=== PATIENT | male | born 1945 | race Caucasian/White ===

== ENCOUNTER → 2016-06-17 | Outpatient (CLI) | payer OTHER ==
[~2016-06-17] MED LIST: ALBU1AER9 INH; ASPCH81X PO; ATOR-26 PO; CETI10CH PO; CITA10TA8 PO; CLBCRM30 EXT; CLOP1TAB15 PO; FLUT0.0529; METO50TA16 PO; NRV/5 PO; NTRGSL/4 UT; OMEP40CA PO; PRS5 PO; TAMS0.4C59 PO
--- NOTE | 2016-06-17 14:53 | DIAGNOSTIC IMAGING REPORT ---
KUB CLINICAL HISTORY: Ureteral calculus COMPARISON STUDY: 06/17/2015 FINDINGS: There is no pathologic bowel dilatation. There are surgical clips in the right upper quadrant consistent with a prior cholecystectomy. There are vascular calcifications located superior to the left kidney. There are no calcification suspicious for renal calculi. Pelvic basin calcifications remain unchanged the prior study, and likely represent phleboliths. IMPRESSION: 1. No evidence of pathologic bowel dilatation 2. No urinary tract calculi identified on conventional radiographic imaging Electronically signed by: Ankit Whipple M.D. 06/17/2016 2:51 PM
== END | disposition home or self-care (01) ==
LOC: C.RAD 14:36
PROVIDERS: ATTEND Urology
DX: N20.1 Calculus of ureter (principal)

== ENCOUNTER 2020-03-23 15:05 | Inpatient (IN) ==
[2020-03-23] MEDS ORDERED: ONDANSETRON INJ 2 MG/ML 2 ML VIAL IV STA (15:27)
[2020-03-23] MEDS ORDERED: fentaNYL citrate 100 MCG/2 ML VIAL IV PRN (15:27)
[2020-03-23] MEDS ORDERED: SODIUM CHLORIDE 0.9% 1000ML 1,000 ML IV SCH (15:30)
--- NOTE | 2020-03-23 15:46 | Emergency Department Note ---
Impression & Plan Acute pancreatitis, Abdominal pain, acute, epigastric ED Provider Note NAME: MONTEZ HAYNES AGE: 74 SEX: M : 1945 ARRIVES VIA: Walk-In INFORMANT: Patient, ED PROVIDER(S): Gael Gallegos DO CHIEF COMPLAINT: Abdominal pain HPI: The patient is a 74-year-old male who presented to the emergency department for an evaluation of left-sided abdominal pain. The patient describes left sided abdominal pain which goes into his left flank and into his left lower quadrant. He also has pain into his prostate. He denies having any dysuria or frequency. He is noticed no hematuria. He does have a history of kidney stones but states the pain was different. He denies having any fever nausea or vomiting. He has had no diarrhea. He states the pain began last evening abruptly. He states he did not see his primary care physician or contact his primary care physician for this pain. The patient tried [id number] pain medication last evening without relief. He is never had a history of diverticulitis. He notices no chest pain or difficulty breathing. ROS: See above HPI for pertinent positives & negatives. A total of 10 systems reviewed and were otherwise negative. PAST MEDICAL HISTORY: See Below PAST SURGICAL HISTORY: See Below FAMILY HISTORY: See Below SOCIAL HISTORY: See Below HOME MEDICATIONS: See Below ALLERGIES: See Below VITALS: See Below PHYSICAL EXAMINATION: GENERAL: Patient is awake alert in no acute distress patient is resting comfortably and showing no signs of anxiety EYES: The conjunctivae are clear. The pupils are round and reactive. EARS, NOSE, MOUTH AND THROAT: The nose is without any evidence of any deformity. Mucous membranes are moist. Tongue is midline. NECK: The neck is nontender and supple. RESPIRATORY: Normal respiratory effort is noted there is no evidence of wheezing rhonchi or rales CARDIOVASCULAR: Regular rate and rhythm noted there no murmurs rubs or gallops normal S1 normal S2. GASTROINTESTINAL: The abdomen is soft and moderately distended. There is left- sided tenderness to palpation but no guarding or rigidity. BACK: No midline tenderness or or step-off noted range of motion in flexion extension as well as rotation no signs of muscle spasm noted MUSCULOSKELETAL/EXTREMITIES: There is no evidence of gross deformity full range of motion is noted in the hips and shoulders. SKIN: There is no obvious evidence of any rash. There are no petechiae, pallor or cyanosis noted. NEUROLOGIC: Patient is awake alert and oriented x3 strength is symmetric patellar reflexes are 2+ bilaterally MEDICAL DECISION MAKING: The patient is a 74-year-old male who denies any current alcohol use who prese nted to the emergency department for an evaluation of abdominal pain. The patient had left-sided abdominal pain initially. The patient was found to have epigastric pain on subsequent reevaluation. I discussed the patient's laboratory and radiographic studies with him. He was found to have an elevated lipase as well as a CAT scan consistent with pancreatitis. He did have a low- grade fever. The patient was reevaluated multiple times. [facility] have agreed to evaluate the patient in the emergency department for further management and disposition. Triage Nursing notes reviewed. Prior medical records reviewed Vital Signs: reviewed and remarkable for elevated blood pressure and low-grade fever. Differential diagnosis: Appendicitis, testicular torsion, infections, diverticulitis, UTI, obstruction, mesenteric ischemia, aortic pathology, inflammatory bowel disease, renal colic, PUD, pancreatitis, biliary pathology, hernia, volvulus, constipation, as well as other pathologies. ER treatment provided: See below Diagnostics interpreted by me: ECG: none Cardiac Monitoring: An order was placed for continuous cardiac monitoring. The monitor shows a rate of 70 bpm with sinus rhythm. Laboratory studies: As stated above and show below. Imaging studies: See below Consultation(s): 1800: I discussed this case with Dr. Moulton who is [facility] She will evaluate the patient in the emergency department for further management and disposition. Past Med/Surg History Medical History Acid reflux Anxiety and depression CAD in [place] artery Colitis DIETARY CONTROLLED Dyslipidemia, goal LDL below 70 Hiatal hernia History of kidney stones HTN, goal below 130/80 Myocardial infarction Rotator cuff dysfunction LEFT/ OLD INJURY Seasonal allergies Sleep apnea CPAP SOB (shortness of breath) on exertion PT REPORTS CARDIO IS AWARE ST elevation (STEMI) myocardial infarction APR 2018 - "ANGIOPLASTY" - DENIES STENT INSERTION ([facility]) Surgical History History of angioplasty History of colonoscopy History of hemorrhoidectomy History of laparoscopic cholecystectomy History of reduction of closed fracture LEFT ARM History of right cataract extraction S/P cardiac catheterization Myocardial infarction 2001, with PCI of circumflex. Cardiac catheterization 2003 demonstrating patent circumflex stent. Catheterization April 2013 with bare-metal stenting to the proximal and mid right coronary artery. Catheterization 2015 demonstrating patent stents and moderate nonobstructive CAD. Family History Brother CAD in [place] artery Coronary artery bypass grafting x4 at age 68 Mother CAD in [place] artery Social History Smoking Status: Former smoker Second Hand Exposure: No; Hx Alcohol Use: Yes Alcohol type: wine Hx Substance Use: No Preferred Language: Bolivian Communication Ability: Effective Insurance Loss Assessor Required: No Beliefs That Will Affect Care: None Current Living Situation: Alone Feels Safe at Home: Yes Assistive Devices: Glasses Allergies Allergies Allergy/AdvReac Type Severity Reaction Status Date / Time Iodinated Contrast Media Allergy Mild "IVP DYE" Verified 08/16/19 20:41 HIVES Home Meds Home Medications Medication Instructions Recorded Confirmed albuterol sulfate 2 puff INHALATION UD PRN 05/01/18 08/16/19 amlodipine 5 mg PO QAM 05/01/18 08/16/19 atorvastatin 80 mg PO QAM 05/01/18 08/16/19 cetirizine [Zyrtec] 10 mg PO DAILY 05/01/18 08/16/19 finasteride 5 mg PO QAM 05/01/18 08/16/19 nitroglycerin 0.4 mg SUBLINGUAL UD PRN 05/01/18 08/16/19 pantoprazole 40 mg PO QAM 05/01/18 08/16/19 Centrum Silver Men 1 tab PO DAILY 03/20/19 08/16/19 colestipol 1 g PO UD PRN 03/20/19 08/16/19 citalopram 20 mg PO DAILY 08/16/19 08/16/19 lisinopril 10 mg PO DAILY 08/16/19 08/16/19 metoprolol succinate 25 mg PO BID 08/16/19 08/16/19 pantoprazole 40 mg PO DAILY 08/16/19 08/16/19 Previous Rx's Medication Instructions Recorded aspirin [Ecotrin Low Strength] 81 mg PO QAM #30 tab 05/04/18 ondansetron 4 mg PO Q6H PRN #14 tab 08/16/19 Results & Data (ED) Vital Signs Vital Signs - 24 hr 03/23/20 15:20 03/23/20 16:30 03/23/20 16:45 Temperature 37.7 C H Temperature Source Oral Pulse Rate 65 60 62 Pulse Rate from SpO2 Sensor 60 61 Respiratory Rate 20 23 24 Blood Pressure 177/97 H Blood Pressure Mean 123 Pulse Oximetry 96 95 97 Oxygen Delivery Method Room Air Sepsis Recent Fever Within 48 Hours No Sepsis New/Unexplained Change in Mental Status No Sepsis Action Taken by Nursing No Action Required 03/23/20 17:01 03/23/20 17:34 Temperature Temperature Source Pulse Rate 61 Pulse Rate from SpO2 Sensor 61 67 Respiratory Rate 21 Blood Pressure Blood Pressure Mean Pulse Oximetry 97 96 Oxygen Delivery Method Sepsis Recent Fever Within 48 Hours Sepsis New/Unexplained Change in Mental Status Sepsis Action Taken by Half-Way Medications Current Medication List: was personally reviewed by me Laboratory Data Attestation: I reviewed the patient's lab results. Result diagrams: 03/23/20 15:39 03/23/20 15:39 Lab Results 03/23/20 03/23/20 03/23/20 Range/Units 15:39 15:39 15:40 WBC 12.91 H (4.8-10.8) K/uL RBC 5.17 (4.7-6.1) M/uL Hgb 16.7 (14.0-18.0) g/dL Hct 47.0 (42-52) % MCV 90.9 (80-100) fL MCH 32.3 (25-34) pg MCHC 35.5 (32-36) g/dL RDW Std Deviation 42.7 (36.4-46.3) fL RDW Coeff of [place] 12.9 (11.5-14.5) % Plt Count 240 (130-400) K/uL MPV 10.1 (7.4-10.4) fL Immature Gran % (Auto) 0.2 % Neut % (Auto) 79.7 % Lymph % (Auto) 11.5 % [place] % (Auto) 6.7 % Eos % (Auto) 1.7 % Baso % (Auto) 0.2 % Neut # (Auto) 10.28 H (1.4-6.5) K/uL Lymph # (Auto) 1.49 (1.2-3.4) K/uL [place] # (Auto) 0.86 H (0.11-0.59) K/uL Eos # (Auto) 0.22 (0-0.5) K/uL Baso # (Auto) 0.03 (0-0.2) K/uL Immature Gran # (Auto) 0.03 H (0.00-0.02) K/uL Sodium 137 (136-145) mmol/L Potassium 4.1 (3.5-5.1) mmol/L Chloride 107 (98-107) mmol/L Carbon Dioxide 25 (21-32) mmol/L Anion Gap 5.0 (3-11) BUN 11 (7-18) mg/dl Creatinine 1.38 (0.6-1.4) mg/dl Est Cr Clr Drug Dosing 56.2 ml/min Est GFR ( Amer) 58.8 Est GFR (Non-Af Amer) 50.7 BUN/Creatinine Ratio 8.3 L (10-20) Glucose 131 H (70-99) mg/dl Calcium 9.6 (8.5-10.1) mg/dl Total Bilirubin 1.1 H (0.2-1) mg/dl AST 22 (15-37) U/L ALT 36 (12-78) U/L Alkaline Phosphatase 80 (45-117) U/L Total Protein 7.9 (6.4-8.2) gm/dl Albumin 4.2 (3.4-5.0) gm/dl Globulin 3.7 (2.5-4.0) gm/dl Albumin/Globulin Ratio 1.1 (0.9-2) Lipase 982 H (73-393) U/L Urine Color Dark Yellow Urine Appearance Clear (Clear) Urine pH 6.0 (4.5-7.5) Ur Specific [place] 1.020 (1.000-1.030) Urine Protein Trace H (Negative) Urine Glucose (UA) Negative (Negative) Urine Ketones Negative (Negative) Urine Blood Negative (Negative) Urine Nitrite Negative (Negative) Urine Bilirubin Negative (Negative) Urine Urobilinogen Negative (Negative) Ur Leukocyte Esterase Negative (Negative) Urine WBC (Auto) 1-5 (0-5) /hpf Urine RBC (Auto) 0-4 (0-4) /hpf U Hyaline Cast (Auto) 1-5 (0-5) /lpf U Epithel Cells (Auto) 5-10 H (0-5) /lpf Urine Bacteria (Auto) Negative (Negative) Administered Medications Fentanyl Citrate (Fentanyl Citrate 100 Mcg/2 Ml Vial) 50 mcg IV Q15M PRN PRN Reason: Pain Stop: 04/06/20 15:26 Last Admin: 03/23/20 15:39 Dose: 50 mcg Documented by: [id number] Discontinued Medications Sodium Chloride (Nss 1000ml) 1,000 mls @ 999 mls/hr IV .Q1H1M JAX Stop: 03/23/20 16:30 Last Infusion: 03/23/20 16:39 Dose: 0 mls/hr Documented by: [id number] Admin: 03/23/20 15:38 Dose: 999 mls/hr Documented by: [id number] Ondansetron HCl (Ondansetron Inj 2 Mg/Ml 2 Ml Vial) 4 mg IV NOW STA Stop: 03/23/20 15:28 Last Admin: 03/23/20 15:41 Dose: 4 mg Documented by: [id number] Imaging Data Radiologist's Impression: Patient: MONTEZ HAYNES Admit Date: 03/23/20 MR#: [id number] Address1: [facility] MIGUEL ÁNGEL MANCIA Acct ID:[id number] Address2: Date: 1945 [facility] Zip: [place] [id number] Age: 74 Location: ED Sex: M Room/Bed: Att Phy: Diagnosis: ABDOMINAL PAIN, BELCHING, PAIN AROUND LT SIDE Monica Phy: Brent Comer DO Service Date: 03/23/20 Fam Phy: Interpreting Phy: Abdirahman Peralta MD Admit Phy: Ordering Phy: Gael Gallegos DO cc: ~ CT OF THE ABDOMEN AND PELVIS WITHOUT CONTRAST CLINICAL HISTORY: Left flank pain. COMPARISON STUDY: CT of the abdomen and pelvis December 07, 2017. KUB May 03, 2018. TECHNIQUE: Axial images of the abdomen and pelvis were obtained without IV contrast. Images were reviewed in the axial, sagittal, and coronal planes. Automated exposure control was utilized for the study. A dose lowering technique was utilized adhering to the principles of ALARA. FINDINGS: Imaged portions of the lower chest demonstrate suspected old infarct within the free wall of the left ventricle. Subpleural reticulation and cystic change within the lung bases is noted. No pneumatosis, free air or portal venous gas is present. A 1.9 cm lateral segment hepatic cyst is unchanged. Mild biliary ductal dilatation is unchanged following cholecystectomy. Unenhanced images of the spleen, adrenal glands and left kidney are unremarkable. Several small right renal calculi measure up to 3 mm. There are no ureteral calculi. There is mild to moderate infiltration centered on the pancreatic body and tail. No peripancreatic fluid collection is present. There is colonic diverticulosis without evidence for acute diverticulitis. No suspicious osseous lesions are noted. There is no lymphadenopathy. There is grade II anterolisthesis of L5 on S1 due to bilateral L5 pars defects. IMPRESSION: 1. Mild to moderate peripancreatic infiltration consistent with acute pancreatitis. 2. No change in mild biliary ductal dilatation, likely related to cholecystectomy. However, findings could be correlated with obstructive liver function test. 3. Right-sided nephrolithiasis. No ureteral calculi. 4. Colonic diverticulosis without evidence for acute diverticulitis. ACT 112: Negative or not required by law. Electronically signed by: Abdirahman Peralta M.D. 03/23/2020 5:31 PM Dictated: 03/23/201725 Transcribed: 03/23/201725 Blood Pressure Blood Pressure Findings: Elevated blood pressure Blood Pressure Disposition: further management by hospitalist Discharge Plan Visit Data Chief Complaint: Abdominal Pain Stated Complaint: ABDOMINAL PAIN, BELCHING ED Provider: Gael Gallegos Discharge Problem: Acute pancreatitis, Abdominal pain, acute, epigastric Patient Disposition: Being Evaluated by Hospitalist Condition: Good Forms Stand Alone Forms: My [facility] Prescriptions Prescriptions: No Action atorvastatin 80 mg tablet 80 mg PO QAM RF: 0 amlodipine 5 mg tablet 5 mg PO QAM RF: 0 pantoprazole 40 mg tablet,delayed release (DR/EC) 40 mg PO QAM RF: 0 nitroglycerin 0.4 mg tablet, sublingual 0.4 mg Sublingual UD PRN (Reason: Chest Pain) RF: 0 finasteride 5 mg tablet 5 mg PO QAM RF: 0 cetirizine [Zyrtec] 10 mg Tablet 10 mg PO DAILY RF: 0 albuterol sulfate 90 mcg/actuation Hfa Aerosol Inhaler 2 puff INHALATION UD PRN (Reason: Shortness Of Breath Or Wheezing) RF: 0 aspirin [Ecotrin Low Strength] 81 mg Tablet,Delayed Release (Dr/Ec) 81 mg PO QAM Qty: 30 RF: 2 Centrum Silver Men 300-600-300 mcg Tablet 1 tab PO DAILY RF: 0 colestipol 1 gram Tablet 1 g PO UD PRN (Reason: COLITIS FLARE UP) RF: 0 citalopram 20 mg tablet 20 mg PO DAILY RF: 0 pantoprazole 40 mg tablet,delayed release (DR/EC) 40 mg PO DAILY RF: 0 lisinopril 10 mg tablet 10 mg PO DAILY RF: 0 metoprolol succinate 25 mg tablet extended release 24 hr 25 mg PO BID RF: 0 ondansetron 4 mg tablet,disintegrating 4 mg PO Q6H PRN (Reason: nausea and vomiting) Qty: 14 RF: 0 Referrals Referrals: Brent Comer DO [Primary Care Provider] - Discharge Problem: Acute pancreatitis Qualifiers: Pancreatitis type: unspecified pancreatitis type Acute pancreatitis complication: unspecified Qualified Code(s): K85.90 - Acute pancreatitis without necrosis or infection, unspecified
[2020-03-23 15:54] LABS: Basophils # (auto) 0.03 K/uL (0-0.2); Basophils % (auto) 0.2 %; Eosinophils # (auto) 0.22 K/uL (0-0.5); Eosinophils % (auto) 1.7 %; Hemoglobin 16.7 g/dL (14.0-18.0); Immature Granulocytes # (auto) 0.03 K/uL (0.00-0.02); Immature Granulocytes % (auto) 0.2 %; Lymphocytes # (auto) 1.49 K/uL (1.2-3.4); Lymphocytes % (auto) 11.5 %; Mean Corpuscular Hemoglobin 32.3 pg (25-34); Mean Corpuscular Hgb Conc 35.5 g/dL (32-36); Mean Corpuscular Volume 90.9 fL (80-100); Mean Platelet Volume 10.1 fL (7.4-10.4); Monocytes # (auto) 0.86 K/uL (0.11-0.59); Monocytes % (auto) 6.7 %; Neutrophils # (auto) 10.28 K/uL (1.4-6.5); Neutrophils % (auto) 79.7 %; Platelet Count 240 K/uL (130-400); RDW Coefficient of Variation 12.9 % (11.5-14.5); RDW Standard Deviation 42.7 fL (36.4-46.3); Red Blood Count 5.17 M/uL (4.7-6.1); White Blood Count 12.91 K/uL (4.8-10.8)
[2020-03-23 15:55] LABS: Appearance Urine Clear (Clear); Bacteria Urine Automated Negative (Negative); Bilirubin Urine Negative (Negative); Blood Urine Negative (Negative); Color Urine Dark Yellow; Glucose Urine UA Negative (Negative); Ketones Urine Negative (Negative); Leukocyte Esterase Urine Negative (Negative); Nitrite Urine Negative (Negative); Protein Urine Trace (Negative); RBC Urine Automated 0-4 /hpf (0-4); Urobilinogen Urine Negative (Negative)
[2020-03-23 16:15] LABS: Albumin Level 4.2 gm/dl (3.4-5.0); BUN Creatinine Ratio 8.3 (10-20); Calcium 9.6 mg/dl (8.5-10.1); Creatinine Clr Calc Pharmacy 56.2 ml/min; Est GFR (African American) 58.8; Est GFR (Non-African American) 50.7; Potassium 4.1 mmol/L (3.5-5.1)
[2020-03-23 16:18] LABS: Albumin Globulin Ratio 1.1 (0.9-2); Bilirubin,Total 1.1 mg/dl (0.2-1); Globulin 3.7 gm/dl (2.5-4.0); Total Protein 7.9 gm/dl (6.4-8.2)
--- NOTE | 2020-03-23 17:32 | CT Scan Report ---
CT OF THE ABDOMEN AND PELVIS WITHOUT CONTRAST CLINICAL HISTORY: Left flank pain. COMPARISON STUDY: CT of the abdomen and pelvis December 07, 2017. KUB May 03, 2018. TECHNIQUE: Axial images of the abdomen and pelvis were obtained without IV contrast. Images were revi ewed in the axial, sagittal, and coronal planes. Automated exposure control was utilized for the damion dy. A dose lowering technique was utilized adhering to the principles of ALARA. FINDINGS: Imaged portions of the lower chest demonstrate suspected old infarct within the free wall o f the left ventricle. Subpleural reticulation and cystic change within the lung bases is noted. No pneumatosis, free air or portal venous gas is present. A 1.9 cm lateral segment hepatic cyst is un changed. Mild biliary ductal dilatation is unchanged following cholecystectomy. Unenhanced images of the spleen, adrenal glands and left kidney are unremarkable. Several small right renal calculi measur e up to 3 mm. There are no ureteral calculi. There is mild to moderate infiltration centered on the p ancreatic body and tail. No peripancreatic fluid collection is present. There is colonic diverticulos is without evidence for acute diverticulitis. No suspicious osseous lesions are noted. There is no ly mphadenopathy. There is grade II anterolisthesis of L5 on S1 due to bilateral L5 pars defects. IMPRESSION: 1. Mild to moderate peripancreatic infiltration consistent with acute pancreatitis. 2. No change in mild biliary ductal dilatation, likely related to cholecystectomy. However, findings could be correlated with obstructive liver function test. 3. Right-sided nephrolithiasis. No ureteral calculi. 4. Colonic diverticulosis without evidence for acute diverticulitis. ACT 112: Negative or not required by law. Electronically signed by: Abdirahman Peralta M.D. 03/23/2020 5:31 PM
[2020-03-23] MEDS ORDERED: PANTOprazole 40 MG in SYRINGE 0 ML IV ONE (17:48)
[2020-03-23] MEDS ORDERED: FAMOTIDINE 20MG IV PUSH 20 MG/5 ML SYR IV STA (17:48)
[2020-03-23] MEDS ORDERED: MoRPHine SULFATE 4 MG/ML 1 ML CARP\\VIAL IV PRN ×2 (17:59→20:28)
[2020-03-23] MEDS ORDERED: MAGNESIUM HYDROXIDE SUSP 30 ML UDC PO PRN (18:02)
[2020-03-23] MEDS ORDERED: ONDANSETRON INJ 2 MG/ML 2 ML VIAL IV PRN (18:02)
[2020-03-23] MEDS ORDERED: ACETAMINOPHEN 325 MG TAB PO PRN (18:02)
[2020-03-23] MEDS ORDERED: ALUMINUM/MAGNESIUM SUSP 30 ML UDC PO PRN (18:02)
--- NOTE | 2020-03-23 18:13 | History & Physical Report ---
Date of Service March 23, 2020 Assessment & Plan (1) Acute pancreatitis: admitted with acute epigastric abdominal pain associated with nausea hx of cholecystectomy CT abdomen /pelvis as above bowel rest , IV hydration , pain control LFT's wnl repeat lipase level in am MRCP : no evidence of choledocholithiasis /peripancreatic infiltration and fluid consistent with acute pancreatitis GI consult requested (2) Abdominal pain, acute, epigastric: due to above Continue IV hydration, n.p.o. except for ice chips and sips, IV morphine as needed for severe pain (3) Hypertension: stable cont beta santiago (4) CAD (coronary artery disease): no complain of chest pain or sob cont out pt meds (5) HLD (hyperlipidemia): hold statin for ac pancreatitis History of triglyceridemia-can cause acute pancreatitis Check fasting lipid panel in a.m. CODE STATUS : FULL CODE DR REGGIE YU WILL FOLLOW THIS PATIENT FROM TOMORROW 03/24/2020 History of Present Illness Chief Complaint: Pain in abdomen Primary Care Provider: Brent Comer, This is 74-year-old male with past medical history GERD hyperlipidemia coronary artery disease hypertension, came to ER with complaint of severe epigastric, and left lower quadrant abdominal pain started since yesterday. Patient mentioned initially the pain was 9 out of 10, sharp going to back, associated with nausea, did not had any vomiting He was also experiencing severe acid reflux, heartburn symptoms, Took Protonix, with no improvement of pain, had loose bowel movement yesterday none today No fever or chills, no dysuria no urinary symptoms, The ER labs showed elevated lipase, CT abdomen pelvis showed evidence of acute pancreatitis Allergies Allergy/AdvReac Type Severity Reaction Status Date / Time Iodinated Contrast Media Allergy Mild "IVP DYE" Verified 03/23/20 17:59 HIVES Home Medications Home Medications Medication Instructions Recorded Confirmed Type albuterol sulfate 2 puff INHALATION UD PRN 05/01/18 03/23/20 History amlodipine 5 mg PO QAM 05/01/18 03/23/20 History atorvastatin 80 mg PO QAM 05/01/18 03/23/20 History cetirizine [Zyrtec] 10 mg PO DAILY 05/01/18 03/23/20 History finasteride 5 mg PO QAM 05/01/18 03/23/20 History nitroglycerin 0.4 mg SUBLINGUAL UD PRN 05/01/18 03/23/20 History aspirin [Ecotrin Low Strength] 81 mg PO QAM #30 tab 05/04/18 03/23/20 Rx Centrum Silver Men 1 tab PO DAILY 03/20/19 03/23/20 History citalopram 20 mg PO DAILY 08/16/19 03/23/20 History lisinopril 10 mg PO DAILY 08/16/19 03/23/20 History metoprolol succinate 25 mg PO BID 08/16/19 03/23/20 History pantoprazole 40 mg PO DAILY 08/16/19 03/23/20 History Prevagen 1 tab PO DAILY 03/23/20 03/23/20 History cholecalciferol (vitamin D3) 25 mcg PO DAILY 03/23/20 03/23/20 History cinnamon bark [Cinnamon] 500 mg PO DAILY 03/23/20 03/23/20 History coenzyme Q10 [CoQ-10] 100 mg PO DAILY 03/23/20 03/23/20 History ferrous sulfate [iron] 325 mg PO DAILY 03/23/20 03/23/20 History ibuprofen [Advil] 400 mg PO Q6H PRN 03/23/20 03/23/20 History metformin 250 mg PO BID 03/23/20 03/23/20 History Past Med/Surg History Medical History Acid reflux Anxiety and depression CAD in [place] artery Colitis DIETARY CONTROLLED Dyslipidemia, goal LDL below 70 Hiatal hernia History of kidney stones HTN, goal below 130/80 Myocardial infarction Rotator cuff dysfunction LEFT/ OLD INJURY Seasonal allergies Sleep apnea CPAP SOB (shortness of breath) on exertion PT REPORTS CARDIO IS AWARE ST elevation (STEMI) myocardial infarction APR 2018 - "ANGIOPLASTY" - DENIES STENT INSERTION ([facility]) Surgical History History of angioplasty History of colonoscopy History of hemorrhoidectomy History of laparoscopic cholecystectomy History of reduction of closed fracture LEFT ARM History of right cataract extraction S/P cardiac catheterization Myocardial infarction 2001, with PCI of circumflex. Cardiac catheterization 2003 demonstrating patent circumflex stent. Catheterization April 2013 with bare-metal stenting to the proximal and mid right coronary artery. Catheterization 2015 demonstrating patent stents and moderate nonobstructive CAD. Family History Brother CAD in [place] artery Coronary artery bypass grafting x4 at age 68 Mother CAD in [place] artery Social History Smoking Status: Former smoker Second Hand Exposure: No; Hx Alcohol Use: Yes Alcohol type: wine Hx Substance Use: No Preferred Language: Indonesian Communication Ability: Effective Manager Medicaid Required: No Beliefs That Will Affect Care: None Current Living Situation: Alone Feels Safe at Home: Yes Assistive Devices: None Review of Systems Review of Systems: All systems reviewed & are unremarkable except as noted in HPI & below Constitutional: + anorexia; no fever and no chills Gastrointestinal: + abdominal pain, + belching, + bloating, + heartburn, + nausea and + diarrhea/loose stools; no vomiting Physical Exam Constitutional: WD/WN, vitals as above Eyes: PERRL, conjunctivae normal, anicteric sclerae ENMT: external ear and nose normal, oropharynx normal Neck: trachea midline, no thyromegaly Respiratory: normal respiratory effort, lungs clear to auscultation Cardiovascular: RRR, no murmur, no edema Gastrointestinal (Abdomen): Inspection/Auscultation: normal bowel sounds Percussion/Palpation: + abdomen tender (Epigastric, and lower abdomen) and abdomen soft; no guarding Musculoskeletal: no cyanosis or clubbing, extremities motor strength 5/5 Skin: no rashes, warm and dry Neurologic: PERRL, EOMI, accommodation nl, no face palsy, no dysarthria Psychiatric: A+Ox3, euthymic affect Results & Data Results & Data ([facility]) Vital Signs (Past 12 Hours) Vital Signs Temp Pulse Resp BP Pulse Ox 03/23/20 17:34 96 03/23/20 17:01 61 21 97 03/23/20 16:45 62 24 97 03/23/20 16:30 60 23 95 03/23/20 15:20 37.7 C H 65 20 177/97 H 96 Diagnostic Findings MRCP of abdomen: IMPRESSION: 1. No common bile duct calculi identified. Mild biliary ductal dilatation, similar to CT of December 07, 2017. This is likely related to previous cholecystectomy although correlation with liver function tests is recommended. 2. Peripancreatic infiltration and fluid consistent with acute pancreatitis. CT abdomen pelvis noncontrast: IMPRESSION: 1. Mild to moderate peripancreatic infiltration consistent with acute pancreatitis. 2. No change in mild biliary ductal dilatation, likely related to cholecystectomy. However, findings could be correlated with obstructive liver function test. 3. Right-sided nephrolithiasis. No ureteral calculi. 4. Colonic diverticulosis without evidence for acute diverticulitis. (1) CAD (coronary artery disease) Associated angina: with other forms of angina Coronary Disease-Associated Artery/Lesion type: [place] artery [place] vs. transplanted heart: [place] heart Qualified Code(s): I25.118 - Atherosclerotic heart disease of [place] coronary artery with other forms of angina pectoris (2) Hypertension Hypertension type: essential hypertension Qualified Code(s): I10 - Essential (primary) hypertension (3) Acute pancreatitis Acute pancreatitis complication: unspecified Pancreatitis type: unspecified pancreatitis type Qualified Code(s): K85.90 - Acute pancreatitis without necrosis or infection, unspecified
--- NOTE | 2020-03-23 20:07 | Magnetic Resonance Report ---
MRCP CLINICAL HISTORY: pancreatitis /choledocholithiasis TECHNIQUE: Utilizing a 1.5 Esther magnet and dedicated coil, multiplanar, multiecho imaging of the [facility] er abdomen was performed utilizing heavily T2 weighted pulsing sequences without IV contrast. COMPARISON STUDY: CT of the abdomen and pelvis December 07, 2017 and March 23, 2020 at 4:57 PM. FINDINGS: Mild biliary ductal dilatation is similar to CT of December 07, 2017. The gallbladder is surgic ally absent. No common bile duct calculi are identified. The course and caliber of the main pancreati c duct is normal. A small amount of peripancreatic infiltration and fluid adjacent to the pancreatic body and tail is noted. No peripancreatic fluid collection is present. Lateral segment hepatic cyst i s noted. A few suspected right renal cysts are present. There is no hydronephrosis. Unenhanced images of the spleen and adrenal glands are unremarkable. The caliber of visualized small and large bowel a re normal. There is no abdominal lymphadenopathy. IMPRESSION: 1. No common bile duct calculi identified. Mild biliary ductal dilatation, similar to CT of December 07, 2017. This is likely related to previous cholecystectomy although correlation with liver function dinesh ts is recommended. 2. Peripancreatic infiltration and fluid consistent with acute pancreatitis. ACT 112: Negative or not required by law. Electronically signed by: Abdirahman Peralta M.D. 03/23/2020 8:06 PM
[2020-03-23] MEDS ORDERED: NITROGLYCERIN SL 0.4 MG/TAB TAB SL PRN (20:28)
[2020-03-23] MEDS ORDERED: GLUCOSE 40% GEL 15 GM TUBE PO PRN (20:28)
[2020-03-23] MEDS ORDERED: DEXTROSE 50% 50 ML SYRINGE IV PRN (20:28)
[2020-03-23] MEDS ORDERED: GLUCOSE 10 TABS/TUBE PO PRN (20:28)
[2020-03-23] MEDS ORDERED: CARBOHYDRATES FOR HYPOGLYCEMIA PO PRN (20:28)
[2020-03-23] MEDS ORDERED: GLUCAGON FOR INJ 1 MG VIAL SQ PRN (20:28)
[2020-03-23] MEDS: SODIUM CHLORIDE 0.9% 1000ML 1,000 ML IV SCH (20:44)
[2020-03-23] MEDS ORDERED: INSULIN ASPART 100 UNITS/ML 3 ML PEN SC SCH (21:00)
[2020-03-23] MEDS: MoRPHine SULFATE 2 MG/ML CARP IV PRN (21:14)
[2020-03-23] MEDS: METOPROLOL SUCC 25MG EXT REL TAB PO SCH (21:14)
[2020-03-24] MEDS: INSULIN ASPART 100 UNITS/ML 3 ML PEN SC SCH ×5 (00:01→21:35)
[2020-03-24] MEDS: MoRPHine SULFATE 2 MG/ML CARP IV PRN ×2 (00:33→08:50)
[2020-03-24] MEDS: SODIUM CHLORIDE 0.9% 1000ML 1,000 ML IV SCH ×3 (03:08→17:43)
[2020-03-24 07:59] LABS: Hematocrit (blood only) 43.5 % (42-52); Hemoglobin 15.1 g/dL (14.0-18.0); Mean Corpuscular Hemoglobin 31.9 pg (25-34); Mean Corpuscular Hgb Conc 34.7 g/dL (32-36); Mean Platelet Volume 9.9 fL (7.4-10.4); Platelet Count 176 K/uL (130-400); RDW Coefficient of Variation 12.9 % (11.5-14.5); RDW Standard Deviation 43.3 fL (36.4-46.3); Red Blood Count 4.73 M/uL (4.7-6.1)
[2020-03-24 08:30] LABS: Albumin Level 3.3 gm/dl (3.4-5.0); BUN Creatinine Ratio 9.3 (10-20); Calcium 9.1 mg/dl (8.5-10.1); Creatinine Clr Calc Pharmacy 63.6 ml/min; Est GFR (African American) 68.9; Est GFR (Non-African American) 59.5; Potassium 3.9 mmol/L (3.5-5.1)
[2020-03-24 08:40] LABS: Bilirubin,Total 1.3 mg/dl (0.2-1); Globulin 3.2 gm/dl (2.5-4.0); Total Protein 6.5 gm/dl (6.4-8.2)
[2020-03-24] MEDS: PANTOprazole 40 MG TAB PO SCH (08:50)
[2020-03-24] MEDS: ASPIRIN 81 MG ECTAB PO SCH (08:50)
[2020-03-24] MEDS: METOPROLOL SUCC 25MG EXT REL TAB PO SCH ×2 (08:50→21:35)
[2020-03-24] MEDS: amLODIPine BESYLATE 5 MG TAB PO SCH (08:50)
--- NOTE | 2020-03-24 12:22 | Hospitalist Progress Note ---
Date of Service March 24, 2020 Assessment & Plan (1) Acute pancreatitis: admitted with acute epigastric abdominal pain associated with nausea hx of cholecystectomy CT abdomen /pelvis obtained in ED bowel rest , IV hydration , pain control LFT's wnl Lipase 982, repeat lipase level in am much improved MRCP : no evidence of choledocholithiasis /peripancreatic infiltration and fluid consistent with acute pancreatitis GI consulted Clinically patient is feeling better, says that the pain is well controlled Denies any alcohol use or any new medication use (2) Abdominal pain, acute, epigastric: due to above Continue IV hydration, n.p.o. except for ice chips and sips, IV morphine as needed for severe pain We will start him on clear liquid diet, as tolerated (3) Hypertension: stable cont beta santiago (4) CAD (coronary artery disease): no complain of chest pain or sob cont out pt meds (5) HLD (hyperlipidemia): hold statin for ac pancreatitis History of triglyceridemia-can cause acute pancreatitis Check fasting lipid panel in a.m. Triglycerides 174, only mildly elevated CODE STATUS : FULL CODE Admission and Anticipated Discharge Date Admission Date: March 23, 2020 Subjective Patient is currently lying in bed in no acute distress. He denies any fevers, chills, chest pain, shortness of breath, nausea or vomiting. Says his abdominal pain is much improved now. He did receive IV morphine. His friend/neighbor is at the bedside. Review of Systems Review of Systems: All systems reviewed & are unremarkable except as noted in HPI & below Constitutional: no fever and no chills Respiratory: no cough and no dyspnea Cardiovascular: no chest pain and no palpitations Gastrointestinal: + abdominal pain (much improved); no nausea and no vomiting Physical Exam Physical Exam: Constitutional: Elderly male lying in bed, in no acute distress, WD/WN, vitals as above Eyes: PERRL, EOMI, conjunctivae normal, anicteric sclerae ENMT: external ear and nose normal, oropharynx normal Neck: trachea midline, no thyromegaly Respiratory: normal respiratory effort, lungs clear to auscultation Cardiovascular: RRR, no murmur, no edema Gastrointestinal (Abdomen): Inspection/Auscultation: normal bowel sounds Percussion/Palpation: + abdomen tender (mild Epigastric, and lower abdomen) and abdomen soft; no guarding Musculoskeletal: no cyanosis or clubbing, extremities motor strength 5/5 Skin: no rashes, warm and dry Neurologic: PERRL, EOMI, accommodation nl, no face palsy, no dysarthria Psychiatric: A+Ox3, euthymic affect Results & Data Results & Data ([facility]) Vital Signs (Past 12 Hours) Vital Signs Temp Pulse Pulse Resp BP Pulse Ox 03/24/20 11:12 36.7 C 52 L 18 164/83 H 95 03/24/20 08:49 70 03/24/20 07:45 58 L 03/24/20 07:25 37.6 C H 57 L 18 138/67 94 03/24/20 04:00 37.2 C 56 L 18 124/69 94 03/24/20 03:58 63 Laboratory Results 03/24/20 03/24/20 03/24/20 Range/Units 07:29 07:29 06:20 WBC 9.60 (4.8-10.8) K/uL RBC 4.73 (4.7-6.1) M/uL Hgb 15.1 (14.0-18.0) g/dL Hct 43.5 (42-52) % MCV 92.0 (80-100) fL MCH 31.9 (25-34) pg MCHC 34.7 (32-36) g/dL RDW Std Deviation 43.3 (36.4-46.3) fL RDW Coeff of [place] 12.9 (11.5-14.5) % Plt Count 176 (130-400) K/uL MPV 9.9 (7.4-10.4) fL Immature Gran % (Auto) % Neut % (Auto) % Lymph % (Auto) % [place] % (Auto) % Eos % (Auto) % Baso % (Auto) % Neut # (Auto) (1.4-6.5) K/uL Lymph # (Auto) (1.2-3.4) K/uL [place] # (Auto) (0.11-0.59) K/uL Eos # (Auto) (0-0.5) K/uL Baso # (Auto) (0-0.2) K/uL Immature Gran # (Auto) (0.00-0.02) K/uL Sodium 137 (136-145) mmol/L Potassium 3.9 (3.5-5.1) mmol/L Chloride 107 (98-107) mmol/L Carbon Dioxide 22 (21-32) mmol/L Anion Gap 8.0 (3-11) BUN 11 (7-18) mg/dl Creatinine 1.21 (0.6-1.4) mg/dl Est Cr Clr Drug Dosing 63.6 ml/min Est GFR ( Amer) 68.9 Est GFR (Non-Af Amer) 59.5 BUN/Creatinine Ratio 9.3 L (10-20) Glucose 134 H (70-99) mg/dl POC Glucose 124 H (70-99) mg/dl Calcium 9.1 (8.5-10.1) mg/dl Total Bilirubin 1.3 H (0.2-1) mg/dl AST 15 (15-37) U/L ALT 27 (12-78) U/L Alkaline Phosphatase 64 (45-117) U/L Total Protein 6.5 (6.4-8.2) gm/dl Albumin 3.3 L (3.4-5.0) gm/dl Globulin 3.2 (2.5-4.0) gm/dl Albumin/Globulin Ratio 1.0 (0.9-2) Triglycerides 174 H (0-150) mg/dl Cholesterol 118 (0-200) mg/dl LDL Cholesterol, Calc 46 mg/dl VLDL Cholesterol, Calc 35 mg/dl HDL Cholesterol 37 mg/dl Cholesterol/HDL Ratio 3 Lipase 181 (73-393) U/L Urine Color Urine Appearance (Clear) Urine pH (4.5-7.5) Ur Specific [place] (1.000-1.030) Urine Protein (Negative) Urine Glucose (UA) (Negative) Urine Ketones (Negative) Urine Blood (Negative) Urine Nitrite (Negative) Urine Bilirubin (Negative) Urine Urobilinogen (Negative) Ur Leukocyte Esterase (Negative) Urine WBC (Auto) (0-5) /hpf Urine RBC (Auto) (0-4) /hpf U Hyaline Cast (Auto) (0-5) /lpf U Epithel Cells (Auto) (0-5) /lpf Urine Bacteria (Auto) (Negative) 03/24/20 03/23/20 03/23/20 Range/Units 00:00 20:20 15:40 WBC (4.8-10.8) K/uL RBC (4.7-6.1) M/uL Hgb (14.0-18.0) g/dL Hct (42-52) % MCV (80-100) fL MCH (25-34) pg MCHC (32-36) g/dL RDW Std Deviation (36.4-46.3) fL RDW Coeff of [place] (11.5-14.5) % Plt Count (130-400) K/uL MPV (7.4-10.4) fL Immature Gran % (Auto) % Neut % (Auto) % Lymph % (Auto) % [place] % (Auto) % Eos % (Auto) % Baso % (Auto) % Neut # (Auto) (1.4-6.5) K/uL Lymph # (Auto) (1.2-3.4) K/uL [place] # (Auto) (0.11-0.59) K/uL Eos # (Auto) (0-0.5) K/uL Baso # (Auto) (0-0.2) K/uL Immature Gran # (Auto) (0.00-0.02) K/uL Sodium (136-145) mmol/L Potassium (3.5-5.1) mmol/L Chloride (98-107) mmol/L Carbon Dioxide (21-32) mmol/L Anion Gap (3-11) BUN (7-18) mg/dl Creatinine (0.6-1.4) mg/dl Est Cr Clr Drug Dosing ml/min Est GFR ( Amer) Est GFR (Non-Af Amer) BUN/Creatinine Ratio (10-20) Glucose (70-99) mg/dl POC Glucose 146 H 136 H (70-99) mg/dl Calcium (8.5-10.1) mg/dl Total Bilirubin (0.2-1) mg/dl AST (15-37) U/L ALT (12-78) U/L Alkaline Phosphatase (45-117) U/L Total Protein (6.4-8.2) gm/dl Albumin (3.4-5.0) gm/dl Globulin (2.5-4.0) gm/dl Albumin/Globulin Ratio (0.9-2) Triglycerides (0-150) mg/dl Cholesterol (0-200) mg/dl LDL Cholesterol, Calc mg/dl VLDL Cholesterol, Calc mg/dl HDL Cholesterol mg/dl Cholesterol/HDL Ratio Lipase (73-393) U/L Urine Color Dark Yellow Urine Appearance Clear (Clear) Urine pH 6.0 (4.5-7.5) Ur Specific [place] 1.020 (1.000-1.030) Urine Protein Trace H (Negative) Urine Glucose (UA) Negative (Negative) Urine Ketones Negative (Negative) Urine Blood Negative (Negative) Urine Nitrite Negative (Negative) Urine Bilirubin Negative (Negative) Urine Urobilinogen Negative (Negative) Ur Leukocyte Esterase Negative (Negative) Urine WBC (Auto) 1-5 (0-5) /hpf Urine RBC (Auto) 0-4 (0-4) /hpf U Hyaline Cast (Auto) 1-5 (0-5) /lpf U Epithel Cells (Auto) 5-10 H (0-5) /lpf Urine Bacteria (Auto) Negative (Negative) 03/23/20 03/23/20 Range/Units 15:39 15:39 WBC 12.91 H (4.8-10.8) K/uL RBC 5.17 (4.7-6.1) M/uL Hgb 16.7 (14.0-18.0) g/dL Hct 47.0 (42-52) % MCV 90.9 (80-100) fL MCH 32.3 (25-34) pg MCHC 35.5 (32-36) g/dL RDW Std Deviation 42.7 (36.4-46.3) fL RDW Coeff of [place] 12.9 (11.5-14.5) % Plt Count 240 (130-400) K/uL MPV 10.1 (7.4-10.4) fL Immature Gran % (Auto) 0.2 % Neut % (Auto) 79.7 % Lymph % (Auto) 11.5 % [place] % (Auto) 6.7 % Eos % (Auto) 1.7 % Baso % (Auto) 0.2 % Neut # (Auto) 10.28 H (1.4-6.5) K/uL Lymph # (Auto) 1.49 (1.2-3.4) K/uL [place] # (Auto) 0.86 H (0.11-0.59) K/uL Eos # (Auto) 0.22 (0-0.5) K/uL Baso # (Auto) 0.03 (0-0.2) K/uL Immature Gran # (Auto) 0.03 H (0.00-0.02) K/uL Sodium 137 (136-145) mmol/L Potassium 4.1 (3.5-5.1) mmol/L Chloride 107 (98-107) mmol/L Carbon Dioxide 25 (21-32) mmol/L Anion Gap 5.0 (3-11) BUN 11 (7-18) mg/dl Creatinine 1.38 (0.6-1.4) mg/dl Est Cr Clr Drug Dosing 56.2 ml/min Est GFR ( Amer) 58.8 Est GFR (Non-Af Amer) 50.7 BUN/Creatinine Ratio 8.3 L (10-20) Glucose 131 H (70-99) mg/dl POC Glucose (70-99) mg/dl Calcium 9.6 (8.5-10.1) mg/dl Total Bilirubin 1.1 H (0.2-1) mg/dl AST 22 (15-37) U/L ALT 36 (12-78) U/L Alkaline Phosphatase 80 (45-117) U/L Total Protein 7.9 (6.4-8.2) gm/dl Albumin 4.2 (3.4-5.0) gm/dl Globulin 3.7 (2.5-4.0) gm/dl Albumin/Globulin Ratio 1.1 (0.9-2) Triglycerides (0-150) mg/dl Cholesterol (0-200) mg/dl LDL Cholesterol, Calc mg/dl VLDL Cholesterol, Calc mg/dl HDL Cholesterol mg/dl Cholesterol/HDL Ratio Lipase 982 H (73-393) U/L Urine Color Urine Appearance (Clear) Urine pH (4.5-7.5) Ur Specific [place] (1.000-1.030) Urine Protein (Negative) Urine Glucose (UA) (Negative) Urine Ketones (Negative) Urine Blood (Negative) Urine Nitrite (Negative) Urine Bilirubin (Negative) Urine Urobilinogen (Negative) Ur Leukocyte Esterase (Negative) Urine WBC (Auto) (0-5) /hpf Urine RBC (Auto) (0-4) /hpf U Hyaline Cast (Auto) (0-5) /lpf U Epithel Cells (Auto) (0-5) /lpf Urine Bacteria (Auto) (Negative) Medications Administered Current Inpatient Medications Acetaminophen (Acetaminophen 325 Mg Tab) 650 mg PO Q4H PRN PRN Reason: Pain or Fever Stop: 04/22/20 18:01 Al Hydrox/Mg Hydrox/Simethicone (Aluminum/Magnesium Susp 30 Ml Udc) 15 ml PO Q4H PRN PRN Reason: Dyspepsia Stop: 04/22/20 18:01 Amlodipine Besylate (Amlodipine Besylate 5 Mg Tab) 5 mg PO QAM JAX Stop: 04/23/20 08:59 Last Admin: 03/24/20 08:50 Dose: 5 mg Documented by: Aspirin (Aspirin 81 Mg Ectab) 81 mg PO DAILY JAX Stop: 04/23/20 08:59 Last Admin: 03/24/20 08:50 Dose: 81 mg Documented by: Dextrose (Dextrose 50% 50 Ml Syringe) 25 - 50 ml IV UD PRN; Protocol PRN Reason: Hypoglycemia Protocol Stop: 04/22/20 20:27 Fentanyl Citrate (Fentanyl Citrate 100 Mcg/2 Ml Vial) 50 mcg IV Q15M PRN PRN Reason: Pain Stop: 04/06/20 15:26 Last Admin: 03/23/20 15:39 Dose: 50 mcg Documented by: Glucagon (Glucagon For Inj 1 Mg Vial) 1 mg SQ UD PRN; Protocol PRN Reason: Hypoglycemia Protocol Stop: 04/22/20 20:27 Glucose (Glucose 10 Tabs/Tube) 4 - 8 tabs PO UD PRN; Protocol PRN Reason: Hypoglycemia Protocol Stop: 04/22/20 20:27 Glucose (Glucose 40% Gel 15 Gm Tube) 15 - 30 gm PO UD PRN; Protocol PRN Reason: Hypoglycemia Protocol Stop: 04/22/20 20:27 Sodium Chloride (Nss 1000ml) 1,000 mls @ 125 mls/hr IV .Q8H JAX Stop: 04/22/20 18:14 Last Admin: 03/24/20 10:05 Dose: 125 mls/hr Documented by: Insulin Aspart (Insulin Aspart 100 Units/Ml 3 Ml Pen) 0 units SC Q6 JAX Stop: 04/23/20 00:00 Last Admin: 03/24/20 06:18 Dose: Not Given Documented by: Magnesium Hydroxide (Magnesium Hydroxide Susp 30 Ml Udc) 30 ml PO Q12H PRN PRN Reason: Constipation Stop: 04/22/20 18:01 Metoprolol Succinate (Metoprolol Succ 25mg Ext Rel Tab) 25 mg PO BID JAX Stop: 04/22/20 20:59 Last Admin: 03/24/20 08:50 Dose: 25 mg Documented by: Miscellaneous (Carbohydrates For Hypoglycemia ) 15 - 30 gm PO UD PRN PRN Reason: Hypoglycemia Protocol Stop: 04/22/20 20:27 Morphine Sulfate (Morphine Sulfate 2 Mg/Ml Carp) 2 mg IV Q4 PRN PRN Reason: Pain Stop: 04/06/20 20:27 Last Admin: 03/24/20 08:50 Dose: 2 mg Documented by: Morphine Sulfate (Morphine Sulfate 4 Mg/Ml 1 Ml Carp\Vial) 4 mg IV Q4 PRN PRN Reason: severe pain Stop: 04/06/20 20:27 Nitroglycerin (Nitroglycerin Sl 0.4 Mg/Tab Tab) 0.4 mg SL UD PRN PRN Reason: Chest Pain Stop: 04/22/20 20:27 Ondansetron HCl (Ondansetron Inj 2 Mg/Ml 2 Ml Vial) 4 mg IV Q6H PRN PRN Reason: Nausea Stop: 04/22/20 18:01 Pantoprazole Sodium (Pantoprazole 40 Mg Tab) 40 mg PO DAILY [facility] Stop: 04/23/20 08:59 Last Admin: 03/24/20 08:50 Dose: 40 mg Documented by: (1) CAD (coronary artery disease) Associated angina: with other forms of angina Coronary Disease-Associated Artery/Lesion type: [place] artery [place] vs. transplanted heart: [place] heart Qualified Code(s): I25.118 - Atherosclerotic heart disease of [place] coronary artery with other forms of angina pectoris (2) Hypertension Hypertension type: essential hypertension Qualified Code(s): I10 - Essential (primary) hypertension (3) Acute pancreatitis Acute pancreatitis complication: unspecified Pancreatitis type: unspecified pancreatitis type Qualified Code(s): K85.90 - Acute pancreatitis without necrosis or infection, unspecified
[2020-03-24 13:00] LABS: Magnesium 1.8 mg/dl (1.8-2.4); Phosphorus 3.2 mg/dl (2.5-4.9)
--- NOTE | 2020-03-24 13:26 | Gastrointestinal Consultation ---
Date of Consultation March 24, 2020 Assessment & Plan (1) Acute pancreatitis: IVF, NPO until no need for IV narcotics. Pt states he is urinating normal colored urine. Thorp urine output is 0.5 ml/kg/hour or above to make sure pancreas not hyoperfused which increases risk of necrotizing pancreatitis. NO etiolgoy as present. Will have pharmacy run med list for possible etiology. Recommend outpt EUS of pancreas to look for etiology also. History of Present Illness Reason for Consultation: pancreatittis. Attending Physician: Dany Ridley MD History of Present Illness CC abd pain HPI Pt with acute onset of epigastric pain. He had elevated lipase of 982 on admit now normal and CT a/p c/w pancreaitis. MRCP bile duct dilatation no change from 2018. LFTS mild elevation TB 1.1 and 1.3 today but MRCP neg for bile duct obstruction. No ETOH use. NO history of pancreatitis. Trigyclerides only mildy elevated at 174. States his pain 10/10 at home and right now 2/10 but had some IV pain meds today (overall better). He states he has had EGD and colo in the past by DR Ragsdale. Allergies Allergy/AdvReac Type Severity Reaction Status Date / Time Iodinated Contrast Media Allergy Mild "IVP DYE" Verified 03/23/20 17:59 HIVES Home Medications Home Medications Medication Instructions Recorded Confirmed Type albuterol sulfate 2 puff INHALATION UD PRN 05/01/18 03/23/20 History amlodipine 5 mg PO QAM 05/01/18 03/23/20 History atorvastatin 80 mg PO QAM 05/01/18 03/23/20 History cetirizine [Zyrtec] 10 mg PO DAILY 05/01/18 03/23/20 History finasteride 5 mg PO QAM 05/01/18 03/23/20 History nitroglycerin 0.4 mg SUBLINGUAL UD PRN 05/01/18 03/23/20 History aspirin [Ecotrin Low Strength] 81 mg PO QAM #30 tab 05/04/18 03/23/20 Rx Centrum Silver Men 1 tab PO DAILY 03/20/19 03/23/20 History citalopram 20 mg PO DAILY 08/16/19 03/23/20 History lisinopril 10 mg PO DAILY 08/16/19 03/23/20 History metoprolol succinate 25 mg PO BID 08/16/19 03/23/20 History pantoprazole 40 mg PO DAILY 08/16/19 03/23/20 History Prevagen 1 tab PO DAILY 03/23/20 03/23/20 History cholecalciferol (vitamin D3) 25 mcg PO DAILY 03/23/20 03/23/20 History cinnamon bark [Cinnamon] 500 mg PO DAILY 03/23/20 03/23/20 History coenzyme Q10 [CoQ-10] 100 mg PO DAILY 03/23/20 03/23/20 History ferrous sulfate [iron] 325 mg PO DAILY 03/23/20 03/23/20 History ibuprofen [Advil] 400 mg PO Q6H PRN 03/23/20 03/23/20 History metformin 250 mg PO BID 03/23/20 03/23/20 History Patient History Medical History Acid reflux Anxiety and depression CAD in [place] artery Colitis DIETARY CONTROLLED Dyslipidemia, goal LDL below 70 Hiatal hernia History of kidney stones HTN, goal below 130/80 Myocardial infarction Rotator cuff dysfunction LEFT/ OLD INJURY Seasonal allergies Sleep apnea CPAP SOB (shortness of breath) on exertion PT REPORTS CARDIO IS AWARE ST elevation (STEMI) myocardial infarction APR 2018 - "ANGIOPLASTY" - DENIES STENT INSERTION ([facility]) Surgical History History of angioplasty History of colonoscopy History of hemorrhoidectomy History of laparoscopic cholecystectomy History of reduction of closed fracture LEFT ARM History of right cataract extraction S/P cardiac catheterization Myocardial infarction 2001, with PCI of circumflex. Cardiac catheterization 2003 demonstrating patent circumflex stent. Catheterization April 2013 with bare-metal stenting to the proximal and mid right coronary artery. Catheterization 2015 demonstrating patent stents and moderate nonobstructive CAD. Family History Brother CAD in [place] artery Coronary artery bypass grafting x4 at age 68 Mother CAD in [place] artery Social History Smoking Status: Former smoker Second Hand Exposure: No; Do You Dip or Chew Tobacco: No; Tobacco Cessation Education Requested by Patient: No Hx Alcohol Use: No Hx Substance Use: No Preferred Language: [place] Communication Ability: Effective Butting Saw Operator Required: No Beliefs That Will Affect Care: None Current Living Situation: Alone Current Living Situation Comment: Lives at home alone Feels Safe at Home: Yes Safety Concerns: Feels Safe At This Time Assistive Devices: None Review of Systems Review of Systems: All systems reviewed & are unremarkable except as noted in HPI & below Physical Exam Constitutional: WD/WN, vitals as above Eyes: PERRL, conjunctivae normal, anicteric sclerae ENMT: external ear and nose normal Neck: normal visual inspection and trachea midline Respiratory: normal respiratory effort, lungs clear to auscultation Cardiovascular: RRR, no murmur, no edema Gastrointestinal (Abdomen): pos bs, soft, no guarding nor rebound Skin: warm and dry Neurologic: PERRL, EOMI, accommodation nl, no face palsy, no dysarthria Psychiatric: A+Ox3, euthymic affect Results & Data ([facility]) Vital Signs (Past 12 Hours) Vital Signs Temp Pulse Pulse Resp BP Pulse Ox 03/24/20 11:12 36.7 C 52 L 18 164/83 H 95 03/24/20 08:49 70 03/24/20 07:45 58 L 03/24/20 07:25 37.6 C H 57 L 18 138/67 94 03/24/20 04:00 37.2 C 56 L 18 124/69 94 03/24/20 03:58 63 (1) Acute pancreatitis Acute pancreatitis complication: unspecified Pancreatitis type: unspecified pancreatitis type Qualified Code(s): K85.90 - Acute pancreatitis without necrosis or infection, unspecified
[2020-03-25] MEDS: SODIUM CHLORIDE 0.9% 1000ML 1,000 ML IV SCH ×3 (02:08→15:50)
[2020-03-25 06:06] LABS: Basophils # (auto) 0.02 K/uL (0-0.2); Basophils % (auto) 0.2 %; Eosinophils # (auto) 0.22 K/uL (0-0.5); Eosinophils % (auto) 2.5 %; Hematocrit (blood only) 40.4 % (42-52); Hemoglobin 14.1 g/dL (14.0-18.0); Immature Granulocytes # (auto) 0.01 K/uL (0.00-0.02); Immature Granulocytes % (auto) 0.1 %; Lymphocytes # (auto) 1.17 K/uL (1.2-3.4); Lymphocytes % (auto) 13.1 %; Mean Corpuscular Hemoglobin 32.1 pg (25-34); Mean Corpuscular Hgb Conc 34.9 g/dL (32-36); Mean Platelet Volume 10.2 fL (7.4-10.4); Monocytes # (auto) 0.88 K/uL (0.11-0.59); Monocytes % (auto) 9.9 %; Neutrophils # (auto) 6.62 K/uL (1.4-6.5); Neutrophils % (auto) 74.2 %; Platelet Count 171 K/uL (130-400); RDW Coefficient of Variation 12.7 % (11.5-14.5); Red Blood Count 4.39 M/uL (4.7-6.1); White Blood Count 8.92 K/uL (4.8-10.8)
[2020-03-25 06:32] LABS: Albumin Level 3.1 gm/dl (3.4-5.0); BUN Creatinine Ratio 9.1 (10-20); Creatinine Clr Calc Pharmacy 66.8 ml/min; Est GFR (African American) 73.3; Est GFR (Non-African American) 63.2; Magnesium 1.8 mg/dl (1.8-2.4); Potassium 3.9 mmol/L (3.5-5.1)
[2020-03-25 06:35] LABS: Bilirubin,Total 1.2 mg/dl (0.2-1); Globulin 3.2 gm/dl (2.5-4.0); Phosphorus 2.7 mg/dl (2.5-4.9); Total Protein 6.3 gm/dl (6.4-8.2)
[2020-03-25] MEDS: PANTOprazole 40 MG TAB PO SCH (07:44)
[2020-03-25] MEDS: amLODIPine BESYLATE 5 MG TAB PO SCH (07:44)
[2020-03-25] MEDS: ASPIRIN 81 MG ECTAB PO SCH (07:44)
[2020-03-25] MEDS: METOPROLOL SUCC 25MG EXT REL TAB PO SCH ×2 (07:44→20:44)
[2020-03-25] MEDS ORDERED: traMADol HCL 50 MG TABLET PO PRN (08:13)
--- NOTE | 2020-03-25 08:25 | Hospitalist Progress Note ---
Date of Service March 25, 2020 Assessment & Plan (1) Acute pancreatitis: admitted with acute epigastric abdominal pain associated with nausea hx of cholecystectomy CT abdomen /pelvis obtained in ED bowel rest , IV hydration , pain control LFT's wnl Lipase 982, repeat lipase much improved MRCP : no evidence of choledocholithiasis /peripancreatic infiltration and fluid consistent with acute pancreatitis GI consulted Clinically patient is feeling better, says that the pain is well controlled Denies any alcohol use or any new medication use Tolerates clear liquid diet, only required pain medication in the morning today, asking about advancing his diet, will advance to full liquid (2) Abdominal pain, acute, epigastric: due to above Continue IV hydration, initially n.p.o. except for ice chips and sips, IV morphine as needed for severe pain Tolerates clear liquid diet, will advance to full liquid diet (3) Hypertension: stable cont home amlodipine (4) CAD (coronary artery disease): no complain of chest pain or sob cont out pt meds (5) HLD (hyperlipidemia): hold statin for ac pancreatitis History of triglyceridemia-can cause acute pancreatitis Check fasting lipid panel in a.m. Triglycerides 174, only mildly elevated CODE STATUS : FULL CODE Admission and Anticipated Discharge Date Admission Date: March 23, 2020 Subjective Patient is laying in bed, in no acute distress. Denies currently any abdominal pain. Tolerated clear liquid diet without difficulty and actually he is asking about advancing his diet. Last time required pain meds this morning. No fevers or chills, chest pain or shortness of breath. Patient's daughter at the bedside. Review of Systems Review of Systems: All systems reviewed & are unremarkable except as noted in HPI & below Constitutional: no fever and no chills Respiratory: no cough and no dyspnea Cardiovascular: no chest pain and no palpitations Gastrointestinal: no abdominal pain, no nausea and no vomiting Physical Exam Physical Exam: Constitutional: Elderly male lying in bed, in no acute distress, WD/WN, vitals as above Eyes: PERRL, EOMI, conjunctivae normal, anicteric sclerae ENMT: external ear and nose normal, oropharynx normal Neck: trachea midline, no thyromegaly Respiratory: normal respiratory effort, lungs clear to auscultation Cardiovascular: RRR, no murmur, no edema Gastrointestinal (Abdomen): Inspection/Auscultation: normal bowel sounds Percussion/Palpation: + abdomen tender (mild Epigastric, and lower abdomen) and abdomen soft; no guarding Musculoskeletal: no cyanosis or clubbing, extremities motor strength 5/5 Skin: no rashes, warm and dry Neurologic: PERRL, EOMI, accommodation nl, no face palsy, no dysarthria Psychiatric: A+Ox3, euthymic affect Results & Data Results & Data ([facility]) Vital Signs (Past 12 Hours) Vital Signs Temp Pulse Pulse Resp BP Pulse Ox 03/25/20 07:47 37.3 C 51 L 18 129/75 96 03/25/20 04:04 37.1 C 49 L 18 130/75 95 03/25/20 00:39 55 L 03/24/20 22:40 37.3 C 57 L 20 136/71 94 03/24/20 21:34 58 L 136/70 Laboratory Results 03/25/20 03/25/20 03/25/20 Range/Units 07:15 05:26 05:26 WBC 8.92 (4.8-10.8) K/uL RBC 4.39 L (4.7-6.1) M/uL Hgb 14.1 (14.0-18.0) g/dL Hct 40.4 L (42-52) % MCV 92.0 (80-100) fL MCH 32.1 (25-34) pg MCHC 34.9 (32-36) g/dL RDW Std Deviation 43.0 (36.4-46.3) fL RDW Coeff of Dashawn 12.7 (11.5-14.5) % Plt Count 171 (130-400) K/uL MPV 10.2 (7.4-10.4) fL Immature Gran % (Auto) 0.1 % Neut % (Auto) 74.2 % Lymph % (Auto) 13.1 % [place] % (Auto) 9.9 % Eos % (Auto) 2.5 % Baso % (Auto) 0.2 % Neut # (Auto) 6.62 H (1.4-6.5) K/uL Lymph # (Auto) 1.17 L (1.2-3.4) K/uL [place] # (Auto) 0.88 H (0.11-0.59) K/uL Eos # (Auto) 0.22 (0-0.5) K/uL Baso # (Auto) 0.02 (0-0.2) K/uL Immature Gran # (Auto) 0.01 (0.00-0.02) K/uL Sodium 139 (136-145) mmol/L Potassium 3.9 (3.5-5.1) mmol/L Chloride 108 H (98-107) mmol/L Carbon Dioxide 24 (21-32) mmol/L Anion Gap 7.0 (3-11) BUN 11 (7-18) mg/dl Creatinine 1.15 (0.6-1.4) mg/dl Est Cr Clr Drug Dosing 66.8 ml/min Est GFR ( Amer) 73.3 Est GFR (Non-Af Amer) 63.2 BUN/Creatinine Ratio 9.1 L (10-20) Glucose 123 H (70-99) mg/dl POC Glucose 129 H (70-99) mg/dl Calcium 9.0 (8.5-10.1) mg/dl Phosphorus 2.7 (2.5-4.9) mg/dl Magnesium 1.8 (1.8-2.4) mg/dl Total Bilirubin 1.2 H (0.2-1) mg/dl AST 14 L (15-37) U/L ALT 24 (12-78) U/L Alkaline Phosphatase 56 (45-117) U/L Total Protein 6.3 L (6.4-8.2) gm/dl Albumin 3.1 L (3.4-5.0) gm/dl Globulin 3.2 (2.5-4.0) gm/dl Albumin/Globulin Ratio 1.0 (0.9-2) Triglycerides (0-150) mg/dl Cholesterol (0-200) mg/dl LDL Cholesterol, Calc mg/dl VLDL Cholesterol, Calc mg/dl HDL Cholesterol mg/dl Cholesterol/HDL Ratio Lipase 93 (73-393) U/L 03/24/20 03/24/20 03/24/20 Range/Units 20:08 16:43 12:38 WBC (4.8-10.8) K/uL RBC (4.7-6.1) M/uL Hgb (14.0-18.0) g/dL Hct (42-52) % MCV (80-100) fL MCH (25-34) pg MCHC (32-36) g/dL RDW Std Deviation (36.4-46.3) fL RDW Coeff of Dashawn (11.5-14.5) % Plt Count (130-400) K/uL MPV (7.4-10.4) fL Immature Gran % (Auto) % Neut % (Auto) % Lymph % (Auto) % [place] % (Auto) % Eos % (Auto) % Baso % (Auto) % Neut # (Auto) (1.4-6.5) K/uL Lymph # (Auto) (1.2-3.4) K/uL [place] # (Auto) (0.11-0.59) K/uL Eos # (Auto) (0-0.5) K/uL Baso # (Auto) (0-0.2) K/uL Immature Gran # (Auto) (0.00-0.02) K/uL Sodium (136-145) mmol/L Potassium (3.5-5.1) mmol/L Chloride (98-107) mmol/L Carbon Dioxide (21-32) mmol/L Anion Gap (3-11) BUN (7-18) mg/dl Creatinine (0.6-1.4) mg/dl Est Cr Clr Drug Dosing ml/min Est GFR ( Amer) Est GFR (Non-Af Amer) BUN/Creatinine Ratio (10-20) Glucose (70-99) mg/dl POC Glucose 101 H 187 H 144 H (70-99) mg/dl Calcium (8.5-10.1) mg/dl Phosphorus (2.5-4.9) mg/dl Magnesium (1.8-2.4) mg/dl Total Bilirubin (0.2-1) mg/dl AST (15-37) U/L ALT (12-78) U/L Alkaline Phosphatase (45-117) U/L Total Protein (6.4-8.2) gm/dl Albumin (3.4-5.0) gm/dl Globulin (2.5-4.0) gm/dl Albumin/Globulin Ratio (0.9-2) Triglycerides (0-150) mg/dl Cholesterol (0-200) mg/dl LDL Cholesterol, Calc mg/dl VLDL Cholesterol, Calc mg/dl HDL Cholesterol mg/dl Cholesterol/HDL Ratio Lipase (73-393) U/L 03/24/20 03/24/20 Range/Units 07:29 07:29 WBC (4.8-10.8) K/uL RBC (4.7-6.1) M/uL Hgb (14.0-18.0) g/dL Hct (42-52) % MCV (80-100) fL MCH (25-34) pg MCHC (32-36) g/dL RDW Std Deviation (36.4-46.3) fL RDW Coeff of Dashawn (11.5-14.5) % Plt Count (130-400) K/uL MPV (7.4-10.4) fL Immature Gran % (Auto) % Neut % (Auto) % Lymph % (Auto) % [place] % (Auto) % Eos % (Auto) % Baso % (Auto) % Neut # (Auto) (1.4-6.5) K/uL Lymph # (Auto) (1.2-3.4) K/uL [place] # (Auto) (0.11-0.59) K/uL Eos # (Auto) (0-0.5) K/uL Baso # (Auto) (0-0.2) K/uL Immature Gran # (Auto) (0.00-0.02) K/uL Sodium 137 (136-145) mmol/L Potassium 3.9 (3.5-5.1) mmol/L Chloride 107 (98-107) mmol/L Carbon Dioxide 22 (21-32) mmol/L Anion Gap 8.0 (3-11) BUN 11 (7-18) mg/dl Creatinine 1.21 (0.6-1.4) mg/dl Est Cr Clr Drug Dosing 63.6 ml/min Est GFR ( Amer) 68.9 Est GFR (Non-Af Amer) 59.5 BUN/Creatinine Ratio 9.3 L (10-20) Glucose 134 H (70-99) mg/dl POC Glucose (70-99) mg/dl Calcium 9.1 (8.5-10.1) mg/dl Phosphorus 3.2 (2.5-4.9) mg/dl Magnesium 1.8 (1.8-2.4) mg/dl Total Bilirubin 1.3 H (0.2-1) mg/dl AST 15 (15-37) U/L ALT 27 (12-78) U/L Alkaline Phosphatase 64 (45-117) U/L Total Protein 6.5 (6.4-8.2) gm/dl Albumin 3.3 L (3.4-5.0) gm/dl Globulin 3.2 (2.5-4.0) gm/dl Albumin/Globulin Ratio 1.0 (0.9-2) Triglycerides 174 H (0-150) mg/dl Cholesterol 118 (0-200) mg/dl LDL Cholesterol, Calc 46 mg/dl VLDL Cholesterol, Calc 35 mg/dl HDL Cholesterol 37 mg/dl Cholesterol/HDL Ratio 3 Lipase 181 (73-393) U/L Medications Administered Current Inpatient Medications Acetaminophen (Acetaminophen 325 Mg Tab) 650 mg PO Q4H PRN PRN Reason: Pain or Fever Stop: 04/22/20 18:01 Al Hydrox/Mg Hydrox/Simethicone (Aluminum/Magnesium Susp 30 Ml Udc) 15 ml PO Q4H PRN PRN Reason: Dyspepsia Stop: 04/22/20 18:01 Amlodipine Besylate (Amlodipine Besylate 5 Mg Tab) 5 mg PO QAM [facility] Stop: 04/23/20 08:59 Last Admin: 03/25/20 07:44 Dose: 5 mg Documented by: Aspirin (Aspirin 81 Mg Ectab) 81 mg PO DAILY [facility] Stop: 04/23/20 08:59 Last Admin: 03/25/20 07:44 Dose: 81 mg Documented by: Dextrose (Dextrose 50% 50 Ml Syringe) 25 - 50 ml IV UD PRN; Protocol PRN Reason: Hypoglycemia Protocol Stop: 04/22/20 20:27 Glucagon (Glucagon For Inj 1 Mg Vial) 1 mg SQ UD PRN; Protocol PRN Reason: Hypoglycemia Protocol Stop: 04/22/20 20:27 Glucose (Glucose 10 Tabs/Tube) 4 - 8 tabs PO UD PRN; Protocol PRN Reason: Hypoglycemia Protocol Stop: 04/22/20 20:27 Glucose (Glucose 40% Gel 15 Gm Tube) 15 - 30 gm PO UD PRN; Protocol PRN Reason: Hypoglycemia Protocol Stop: 04/22/20 20:27 Sodium Chloride (Nss 1000ml) 1,000 mls @ 180 mls/hr IV .Q5H34M [facility] Stop: 04/22/20 18:14 Last Infusion: 03/25/20 08:17 Dose: 180 mls/hr Documented by: Insulin Aspart (Insulin Aspart 100 Units/Ml 3 Ml Pen) 0 units SC ACHS [facility]AX Stop: 04/23/20 16:29 Last Admin: 03/24/20 21:35 Dose: Not Given Documented by: Magnesium Hydroxide (Magnesium Hydroxide Susp 30 Ml Udc) 30 ml PO Q12H PRN PRN Reason: Constipation Stop: 04/22/20 18:01 Metoprolol Succinate (Metoprolol Succ 25mg Ext Rel Tab) 25 mg PO BID [facility] Stop: 04/22/20 20:59 Last Admin: 03/25/20 07:44 Dose: 25 mg Documented by: Miscellaneous (Carbohydrates For Hypoglycemia ) 15 - 30 gm PO UD PRN PRN Reason: Hypoglycemia Protocol Stop: 04/22/20 20:27 Morphine Sulfate (Morphine Sulfate 2 Mg/Ml Carp) 2 mg IV Q4 PRN PRN Reason: Pain Stop: 04/06/20 20:27 Last Admin: 03/24/20 08:50 Dose: 2 mg Documented by: Morphine Sulfate (Morphine Sulfate 4 Mg/Ml 1 Ml Carp\Vial) 4 mg IV Q4 PRN PRN Reason: severe pain Stop: 04/06/20 20:27 Nitroglycerin (Nitroglycerin Sl 0.4 Mg/Tab Tab) 0.4 mg SL UD PRN PRN Reason: Chest Pain Stop: 04/22/20 20:27 Ondansetron HCl (Ondansetron Inj 2 Mg/Ml 2 Ml Vial) 4 mg IV Q6H PRN PRN Reason: Nausea Stop: 04/22/20 18:01 Pantoprazole Sodium (Pantoprazole 40 Mg Tab) 40 mg PO DAILY [facility]AX Stop: 04/23/20 08:59 Last Admin: 03/25/20 07:44 Dose: 40 mg Documented by: Tramadol HCl (Tramadol Hcl 50 Mg Tablet) 50 mg PO Q4H PRN PRN Reason: Pain Stop: 04/24/20 08:12 (1) CAD (coronary artery disease) Associated angina: with other forms of angina Coronary Disease-Associated Artery/Lesion type: [place] artery [place] vs. transplanted heart: [place] heart Qualified Code(s): I25.118 - Atherosclerotic heart disease of [place] coronary artery with other forms of angina pectoris (2) Hypertension Hypertension type: essential hypertension Qualified Code(s): I10 - Essential (primary) hypertension (3) Acute pancreatitis Acute pancreatitis complication: unspecified Pancreatitis type: unspecified pancreatitis type Qualified Code(s): K85.90 - Acute pancreatitis without necrosis or infection, unspecified
[2020-03-25] MEDS: INSULIN ASPART 100 UNITS/ML 3 ML PEN SC SCH ×4 (08:47→21:19)
--- NOTE | 2020-03-25 08:50 | Gastroenterology Progress Note ---
Date of Service March 25, 2020 Assessment & Plan (1) Acute pancreatitis: Acute onset pancreatitis. Pain significantly improved today. Tolerating clear liquid diet. IVF continue - reports voiding well. Pharmacist reviewed outpatient medications - unlikely source - amlodipine with <1% association. Will require outpatient EUS of pancreas to look for etiology. Will arrange outpatient follow-up. Please refer to supervising physician addendum for further recommendations. Admission and Anticipated Discharge Date Admission Date: March 23, 2020 Supervising Physician Co-Signing Physician Notes I have seen and examined patient. I agree with CHILO Fallon note except as below. He complains of bladder pressure from frequent urination but no epi pain. Tolerating clears so far. Abd pos bs, soft, no guarding nor rebound pancreatitis improved--had 3600 ml output yesterday and taking po. Cut IVF back to 50 ml/hour. Subjective Patient reports mild upper abdominal pressure after eating this morning. Denies specific pain. Tolerating clear liquid diet without difficulty. Denies nausea or vomiting. Last bowel movement was 03/22/2020. Reports last week he experienced increased frequency and change in consistency in bowel movements ranging from soft to liquid stools 3-4 times daily. His normal pattern is soft, formed, easy to pass 1 x daily. He currently reports some increased groin pressure that increased with voiding. IVF continue. Review of Systems Review of Systems: All systems reviewed & are unremarkable except as noted in Subjective Physical Exam Constitutional: WD/WN, vitals as above Neck: normal visual inspection and trachea midline Respiratory: normal respiratory effort, lungs clear to auscultation Cardiovascular: RRR, no murmur, no edema Gastrointestinal (Abdomen): Inspection/Auscultation: normal bowel sounds Percussion/Palpation: abdomen soft; abdomen nontender, no guarding and abdomen not rigid Musculoskeletal: Extremities: no cyanosis and no clubbing Skin: no rashes, warm and dry Psychiatric: A+Ox3, euthymic affect Results & Data ([facility]) Vital Signs (Past 12 Hours) Vital Signs Temp Pulse Pulse Resp BP Pulse Ox 03/25/20 07:47 37.3 C 51 L 18 129/75 96 03/25/20 04:04 37.1 C 49 L 18 130/75 95 03/25/20 00:39 55 L 03/24/20 22:40 37.3 C 57 L 20 136/71 94 03/24/20 21:34 58 L 136/70 Laboratory Results - last 24 hr 03/24/20 03/24/20 03/24/20 07:29 12:38 16:43 WBC RBC Hgb Hct MCV MCH MCHC RDW Std Deviation RDW Coeff of Dashawn Plt Count MPV Immature Gran % (Auto) Neut % (Auto) Lymph % (Auto) [place] % (Auto) Eos % (Auto) Baso % (Auto) Neut # (Auto) Lymph # (Auto) [place] # (Auto) Eos # (Auto) Baso # (Auto) Immature Gran # (Auto) Sodium Potassium Chloride Carbon Dioxide Anion Gap BUN Creatinine Est Cr Clr Drug Dosing Est GFR ( Amer) Est GFR (Non-Af Amer) BUN/Creatinine Ratio Glucose POC Glucose 144 H 187 H Calcium Phosphorus 3.2 Magnesium 1.8 Total Bilirubin AST ALT Alkaline Phosphatase Total Protein Albumin Globulin Albumin/Globulin Ratio Lipase 03/24/20 03/25/20 03/25/20 20:08 05:26 05:26 WBC 8.92 RBC 4.39 L Hgb 14.1 Hct 40.4 L MCV 92.0 MCH 32.1 MCHC 34.9 RDW Std Deviation 43.0 RDW Coeff of Dashawn 12.7 Plt Count 171 MPV 10.2 Immature Gran % (Auto) 0.1 Neut % (Auto) 74.2 Lymph % (Auto) 13.1 [place] % (Auto) 9.9 Eos % (Auto) 2.5 Baso % (Auto) 0.2 Neut # (Auto) 6.62 H Lymph # (Auto) 1.17 L [place] # (Auto) 0.88 H Eos # (Auto) 0.22 Baso # (Auto) 0.02 Immature Gran # (Auto) 0.01 Sodium 139 Potassium 3.9 Chloride 108 H Carbon Dioxide 24 Anion Gap 7.0 BUN 11 Creatinine 1.15 Est Cr Clr Drug Dosing 66.8 Est GFR ( Amer) 73.3 Est GFR (Non-Af Amer) 63.2 BUN/Creatinine Ratio 9.1 L Glucose 123 H POC Glucose 101 H Calcium 9.0 Phosphorus 2.7 Magnesium 1.8 Total Bilirubin 1.2 H AST 14 L ALT 24 Alkaline Phosphatase 56 Total Protein 6.3 L Albumin 3.1 L Globulin 3.2 Albumin/Globulin Ratio 1.0 Lipase 93 03/25/20 07:15 WBC RBC Hgb Hct MCV MCH MCHC RDW Std Deviation RDW Coeff of Dashawn Plt Count MPV Immature Gran % (Auto) Neut % (Auto) Lymph % (Auto) [place] % (Auto) Eos % (Auto) Baso % (Auto) Neut # (Auto) Lymph # (Auto) [place] # (Auto) Eos # (Auto) Baso # (Auto) Immature Gran # (Auto) Sodium Potassium Chloride Carbon Dioxide Anion Gap BUN Creatinine Est Cr Clr Drug Dosing Est GFR ( Amer) Est GFR (Non-Af Amer) BUN/Creatinine Ratio Glucose POC Glucose 129 H Calcium Phosphorus Magnesium Total Bilirubin AST ALT Alkaline Phosphatase Total Protein Albumin Globulin Albumin/Globulin Ratio Lipase (1) Acute pancreatitis Acute pancreatitis complication: unspecified Pancreatitis type: unspecified pancreatitis type Qualified Code(s): K85.90 - Acute pancreatitis without necrosis or infection, unspecified
[2020-03-26 08:17] LABS: Basophils # (auto) 0.02 K/uL (0-0.2); Basophils % (auto) 0.3 %; Eosinophils # (auto) 0.28 K/uL (0-0.5); Eosinophils % (auto) 3.8 %; Hematocrit (blood only) 39.1 % (42-52); Hemoglobin 13.9 g/dL (14.0-18.0); Immature Granulocytes # (auto) 0.01 K/uL (0.00-0.02); Immature Granulocytes % (auto) 0.1 %; Lymphocytes # (auto) 1.03 K/uL (1.2-3.4); Lymphocytes % (auto) 13.9 %; Mean Corpuscular Hemoglobin 32.6 pg (25-34); Mean Corpuscular Hgb Conc 35.5 g/dL (32-36); Mean Corpuscular Volume 91.6 fL (80-100); Mean Platelet Volume 9.8 fL (7.4-10.4); Monocytes # (auto) 0.64 K/uL (0.11-0.59); Monocytes % (auto) 8.6 %; Neutrophils # (auto) 5.45 K/uL (1.4-6.5); Neutrophils % (auto) 73.3 %; Platelet Count 183 K/uL (130-400); RDW Coefficient of Variation 12.8 % (11.5-14.5); RDW Standard Deviation 43.2 fL (36.4-46.3); Red Blood Count 4.27 M/uL (4.7-6.1); White Blood Count 7.43 K/uL (4.8-10.8)
[2020-03-26] MEDS: ASPIRIN 81 MG ECTAB PO SCH (08:31)
[2020-03-26] MEDS: INSULIN ASPART 100 UNITS/ML 3 ML PEN SC SCH ×4 (08:31→20:17)
[2020-03-26] MEDS: METOPROLOL SUCC 25MG EXT REL TAB PO SCH ×2 (08:31→20:18)
[2020-03-26] MEDS: PANTOprazole 40 MG TAB PO SCH (08:31)
[2020-03-26] MEDS: amLODIPine BESYLATE 5 MG TAB PO SCH (08:31)
[2020-03-26 08:41] LABS: Albumin Level 3.1 gm/dl (3.4-5.0); BUN Creatinine Ratio 8.6 (10-20); Calcium 9.3 mg/dl (8.5-10.1); Creatinine Clr Calc Pharmacy 67.3 ml/min; Est GFR (African American) 74.1; Est GFR (Non-African American) 63.9; Magnesium 1.9 mg/dl (1.8-2.4); Potassium 3.8 mmol/L (3.5-5.1)
[2020-03-26 08:44] LABS: Albumin Globulin Ratio 0.9 (0.9-2); Bilirubin,Total 1.2 mg/dl (0.2-1); Globulin 3.4 gm/dl (2.5-4.0); Total Protein 6.5 gm/dl (6.4-8.2)
--- NOTE | 2020-03-26 08:50 | Gastroenterology Progress Note ---
Date of Service March 26, 2020 Assessment & Plan (1) Acute pancreatitis: Acute onset pancreatitis. Denies abdominal pain today. Tolerating full liquid diet. IVF continue at 50ml/hr - reports voiding well. Pharmacist reviewed outpatient medications 03/25/2020 - unlikely source - amlodipine with <1% association. Will require outpatient EUS of pancreas to look for etiology. Will arrange outpatient follow-up. Please refer to supervising physician addendum for further recommendations. Admission and Anticipated Discharge Date Admission Date: March 23, 2020 Subjective Denies abdominal discomfort this morning. Tolerating full liquid diet without difficulty. Denies nausea or vomiting. Last bowel movement was 03/25/2020 x 3 of loose stools without melena or hematochezia. Reports groin pressure significantly improved with decreased IVF. Review of Systems Review of Systems: All systems reviewed & are unremarkable except as noted in Subjective Physical Exam Constitutional: WD/WN, vitals as above Neck: normal visual inspection and trachea midline Respiratory: normal respiratory effort, lungs clear to auscultation Cardiovascular: RRR, no murmur, no edema Gastrointestinal (Abdomen): Inspection/Auscultation: normal bowel sounds Percussion/Palpation: abdomen soft; abdomen nontender, no guarding and abdomen not rigid Musculoskeletal: Extremities: no cyanosis and no clubbing Skin: no rashes, warm and dry Psychiatric: A+Ox3, euthymic affect Results & Data ([facility]) Vital Signs (Past 12 Hours) Vital Signs Temp Pulse Pulse Resp BP BP Pulse Ox 03/26/20 07:19 36.8 C 53 L 18 136/76 95 03/26/20 02:50 36.9 C 55 L 17 143/72 H 93 03/26/20 00:35 54 L 03/25/20 22:32 36.7 C 55 L 15 156/82 H 96 Laboratory Results - last 24 hr 03/25/20 03/25/20 03/25/20 11:19 17:51 20:41 WBC RBC Hgb Hct MCV MCH MCHC RDW Std Deviation RDW Coeff of Dashawn Plt Count MPV Immature Gran % (Auto) Neut % (Auto) Lymph % (Auto) [place] % (Auto) Eos % (Auto) Baso % (Auto) Neut # (Auto) Lymph # (Auto) [place] # (Auto) Eos # (Auto) Baso # (Auto) Immature Gran # (Auto) Sodium Potassium Chloride Carbon Dioxide Anion Gap BUN Creatinine Est Cr Clr Drug Dosing Est GFR ( Amer) Est GFR (Non-Af Amer) BUN/Creatinine Ratio Glucose POC Glucose 202 H 147 H 122 H Calcium Phosphorus Magnesium Total Bilirubin AST ALT Alkaline Phosphatase Total Protein Albumin Globulin Albumin/Globulin Ratio Lipase 03/26/20 03/26/20 03/26/20 07:28 08:01 08:01 WBC 7.43 RBC 4.27 L Hgb 13.9 L Hct 39.1 L MCV 91.6 MCH 32.6 MCHC 35.5 RDW Std Deviation 43.2 RDW Coeff of Dashawn 12.8 Plt Count 183 MPV 9.8 Immature Gran % (Auto) 0.1 Neut % (Auto) 73.3 Lymph % (Auto) 13.9 [place] % (Auto) 8.6 Eos % (Auto) 3.8 Baso % (Auto) 0.3 Neut # (Auto) 5.45 Lymph # (Auto) 1.03 L [place] # (Auto) 0.64 H Eos # (Auto) 0.28 Baso # (Auto) 0.02 Immature Gran # (Auto) 0.01 Sodium 139 Potassium 3.8 Chloride 109 H Carbon Dioxide 22 Anion Gap 7.0 BUN 10 Creatinine 1.14 Est Cr Clr Drug Dosing 67.3 Est GFR ( Amer) 74.1 Est GFR (Non-Af Amer) 63.9 BUN/Creatinine Ratio 8.6 L Glucose 139 H POC Glucose 140 H Calcium 9.3 Phosphorus 3.0 Magnesium 1.9 Total Bilirubin 1.2 H AST 16 ALT 25 Alkaline Phosphatase 61 Total Protein 6.5 Albumin 3.1 L Globulin 3.4 Albumin/Globulin Ratio 0.9 Lipase 65 L (1) Acute pancreatitis Acute pancreatitis complication: unspecified Pancreatitis type: unspecified pancreatitis type Qualified Code(s): K85.90 - Acute pancreatitis without necrosis or infection, unspecified
[2020-03-26] MEDS: SODIUM CHLORIDE 0.9% 1000ML 1,000 ML IV SCH (11:54)
--- NOTE | 2020-03-26 15:27 | Progress Notes ---
DATE: 03/26/2020 ADDENDUM TO PROGRESS NOTE BY CHILO STEPHENS The patient reports no abdominal pain and has been on full liquid diet, tolerating it well. His lipase is 65 today. He is not experiencing any pain. The patient reports no alcohol. Calcium and triglycerides are not significantly abnormal. His MRCP does not show any common bile duct stones and his medications are not typically associated with pancreatitis. For now, I plan on advancing his diet to solid food and hopefully be home tomorrow and we can arrange for him to have an outpatient endoscopic ultrasound at [place].
--- NOTE | 2020-03-26 16:49 | Hospitalist Progress Note ---
Date of Service March 26, 2020 Assessment & Plan (1) Acute pancreatitis: admitted with acute epigastric abdominal pain associated with nausea hx of cholecystectomy CT abdomen /pelvis obtained in ED bowel rest , IV hydration , pain control LFT's wnl Lipase 982, repeat lipase much improved MRCP : no evidence of choledocholithiasis /peripancreatic infiltration and fluid consistent with acute pancreatitis GI consulted Clinically patient is feeling better, says that the pain is well controlled Denies any alcohol use or any new medication use Tolerates full liquid diet, will advance his diet Given that patient did not have gallstones, denies alcohol use, and chance of medication causing his pancreatitis is extremely low, GI recommends EUS as outpatient (2) Abdominal pain, acute, epigastric: due to above Continue IV hydration, initially n.p.o. except for ice chips and sips, IV morphine as needed for severe pain Tolerates full liquid diet, will advance his diet (3) Hypertension: stable cont home amlodipine (4) CAD (coronary artery disease): no complain of chest pain or sob cont out pt meds (5) HLD (hyperlipidemia): hold statin for ac pancreatitis History of triglyceridemia-can cause acute pancreatitis Checked fasting lipid panel in a.m. Triglycerides 174, only mildly elevated CODE STATUS : FULL CODE Admission and Anticipated Discharge Date Admission Date: March 23, 2020 Subjective No acute events overnight. Patient is resting in bed, in no acute distress. Denies any fevers, chills, chest pain shortness of breath, abdominal pain, nausea or vomiting. He is tolerating full liquid diet without difficulty. Does not require pain medications. We will advance diet. GI consulted, recommend EUS as outpatient, plan to discharge tomorrow. Review of Systems Review of Systems: All systems reviewed & are unremarkable except as noted in HPI & below Constitutional: no fever and no chills Respiratory: no cough and no dyspnea Cardiovascular: no chest pain and no palpitations Gastrointestinal: no abdominal pain, no nausea and no vomiting Physical Exam Physical Exam: Constitutional: Elderly male lying in bed, in no acute distress, WD/WN, vitals as above Eyes: PERRL, EOMI, conjunctivae normal, anicteric sclerae ENMT: external ear and nose normal, oropharynx normal Neck: trachea midline, no thyromegaly Respiratory: normal respiratory effort, lungs clear to auscultation Cardiovascular: RRR, no murmur, no edema Gastrointestinal (Abdomen): Inspection/Auscultation: normal bowel sounds Percussion/Palpation: + abdomen tender (mild Epigastric, and lower abdomen) and abdomen soft; no guarding Musculoskeletal: no cyanosis or clubbing, extremities motor strength 5/5 Skin: no rashes, warm and dry Neurologic: PERRL, EOMI, accommodation nl, no face palsy, no dysarthria Psychiatric: A+Ox3, euthymic affect Results & Data Results & Data ([facility]) Vital Signs (Past 12 Hours) Vital Signs Temp Pulse Resp BP BP Pulse Ox 03/26/20 15:47 36.7 C 54 L 18 160/88 H 94 03/26/20 11:29 36.8 C 50 L 18 143/76 H 94 03/26/20 07:19 36.8 C 53 L 18 136/76 95 Laboratory Results 03/26/20 03/26/20 03/26/20 Range/Units 16:38 11:37 08:01 WBC (4.8-10.8) K/uL RBC (4.7-6.1) M/uL Hgb (14.0-18.0) g/dL Hct (42-52) % MCV (80-100) fL MCH (25-34) pg MCHC (32-36) g/dL RDW Std Deviation (36.4-46.3) fL RDW Coeff of Dashawn (11.5-14.5) % Plt Count (130-400) K/uL MPV (7.4-10.4) fL Immature Gran % (Auto) % Neut % (Auto) % Lymph % (Auto) % [place] % (Auto) % Eos % (Auto) % Baso % (Auto) % Neut # (Auto) (1.4-6.5) K/uL Lymph # (Auto) (1.2-3.4) K/uL [place] # (Auto) (0.11-0.59) K/uL Eos # (Auto) (0-0.5) K/uL Baso # (Auto) (0-0.2) K/uL Immature Gran # (Auto) (0.00-0.02) K/uL Sodium 139 (136-145) mmol/L Potassium 3.8 (3.5-5.1) mmol/L Chloride 109 H (98-107) mmol/L Carbon Dioxide 22 (21-32) mmol/L Anion Gap 7.0 (3-11) BUN 10 (7-18) mg/dl Creatinine 1.14 (0.6-1.4) mg/dl Est Cr Clr Drug Dosing 67.3 ml/min Est GFR ( Amer) 74.1 Est GFR (Non-Af Amer) 63.9 BUN/Creatinine Ratio 8.6 L (10-20) Glucose 139 H (70-99) mg/dl POC Glucose 90 171 H (70-99) mg/dl Calcium 9.3 (8.5-10.1) mg/dl Phosphorus 3.0 (2.5-4.9) mg/dl Magnesium 1.9 (1.8-2.4) mg/dl Total Bilirubin 1.2 H (0.2-1) mg/dl AST 16 (15-37) U/L ALT 25 (12-78) U/L Alkaline Phosphatase 61 (45-117) U/L Total Protein 6.5 (6.4-8.2) gm/dl Albumin 3.1 L (3.4-5.0) gm/dl Globulin 3.4 (2.5-4.0) gm/dl Albumin/Globulin Ratio 0.9 (0.9-2) Lipase 65 L (73-393) U/L 03/26/20 03/26/20 03/25/20 Range/Units 08:01 07:28 20:41 WBC 7.43 (4.8-10.8) K/uL RBC 4.27 L (4.7-6.1) M/uL Hgb 13.9 L (14.0-18.0) g/dL Hct 39.1 L (42-52) % MCV 91.6 (80-100) fL MCH 32.6 (25-34) pg MCHC 35.5 (32-36) g/dL RDW Std Deviation 43.2 (36.4-46.3) fL RDW Coeff of Dashawn 12.8 (11.5-14.5) % Plt Count 183 (130-400) K/uL MPV 9.8 (7.4-10.4) fL Immature Gran % (Auto) 0.1 % Neut % (Auto) 73.3 % Lymph % (Auto) 13.9 % [place] % (Auto) 8.6 % Eos % (Auto) 3.8 % Baso % (Auto) 0.3 % Neut # (Auto) 5.45 (1.4-6.5) K/uL Lymph # (Auto) 1.03 L (1.2-3.4) K/uL [place] # (Auto) 0.64 H (0.11-0.59) K/uL Eos # (Auto) 0.28 (0-0.5) K/uL Baso # (Auto) 0.02 (0-0.2) K/uL Immature Gran # (Auto) 0.01 (0.00-0.02) K/uL Sodium (136-145) mmol/L Potassium (3.5-5.1) mmol/L Chloride (98-107) mmol/L Carbon Dioxide (21-32) mmol/L Anion Gap (3-11) BUN (7-18) mg/dl Creatinine (0.6-1.4) mg/dl Est Cr Clr Drug Dosing ml/min Est GFR ( Amer) Est GFR (Non-Af Amer) BUN/Creatinine Ratio (10-20) Glucose (70-99) mg/dl POC Glucose 140 H 122 H (70-99) mg/dl Calcium (8.5-10.1) mg/dl Phosphorus (2.5-4.9) mg/dl Magnesium (1.8-2.4) mg/dl Total Bilirubin (0.2-1) mg/dl AST (15-37) U/L ALT (12-78) U/L Alkaline Phosphatase (45-117) U/L Total Protein (6.4-8.2) gm/dl Albumin (3.4-5.0) gm/dl Globulin (2.5-4.0) gm/dl Albumin/Globulin Ratio (0.9-2) Lipase (73-393) U/L 03/25/20 Range/Units 17:51 WBC (4.8-10.8) K/uL RBC (4.7-6.1) M/uL Hgb (14.0-18.0) g/dL Hct (42-52) % MCV (80-100) fL MCH (25-34) pg MCHC (32-36) g/dL RDW Std Deviation (36.4-46.3) fL RDW Coeff of Dashawn (11.5-14.5) % Plt Count (130-400) K/uL MPV (7.4-10.4) fL Immature Gran % (Auto) % Neut % (Auto) % Lymph % (Auto) % [place] % (Auto) % Eos % (Auto) % Baso % (Auto) % Neut # (Auto) (1.4-6.5) K/uL Lymph # (Auto) (1.2-3.4) K/uL [place] # (Auto) (0.11-0.59) K/uL Eos # (Auto) (0-0.5) K/uL Baso # (Auto) (0-0.2) K/uL Immature Gran # (Auto) (0.00-0.02) K/uL Sodium (136-145) mmol/L Potassium (3.5-5.1) mmol/L Chloride (98-107) mmol/L Carbon Dioxide (21-32) mmol/L Anion Gap (3-11) BUN (7-18) mg/dl Creatinine (0.6-1.4) mg/dl Est Cr Clr Drug Dosing ml/min Est GFR ( Amer) Est GFR (Non-Af Amer) BUN/Creatinine Ratio (10-20) Glucose (70-99) mg/dl POC Glucose 147 H (70-99) mg/dl Calcium (8.5-10.1) mg/dl Phosphorus (2.5-4.9) mg/dl Magnesium (1.8-2.4) mg/dl Total Bilirubin (0.2-1) mg/dl AST (15-37) U/L ALT (12-78) U/L Alkaline Phosphatase (45-117) U/L Total Protein (6.4-8.2) gm/dl Albumin (3.4-5.0) gm/dl Globulin (2.5-4.0) gm/dl Albumin/Globulin Ratio (0.9-2) Lipase (73-393) U/L Medications Administered Current Inpatient Medications Acetaminophen (Acetaminophen 325 Mg Tab) 650 mg PO Q4H PRN PRN Reason: Pain or Fever Stop: 04/22/20 18:01 Al Hydrox/Mg Hydrox/Simethicone (Aluminum/Magnesium Susp 30 Ml Udc) 15 ml PO Q4H PRN PRN Reason: Dyspepsia Stop: 04/22/20 18:01 Amlodipine Besylate (Amlodipine Besylate 5 Mg Tab) 5 mg PO QAM JAX Stop: 04/23/20 08:59 Last Admin: 03/26/20 08:31 Dose: 5 mg Documented by: Aspirin (Aspirin 81 Mg Ectab) 81 mg PO DAILY JAX Stop: 04/23/20 08:59 Last Admin: 03/26/20 08:31 Dose: 81 mg Documented by: Dextrose (Dextrose 50% 50 Ml Syringe) 25 - 50 ml IV UD PRN; Protocol PRN Reason: Hypoglycemia Protocol Stop: 04/22/20 20:27 Glucagon (Glucagon For Inj 1 Mg Vial) 1 mg SQ UD PRN; Protocol PRN Reason: Hypoglycemia Protocol Stop: 04/22/20 20:27 Glucose (Glucose 10 Tabs/Tube) 4 - 8 tabs PO UD PRN; Protocol PRN Reason: Hypoglycemia Protocol Stop: 04/22/20 20:27 Glucose (Glucose 40% Gel 15 Gm Tube) 15 - 30 gm PO UD PRN; Protocol PRN Reason: Hypoglycemia Protocol Stop: 04/22/20 20:27 Sodium Chloride (Nss 1000ml) 1,000 mls @ 50 mls/hr IV .Q20H [facility] Stop: 04/22/20 18:14 Last Admin: 03/26/20 11:54 Dose: 50 mls/hr Documented by: Insulin Aspart (Insulin Aspart 100 Units/Ml 3 Ml Pen) 0 units SC ACHS JAX Stop: 04/23/20 16:29 Last Admin: 03/26/20 12:18 Dose: 7 units Documented by: Magnesium Hydroxide (Magnesium Hydroxide Susp 30 Ml Udc) 30 ml PO Q12H PRN PRN Reason: Constipation Stop: 04/22/20 18:01 Metoprolol Succinate (Metoprolol Succ 25mg Ext Rel Tab) 25 mg PO BID [facility] Stop: 04/22/20 20:59 Last Admin: 03/26/20 08:31 Dose: Not Given Documented by: Miscellaneous (Carbohydrates For Hypoglycemia ) 15 - 30 gm PO UD PRN PRN Reason: Hypoglycemia Protocol Stop: 04/22/20 20:27 Morphine Sulfate (Morphine Sulfate 2 Mg/Ml Carp) 2 mg IV Q4 PRN PRN Reason: Pain Stop: 04/06/20 20:27 Last Admin: 03/24/20 08:50 Dose: 2 mg Documented by: Morphine Sulfate (Morphine Sulfate 4 Mg/Ml 1 Ml Carp\Vial) 4 mg IV Q4 PRN PRN Reason: severe pain Stop: 04/06/20 20:27 Nitroglycerin (Nitroglycerin Sl 0.4 Mg/Tab Tab) 0.4 mg SL UD PRN PRN Reason: Chest Pain Stop: 04/22/20 20:27 Ondansetron HCl (Ondansetron Inj 2 Mg/Ml 2 Ml Vial) 4 mg IV Q6H PRN PRN Reason: Nausea Stop: 04/22/20 18:01 Pantoprazole Sodium (Pantoprazole 40 Mg Tab) 40 mg PO DAILY JAX Stop: 04/23/20 08:59 Last Admin: 03/26/20 08:31 Dose: 40 mg Documented by: Tramadol HCl (Tramadol Hcl 50 Mg Tablet) 50 mg PO Q4H PRN PRN Reason: Pain Stop: 04/24/20 08:12 (1) Acute pancreatitis Acute pancreatitis complication: unspecified Pancreatitis type: unspecified pancreatitis type Qualified Code(s): K85.90 - Acute pancreatitis without necrosis or infection, unspecified (2) Hypertension Hypertension type: essential hypertension Qualified Code(s): I10 - Essential (primary) hypertension (3) CAD (coronary artery disease) Coronary Disease-Associated Artery/Lesion type: minto artery [place] vs. 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
[2020-03-27] MEDS ORDERED: amLODIPine BESYLATE 5 MG TAB PO SCH (02:25)
[2020-03-27] MEDS: SODIUM CHLORIDE 0.9% 1000ML 1,000 ML IV SCH (06:08)
[2020-03-27 06:24] LABS: Basophils # (auto) 0.02 K/uL (0-0.2); Basophils % (auto) 0.3 %; Eosinophils # (auto) 0.28 K/uL (0-0.5); Hemoglobin 13.8 g/dL (14.0-18.0); Immature Granulocytes # (auto) 0.01 K/uL (0.00-0.02); Immature Granulocytes % (auto) 0.1 %; Lymphocytes % (auto) 19.9 %; Mean Corpuscular Hemoglobin 31.4 pg (25-34); Mean Corpuscular Hgb Conc 34.5 g/dL (32-36); Mean Corpuscular Volume 91.1 fL (80-100); Mean Platelet Volume 10.2 fL (7.4-10.4); Monocytes # (auto) 0.62 K/uL (0.11-0.59); Monocytes % (auto) 8.8 %; Neutrophils % (auto) 66.9 %; Platelet Count 201 K/uL (130-400); RDW Coefficient of Variation 12.7 % (11.5-14.5); RDW Standard Deviation 42.9 fL (36.4-46.3); Red Blood Count 4.39 M/uL (4.7-6.1); White Blood Count 7.03 K/uL (4.8-10.8)
[2020-03-27 06:49] LABS: BUN Creatinine Ratio 10.8 (10-20); Creatinine Clr Calc Pharmacy 62.7 ml/min; Est GFR (African American) 68.2; Est GFR (Non-African American) 58.9; Potassium 3.7 mmol/L (3.5-5.1)
[2020-03-27 06:52] LABS: Albumin Globulin Ratio 0.9 (0.9-2); Bilirubin,Total 0.8 mg/dl (0.2-1); Globulin 3.5 gm/dl (2.5-4.0); Total Protein 6.5 gm/dl (6.4-8.2)
[2020-03-27] MEDS: METOPROLOL SUCC 25MG EXT REL TAB PO SCH (08:49)
[2020-03-27] MEDS: PANTOprazole 40 MG TAB PO SCH (08:49)
[2020-03-27] MEDS: ASPIRIN 81 MG ECTAB PO SCH (08:49)
[2020-03-27] MEDS: INSULIN ASPART 100 UNITS/ML 3 ML PEN SC SCH (08:54)
--- NOTE | 2020-03-27 09:20 | Gastroenterology Progress Note ---
Date of Service March 27, 2020 Assessment & Plan (1) Acute pancreatitis: Acute onset pancreatitis. Denies abdominal pain today. Tolerating regular diet. Pharmacist reviewed outpatient medications 03/25/2020 - unlikely source - amlodipine with <1% association. Will require outpatient EUS of pancreas to look for etiology. Will arrange outpatient follow-up. Would like EUS in [facility]. Patient reports plan is discharge today. Please refer to supervising physician addendum for further recommendations. Admission and Anticipated Discharge Date Admission Date: March 23, 2020 Subjective Denies abdominal discomfort this morning. Tolerating regular diet without difficulty. Denies nausea or vomiting. Last bowel movement was 03/26/2020 loose stools without melena or hematochezia. Denies complaints and states he is ready for discharge Review of Systems Review of Systems: All systems reviewed & are unremarkable except as noted in Subjective Physical Exam Constitutional: WD/WN, vitals as above Neck: normal visual inspection and trachea midline Respiratory: normal respiratory effort, lungs clear to auscultation Cardiovascular: RRR, no murmur, no edema Gastrointestinal (Abdomen): Inspection/Auscultation: normal bowel sounds Percussion/Palpation: abdomen soft; abdomen nontender, no guarding and abdomen not rigid Musculoskeletal: Extremities: no cyanosis and no clubbing Skin: no rashes, warm and dry Psychiatric: A+Ox3, euthymic affect Results & Data ([facility]) Vital Signs (Past 12 Hours) Vital Signs Temp Pulse Pulse Resp BP Pulse Ox 03/27/20 07:26 36.9 C 52 L 18 131/71 95 03/27/20 07:21 51 L 03/27/20 04:27 61 03/27/20 03:05 37 C 49 L 16 144/80 H 94 03/26/20 22:52 36.5 C 53 L 20 163/85 H 94 Abnormal Lab Results 03/26/20 03/26/20 03/26/20 11:37 16:38 20:07 WBC RBC Hgb Hct MCV MCH MCHC RDW Std Deviation RDW Coeff of Dashawn Plt Count MPV Immature Gran % (Auto) Neut % (Auto) Lymph % (Auto) [place] % (Auto) Eos % (Auto) Baso % (Auto) Neut # (Auto) Lymph # (Auto) [place] # (Auto) Eos # (Auto) Baso # (Auto) Immature Gran # (Auto) Sodium Potassium Chloride Carbon Dioxide Anion Gap BUN Creatinine Est Cr Clr Drug Dosing Est GFR ( Amer) Est GFR (Non-Af Amer) BUN/Creatinine Ratio Glucose POC Glucose 171 H 90 121 H Calcium Total Bilirubin AST ALT Alkaline Phosphatase Total Protein Albumin Globulin Albumin/Globulin Ratio Lipase 03/27/20 03/27/20 03/27/20 05:59 05:59 07:33 WBC 7.03 RBC 4.39 L Hgb 13.8 L Hct 40.0 L MCV 91.1 MCH 31.4 MCHC 34.5 RDW Std Deviation 42.9 RDW Coeff of Dashawn 12.7 Plt Count 201 MPV 10.2 Immature Gran % (Auto) 0.1 Neut % (Auto) 66.9 Lymph % (Auto) 19.9 [place] % (Auto) 8.8 Eos % (Auto) 4.0 Baso % (Auto) 0.3 Neut # (Auto) 4.70 Lymph # (Auto) 1.40 [place] # (Auto) 0.62 H Eos # (Auto) 0.28 Baso # (Auto) 0.02 Immature Gran # (Auto) 0.01 Sodium 138 Potassium 3.7 Chloride 109 H Carbon Dioxide 25 Anion Gap 4.0 BUN 13 Creatinine 1.22 Est Cr Clr Drug Dosing 62.7 Est GFR ( Amer) 68.2 Est GFR (Non-Af Amer) 58.9 BUN/Creatinine Ratio 10.8 Glucose 132 H POC Glucose 138 H Calcium 9.0 Total Bilirubin 0.8 AST 14 L ALT 25 Alkaline Phosphatase 67 Total Protein 6.5 Albumin 3.0 L Globulin 3.5 Albumin/Globulin Ratio 0.9 Lipase 78 (1) Acute pancreatitis Acute pancreatitis complication: unspecified Pancreatitis type: unspecified pancreatitis type Qualified Code(s): K85.90 - Acute pancreatitis without necrosis or infection, unspecified
--- NOTE | 2020-03-27 10:41 | Hospitalist Progress Note ---
Date of Service March 27, 2020 Assessment & Plan (1) Acute pancreatitis: admitted with acute epigastric abdominal pain associated with nausea hx of cholecystectomy CT abdomen-mild to moderate peripancreatic infiltration consistent with acute pancreatitis on 03/23/2020 MRCP-peripancreatic infiltration and fluid consistent with acute pancreatitis on 03/23/2020 No definitive cause of pancreatitis found bowel rest , IV hydration , pain control LFT's wnl Lipase 982, repeat lipase much improved and is normalized Appreciate GI input and recommendation Has been tolerating regular diet and will be discharged home this afternoon Given that patient did not have gallstones, denies alcohol use, and chance of medication causing his pancreatitis is extremely low, GI recommends EUS as outpatient (2) Abdominal pain, acute, epigastric: due to above Continue IV hydration, initially n.p.o. except for ice chips and sips, IV morphine as needed for severe pain Tolerates full liquid diet, will advance his diet No more abdominal pain and is tolerating regular diet (3) Hypertension: stable cont home amlodipine (4) CAD (coronary artery disease): no complain of chest pain or sob cont out pt meds (5) HLD (hyperlipidemia): hold statin for ac pancreatitis History of triglyceridemia-can cause acute pancreatitis Checked fasting lipid profile-triglyceride 174, cholesterol 118, LDL cholesterol 46, VLDL 35, HDL 37. Nothing to suggest the cause for the pancreatitis Triglycerides 174, only mildly elevated CODE STATUS : FULL CODE Will be discharged home this afternoon Admission and Anticipated Discharge Date Admission Date: March 23, 2020 Subjective 03/27/2020 The patient was seen and examined in the medical telemetry unit He denies any symptoms today He has been eating normally and has been ambulating in the hallway without any symptoms He will be discharged this afternoon Review of Systems Review of Systems: All systems reviewed and are unremarkable except as noted below Gastrointestinal: no abdominal pain, no bloating, no nausea and no vomiting Physical Exam Physical Exam: Sitting at the edge of the bed without any symptoms Constitutional: well developed, well nourished and + obese; no acute distress and not ill appearing Eyes: PERRL, conjunctivae normal, anicteric sclerae ENMT: external ear and nose normal, oropharynx normal Neck: trachea midline, no thyromegaly Respiratory: normal respiratory effort; no respiratory distress Au scultation: lungs clear to auscultation bilaterally Cardiovascular: Rate/Rhythm: regular rate and regular rhythm Heart Sounds: no murmur Gastrointestinal (Abdomen): Inspection/Auscultation: abdomen normal to inspection and normal bowel sounds; abdomen not distended Percussion/Palpation: abdomen soft; abdomen nontender Musculoskeletal: No acute arthritis involving any joints Neurologic: moves all extremities; no focal motor deficits Alert, awake and oriented x3 Psychiatric: A+Ox3, euthymic affect Lymphatic: no cervical or axillary lymphadenopathy Results & Data Results & Data ([facility]) Vital Signs (Past 12 Hours) Vital Signs Temp Pulse Pulse Resp BP Pulse Ox 03/27/20 07:26 36.9 C 52 L 18 131/71 95 03/27/20 07:21 51 L 03/27/20 04:27 61 03/27/20 03:05 37 C 49 L 16 144/80 H 94 03/26/20 22:52 36.5 C 53 L 20 163/85 H 94 Laboratory Results Short CBC 03/27/20 Range/Units 05:59 WBC 7.03 (4.8-10.8) K/uL Hgb 13.8 L (14.0-18.0) g/dL Hct 40.0 L (42-52) % Plt Count 201 (130-400) K/uL BMP 03/27/20 05:59 Sodium 138 Potassium 3.7 Chloride 109 H Carbon Dioxide 25 BUN 13 Creatinine 1.22 Glucose 132 H Calcium 9.0 Liver Function 03/27/20 Range/Units 05:59 Total Bilirubin 0.8 (0.2-1) mg/dl AST 14 L (15-37) U/L ALT 25 (12-78) U/L Alkaline Phosphatase 67 (45-117) U/L Albumin 3.0 L (3.4-5.0) gm/dl Medications Administered Current Inpatient Medications Acetaminophen (Acetaminophen 325 Mg Tab) 650 mg PO Q4H PRN PRN Reason: Pain or Fever Stop: 04/22/20 18:01 Al Hydrox/Mg Hydrox/Simethicone (Aluminum/Magnesium Susp 30 Ml Udc) 15 ml PO Q4H PRN PRN Reason: Dyspepsia Stop: 04/22/20 18:01 Amlodipine Besylate (Amlodipine Besylate 5 Mg Tab) 5 mg PO QAM JAX Stop: 04/26/20 02:24 Last Admin: 03/27/20 03:06 Dose: 5 mg Documented by: Aspirin (Aspirin 81 Mg Ectab) 81 mg PO DAILY JAX Stop: 04/23/20 08:59 Last Admin: 03/27/20 08:49 Dose: 81 mg Documented by: Dextrose (Dextrose 50% 50 Ml Syringe) 25 - 50 ml IV UD PRN; Protocol PRN Reason: Hypoglycemia Protocol Stop: 04/22/20 20:27 Glucagon (Glucagon For Inj 1 Mg Vial) 1 mg SQ UD PRN; Protocol PRN Reason: Hypoglycemia Protocol Stop: 04/22/20 20:27 Glucose (Glucose 10 Tabs/Tube) 4 - 8 tabs PO UD PRN; Protocol PRN Reason: Hypoglycemia Protocol Stop: 04/22/20 20:27 Glucose (Glucose 40% Gel 15 Gm Tube) 15 - 30 gm PO UD PRN; Protocol PRN Reason: Hypoglycemia Protocol Stop: 04/22/20 20:27 Sodium Chloride (Nss 1000ml) 1,000 mls @ 50 mls/hr IV .Q20H JAX Stop: 04/22/20 18:14 Last Admin: 03/27/20 06:08 Dose: 50 mls/hr Documented by: Insulin Aspart (Insulin Aspart 100 Units/Ml 3 Ml Pen) 0 units SC ACHS JAX Stop: 04/23/20 16:29 Last Admin: 03/27/20 08:54 Dose: 8 units Documented by: Magnesium Hydroxide (Magnesium Hydroxide Susp 30 Ml Udc) 30 ml PO Q12H PRN PRN Reason: Constipation Stop: 04/22/20 18:01 Metoprolol Succinate (Metoprolol Succ 25mg Ext Rel Tab) 25 mg PO BID JAX Stop: 04/22/20 20:59 Last Admin: 03/27/20 08:49 Dose: Not Given Documented by: Miscellaneous (Carbohydrates For Hypoglycemia ) 15 - 30 gm PO UD PRN PRN Reason: Hypoglycemia Protocol Stop: 04/22/20 20:27 Morphine Sulfate (Morphine Sulfate 2 Mg/Ml Carp) 2 mg IV Q4 PRN PRN Reason: Pain Stop: 04/06/20 20:27 Last Admin: 03/24/20 08:50 Dose: 2 mg Documented by: Morphine Sulfate (Morphine Sulfate 4 Mg/Ml 1 Ml Carp\Vial) 4 mg IV Q4 PRN PRN Reason: severe pain Stop: 04/06/20 20:27 Nitroglycerin (Nitroglycerin Sl 0.4 Mg/Tab Tab) 0.4 mg SL UD PRN PRN Reason: Chest Pain Stop: 04/22/20 20:27 Ondansetron HCl (Ondansetron Inj 2 Mg/Ml 2 Ml Vial) 4 mg IV Q6H PRN PRN Reason: Nausea Stop: 04/22/20 18:01 Pantoprazole Sodium (Pantoprazole 40 Mg Tab) 40 mg PO DAILY JAX Stop: 04/23/20 08:59 Last Admin: 03/27/20 08:49 Dose: 40 mg Documented by: Tramadol HCl (Tramadol Hcl 50 Mg Tablet) 50 mg PO Q4H PRN PRN Reason: Pain Stop: 04/24/20 08:12 (1) Acute pancreatitis Acute pancreatitis complication: unspecified Pancreatitis type: unspecified pancreatitis type Qualified Code(s): K85.90 - Acute pancreatitis without necrosis or infection, unspecified (2) Hypertension Hypertension type: essential hypertension Qualified Code(s): I10 - Essential (primary) hypertension (3) CAD (coronary artery disease) Coronary Disease-Associated Artery/Lesion type: [place] artery [place] vs. transplanted heart: [place] heart Associated angina: with other forms of angina Qualified Code(s): I25.118 - Atherosclerotic heart disease of [place] coronary artery with other forms of angina pectoris
--- NOTE | 2020-03-28 08:21 | Discharge Summary ---
Date of Service March 28, 2020 Admission HPI Per Admitting Provider This is 74-year-old male with past medical history GERD hyperlipidemia coronary artery disease hypertension, came to ER with complaint of severe epigastric, and left lower quadrant abdominal pain started since yesterday. Patient mentioned initially the pain was 9 out of 10, sharp going to back, associated with nausea, did not had any vomiting He was also experiencing severe acid reflux, heartburn symptoms, Took Protonix, with no improvement of pain, had loose bowel movement yesterday none today No fever or chills, no dysuria no urinary symptoms, The ER labs showed elevated lipase, CT abdomen pelvis showed evidence of acute pancreatitis Admission Exam Per Admitting Provider Constitutional: WD/WN, vitals as above Eyes: PERRL, conjunctivae normal, anicteric sclerae ENMT: external ear and nose normal, oropharynx normal Neck: trachea midline, no thyromegaly Respiratory: normal respiratory effort, lungs clear to auscultation Cardiovascular: RRR, no murmur, no edema Gastrointestinal (Abdomen): Inspection/Auscultation: normal bowel sounds Percussion/Palpation: + abdomen tender (Epigastric, and lower abdomen) and ab domen soft; no guarding Musculoskeletal: no cyanosis or clubbing, extremities motor strength 5/5 Skin: no rashes, warm and dry Neurologic: PERRL, EOMI, accommodation nl, no face palsy, no dysarthria Psychiatric: A+Ox3, euthymic affect Principal Diagnosis Acute pancreatitis, hypertension, stable CAD, hyperlipidemia Discharge Exam Constitutional well developed, well nourished and + obese; no acute distress and not ill appearing Eyes PERRL, conjunctivae normal, anicteric sclerae ENMT external ear and nose normal, oropharynx normal Neck trachea midline, no thyromegaly Respiratory normal respiratory effort; no respiratory distress Auscultation: lungs clear to auscultation bilaterally Cardiovascular Rate/Rhythm: regular rate and regular rhythm Heart Sounds: no murmur Gastrointestinal (Abdomen) Inspection/Auscultation: abdomen normal to inspection and normal bowel sounds; abdomen not distended Percussion/Palpation: abdomen soft; abdomen nontender Neurologic moves all extremities; no focal motor deficits Psychiatric A+Ox3, euthymic affect Lymphatic no cervical or axillary lymphadenopathy Discharge Data Allergies Allergy/AdvReac Type Severity Reaction Status Date / Time Iodinated Contrast Media Allergy Mild "IVP DYE" Verified 03/23/20 17:59 HIVES Consultations 03/23/20 17:59 ED Decision to Admit Stat 03/23/20 18:02 Consult Gastroenterology Routine 03/23/20 18:04 Consult Case Management - Discharge Planning Routine Ordered Studies 03/23/20 15:27 CT abd pelvis wo con Stat 03/23/20 18:07 MR MRCP Stat Hospital Course (1) Acute pancreatitis: admitted with acute epigastric abdominal pain associated with nausea hx of cholecystectomy CT abdomen-mild to moderate peripancreatic infiltration consistent with acute pancreatitis on 03/23/2020 MRCP-peripancreatic infiltration and fluid consistent with acute pancreatitis on 03/23/2020 No definitive cause of pancreatitis found bowel rest , IV hydration , pain control LFT's wnl Lipase 982, repeat lipase much improved and is normalized Appreciate GI input and recommendation Has been tolerating regular diet and will be discharged home this afternoon Given that patient did not have gallstones, denies alcohol use, and chance of medication causing his pancreatitis is extremely low, GI recommends EUS as outpatient (2) Abdominal pain, acute, epigastric: due to above Continue IV hydration, initially n.p.o. except for ice chips and sips, IV morphine as needed for severe pain Tolerates full liquid diet, will advance his diet No more abdominal pain and is tolerating regular diet (3) Hypertension: stable cont home amlodipine (4) CAD (coronary artery disease): no complain of chest pain or sob cont out pt meds (5) HLD (hyperlipidemia): hold statin for ac pancreatitis History of triglyceridemia-can cause acute pancreatitis Checked fasting lipid profile-triglyceride 174, cholesterol 118, LDL cholesterol 46, VLDL 35, HDL 37. Nothing to suggest the cause for the pancreatitis Triglycerides 174, only mildly elevated CODE STATUS : FULL CODE Will be discharged home this afternoon Total Time Total Time Spent Total Time Spent (In Minutes): 35 minutes Total Time Includes: Examination of the Patient, Discharge Planning, Medication Reconciliation and Communication With Other Providers Discharge Plan Discharge Items Patient Disposition: Home - Self-Care Reason For Visit: ACUTE PANCREATITIS Discharge Diagnosis: Acute pancreatitis, hypertension, stable CAD, hyperlipidemia Condition on Discharge: Good Activity: Resume your previous activity Non-emergency contact: Primary Care Provider Call non-emergency contact if: you have any medication questions and your symptoms worsen Follow-up/Referrals: Brent Comer, DO [Primary Care Provider] - (Please keep appointment with your primary care provider. Gastroenterology service will call you with a follow-up appointment) Diet: Carb Consistent or DM2 and Heart Healthy Addtl Attending Provider Instructions: No change in your current medications Try to avoid fatty foods Pending Studies at Discharge: No Stand-Alone Forms: [facility], Work/School Release (Inpt), Smoking Cessation Medications and DC Order Prescriptions: Continued atorvastatin 80 mg tablet 80 mg PO QAM RF: 0 amlodipine 5 mg tablet 5 mg PO QAM RF: 0 nitroglycerin 0.4 mg tablet, sublingual 0.4 mg Sublingual UD PRN (Reason: Chest Pain) RF: 0 finasteride 5 mg tablet 5 mg PO QAM RF: 0 cetirizine [Zyrtec] 10 mg Tablet 10 mg PO DAILY RF: 0 albuterol sulfate 90 mcg/actuation Hfa Aerosol Inhaler 2 puff INHALATION UD PRN (Reason: Shortness Of Breath Or Wheezing) RF: 0 aspirin [Ecotrin Low Strength] 81 mg Tablet,Delayed Release (Dr/Ec) 81 mg PO QAM Qty: 30 RF: 2 Centrum Silver Men 300-600-300 mcg Tablet 1 tab PO DAILY RF: 0 citalopram 20 mg tablet 20 mg PO DAILY RF: 0 pantoprazole 40 mg tablet,delayed release (DR/EC) 40 mg PO DAILY RF: 0 lisinopril 10 mg tablet 10 mg PO DAILY RF: 0 metoprolol succinate 25 mg tablet extended release 24 hr 25 mg PO BID RF: 0 metformin 500 mg tablet 250 mg PO BID RF: 0 ferrous sulfate [iron] 325 mg (65 mg iron) Tablet 325 mg PO DAILY RF: 0 ibuprofen [Advil] 200 mg Tablet 400 mg PO Q6H PRN (Reason: Pain) RF: 0 coenzyme Q10 [CoQ-10] 100 mg Capsule 100 mg PO DAILY RF: 0 cinnamon bark [Cinnamon] 500 mg Capsule 500 mg PO DAILY RF: 0 cholecalciferol (vitamin D3) 25 mcg (1,000 unit) Tablet 25 mcg PO DAILY RF: 0 Prevagen 1 tab PO DAILY RF: 0 Discharge Orders: Discharge Order (Routine); Ordered 03/27/20 Ordered By: Mike Garcia Admission Data Admit Date/Time: 03/23/20 18:02 Attending Provider: Mike Garcia Admit Provider: Alysa Moulton Primary Care Provider: Brent Comer Other Providers: Alysa Moulton ; Elo Mccrary ; Archie Hale ; Juan C Ragsdale Nicholas A. ; Farshad Brown ; Dany Ridley Other Interventions: Discharge Summary Assessment (RN) Last Done: 03/27/20 11:36
== END 2020-03-27 13:56 | disposition home or self-care (01) | DRG 439 ==
LOC: ED 15:05 → 2N 18:02 → SUATTDRO 18:02 → 2N 19:32

== ENCOUNTER 2021-06-01 07:29 | Inpatient (IN) ==
[2021-06-01] MEDS ORDERED: DEXAMETHASONE SOD INJ 4 MG/ML VIAL IV STA (07:50)
[2021-06-01] MEDS ORDERED: ALBUTEROL 0.083% NEBU SOLN 3 ML VIAL NEB STA (07:50)
[2021-06-01 08:12] LABS: Hematocrit (blood only) 44.9 % (42-52); Hemoglobin 15.8 g/dL (14.0-18.0); Mean Corpuscular Hgb Conc 35.2 g/dL (32-36); Mean Corpuscular Volume 91.1 fL (80-100); Mean Platelet Volume 10.6 fL (7.4-10.4); Platelet Count 193 K/uL (130-400); RDW Coefficient of Variation 12.8 % (11.5-14.5); RDW Standard Deviation 42.9 fL (36.4-46.3); Red Blood Count 4.93 M/uL (4.7-6.1); White Blood Count 6.05 K/uL (4.8-10.8)
[2021-06-01 08:37] LABS: Albumin Globulin Ratio 0.8 (0.9-2); Albumin Level 3.3 gm/dl (3.4-5.0); BUN Creatinine Ratio 14.9 (10-20); Bilirubin Direct 0.3 mg/dl (0-0.2); Calcium 9.3 mg/dl (8.5-10.1); Creatinine Clr Calc Pharmacy 50.7 ml/min; Est GFR (African American) 53.6 ml/min; Est GFR (Non-African American) 46.3 ml/min; Globulin 4.1 gm/dl (2.5-4.0); Total Protein 7.4 gm/dl (6.4-8.2); Troponin I 0.048 ng/ml (0-0.045)
--- NOTE | 2021-06-01 08:49 | XRay Report ---
XR chest 1V portable HISTORY: 75 years-old Male r/o pneumonia, COVID + acute shortness of breath. COVID Positive. COMPARISON: Chest radiograph 08/16/2019 TECHNIQUE: Portable AP view of the chest FINDINGS: Cardiac silhouette is enlarged. Bilateral mixed interstitial and alveolar opacities are noted within a mid to lower lung zone prominent distribution. No pneumothorax or large pleural effusion. Degenerat mis changes of the shoulders and spine include severe osteoarthritis of the left glenohumeral joint. IMPRESSION: Multifocal bilateral mid to lower lung zone prominent opacities are suggestive of viral p neumonia. ACT 112: Negative or not required by law. The above report was generated using voice recognition software. It may contain grammatical, syntax o r spelling errors. Electronically signed by: Sky Machado M.D. 06/01/2021 8:47 AM
[2021-06-01 08:53] LABS: Beta-Hydroxybutyrate 2.25 mg/dl (0.2-2.81)
[2021-06-01 08:57] LABS: Basophils # (auto) 0.01 K/uL (0-0.2); Basophils % (auto) 0.2 %; Eosinophils # (auto) 0.02 K/uL (0-0.5); Eosinophils % (auto) 0.3 %; Immature Granulocytes # (auto) 0.01 K/uL (0.00-0.02); Immature Granulocytes % (auto) 0.2 %; Lymphocytes # (auto) 1.09 K/uL (1.2-3.4); Monocytes # (auto) 0.54 K/uL (0.11-0.59); Monocytes % (auto) 8.9 %; Neutrophils # (auto) 4.38 K/uL (1.4-6.5); Neutrophils % (auto) 72.4 %
[2021-06-01] MEDS ORDERED: NovoLIN-R INSULIN PER UNIT CHARGE IV STA ×2 (08:57→10:10)
[2021-06-01] MEDS ORDERED: SODIUM CHLORIDE 0.9% 1000ML 1,000 ML IV SCH ×2 (09:00→14:41)
--- NOTE | 2021-06-01 09:04 | Emergency Department Note ---
History of Present Illness General Chief complaint: Shortness of Breath/Dyspnea Time Seen by Provider: 06/01/21 07:29 History of Present Illness This 75-year-old male with history of chronic renal insufficiency, history of kidney stones, elevated lipids, hypertension, CAD, history of pancreatitis, and history of cardiac stent placement, presents with increasing shortness of breath. Patient states he has had a cough for over a week. He has been feeling rundown. He states he was seen by his PCP 6 days ago and was tested for Covid. He was told he likely had a pneumonia and was given doxycycline. Patient states 2 days later he got notified he was positive for Covid. He states that his shortness of breath is increased and overnight he was struggling for breath. He denies any fevers. He developed diarrhea 2 days ago. Denies any chest pain or abdominal pain. No rhinorrhea or head congestion. He denies any sore throat. He states he is not a diabetic, but is being evaluated for diabetes. He states he was instructed by his PCP to come to the ED immediately for increased symptoms. No known ill contacts. Patient states he did receive both Pfizer vaccines back in late July or August. He has not received a booster. He does not use oxygen at home. Home Medications Medication Instructions Recorded Confirmed Type albuterol sulfate 90 mcg/actuation 2 puff INHALATION UD PRN 05/01/18 06/01/21 History aerosol inhaler amlodipine 5 mg tablet 5 mg PO QAM 05/01/18 06/01/21 History atorvastatin 80 mg tablet 80 mg PO DAILY 05/01/18 06/01/21 History cetirizine 10 mg tablet (Zyrtec) 10 mg PO DAILY 05/01/18 06/01/21 History finasteride 5 mg tablet 5 mg PO QAM 05/01/18 06/01/21 History nitroglycerin 0.4 mg sublingual 0.4 mg SUBLINGUAL UD PRN 05/01/18 06/01/21 History tablet aspirin 81 mg tablet,delayed 81 mg PO QAM #30 tab 05/04/18 06/01/21 Rx release (Ecotrin Low Strength) avmxotik-zzo-geywy acid 300 1 tab PO DAILY 03/20/19 06/01/21 History mcg-lycopene 600 mcg-lutein 300 mcg tablet (Centrum Silver Men) citalopram 20 mg tablet 20 mg PO DAILY 08/16/19 06/01/21 History lisinopril 10 mg tablet 10 mg PO DAILY 08/16/19 06/01/21 History metoprolol succinate 25 mg 25 mg PO BID 08/16/19 06/01/21 History tablet,extended release 24 hr pantoprazole 40 mg tablet,delayed 40 mg PO DAILY 08/16/19 06/01/21 History release Prevagen 1 tab PO DAILY 03/23/20 06/01/21 History cholecalciferol (vitamin D3) 25 25 mcg PO DAILY 03/23/20 06/01/21 History mcg (1,000 unit) tablet cinnamon bark 500 mg capsule 500 mg PO DAILY 03/23/20 06/01/21 History (Cinnamon) coenzyme Q10 100 mg capsule 100 mg PO DAILY 03/23/20 06/01/21 History (CoQ-10) ferrous sulfate 325 mg (65 mg 325 mg PO DAILY 03/23/20 06/01/21 History iron) tablet (iron) ibuprofen 200 mg tablet (Advil) 400 mg PO Q6H PRN 03/23/20 06/01/21 History metformin 500 mg tablet 500 mg PO DAILY 03/23/20 06/01/21 History fluticasone propionate 50 2 spray INTRANASAL DAILY PRN 06/01/21 06/01/21 History mcg/actuation nasal spray,suspension isosorbide mononitrate 30 mg 30 mg PO DAILY 06/01/21 06/01/21 History tablet,extended release 24 hr montelukast 10 mg tablet 10 mg PO DAILY 06/01/21 06/01/21 History Allergies Allergy/AdvReac Type Severity Reaction Status Date / Time Iodinated Contrast Media Allergy Mild "IVP DYE" Verified 03/23/20 17:59 HIVES Past Med/Surg History Medical History Acid reflux Anxiety and depression CAD in [place] artery CKD (chronic kidney disease), stage III Colitis DIETARY CONTROLLED Dyslipidemia, goal LDL below 70 Hiatal hernia History of kidney stones HTN, goal below 130/80 Myocardial infarction Rotator cuff dysfunction LEFT/ OLD INJURY Seasonal allergies Sleep apnea CPAP SOB (shortness of breath) on exertion PT REPORTS CARDIO IS AWARE ST elevation (STEMI) myocardial infarction APR 2018 - "ANGIOPLASTY" - DENIES STENT INSERTION ([facility]) Surgical History History of angioplasty History of colonoscopy History of hemorrhoidectomy History of laparoscopic cholecystectomy History of reduction of closed fracture LEFT ARM History of right cataract extraction S/P cardiac catheterization Myocardial infarction 2001, with PCI of circumflex. Cardiac catheterization 2003 demonstrating patent circumflex stent. Catheterization April 2013 with bare-metal stenting to the proximal and mid right coronary artery. Catheterization 2015 demonstrating patent stents and moderate nonobstructive CAD. Family History Brother CAD in [place] artery Coronary artery bypass grafting x4 at age 68 Mother CAD in [place] artery Social History Smoking Status: Never smoker Second Hand Exposure: No; Hx Alcohol Use: No Hx Substance Use: No Preferred Language: Beninese Communication Ability: Effective Cardiovascular Tech Required: No Beliefs That Will Affect Care: None Current Living Situation: Alone Current Living Situation Comment: Lives at home alone Feels Safe at Home: Yes Assistive Devices: Glasses Review of Systems A total of 10 systems reviewed and were otherwise negative Physical Exam Vital Signs Vital Signs - 24 hr 06/01/21 07:34 06/01/21 07:35 06/01/21 09:00 Temperature 37.1 C Temperature Source Oral Pulse Rate 60 Pulse Rate [Radial] 55 L Pulse Rhythm Regular Pulse Strength Normal Respiratory Rate 26 H 24 Respiratory Effort / Characteristics Blood Pressure 134/90 Blood Pressure [Right Arm] 128/77 Blood Pressure Mean 104 Blood Pressure Mean [Right Arm] 94 Pulse Oximetry 88 L 88 L 96 Oxygen Delivery Method Room Air Room Air Oxymask Oxymask Oxygen Flow Rate 4 Sepsis Recent Fever Within 48 Hours No Sepsis New/Unexplained Change in Mental Status No Sepsis Action Taken by Nursing No Action Required Oxygen Flow Rate - Titration 4 Pulse Oximetry Post Tiitration 94 06/01/21 09:27 Temperature Temperature Source Pulse Rate Pulse Rate [Radial] 72 Pulse Rhythm Pulse Strength Respiratory Rate 20 Respiratory Effort / Characteristics Spontaneous Blood Pressure Blood Pressure [Right Arm] Blood Pressure Mean Blood Pressure Mean [Right Arm] Pulse Oximetry 96 Oxygen Delivery Method Oxymask Oxygen Flow Rate 3 Sepsis Recent Fever Within 48 Hours Sepsis New/Unexplained Change in Mental Status Sepsis Action Taken by Nursing Oxygen Flow Rate - Titration Pulse Oximetry Post Tiitration General: Well-developed, well-nourished, elderly white male, in obvious respiratory difficulty. Sitting on the bed. Alert and oriented. Conversive in short sentences. Skin: Warm and dry with good turgor. No rashes or lesions. No ecchymosis or erythema. The patient is not diaphoretic. No abrasions. HEENT: Normocephalic atraumatic. Eyes PERRLA, EOMI. No conjunctiva or scleral injection. Ears TMs intact bilaterally with good light reflexes. No erythema or bulging. No hemotympanum. Canals are patent. Nares patent bilaterally without turbinate enlargement. Notable clear nasal drainage. No epistaxis. Oropharynx without erythema or exudate. Uvula midline, oral mucosa moist. No lesions present. Lymphatics are palpated without anterior or posterior chain enlargement or tenderness. Heart: Heart bradycardic with regular rhythm. No MGR. Peripheral pulses are 2+. Lungs: Lungs have bibasilar crackles and expiratory wheezing. No rhonchi. Fair air movement. The patient is unable to take a deep breath. Abdomen: Abdomen was inspected, auscultated, and palpated. Obese. Bowel sounds present x 4. Soft, nontender to palpation. No hepato-splenomegaly. No masses noted. No rebound. Musculoskeletal: Gross motor function of the upper and lower extremities is intact and unremarkable. Neurologic: Gross sensation is intact across the upper and lower extremities by soft touch. Course Administered Medications Discontinued Medications Albuterol (Albuterol 0.083% Nebu Soln 3 Ml Vial) 2.5 mg NEB NOW STA; Protocol Stop: 06/01/21 07:51 Last Admin: 06/01/21 09:22 Dose: 2.5 mg Documented by: [id number] Amlodipine Besylate (Amlodipine Besylate 5 Mg Tab) 5 mg PO NOW ONE Stop: 06/01/21 10:08 Last Admin: 06/01/21 10:27 Dose: 5 mg Documented by: [id number] Aspirin (Aspirin 81 Mg Ectab) 81 mg PO NOW STA Stop: 06/01/21 10:10 Last Admin: 06/01/21 10:27 Dose: 81 mg Documented by: [id number] Dexamethasone (Dexamethasone Sod Inj 4 Mg/Ml Vial) 10 mg IV NOW STA Stop: 06/01/21 07:51 Last Admin: 06/01/21 09:01 Dose: 10 mg Documented by: [id number] Sodium Chloride (Nss 1000ml) 1,000 mls @ 125 mls/hr IV .Q8H JAX Stop: 07/01/21 08:59 Last Admin: 06/01/21 09:05 Dose: 125 mls/hr Documented by: [id number] Insulin Human Regular 9 units/ (Syringe) 9 mls @ 4.5 mls/min IV ONE ONE Stop: 06/01/21 10:31 Last Admin: 06/01/21 11:14 Dose: 4.5 mls/min Documented by: [id number] Cosigned by: [id number] Insulin Human Regular (Novolin-R Insulin Per Unit Charge) 5 units IV NOW STA Stop: 06/01/21 08:58 Last Admin: 06/01/21 09:16 Dose: 5 units Documented by: [id number] Cosigned by: [id number] Isosorbide Mononitrate (Isosorbide [place] Extended Rel 30 Mg Tabcr) 30 mg PO NOW ONE Stop: 06/01/21 10:08 Last Admin: 06/01/21 11:11 Dose: 30 mg Documented by: [id number] Metoprolol Succinate (Metoprolol Succ 25mg Ext Rel Tab) 25 mg PO NOW STA Stop: 06/01/21 10:08 Last Admin: 06/01/21 11:13 Dose: 25 mg Documented by: [id number] Pantoprazole Sodium (Pantoprazole 40 Mg Tab) 40 mg PO NOW ONE Stop: 06/01/21 10:09 Last Admin: 06/01/21 10:27 Dose: 40 mg Documented by: [id number] Medical Decision Making Differential Diagnosis Viral illness, Covid infection, pneumonia, COPD exacerbation, asthma exacerbation, bronchitis Medical Records Attestation: I reviewed the patient's medical records. Home Medications Current Medication List: was personally reviewed by me Laboratory Data Result diagrams: 06/01/21 07:15 06/01/21 07:15 Lab Results 06/01/21 06/01/21 06/01/21 Range/Units 07:15 07:15 07:15 WBC 6.05 (4.8-10.8) K/uL RBC 4.93 (4.7-6.1) M/uL Hgb 15.8 (14.0-18.0) g/dL Hct 44.9 (42-52) % MCV 91.1 (80-100) fL MCH 32.0 (25-34) pg MCHC 35.2 (32-36) g/dL RDW Std Deviation 42.9 (36.4-46.3) fL RDW Coeff of Dashawn 12.8 (11.5-14.5) % Plt Count 193 (130-400) K/uL MPV 10.6 H (7.4-10.4) fL Immature Gran % (Auto) 0.2 % Neut % (Auto) 72.4 % Lymph % (Auto) 18.0 % [place] % (Auto) 8.9 % Eos % (Auto) 0.3 % Baso % (Auto) 0.2 % Neut # (Auto) 4.38 (1.4-6.5) K/uL Lymph # (Auto) 1.09 L (1.2-3.4) K/uL [place] # (Auto) 0.54 (0.11-0.59) K/uL Eos # (Auto) 0.02 (0-0.5) K/uL Baso # (Auto) 0.01 (0-0.2) K/uL Immature Gran # (Auto) 0.01 (0.00-0.02) K/uL Sodium 133 L (136-145) mmol/L Potassium 4.0 (3.5-5.1) mmol/L Chloride 99 (98-107) mmol/L Carbon Dioxide 23 (21-32) mmol/L Anion Gap 11.0 (3-11) BUN 22 H (7-18) mg/dl Creatinine 1.48 H (0.6-1.4) mg/dl Est Cr Clr Drug Dosing 50.7 ml/min Est GFR ( Amer) 53.6 ml/min Est GFR (Non-Af Amer) 46.3 ml/min BUN/Creatinine Ratio 14.9 (10-20) Glucose 359 H* (70-99) mg/dl POC Glucose (70-99) mg/dl Calcium 9.3 (8.5-10.1) mg/dl Ferritin 1194.5 H (8-388) ng/ml Total Bilirubin 1.0 (0.2-1) mg/dl Direct Bilirubin 0.3 H (0-0.2) mg/dl AST 35 (15-37) U/L ALT 37 (12-78) Alkaline Phosphatase 92 (45-117) U/L Troponin I 0.048 H* (0-0.045) ng/ml C-Reactive Protein 0.73 H (0-0.29) mg/dl Total Protein 7.4 (6.4-8.2) gm/dl Albumin 3.3 L (3.4-5.0) gm/dl Globulin 4.1 H (2.5-4.0) gm/dl Albumin/Globulin Ratio 0.8 L (0.9-2) Beta-Hydroxybutyric Acd 2.25 (0.2-2.81) mg/dl 06/01/21 Range/Units 09:15 WBC (4.8-10.8) K/uL RBC (4.7-6.1) M/uL Hgb (14.0-18.0) g/dL Hct (42-52) % MCV (80-100) fL MCH (25-34) pg MCHC (32-36) g/dL RDW Std Deviation (36.4-46.3) fL RDW Coeff of Dashawn (11.5-14.5) % Plt Count (130-400) K/uL MPV (7.4-10.4) fL Immature Gran % (Auto) % Neut % (Auto) % Lymph % (Auto) % [place] % (Auto) % Eos % (Auto) % Baso % (Auto) % Neut # (Auto) (1.4-6.5) K/uL Lymph # (Auto) (1.2-3.4) K/uL [place] # (Auto) (0.11-0.59) K/uL Eos # (Auto) (0-0.5) K/uL Baso # (Auto) (0-0.2) K/uL Immature Gran # (Auto) (0.00-0.02) K/uL Sodium (136-145) mmol/L Potassium (3.5-5.1) mmol/L Chloride (98-107) mmol/L Carbon Dioxide (21-32) mmol/L Anion Gap (3-11) BUN (7-18) mg/dl Creatinine (0.6-1.4) mg/dl Est Cr Clr Drug Dosing ml/min Est GFR ( Amer) ml/min Est GFR (Non-Af Amer) ml/min BUN/Creatinine Ratio (10-20) Glucose (70-99) mg/dl POC Glucose 381 H* (70-99) mg/dl Calcium (8.5-10.1) mg/dl Ferritin (8-388) ng/ml Total Bilirubin (0.2-1) mg/dl Direct Bilirubin (0-0.2) mg/dl AST (15-37) U/L ALT (12-78) Alkaline Phosphatase (45-117) U/L Troponin I (0-0.045) ng/ml C-Reactive Protein (0-0.29) mg/dl Total Protein (6.4-8.2) gm/dl Albumin (3.4-5.0) gm/dl Globulin (2.5-4.0) gm/dl Albumin/Globulin Ratio (0.9-2) Beta-Hydroxybutyric Acd (0.2-2.81) mg/dl Imaging Data My Impression: Chest x-ray obtained today was reviewed by me and read by radiology. Patient has multifocal bilateral opacities suggestive of viral pneumonia in the mid and lower lungs. Radiologist's Impression: Chest X-Ray 06/01/21 07:50 XR chest 1V portable HISTORY: 75 years-old Male r/o pneumonia, COVID + acute shortness of breath. COVID Positive. COMPARISON: Chest radiograph 08/16/2019 TECHNIQUE: Portable AP view of the chest FINDINGS: Cardiac silhouette is enlarged. Bilateral mixed interstitial and alveolar opacities are noted within a mid to lower lung zone prominent distribution. No pneumothorax or large pleural effusion. Degenerative changes of the shoulders and spine include severe osteoarthritis of the left glenohumeral joint. IMPRESSION: Multifocal bilateral mid to lower lung zone prominent opacities are suggestive of viral pneumonia. ACT 112: Negative or not required by law. The above report was generated using voice recognition software. It may contain grammatical, syntax or spelling errors. Electronically signed by: Sky Machado M.D. 06/01/2021 8:47 AM ECG Data Additional Comments: EKG obtained today shows sinus rhythm with a rate of 62. Premature supraventricular complexes are present. No acute ST or T wave changes are noted. Blood Pressure Blood Pressure Findings: Normal blood pressure MDM Narrative Patient was evaluated in room A9. Covid precautions were used, including use of full PPE. Patient was found to be hypoxic on room air with a saturation of 88%. He was also notably tachypneic. He was immediately placed on 4 L O2 via mask, and saturations improved to 95%. IV was established. Labs were obtained. Chest x-ray was also obtained, showing basilar infiltrates suggestive of pneumonia. EKG shows a sinus rhythm with rate of 62. No acute ST or T wave findings are noted. White count was normal at 6.05. H&H are normal at 15.8 and 44.9. He is hyperg lycemic with a glucose of 359. LFTs are unremarkable. Troponin was noted to be elevated at 0.048. I suspect this is due to his Covid infection as the patient denies any episodes of chest pain. Patient denied being a known diabetic. Glucose was notably elevated. He was given 5 units regular insulin IV while in the ED. He is also given Decadron 10 mg IV and given a DuoNeb nebulizer treatment. Due to the patient's hypoxia, positive Covid test 6 days ago, and current elevated blood sugar, he should not be discharged to home. [facility] I did speak with Dr. Luna. Please see his dictation for final management. Patient remained stable while in the ED. Impression & Plan Pneumonia due to COVID-19 virus, Hypoxia, Elevated glucose level Care plan was discussed with Dr. Camp, who is in agreement with admission. Patient remained stable while in the ED. He did require continuous oxygen 4L via oxygen mask. Discharge Plan Visit Data Chief Complaint: Shortness of Breath/Dyspnea ED Midlevel Provider: Silvio Mercado Discharge Problem: Pneumonia due to COVID-19 virus, Hypoxia, Elevated glucose level
--- NOTE | 2021-06-01 09:32 | History & Physical Report ---
Date of Service June 01, 2021 Assessment & Plan (1) Pneumonia due to COVID-19 virus: Plan: Hypoxia Patient is 75 y/o M with PMH HTN, HLD, CAD s/p stent, CKD III, DM II, JARETT, Espinoza's esophagus, JARETT, depression presented to ER with c/o SOB. Symptom onset 05/16/2021. Positive COVID-19 test on 05/26/21. Increased shortness of breath last night. 2 days of loose stools. He states he received his Covid 19 vaccinations in July and August 2020. No Booster. In ER patient afebrile, 88% on room air up to 96% on 4 L oxygen mask. Other vitals stable. No leukocytosis, glucose: 359, troponin: 0.048. Chest x-ray consistent with multifocal pneumonia In ER given albuterol neb, dexamethasone 10 mg IV, 5 units insulin R Patient with symptom onset greater than 10 days ago Obtain procalcitonin, ferritin, CRP Dexamethasone 6 mg daily Supplemental oxygen Encourage proning when able Incentive spirometer, flutter valve Scheduled albuterol IVF CBC, BMP in a.m. Elevated Troponin History CAD Troponin: 0.48. EKG sinus rhythm, T wave inversion lateral, T wave flattening in inferior Denies chest pain Likely elevated secondary to demand ischemia Trend troponin Continue aspirin, atorvastatin, metoprolol succinate Consider echo and cardiology consult if troponin elevates or EKG changes DM II Hyperglycemia A1c: 11.3 on 05/28/2021 Hold home Metformin Initially given insulin R IV Basal bolus insulin per protocol Glycemic pharmacy consult for assistance in management If continue to be elevated may need to consider insulin drip HTN Continue amlodipine, lisinopril, metoprolol succinate HLD Continue atorvastatin CKD III Cr: 1.4. Baseline~1.2 Monitor renal function, avoid nephrotoxic agents when possible JARETT CPAP HS Depression Continue citalopram Espinoza's esophagus Continue PPI DVT Prophylaxis Lovenox SQ Full Code as per discussion with pt Follows with Dr Phillips for routine care Pt was seen and care coordinated with Dr Joya. See addendum History of Present Illness Chief Complaint: SOB Primary Care Provider: Brent Comer DO Patient is 75 y/o M with PMH HTN, HLD, CAD s/p stent, CKD III, DM II, JARETT, Espinoza's esophagus, JARETT, depression presented to ER with c/o SOB. Patient reports approximately 05/16/2021 started with not feeling well with congestion, cough, fatigue. He followed up with PCP 05/26/2021 and was initially given doxycycline for possible pneumonia however his COVID-19 test returned positive. Patient reports has been having increased shortness of breath which increased last night. Also reports 2 days of loose stools. He states he received his Covid 19 vaccinations in July and August 2020. No recent fever. Denies N/V, BISHOP, dizziness, syncope, vision changes, neck pain, CP, palpitations, hemoptysis, sore throat, choking, otalgia, abdominal pain, paresthesias, extremity weakness, extremity edema, rashes, urinary symptoms. In ER patient afebrile, 88% on room air up to 96% on 4 L oxygen mask. Other vitals stable. No leukocytosis, glucose: 359, troponin: 0.048. Chest x-ray consistent with multifocal pneumonia In ER given albuterol neb, dexamethasone 10 mg IV, 5 units insulin R Allergies Allergy/AdvReac Type Severity Reaction Status Date / Time Iodinated Contrast Media Allergy Mild "IVP DYE" Verified 03/23/20 17:59 HIVES Home Medications Medication Instructions Recorded Confirmed Type albuterol sulfate 90 mcg/actuation 2 puff INHALATION UD PRN 05/01/18 06/01/21 History aerosol inhaler amlodipine 5 mg tablet 5 mg PO QAM 05/01/18 06/01/21 History atorvastatin 80 mg tablet 80 mg PO DAILY 05/01/18 06/01/21 History cetirizine 10 mg tablet (Zyrtec) 10 mg PO DAILY 05/01/18 06/01/21 History finasteride 5 mg tablet 5 mg PO QAM 05/01/18 06/01/21 History nitroglycerin 0.4 mg sublingual 0.4 mg SUBLINGUAL UD PRN 05/01/18 06/01/21 History tablet aspirin 81 mg tablet,delayed 81 mg PO QAM #30 tab 05/04/18 06/01/21 Rx release (Ecotrin Low Strength) [id number] acid 300 1 tab PO DAILY 03/20/19 06/01/21 History mcg-lycopene 600 mcg-lutein 300 mcg tablet (Centrum Silver Men) citalopram 20 mg tablet 20 mg PO DAILY 08/16/19 06/01/21 History lisinopril 10 mg tablet 10 mg PO DAILY 08/16/19 06/01/21 History metoprolol succinate 25 mg 25 mg PO BID 08/16/19 06/01/21 History tablet,extended release 24 hr pantoprazole 40 mg tablet,delayed 40 mg PO DAILY 08/16/19 06/01/21 History release Prevagen 1 tab PO DAILY 03/23/20 06/01/21 History cholecalciferol (vitamin D3) 25 25 mcg PO DAILY 03/23/20 06/01/21 History mcg (1,000 unit) tablet cinnamon bark 500 mg capsule 500 mg PO DAILY 03/23/20 06/01/21 History (Cinnamon) coenzyme Q10 100 mg capsule 100 mg PO DAILY 03/23/20 06/01/21 History (CoQ-10) ferrous sulfate 325 mg (65 mg 325 mg PO DAILY 03/23/20 06/01/21 History iron) tablet (iron) ibuprofen 200 mg tablet (Advil) 400 mg PO Q6H PRN 03/23/20 06/01/21 History metformin 500 mg tablet 500 mg PO DAILY 03/23/20 06/01/21 History fluticasone propionate 50 2 spray INTRANASAL DAILY PRN 06/01/21 06/01/21 History mcg/actuation nasal spray,suspension isosorbide mononitrate 30 mg 30 mg PO DAILY 06/01/21 06/01/21 History tablet,extended release 24 hr montelukast 10 mg tablet 10 mg PO DAILY 06/01/21 06/01/21 History Past Med/Surg History Medical History Acid reflux Anxiety and depression CAD in [place] artery CKD (chronic kidney disease), stage III Colitis DIETARY CONTROLLED Dyslipidemia, goal LDL below 70 Hiatal hernia History of kidney stones HTN, goal below 130/80 Myocardial infarction Rotator cuff dysfunction LEFT/ OLD INJURY Seasonal allergies Sleep apnea CPAP SOB (shortness of breath) on exertion PT REPORTS CARDIO IS AWARE ST elevation (STEMI) myocardial infarction APR 2018 - "ANGIOPLASTY" - DENIES STENT INSERTION ([facility]) Surgical History History of angioplasty History of colonoscopy History of hemorrhoidectomy History of laparoscopic cholecystectomy History of reduction of closed fracture LEFT ARM History of right cataract extraction S/P cardiac catheterization Myocardial infarction 2001, with PCI of circumflex. Cardiac catheterization 2003 demonstrating patent circumflex stent. Catheterization April 2013 with bare-metal stenting to the proximal and mid right coronary artery. Catheterization 2015 demonstrating patent stents and moderate nonobstructive CAD. Family History Brother CAD in [place] artery Coronary artery bypass grafting x4 at age 68 Mother CAD in [place] artery Social History Smoking Status: Never smoker Second Hand Exposure: No; Hx Alcohol Use: No Hx Substance Use: No Preferred Language: B[place]ian Communication Ability: Effective Case Management Social Worker Required: No Beliefs That Will Affect Care: None Current Living Situation: Alone Current Living Situation Comment: Lives at home alone Feels Safe at Home: Yes Assistive Devices: Glasses Review of Systems Review of Systems: All systems reviewed & are unremarkable except as noted in HPI & below Physical Exam Physical Exam: General: no acute distress, WDWN Head: normocephalic, atraumatic Eyes: PERRL, EOM's intact, conjunctiva non-injected, anicteric ENT: normal inspection external ears, nose, mucous membranes mildy dry Neck: supple, trachea midline Lungs: no respiratory distress on current 3L oxymask, +rales bilaterally, increased at bases CV: RRR, no murmur, no pretibial edema Abd: normal BS, soft, non-tender Ext: no cyanosis, no calf tenderness Neuro: A&O x 3, no focal deficits noted, normal affect Skin: warm, dry Results & Data Results & Data ([facility]) Vital Signs (Past 12 Hours) Vital Signs Temp Pulse Pulse Resp BP BP Pulse Ox 06/01/21 09:27 72 20 96 06/01/21 09:00 55 L 24 128/77 96 06/01/21 07:35 88 L 06/01/21 07:34 37.1 C 60 26 H 134/90 88 L Laboratory Results Short CBC 06/01/21 Range/Units 07:15 WBC 6.05 (4.8-10.8) K/uL Hgb 15.8 (14.0-18.0) g/dL Hct 44.9 (42-52) % Plt Count 193 (130-400) K/uL BMP 06/01/21 07:15 Sodium 133 L Potassium 4.0 Chloride 99 Carbon Dioxide 23 BUN 22 H Creatinine 1.48 H Glucose 359 H* Calcium 9.3 Cardiac Enzymes 06/01/21 Range/Units 07:15 Troponin I 0.048 H* (0-0.045) ng/ml Liver Function 06/01/21 Range/Units 07:15 Total Bilirubin 1.0 (0.2-1) mg/dl Direct Bilirubin 0.3 H (0-0.2) mg/dl AST 35 (15-37) U/L ALT 37 (12-78) Alkaline Phosphatase 92 (45-117) U/L Albumin 3.3 L (3.4-5.0) gm/dl Diagnostic Findings Chest X-Ray 06/01/21 07:50 XR chest 1V portable HISTORY: 75 years-old Male r/o pneumonia, COVID + acute shortness of breath. COVID Positive. COMPARISON: Chest radiograph 08/16/2019 TECHNIQUE: Portable AP view of the chest FINDINGS: Cardiac silhouette is enlarged. Bilateral mixed interstitial and alveolar opacities are noted within a mid to lower lung zone prominent distribution. No pneumothorax or large pleural effusion. Degenerative changes of the shoulders and spine include severe osteoarthritis of the left glenohumeral joint. IMPRESSION: Multifocal bilateral mid to lower lung zone prominent opacities are suggestive of viral pneumonia. ACT 112: Negative or not required by law. The above report was generated using voice recognition software. It may contain grammatical, syntax or spelling errors. Electronically signed by: Sky Machado M.D. 06/01/2021 8:47 AM Code Status & VTE Plan VTE Prophylaxis Plan VTE Prophylaxis will be ordered: Yes Supervising Physician Co-Signing Physician Notes Pt is a 75 M with hx of CAD s/p stent, CKD III, DMII, HLD, hx of pancreatitis, HTN, BPH admitted for COVID pneumonia. Symptoms started on 05/16-05/17 Tested positive for COVID on 05/26 Exam: Mild respiratory distress, on oxymask (4L) Lungs: b/l lower lobes rales, no wheezing Cards: Normal S1/S2, no murmur Abd: ND, NT, Soft Psych: AAOx3, normal affect A/P: COVID pneumonia with hypoxia: Symptoms started on 05/16-05/17 Tested positive for COVID on 05/26 -will obtain procal and CRP -since symptoms started >10 days ago will do dexamethasone -LFTs are normal and CrCl: -per pt he is having diarrhea due to recent abx use (Doxy) will get c.diff -continue on oxygen supplement right now -encourage frequent change of position (including proning) -daily CMP and CRP -DVT ppx ordered DMII with hyperglycemia: -no Gap -will start the pt on basal insulin with ISS - hold metformin Elevated trop: -pt denied any CP - trend trop and repeat EKG Agree with A/P by Carmen Gil PA-C
--- NOTE | 2021-06-01 09:57 | Emergency Department Note ---
ED Visit Note I saw this patient in conjunction with Silvio Mercado PA-C. I agree with his decision making and treatment plan. The patient is hypoxic and will require inpatient care. .
[2021-06-01] MEDS ORDERED: ISOSORBIDE MONO EXTENDED REL 30 MG TABCR PO ONE (10:07)
[2021-06-01] MEDS ORDERED: METOPROLOL SUCC 25MG EXT REL TAB PO STA (10:07)
[2021-06-01] MEDS ORDERED: amLODIPine BESYLATE 5 MG TAB PO ONE (10:07)
[2021-06-01] MEDS ORDERED: PANTOprazole 40 MG TAB PO ONE (10:08)
[2021-06-01] MEDS ORDERED: ASPIRIN 81 MG ECTAB PO STA (10:09)
[2021-06-01] MEDS ORDERED: INSULIN HUMAN REGULAR PER UNIT 9 UNITS in SYRINGE 8.91 ML IV ONE (10:30)
[2021-06-01 10:33] LABS: C Reactive Protein 0.73 mg/dl (0-0.29); Ferritin 1194.5 ng/ml (8-388)
--- NOTE | 2021-06-01 14:24 | Electrocardiogram Report ---
Test Reason : Blood Pressure : / mmHG Vent. Rate : 062 BPM Atrial Rate : 062 BPM P-R Int : 146 ms QRS Dur : 102 ms QT Int : 468 ms P-R-T Axes : 018 -41 126 degrees QTc Int : 475 ms Sinus rhythm with Premature supraventricular complexes Left axis deviation Lateral infarct (cited on or before 01-MAY-2018) Abnormal ECG When compared with ECG of 16-AUG-2019 20:38, Premature ventricular complexes are no longer Present Premature supraventricular complexes are now Present T wave inversion now evident in Lateral leads Confirmed by Pramod Caraballo ([id number]) on 06/01/2021 2:23:55 PM Referred By: REFERRED SELF Confirmed By:Pramod Caraballo
[2021-06-01] MEDS ORDERED: NITROGLYCERIN SL 0.4 MG/TAB TAB SL PRN (14:41)
[2021-06-01] MEDS ORDERED: GLUCAGON FOR INJ 1 MG VIAL SQ PRN (14:41)
[2021-06-01] MEDS ORDERED: ONDANSETRON INJ 2 MG/ML 2 ML VIAL IV PRN (14:41)
[2021-06-01] MEDS ORDERED: ACETAMINOPHEN 325 MG TAB PO PRN (14:41)
[2021-06-01] MEDS ORDERED: FLUTICASONE PROPIONATE NA SPR 16 GM BTL NAE PRN (14:41)
[2021-06-01] MEDS ORDERED: GLUCOSE 40% GEL 15 GM TUBE PO PRN (14:41)
[2021-06-01] MEDS ORDERED: POLYETHYLENE (MIRALAX) 17 GM PACK PO PRN (14:41)
[2021-06-01] MEDS ORDERED: GLUCOSE 10 TABS/TUBE PO PRN (14:41)
[2021-06-01] MEDS ORDERED: CARBOHYDRATES FOR HYPOGLYCEMIA PO PRN (14:41)
[2021-06-01] MEDS ORDERED: DEXTROSE 50% 50 ML SYRINGE IV PRN (14:41)
[2021-06-01] MEDS ORDERED: PHARMACY GLYCEMIC MGMT CONSULT PRN (14:41)
--- NOTE | 2021-06-01 15:25 | Pharmacy Report ---
Pharmacy Glycemic Short Note 2 - Date of Service June 01, 2021 - Glycemic Short BSG Results (Last 24 hours): 06/01/21 06/01/21 06/01/21 07:15 09:15 10:25 Glucose 359 H* POC Glucose 381 H* 331 H* 06/01/21 11:11 Glucose POC Glucose 312 H* OUTPATIENT ANTIDIABETIC REGIMEN: * metformin 500 mg PO daily * HbA1C = 11.3% on 05/28/21 per H&P ASSESSMENT: * Mr Hong is a 75 y/o M with a PMH of T2DM who is admitted for COVID-19. * Patient's BSG on admission was 359 mg/dL which was prior to any dexamethasone given. Patient given 10 mg of IV dexamethasone @ 0901 * Patient was given 5 units IV @916 and 9 units IV @ 1114 of insulin. * Recheck BSG at 1500 was 357 mg/dL. Discussed with hospitalist- patient has low PO intake. * As patient is not critically ill at this time, will opt for Novolog 0.1 units/kg Q2 until BSG < 200 mg/dL then change back to q4. This will be instead of insulin infusion. * Lantus 30 units SQ x 1 (0.3 units/kg) PLAN FOR INPATIENT GLYCEMIC CONTROL: * Hold outpatient oral diabetes medications * Basal insulin * Lantus 30 units SQ x 1 * Bolus insulin * NovoLog 9 units SQ q2 hours until BSG < 200 mg/dL * THEN per scale ACHS or Q6hrs while NPO * Goal Range: Low 110 mg/dL - High 140 mg/dL * Correction Factor: 15 mg/dL/unit * Nutritional / Prandial insulin per carb ratio of 1 unit per 4 grams CHO consumed PLAN FOR DISCHARGE: * TBD
[2021-06-01] MEDS ORDERED: INSULIN GLARGINE SOLOSTAR 100 UNITS/ML 3 ML PEN SC ONE (16:00)
[2021-06-01] MEDS ORDERED: INSULIN ASPART PER UNIT SC SCH ×2 (16:00→16:30)
[2021-06-01] MEDS: ALBUTEROL HFA 8 GM INHALER INH SCH ×2 (16:33→20:00)
[2021-06-01] MEDS: INSULIN ASPART PER UNIT SC SCH ×4 (16:45→22:11)
[2021-06-01] MEDS: lisinopril 10 MG TAB PO SCH (19:36)
[2021-06-01] MEDS: METOPROLOL SUCC 25MG EXT REL TAB PO SCH (20:31)
[2021-06-01] MEDS: ENOXAPARIN INJ 40 MG/0.4 ML SYR SQ SCH (20:31)
[2021-06-02] MEDS: INSULIN ASPART PER UNIT SC SCH ×7 (00:28→20:48)
[2021-06-02] MEDS: ALBUTEROL HFA 8 GM INHALER INH SCH ×4 (00:55→20:17)
[2021-06-02] MEDS ORDERED: dexAMETHasone 6 MG in SYRINGE 0 ML IV ONE (02:15)
[2021-06-02 02:55] LABS: Hematocrit (blood only) 37.6 % (42-52); Hemoglobin 13.1 g/dL (14.0-18.0); Mean Corpuscular Hemoglobin 31.2 pg (25-34); Mean Corpuscular Hgb Conc 34.8 g/dL (32-36); Mean Corpuscular Volume 89.5 fL (80-100); Mean Platelet Volume 9.7 fL (7.4-10.4); Platelet Count 185 K/uL (130-400); RDW Coefficient of Variation 12.6 % (11.5-14.5); White Blood Count 5.06 K/uL (4.8-10.8)
[2021-06-02 03:13] LABS: Allen Test POS (Pos); Base Excess ABG -2.7 mEq/L (-9-1.8); HCO3 ABG 21 mmol/L (19-24); Oxygen Saturation ABG 96.7 % (90-95); PCO2 ABG 31 mmHg (35-46); PO2 ABG 83 mmHg (80-95); pH ABG 7.44 (7.35-7.45)
[2021-06-02 03:14] LABS: Partial Thromboplastin Ratio 1.1; Partial Thromboplastin Time 30.2 Seconds (21.0-31.0)
[2021-06-02 03:15] LABS: Albumin Level 2.7 gm/dl (3.4-5.0); BUN Creatinine Ratio 18.7 (10-20); Calcium 8.9 mg/dl (8.5-10.1); Creatinine Clr Calc Pharmacy 62.3 ml/min; Est GFR (African American) 69.1 ml/min; Est GFR (Non-African American) 59.6 ml/min; Potassium 4.2 mmol/L (3.5-5.1)
[2021-06-02 03:26] LABS: Albumin Globulin Ratio 0.8 (0.9-2); Bilirubin,Total 0.5 mg/dl (0.2-1); C Reactive Protein 1.03 mg/dl (0-0.29); Globulin 3.6 gm/dl (2.5-4.0); Thyroid Stimulating Hormone 0.232 uIu/ml (0.300-4.500); Total Protein 6.3 gm/dl (6.4-8.2); Troponin I 0.036 ng/ml (0-0.045)
[2021-06-02 03:38] LABS: T4 Free Thyroxine 1.3 ng/dl (0.8-1.6)
[2021-06-02] MEDS ORDERED: FUROSEMIDE INJ 20 MG/2 ML VIAL IV ONE (03:43)
[2021-06-02 03:54] LABS: Immature Granulocytes # (auto) 0.01 K/uL (0.00-0.02); Immature Granulocytes % (auto) 0.2 %; Lymphocytes # (auto) 0.62 K/uL (1.2-3.4); Lymphocytes % (auto) 12.3 %; Monocytes # (auto) 0.41 K/uL (0.11-0.59); Monocytes % (auto) 8.1 %; Neutrophils # (auto) 4.02 K/uL (1.4-6.5); Neutrophils % (auto) 79.4 %
[2021-06-02] MEDS ORDERED: Nursing to Pharmacy Communication SCH (06:00)
[2021-06-02 07:20] LABS: Influenza A virus by PCR Negative (Neg); Influenza B virus by PCR Negative (Neg); RSV by PCR Negative (Neg)
--- NOTE | 2021-06-02 07:35 | XRay Report ---
XR chest 1V portable CLINICAL HISTORY: Hypoxia. COMPARISON STUDY: Chest radiograph June 01, 2021. FINDINGS: Lung volumes are mildly diminished. There is no pneumothorax or pleural effusion. Bilateral airspace opacities have slightly increased. Cardiomegaly is again noted. Severe osteoarthritis of th e left shoulder is incidentally noted. IMPRESSION: Bilateral airspace opacities, slightly increased since prior exam. The findings suggest viral pneumonia. ACT 112: Negative or not required by law. Electronically signed by: Abdirahman Peralta M.D. 06/02/2021 7:34 AM
[2021-06-02 07:47] LABS: SARS CoV2 RNA(COVID-19) InHosp POSITIVE (Negative)
[2021-06-02] MEDS: MONTELUKAST SODIUM 10 MG TABLET PO SCH (08:18)
[2021-06-02] MEDS: FERROUS SULFATE 325 MG TAB PO SCH (08:18)
[2021-06-02] MEDS: METOPROLOL SUCC 25MG EXT REL TAB PO SCH ×2 (08:18→20:49)
[2021-06-02] MEDS: CETIRIZINE HCL 10 MG TABLET PO SCH (08:18)
[2021-06-02] MEDS: CITALOPRAM 20 MG TAB PO SCH (08:18)
[2021-06-02] MEDS: ATORVASTATIN 40 MG TAB PO SCH (08:19)
[2021-06-02] MEDS: FINASTERIDE 5 MG TAB PO SCH (08:19)
[2021-06-02] MEDS: PANTOprazole 40 MG TAB PO SCH (08:19)
[2021-06-02] MEDS: ISOSORBIDE MONO EXTENDED REL 30 MG TABCR PO SCH (08:19)
[2021-06-02] MEDS: ASPIRIN 81 MG ECTAB PO SCH (08:19)
[2021-06-02] MEDS: ENOXAPARIN INJ 40 MG/0.4 ML SYR SQ SCH ×2 (08:20→20:48)
[2021-06-02] MEDS: CHOLECALCIFEROL 1,000 UNITS 25 MCG TAB PO SCH (08:20)
[2021-06-02] MEDS: lisinopril 10 MG TAB PO SCH (08:20)
[2021-06-02] MEDS: amLODIPine BESYLATE 5 MG TAB PO SCH (08:20)
[2021-06-02] MEDS ORDERED: dexAMETHasone 6 MG in SYRINGE 0 ML IV SCH (09:00)
[2021-06-02] MEDS ORDERED: INSULIN HUMAN NPH SC ONE (09:00)
[2021-06-02] MEDS ORDERED: INSULIN GLARGINE SOLOSTAR 100 UNITS/ML 3 ML PEN SC ONE (09:00)
--- NOTE | 2021-06-02 11:06 | Pharmacy Report ---
Pharmacy Glycemic Short Note 2 - Date of Service June 02, 2021 - Glycemic Short BSG Results (Last 24 hours): 06/01/21 06/01/21 06/01/21 11:11 15:10 16:53 Glucose POC Glucose 312 H* 357 H* 377 H* 06/01/21 06/01/21 06/01/21 18:16 18:17 20:04 Glucose POC Glucose 373 H* 373 H* 373 H* 06/01/21 06/02/21 06/02/21 22:04 00:22 02:14 Glucose POC Glucose 350 H* 292 H 224 H 06/02/21 06/02/21 06/02/21 02:48 04:24 07:53 Glucose 210 H POC Glucose 150 H 224 H OUTPATIENT ANTIDIABETIC REGIMEN: * metformin 500 mg PO daily * HbA1C = 11.3% on 05/28/21 per H&P ASSESSMENT: 06/02/21 * BSGs yesterday were [phone] mg/dL. Fasting today is 224 mg/dL. * Patient received 6 doses of Novolog 0.1 unit/kg (54 total units) plus Lantus 30 units x 1. * For today start Lantus 20 units daily for baseline basal needs plus NPH 35 units daily (0.4 units/kg) * Novolog weight-based stress of 3 for now due to ongoing dexamethasone 6 mg IV daily. Background * Mr Hong is a 75 y/o M with a PMH of T2DM who is admitted for COVID-19. * Patient's BSG on admission was 359 mg/dL which was prior to any dexamethasone given. Patient given 10 mg of IV dexamethasone @ 0901 * Patient was given 5 units IV @916 and 9 units IV @ 1114 of insulin. * Recheck BSG at 1500 was 357 mg/dL. Discussed with hospitalist- patient has low PO intake. * As patient is not critically ill at this time, will opt for Novolog 0.1 units/kg Q2 until BSG < 200 mg/dL then change back to q4. This will be instead of insulin infusion. * Lantus 30 units SQ x 1 (0.3 units/kg) PLAN FOR INPATIENT GLYCEMIC CONTROL: * Hold outpatient oral diabetes medications * Basal insulin * Lantus 20 units SQ daily * NPH 35 units SQ daily * Bolus insulin * NovoLog 9 units SQ q2 hours until BSG < 200 mg/dL * THEN per scale ACHS or Q6hrs while NPO * Goal Range: Low 110 mg/dL - High 140 mg/dL * Correction Factor: 15 mg/dL/unit * Nutritional / Prandial insulin per carb ratio of 1 unit per 4 grams CHO consumed PLAN FOR DISCHARGE: * TBD
[2021-06-02] MEDS ORDERED: INSULIN HUMAN REGULAR PER UNIT 5 UNITS in SYRINGE 4.95 ML IV ONE (12:30)
--- NOTE | 2021-06-02 18:29 | Hospitalist Progress Note ---
Date of Service June 02, 2021 Assessment & Plan (1) Pneumonia due to COVID-19 virus: Plan: Patient is a 75 yr male with H/O HTN, HLD, CAD s/p stent, CKD III, DM II, JARETT, Espinoza's esophagus, JARETT, depression presented to ER with c/o SOB. Symptom onset 05/16/2021. Positive COVID-19 test on 05/26/21. Increased shortness of breath last night. 2 days of loose stools. He states he received his Covid 19 vaccinations in July and August 2020. No Booster. Acute respiratory failure with hypoxia Multifocal pneumonia secondary to COVID-19 --CXR:Bilateral airspace opacities, slightly increased since prior exam. The findings suggest viral pneumonia. CRP: 0.73>1.03 Normal Procalcitonin Ferritin:1194 Continue dexamethasone 6 mg daily Discussed with patient regarding remdesivir, unlikely to help given symptoms onset Patient agrees to avoid remdesivir. Continue supplemental oxygen Encourage proning when able Incentive spirometer, flutter valve Consider pulmonary evaluation if needed Elevated Troponin H/O CAD Denies chest pain Troponin levels normalized Likely elevated secondary to demand ischemia Continue aspirin, atorvastatin, metoprolol succinate DM II Hyperglycemia A1c: 11.3 on 05/28/2021 Hold home Metformin Continue Insulin therapy Glycemic pharmacy consult for assistance in management HTN Continue amlodipine, lisinopril, metoprolol succinate HLD Continue atorvastatin CKD III Baseline~1.2 Monitor renal function Avoid nephrotoxic agents when possible JARETT CPAP HS Depression Continue citalopram Espinoza's esophagus Continue PPI DVT Prophylaxis Lovenox SQ Code Status Full Code Admission and Anticipated Discharge Date Admission Date: June 01, 2021 Subjective Patient is seen and examined at bedside States having cough with intermittent phlegm Less short of breath since admission Overall feels better Currently saturating on 6 L supplemental oxygen Diarrhea resolved as per patient Denies any nausea, vomiting, chest pain, abdominal pain Offers no other complaints Review of Systems Review of Systems: All systems reviewed & are unremarkable except as noted in Subjective Physical Exam Physical Exam: Physical Exam: Vitals signs as noted above General Appearance:Moderately built and nourished, no apparent distress Head: normocephalic, Atraumatic Eyes: normal inspection, EOMI Neck: supple, Trachea midline Respiratory/Chest: Decreased breath sounds, minimal basal crackles Cardiovascular: S1, S2, No murmur Abdomen/GI:Soft, Non tender, Bowel sounds present Extremities/Musculoskeletal:normal inspection, no edema Neurologic/Psych:AAOX3, grossly no focal neurological deficits Skin: normal color, warm Results & Data Results & Data ([facility]) Vital Signs (Past 12 Hours) Vital Signs Temp Pulse Pulse Resp BP Pulse Ox 06/02/21 16:52 58 L 06/02/21 16:00 36.6 C 54 L 18 108/63 89 L 06/02/21 14:13 58 L 18 90 06/02/21 11:44 36.6 C 55 L 20 107/66 88 L 06/02/21 08:40 52 L 06/02/21 08:00 36.4 C L 51 L 18 106/66 90 06/02/21 07:49 52 L 18 92 Laboratory Results Short CBC 06/02/21 Range/Units 02:48 WBC 5.06 (4.8-10.8) K/uL Hgb 13.1 L (14.0-18.0) g/dL Hct 37.6 L (42-52) % Plt Count 185 (130-400) K/uL BMP 06/02/21 02:48 Sodium 134 L Potassium 4.2 Chloride 106 Carbon Dioxide 20 L BUN 22 H Creatinine 1.20 Glucose 210 H Calcium 8.9 Cardiac Enzymes 06/01/21 06/02/21 Range/Units 20:57 02:48 Troponin I 0.038 0.036 (0-0.045) ng/ml Liver Function 06/02/21 Range/Units 02:48 Total Bilirubin 0.5 D (0.2-1) mg/dl AST 25 (15-37) U/L ALT 31 (12-78) Alkaline Phosphatase 75 (45-117) U/L Albumin 2.7 L (3.4-5.0) gm/dl
[2021-06-02] MEDS ORDERED: MELATONIN 3 MG TAB PO PRN (20:55)
[2021-06-02] MEDS ORDERED: MELATONIN 3 MG TAB PO STA (21:23)
[2021-06-03] MEDS: INSULIN ASPART PER UNIT SC SCH ×6 (00:37→21:10)
[2021-06-03] MEDS: ALBUTEROL HFA 8 GM INHALER INH SCH ×4 (01:30→19:44)
[2021-06-03 07:09] LABS: Hematocrit (blood only) 37.2 % (42-52); Hemoglobin 12.9 g/dL (14.0-18.0); Mean Corpuscular Hemoglobin 31.4 pg (25-34); Mean Corpuscular Hgb Conc 34.7 g/dL (32-36); Mean Corpuscular Volume 90.5 fL (80-100); Mean Platelet Volume 10.5 fL (7.4-10.4); Platelet Count 216 K/uL (130-400); RDW Coefficient of Variation 12.6 % (11.5-14.5); RDW Standard Deviation 41.7 fL (36.4-46.3); Red Blood Count 4.11 M/uL (4.7-6.1); White Blood Count 9.98 K/uL (4.8-10.8)
[2021-06-03 07:41] LABS: BUN Creatinine Ratio 23.1 (10-20); Creatinine Clr Calc Pharmacy 62.3 ml/min; Est GFR (African American) 69.1 ml/min; Est GFR (Non-African American) 59.6 ml/min; Potassium 3.9 mmol/L (3.5-5.1)
[2021-06-03] MEDS: PANTOprazole 40 MG TAB PO SCH (08:21)
[2021-06-03] MEDS: METOPROLOL SUCC 25MG EXT REL TAB PO SCH (08:22)
[2021-06-03] MEDS: CETIRIZINE HCL 10 MG TABLET PO SCH (08:22)
[2021-06-03] MEDS: MONTELUKAST SODIUM 10 MG TABLET PO SCH (08:22)
[2021-06-03] MEDS: ISOSORBIDE MONO EXTENDED REL 30 MG TABCR PO SCH (08:22)
[2021-06-03] MEDS: ASPIRIN 81 MG ECTAB PO SCH (08:23)
[2021-06-03] MEDS: FINASTERIDE 5 MG TAB PO SCH (08:23)
[2021-06-03] MEDS: ENOXAPARIN INJ 40 MG/0.4 ML SYR SQ SCH ×2 (08:23→21:12)
[2021-06-03] MEDS: CHOLECALCIFEROL 1,000 UNITS 25 MCG TAB PO SCH (08:23)
[2021-06-03] MEDS: CITALOPRAM 20 MG TAB PO SCH (08:24)
[2021-06-03] MEDS: amLODIPine BESYLATE 5 MG TAB PO SCH (08:24)
[2021-06-03] MEDS: dexAMETHasone 6 MG in SYRINGE 0 ML IV SCH (08:24)
[2021-06-03] MEDS: lisinopril 10 MG TAB PO SCH (08:29)
[2021-06-03] MEDS: FERROUS SULFATE 325 MG TAB PO SCH (08:29)
[2021-06-03] MEDS: ATORVASTATIN 40 MG TAB PO SCH (08:29)
[2021-06-03] MEDS ORDERED: INSULIN HUMAN NPH SC SCH (09:00)
[2021-06-03] MEDS: INSULIN GLARGINE SOLOSTAR 100 UNITS/ML 3 ML PEN SC SCH (09:58)
--- NOTE | 2021-06-03 11:02 | Pharmacy Report ---
Pharmacy Glycemic Short Note 2 - Date of Service June 03, 2021 - Glycemic Short BSG Results (Last 24 hours): 06/02/21 06/02/21 06/02/21 11:52 11:55 16:33 Glucose POC Glucose 311 H* 325 H* 222 H 06/02/21 06/02/21 06/03/21 20:00 23:34 04:15 Glucose POC Glucose 145 H 99 116 H 06/03/21 06/03/21 06:26 07:52 Glucose 117 H POC Glucose 134 H OUTPATIENT ANTIDIABETIC REGIMEN: * metformin 500 mg PO daily * HbA1C = 11.3% on 05/28/21 per H&P ASSESSMENT: 06/03: * Patient received total of 142 units of insulin yesterday; 55 units of basal (20 units of Lantus + 35 units of NPH) and 87 units of bolus. * Fasting BSG today was 134 mg/dl. Basal Lantus continued the same. * Novolog CR was tightened with dinner yesterday which brought down BSGs into range by HS. Novolog parameters continued the same today. * Basal NPH dose also continued the same as yesterday. 06/02/21 * BSGs yesterday were [phone] mg/dL. Fasting today is 22 4 mg/dL. * Patient received 6 doses of Novolog 0.1 unit/kg (54 total units) plus Lantus 30 units x 1. * For today start Lantus 20 units daily for baseline basal needs plus NPH 35 units daily (0.4 units/kg) * Novolog weight-based stress of 3 for now due to ongoing dexamethasone 6 mg IV daily. Background * Mr Hong is a 75 y/o M with a PMH of T2DM who is admitted for COVID-19. * Patient's BSG on admission was 359 mg/dL which was prior to any dexamethasone given. Patient given 10 mg of IV dexamethasone @ 0901 * Patient was given 5 units IV @916 and 9 units IV @ 1114 of insulin. * Recheck BSG at 1500 was 357 mg/dL. Discussed with hospitalist- patient has low PO intake. * As patient is not critically ill at this time, will opt for Novolog 0.1 units/kg Q2 until BSG < 200 mg/dL then change back to q4. This will be instead of insulin infusion. * Lantus 30 units SQ x 1 (0.3 units/kg) PLAN FOR INPATIENT GLYCEMIC CONTROL: * Hold outpatient oral diabetes medications * Basal insulin * Lantus 20 units SQ daily * NPH 35 units SQ daily * Bolus insulin: * NovoLog per scale ACHS or Q6hrs while NPO * Goal Range: Low 110 mg/dL - High 140 mg/dL * Correction Factor: 15 mg/dL/unit * Nutritional / Prandial insulin per carb ratio of 1 unit per 3 grams CHO consumed PLAN FOR DISCHARGE: * HbA1c = 11.3% on 05/28/21. Goal A1c is less than 8% for this patient given her age and comorbidities. * Recommend increasing Metformin to XR 500 mg PO BID with meals breakfast and dinner. Typically the XR formulation of metformin is better tolerated than the immediate release formulation. Continue to titrate metformin dosing upwards as recommended. Dosage increases should be made in increments of 500 mg weekly, up to 2,000 mg/day PO, given in divided doses. Doses above 2000 mg/day may be better tolerated if divided and given 3 times per day with meals. Max: 2,550 mg/day PO, in divided doses * Recommend adding Lantus 20 units once daily with morning meal. Titrate dose per outpatient provider.
--- NOTE | 2021-06-03 17:49 | Hospitalist Progress Note ---
Date of Service June 03, 2021 Assessment & Plan (1) Pneumonia due to COVID-19 virus: Plan: Patient is a 75 yr male with H/O HTN, HLD, CAD s/p stent, CKD III, DM II, JARETT, Espinoza's esophagus, JARETT, depression presented to ER with c/o SOB. Symptom onset 05/16/2021. Positive COVID-19 test on 05/26/21. Increased shortness of breath last night. 2 days of loose stools. He states he received his Covid 19 vaccinations in July and August 2020. No Booster. Acute respiratory failure with hypoxia Multifocal pneumonia secondary to COVID-19 --CXR:Bilateral airspace opacities, slightly increased since prior exam. The findings suggest viral pneumonia. CRP: 0.73>1.03 Normal Procalcitonin Ferritin:1194 Continue dexamethasone 6 mg daily Discussed with patient regarding remdesivir, unlikely to help given symptoms onset Patient agrees to avoid remdesivir. Continue supplemental oxygen Encourage proning when able Incentive spirometer, flutter valve Lasix as needed Elevated Troponin H/O CAD Denies chest pain Troponin levels normalized Likely elevated secondary to demand ischemia Continue aspirin, atorvastatin, metoprolol succinate DM II Hyperglycemia A1c: 11.3 on 05/28/2021 Hold home Metformin Continue Insulin therapy Glycemic pharmacy consult for assistance in management HTN Blood pressure relatively low Decreased lisinopril to 5 mg daily Decrease metoprolol 12.5 mg twice daily continue with holding parameters Hold amlodipine for now HLD Continue atorvastatin CKD III Baseline~1.2 Monitor renal function Avoid nephrotoxic agents when possible JARETT CPAP HS Depression Continue citalopram Espinoza's esophagus Continue PPI DVT Prophylaxis Lovenox SQ Code Status Full Code Admission and Anticipated Discharge Date Admission Date: June 01, 2021 Subjective Patient is seen and examined at bedside States feeling better today Less cough and dyspnea Currently on 6 L supplemental oxygen Blood pressure relatively low Denies any nausea, vomiting, chest pain, abdominal pain Offers no other complaints Review of Systems Review of Systems: All systems reviewed & are unremarkable except as noted in Subjective Physical Exam Physical Exam: Physical Exam: Vitals signs as noted above General Appearance:Moderately built and nourished, no apparent distress Head: normocephalic, Atraumatic Eyes: normal inspection, EOMI Neck: supple, Trachea midline Respiratory/Chest: Decreased breath sounds, minimal basal crackles Cardiovascular: S1, S2, No murmur Abdomen/GI:Soft, Non tender, Bowel sounds present Extremities/Musculoskeletal:normal inspection, no edema Neurologic/Psych:AAOX3, grossly no focal neurological deficits Skin: normal color, warm Results & Data Results & Data ([facility]) Vital Signs (Past 12 Hours) Vital Signs Temp Pulse Pulse Resp BP Pulse Ox 06/03/21 15:01 36.4 C L 55 L 20 92/52 L 91 06/03/21 14:36 55 L 18 97 06/03/21 11:26 36.4 C L 50 L 20 125/73 94 06/03/21 07:56 51 L 18 90 06/03/21 07:20 36.5 C 48 L 20 115/72 91 06/03/21 07:00 44 L Laboratory Results Short CBC 06/03/21 Range/Units 06:26 WBC 9.98 (4.8-10.8) K/uL Hgb 12.9 L (14.0-18.0) g/dL Hct 37.2 L (42-52) % Plt Count 216 (130-400) K/uL [facility] 06/03/21 06:26 Sodium 137 Potassium 3.9 Chloride 108 H Carbon Dioxide 23 BUN 28 H Creatinine 1.20 Glucose 117 H Calcium 9.0
[2021-06-03] MEDS ORDERED: METOPROLOL SUCC 25MG EXT REL TAB PO SCH (21:00)
[2021-06-03] MEDS: MELATONIN 3 MG TAB PO PRN (22:10)
[2021-06-04] MEDS ORDERED: INSULIN ASPART PER UNIT SC ONE
[2021-06-04] MEDS: ALBUTEROL HFA 8 GM INHALER INH SCH ×2 (00:18→08:04)
--- NOTE | 2021-06-04 06:00 | Electrocardiogram Report ---
Test Reason : Blood Pressure : / mmHG Vent. Rate : 050 BPM Atrial Rate : 050 BPM P-R Int : 154 ms QRS Dur : 102 ms QT Int : 498 ms P-R-T Axes : 036 -07 135 degrees QTc Int : 454 ms Sinus bradycardia Lateral infarct (cited on or before 01-MAY-2018) T wave abnormality, consider anterolateral ischemia Abnormal ECG When compared with ECG of 01-JUN-2021 07:34, Premature supraventricular complexes are no longer Present Confirmed by Fabian Ko ([id number]) on 06/04/2021 6:00:23 AM Referred By: REFERRED SELF Confirmed By:Fabian Ko
[2021-06-04 06:40] LABS: Hematocrit (blood only) 38.9 % (42-52); Hemoglobin 13.4 g/dL (14.0-18.0); Mean Corpuscular Hemoglobin 31.2 pg (25-34); Mean Corpuscular Hgb Conc 34.4 g/dL (32-36); Mean Corpuscular Volume 90.5 fL (80-100); Mean Platelet Volume 10.2 fL (7.4-10.4); Platelet Count 224 K/uL (130-400); RDW Coefficient of Variation 12.7 % (11.5-14.5); RDW Standard Deviation 41.9 fL (36.4-46.3); White Blood Count 9.54 K/uL (4.8-10.8)
[2021-06-04 07:07] LABS: BUN Creatinine Ratio 23.1 (10-20); Blood Urea Nitrogen 23 mg/dl (7-18); Calcium 9.2 mg/dl (8.5-10.1); Carbon Dioxide 21 mmol/L (21-32); Chloride 109 mmol/L (98-107); Est GFR (African American) 85.1 ml/min; Est GFR (Non-African American) 73.4 ml/min; Glucose 118 mg/dl (70-99); Sodium 137 mmol/L (136-145)
[2021-06-04 07:21] LABS: C Reactive Protein < 0.29 mg/dl (0-0.29); Thyroid Stimulating Hormone 0.167 uIu/ml (0.300-4.500)
[2021-06-04 07:33] LABS: T4 Free Thyroxine 1.37 ng/dl (0.8-1.6)
[2021-06-04] MEDS: INSULIN ASPART PER UNIT SC SCH ×4 (08:27→21:04)
[2021-06-04] MEDS: INSULIN GLARGINE SOLOSTAR 100 UNITS/ML 3 ML PEN SC SCH (08:28)
[2021-06-04] MEDS: dexAMETHasone 6 MG in SYRINGE 0 ML IV SCH (08:28)
[2021-06-04] MEDS: ENOXAPARIN INJ 40 MG/0.4 ML SYR SQ SCH ×2 (08:29→21:12)
--- NOTE | 2021-06-04 08:29 | XRay Report ---
XR chest 1V portable CLINICAL HISTORY: covid. Follow-up interstitial and alveolar opacities COMPARISON STUDY: 06/02/2021 TECHNIQUE: 1 view of the chest FINDINGS: Single frontal view of the chest demonstrates the cardiomediastinal silhouette to be within normal li mits. Compared to the previous examination, there is an increased inspiratory effort with significant interval improvement of previously identified interstitial and alveolar opacities. No acute alveolar opacities are seen. There is no evidence for pleural effusion. There is no evidence for vascular con gestion. There is no acute osseous pathology. IMPRESSION: Increased inspiratory effort with significant interval improvement of previously identifi ed interstitial and alveolar opacities. ACT 112: Negative or not required by law. Electronically signed by: Aki Pedersen M.D. 06/04/2021 8:27 AM
[2021-06-04] MEDS: INSULIN HUMAN NPH SC SCH (08:30)
[2021-06-04] MEDS: CETIRIZINE HCL 10 MG TABLET PO SCH (08:32)
[2021-06-04] MEDS: MONTELUKAST SODIUM 10 MG TABLET PO SCH (08:32)
[2021-06-04] MEDS: PANTOprazole 40 MG TAB PO SCH (08:32)
[2021-06-04] MEDS: METOPROLOL SUCC 25MG EXT REL TAB PO SCH (08:37)
[2021-06-04] MEDS: ASPIRIN 81 MG ECTAB PO SCH (08:38)
[2021-06-04] MEDS: FERROUS SULFATE 325 MG TAB PO SCH (08:38)
[2021-06-04] MEDS: ISOSORBIDE MONO EXTENDED REL 30 MG TABCR PO SCH (08:38)
[2021-06-04] MEDS: ATORVASTATIN 40 MG TAB PO SCH (08:39)
[2021-06-04] MEDS: CITALOPRAM 20 MG TAB PO SCH (08:39)
[2021-06-04] MEDS: FINASTERIDE 5 MG TAB PO SCH (08:39)
[2021-06-04] MEDS: CHOLECALCIFEROL 1,000 UNITS 25 MCG TAB PO SCH (08:39)
[2021-06-04] MEDS: lisinopril 5 MG TAB PO SCH (08:40)
[2021-06-04] MEDS ORDERED: ALBUTEROL HFA 8 GM INHALER INH PRN (09:31)
--- NOTE | 2021-06-04 11:04 | Pharmacy Report ---
Pharmacy Glycemic Short Note 2 - Date of Service June 04, 2021 - Glycemic Short BSG Results (Last 24 hours): 06/03/21 06/03/21 06/03/21 11:38 16:56 20:40 Glucose POC Glucose 271 H 221 H 183 H 06/04/21 06/04/21 06/04/21 00:04 06:16 07:22 Glucose 118 H POC Glucose 131 H 112 H OUTPATIENT ANTIDIABETIC REGIMEN: * metformin 500 mg PO daily * HbA1C = 11.3% on 05/28/21 per H&P ASSESSMENT: 06/04: * Pt received total 110 units of insulin yesterday: 55 units basal (20 units Lantus + 35 units NPH) and 55 units bolus. * Fasting BSG today was 112 mg/dl. Continued Lantus dose the same. * Post prandial BSGs trended up at lunch and dinner yesterday most likely due to the IV Dex 6 mg dose in the AM. Therefore, NPH dose was increased slightly to 40 units this AM. Expect BSGs will be improved with lunch and dinner today. * Novolog parameters continued the same. 06/03: * Patient received total of 142 units of insulin yesterday; 55 units of basal (20 units of Lantus + 35 units of NPH) and 87 units of bolus. * Fasting BSG today was 134 mg/dl. Basal Lantus continued the same. * Novolog CR was tightened with dinner yesterday which brought down BSGs into range by HS. Novolog parameters continued the same today. * Basal NPH dose also continued the same as yesterday. 06/02/21 * BSGs yesterday were [phone] mg/dL. Fasting today is 224 mg/dL. * Patient received 6 doses of Novolog 0.1 unit/kg (54 total units) plus Lantus 30 units x 1. * For today start Lantus 20 units daily for baseline basal needs plus NPH 35 units daily (0.4 units/kg) * Novolog weight-based stress of 3 for now due to ongoing dexamethasone 6 mg IV daily. Background * Mr Hong is a 75 y/o M with a PMH of T2DM who is admitted for COVID-19. * Patient's BSG on admission was 359 mg/dL which was prior to any dexamethasone given. Patient given 10 mg of IV dexamethasone @ 0901 * Patient was given 5 units IV @916 and 9 units IV @ 1114 of insulin. * Recheck BSG at 1500 was 357 mg/dL. Discussed with hospitalist- patient has low PO intake. * As patient is not critically ill at this time, will opt for Novolog 0.1 units/kg Q2 until BSG < 200 mg/dL then change back to q4. This will be instead of insulin infusion. * Lantus 30 units SQ x 1 (0.3 units/kg) PLAN FOR INPATIENT GLYCEMIC CONTROL: * Hold outpatient oral diabetes medications * Basal insulin: increased NPH dose * Lantus 20 units SQ daily * NPH 40 units SQ daily * Bolus insulin: * NovoLog per scale ACHS or Q6hrs while NPO * Goal Range: Low 110 mg/dL - High 140 mg/dL * Correction Factor: 15 mg/dL/unit * Nutritional / Prandial insulin per carb ratio of 1 unit per 3 grams CHO consumed PLAN FOR DISCHARGE: * HbA1c = 11.3% on 05/28/21. Goal A1c is less than 8% for this patient given her age and comorbidities. * Recommend increasing Metformin to XR 500 mg PO BID with meals breakfast and dinner. Typically the XR formulation of metformin is better tolerated than the immediate release formulation. Continue to titrate metformin dosing upwards as recommended. Dosage increases should be made in increments of 500 mg weekly, up to 2,000 mg/day PO, given in divided doses. Doses above 2000 mg/day may be better tolerated if divided and given 3 times per day with meals. Max: 2,550 mg/day PO, in divided doses * Recommend adding Lantus 20 units once daily with morning meal. Titrate dose per outpatient provider.
--- NOTE | 2021-06-04 16:41 | Hospitalist Progress Note ---
Date of Service June 04, 2021 Assessment & Plan (1) Pneumonia due to COVID-19 virus: Plan: Patient is a 75 yr male with H/O HTN, HLD, CAD s/p stent, CKD III, DM II, JARETT, Espinoza's esophagus, JARETT, depression presented to ER with c/o SOB. Symptom onset 05/16/2021. Positive COVID-19 test on 05/26/21. Increased shortness of breath last night. 2 days of loose stools. He states he received his Covid 19 vaccinations in July and August 2020. No Booster. Acute respiratory failure with hypoxia Multifocal pneumonia secondary to COVID-19 --CXR:Bilateral airspace opacities, slightly increased since prior exam. The findings suggest viral pneumonia. CRP: 0.73>1.03,Normal Procalcitonin,Ferritin:1194 Continue dexamethasone 6 mg daily Discussed with patient regarding remdesivir, unlikely to help given symptoms onset Patient agrees to avoid remdesivir and he is not getting remdesivir Encourage proning when able Incentive spirometer, flutter valve Lasix as needed Clinically stable and has been feeling a little bit better today Requiring about 10 L of oxygen to maintain saturation Elevated Troponin H/O CAD Denies chest pain Troponin levels normalized Likely elevated secondary to demand ischemia and no evidence of ACS Continue aspirin, atorvastatin, metoprolol succinate DM II Hyperglycemia A1c: 11.3 on 05/28/2021 Hold home Metformin Continue Insulin therapy Glycemic pharmacy consult for assistance in management HTN Blood pressure relatively low Decreased lisinopril to 5 mg daily Decrease metoprolol 12.5 mg twice daily continue with holding parameters Hold amlodipine for now HLD Continue atorvastatin CKD III Baseline~1.2 Monitor renal function Avoid nephrotoxic agents when possible JARETT CPAP HS Depression Continue citalopram Espinoza's esophagus Continue PPI DVT Prophylaxis Lovenox SQ Code Status Full Code Admission and Anticipated Discharge Date Admission Date: June 01, 2021 Subjective 06/04/2021 The patient was seen and examined in Covid unit He has been feeling a little better Still has occasional cough and gets short of breath with minimal exertion Has been requiring about 10 L of oxygen to maintain saturation Review of Systems Review of Systems: All systems reviewed and are unremarkable except as noted below Respiratory: Mild to moderate shortness of breath at rest Physical Exam Physical Exam: Lying in bed with moderate shortness of breath as above Constitutional: well developed, well nourished, + ill appearing and + obese Eyes: PERRL, conjunctivae normal, anicteric sclerae ENMT: external ear and nose normal, oropharynx normal Neck: trachea midline, no thyromegaly Respiratory: + respiratory distress Auscultation: + diminished lung sounds; no crackles and no wheezes Cardiovascular: Rate/Rhythm: regular rate and regular rhythm; not tachycardic Heart Sounds: normal S1 and normal S2; no murmur Extremities: no edema Gastrointestinal (Abdomen): Inspection/Auscultation: normal bowel sounds; abdomen not distended Percussion/Palpation: abdomen soft; abdomen nontender Musculoskeletal: No acute arthritis in any joint Neurologic: Alert, awake and oriented x3 Lymphatic: no cervical or axillary lymphadenopathy Results & Data Results & Data ([facility]) Vital Signs (Past 12 Hours) Vital Signs Temp Pulse Pulse Resp BP BP Pulse Ox 06/04/21 15:32 36.6 C 50 L 20 105/64 98 06/04/21 14:50 93 06/04/21 11:36 06/04/21 11:18 36.6 C 53 L 19 100/60 99 06/04/21 08:04 49 L 18 93 06/04/21 07:46 45 L 06/04/21 07:15 36.4 C L 50 L 20 131/79 90 Pulse Ox Pulse Ox Pulse Ox 06/04/21 15:32 06/04/21 14:50 06/04/21 11:36 91 92 90 06/04/21 11:18 06/04/21 08:04 06/04/21 07:46 06/04/21 07:15 Laboratory Results Short CBC 06/04/21 Range/Units 06:16 WBC 9.54 (4.8-10.8) K/uL Hgb 13.4 L (14.0-18.0) g/dL Hct 38.9 L (42-52) % Plt Count 224 (130-400) K/uL [facility] 06/04/21 06:16 Sodium 137 Potassium 4.0 Chloride 109 H Carbon Dioxide 21 BUN 23 H Creatinine 1.01 Glucose 118 H Calcium 9.2 Medications Administered Current Inpatient Medications Acetaminophen (Acetaminophen 325 Mg Tab) 650 mg PO Q4H PRN PRN Reason: Pain or Fever Stop: 07/01/21 14:40 Albuterol (Albuterol Hfa 8 Gm Inhaler) 2 puffs INH Q6R PRN PRN Reason: Shortness Of Breath Or Wheezing Stop: 07/01/21 14:40 Amlodipine Besylate (Amlodipine Besylate 5 Mg Tab) 5 mg PO QAM [facility] Stop: 07/02/21 08:59 Last Admin: 06/03/21 08:24 Dose: 5 mg Documented by: Aspirin (Aspirin 81 Mg Ectab) 81 mg PO QAM [facility] Stop: 07/02/21 08:59 Last Admin: 06/04/21 08:38 Dose: 81 mg Documented by: Atorvastatin Calcium (Atorvastatin 40 Mg Tab) 80 mg PO DAILY [facility] Stop: 07/02/21 08:59 Last Admin: 06/04/21 08:39 Dose: 80 mg Documented by: Cetirizine HCl (Cetirizine Hcl 10 Mg Tablet) 10 mg PO DAILY [facility] Stop: 07/02/21 08:59 Last Admin: 06/04/21 08:32 Dose: 10 mg Documented by: Citalopram Hydrobromide (Citalopram 20 Mg Tab) 20 mg PO DAILY [facility] Stop: 07/02/21 08:59 Last Admin: 06/04/21 08:39 Dose: 20 mg Documented by: Dextrose (Dextrose 50% 50 Ml Syringe) 25 - 50 ml IV UD PRN; Protocol PRN Reason: Hypoglycemia Protocol Stop: 07/01/21 14:40 Enoxaparin Sodium (Enoxaparin Inj 40 Mg/0.4 Ml Syr) 40 mg SQ Q12 [facility] Stop: 07/01/21 20:59 Last Admin: 06/04/21 08:29 Dose: 40 mg Documented by: Ferrous Sulfate (Ferrous Sulfate 325 Mg Tab) 325 mg PO DAILY [facility] Stop: 07/02/21 08:59 Last Admin: 06/04/21 08:38 Dose: 325 mg Documented by: Finasteride (Finasteride 5 Mg Tab) 5 mg PO QAM [facility] Stop: 07/02/21 08:59 Last Admin: 06/04/21 08:39 Dose: 5 mg Documented by: Fluticasone Propionate (Fluticasone Propionate Na Spr 16 Gm Btl) 2 sprays LEILANI DAILY PRN PRN Reason: Nasal Congestion Stop: 07/01/21 14:40 Glucagon (Glucagon For Inj 1 Mg Vial) 1 mg SQ UD PRN; Protocol PRN Reason: Hypoglycemia Protocol Stop: 07/01/21 14:40 Glucose (Glucose 10 Tabs/Tube) 4 - 8 tabs PO UD PRN; Protocol PRN Reason: Hypoglycemia Protocol Stop: 07/01/21 14:40 Glucose (Glucose 40% Gel 15 Gm Tube) 15 - 30 gm PO UD PRN; Protocol PRN Reason: Hypoglycemia Protocol Stop: 07/01/21 14:40 Dexamethasone 6 mg/ Syringe 1.5 mls @ 1 mls/min IV DAILY [facility] Stop: 06/13/21 08:59 Last Admin: 06/04/21 08:28 Dose: 1 mls/min Documented by: Insulin Aspart (Insulin Aspart Per Unit) 0 units SC ACHS [facility] Stop: 07/03/21 16:29 Last Admin: 06/04/21 12:32 Dose: 10 units Documented by: Insulin Glargine (Insulin Glargine Solostar 100 Units/Ml 3 Ml Pen) 20 units SC QAM [facility] Stop: 07/03/21 08:59 Last Admin: 06/04/21 08:28 Dose: 20 units Documented by: Insulin Human NPH (Insulin Human Nph) 40 units SC QAM [facility] Stop: 07/04/21 08:59 Last Admin: 06/04/21 08:30 Dose: 40 units Documented by: Isosorbide Mononitrate (Isosorbide Haines Extended Rel 30 Mg Tabcr) 30 mg PO DAILY [facility] Stop: 07/02/21 08:59 Last Admin: 06/04/21 08:38 Dose: 30 mg Documented by: Lisinopril (Lisinopril 5 Mg Tab) 5 mg PO DAILY [facility] Stop: 07/04/21 08:59 Last Admin: 06/04/21 08:40 Dose: 5 mg Documented by: Melatonin (Melatonin 3 Mg Tab) 6 mg PO HS PRN PRN Reason: Sleep Stop: 07/03/21 18:59 Last Admin: 06/03/21 22:10 Dose: 6 mg Documented by: Metoprolol Succinate (Metoprolol Succ 25mg Ext Rel Tab) 12.5 mg PO DAILY [facility] Stop: 07/04/21 08:59 Last Admin: 06/04/21 08:37 Dose: Not Given Documented by: Miscellaneous (Carbohydrates For Hypoglycemia ) 15 - 30 gm PO UD PRN PRN Reason: Hypoglycemia Protocol Stop: 07/01/21 14:40 Miscellaneous Information (Pharmacy Glycemic Mgmt Consult) 1 ea N/A UD PRN; Protocol PRN Reason: Consult Stop: 07/01/21 14:40 Montelukast Sodium (Montelukast Sodium 10 Mg Tablet) 10 mg PO DAILY [facility] Stop: 07/02/21 08:59 Last Admin: 06/04/21 08:32 Dose: 10 mg Documented by: Nitroglycerin (Nitroglycerin Sl 0.4 Mg/Tab Tab) 0.4 mg SL UD PRN PRN Reason: Chest Pain Stop: 07/01/21 14:40 Ondansetron HCl (Ondansetron Inj 2 Mg/Ml 2 Ml Vial) 4 mg IV Q6H PRN PRN Reason: Nausea Stop: 07/01/21 14:40 Pantoprazole Sodium (Pantoprazole 40 Mg Tab) 40 mg PO DAILY [facility] Stop: 07/02/21 08:59 Last Admin: 06/04/21 08:32 Dose: 40 mg Documented by: Polyethylene Glycol (Polyethylene (Miralax) 17 Gm Pack) 17 gm PO DAILY PRN PRN Reason: Constipation Stop: 07/01/21 14:40 Vitamin D (Cholecalciferol 1,000 Units 25 Mcg Tab) 1,000 units PO DAILY [facility] Stop: 07/02/21 08:59 Last Admin: 06/04/21 08:39 Dose: 1,000 units Documented by:
[2021-06-05 06:26] LABS: Basophils # (auto) 0.01 K/uL (0-0.2); Basophils % (auto) 0.1 %; Hematocrit (blood only) 39.5 % (42-52); Hemoglobin 13.6 g/dL (14.0-18.0); Immature Granulocytes # (auto) 0.05 K/uL (0.00-0.02); Immature Granulocytes % (auto) 0.5 %; Lymphocytes # (auto) 1.22 K/uL (1.2-3.4); Lymphocytes % (auto) 11.3 %; Mean Corpuscular Hemoglobin 31.4 pg (25-34); Mean Corpuscular Hgb Conc 34.4 g/dL (32-36); Mean Corpuscular Volume 91.2 fL (80-100); Mean Platelet Volume 10.9 fL (7.4-10.4); Monocytes # (auto) 0.71 K/uL (0.11-0.59); Monocytes % (auto) 6.6 %; Neutrophils # (auto) 8.82 K/uL (1.4-6.5); Neutrophils % (auto) 81.5 %; Platelet Count 234 K/uL (130-400); RDW Coefficient of Variation 12.6 % (11.5-14.5); RDW Standard Deviation 42.3 fL (36.4-46.3); Red Blood Count 4.33 M/uL (4.7-6.1); White Blood Count 10.81 K/uL (4.8-10.8)
[2021-06-05 07:02] LABS: BUN Creatinine Ratio 21.1 (10-20); Calcium 8.8 mg/dl (8.5-10.1); Creatinine Clr Calc Pharmacy 70.2 ml/min; Est GFR (African American) 79.4 ml/min; Est GFR (Non-African American) 68.5 ml/min; Magnesium 2.2 mg/dl (1.8-2.4); Phosphorus 3.1 mg/dl (2.5-4.9); Potassium 3.9 mmol/L (3.5-5.1)
[2021-06-05] MEDS: INSULIN HUMAN NPH SC SCH (08:46)
[2021-06-05] MEDS: lisinopril 5 MG TAB PO SCH (08:48)
[2021-06-05] MEDS: ASPIRIN 81 MG ECTAB PO SCH (08:48)
[2021-06-05] MEDS: CITALOPRAM 20 MG TAB PO SCH (08:48)
[2021-06-05] MEDS: dexAMETHasone 6 MG in SYRINGE 0 ML IV SCH (08:48)
[2021-06-05] MEDS: ISOSORBIDE MONO EXTENDED REL 30 MG TABCR PO SCH (08:48)
[2021-06-05] MEDS: MONTELUKAST SODIUM 10 MG TABLET PO SCH (08:49)
[2021-06-05] MEDS: PANTOprazole 40 MG TAB PO SCH (08:49)
[2021-06-05] MEDS: METOPROLOL SUCC 25MG EXT REL TAB PO SCH (08:49)
[2021-06-05] MEDS: CETIRIZINE HCL 10 MG TABLET PO SCH (08:49)
[2021-06-05] MEDS: CHOLECALCIFEROL 1,000 UNITS 25 MCG TAB PO SCH (08:49)
[2021-06-05] MEDS: FERROUS SULFATE 325 MG TAB PO SCH (08:50)
[2021-06-05] MEDS: ENOXAPARIN INJ 40 MG/0.4 ML SYR SQ SCH ×2 (08:50→22:10)
[2021-06-05] MEDS: ATORVASTATIN 40 MG TAB PO SCH (08:50)
[2021-06-05] MEDS: FINASTERIDE 5 MG TAB PO SCH (08:50)
[2021-06-05] MEDS: INSULIN ASPART PER UNIT SC SCH ×4 (08:52→21:50)
[2021-06-05] MEDS ORDERED: INSULIN GLARGINE SOLOSTAR 100 UNITS/ML 3 ML PEN SC SCH (09:00)
--- NOTE | 2021-06-05 17:19 | Hospitalist Progress Note ---
Date of Service June 05, 2021 Assessment & Plan (1) Pneumonia due to COVID-19 virus: Plan: Patient is a 75 yr male with H/O HTN, HLD, CAD s/p stent, CKD III, DM II, JARETT, Espinoza's esophagus, JARETT, depression presented to ER with c/o SOB. Symptom onset 05/16/2021. Positive COVID-19 test on 05/26/21. Increased shortness of breath last night. 2 days of loose stools. He states he received his Covid 19 vaccinations in July and August 2020. No Booster. Acute respiratory failure with hypoxia Multifocal pneumonia secondary to COVID-19 --CXR:Bilateral airspace opacities, slightly increased since prior exam. The findings suggest viral pneumonia. CRP: 0.73>1.03,Normal Procalcitonin,Ferritin:1194 Continue dexamethasone 6 mg daily Discussed with patient regarding remdesivir, unlikely to help given symptoms onset Patient agrees to avoid remdesivir and he is not getting remdesivir Encourage proning when able Incentive spirometer, flutter valve Lasix as needed Clinically stable and has been feeling a little bit better today Requiring about 10 L of oxygen to maintain saturation Oxygen requirements is down to 6 to 8 L and the condition seems to be improving Elevated Troponin H/O CAD Denies chest pain Troponin levels normalized Likely elevated secondary to demand ischemia and no evidence of ACS Continue aspirin, atorvastatin, metoprolol succinate DM II Hyperglycemia A1c: 11.3 on 05/28/2021 Hold home Metformin Continue Insulin therapy Glycemic pharmacy consult for assistance in management HTN Blood pressure relatively low Decreased lisinopril to 5 mg daily Decrease metoprolol 12.5 mg twice daily continue with holding parameters Hold amlodipine for now-blood pressure remains on the lower side of normal at 100/55 HLD Continue atorvastatin CKD III Baseline~1.2 Monitor renal function Avoid nephrotoxic agents when possible JARETT CPAP HS Depression Continue citalopram Espinoza's esophagus Continue PPI DVT Prophylaxis Lovenox SQ Code Status Full Code Admission and Anticipated Discharge Date Admission Date: June 01, 2021 Subjective 06/04/2021 The patient was seen and examined in Covid unit He has been feeling a little better Still has occasional cough and gets short of breath with minimal exertion Has been requiring about 10 L of oxygen to maintain saturation 06/05/2021 The patient was seen and examined in Covid unit He has been feeling a little better Cough is improved but weakness persist,he has been requiring high flow nasal cannula to maintain saturation Review of Systems Review of Systems: All systems reviewed and are unremarkable except as noted below Respiratory: Mild to moderate shortness of breath at rest Physical Exam Physical Exam: Lying in bed with moderate shortness of breath as above Constitutional: well developed, well nourished, + ill appearing and + obese Eyes: PERRL, conjunctivae normal, anicteric sclerae ENMT: external ear and nose normal, oropharynx normal Neck: trachea midline, no thyromegaly Respiratory: + respiratory distress Auscultation: + diminished lung sounds; no crackles and no wheezes Cardiovascular: Rate/Rhythm: regular rate and regular rhythm; not tachycardic Heart Sounds: normal S1 and normal S2; no murmur Extremities: no edema Gastrointestinal (Abdomen): Inspection/Auscultation: normal bowel sounds; abdomen not distended Percussion/Palpation: abdomen soft; abdomen nontender Musculoskeletal: No acute arthritis in any joint Neurologic: Alert, awake and oriented x3. No focal sensory or motor deficit appreciated Lymphatic: no cervical or axillary lymphadenopathy Results & Data Results & Data ([facility]) Vital Signs (Past 12 Hours) Vital Signs Temp Pulse Pulse Resp BP BP Pulse Ox 06/05/21 15:41 58 L 06/05/21 15:00 46 L 21 100/55 L 92 06/05/21 11:47 36.6 C 49 L 19 127/81 127/81 97 06/05/21 07:00 40 L 06/05/21 06:47 36.6 C 44 L 20 135/65 95 Laboratory Results Short CBC 06/05/21 Range/Units 05:34 WBC 10.81 H (4.8-10.8) K/uL Hgb 13.6 L (14.0-18.0) g/dL Hct 39.5 L (42-52) % Plt Count 234 (130-400) K/uL BMP 06/05/21 05:34 Sodium 138 Potassium 3.9 Chloride 110 H Carbon Dioxide 23 BUN 23 H Creatinine 1.07 Glucose 93 Calcium 8.8 Medications Administered Current Inpatient Medications Acetaminophen (Acetaminophen 325 Mg Tab) 650 mg PO Q4H PRN PRN Reason: Pain or Fever Stop: 07/01/21 14:40 Albuterol (Albuterol Hfa 8 Gm Inhaler) 2 puffs INH Q6R PRN PRN Reason: Shortness Of Breath Or Wheezing Stop: 07/01/21 14:40 Amlodipine Besylate (Amlodipine Besylate 5 Mg Tab) 5 mg PO QAM [facility] Stop: 07/02/21 08:59 Last Admin: 06/03/21 08:24 Dose: 5 mg Documented by: Aspirin (Aspirin 81 Mg Ectab) 81 mg PO QAM [facility] Stop: 07/02/21 08:59 Last Admin: 06/05/21 08:48 Dose: 81 mg Documented by: Atorvastatin Calcium (Atorvastatin 40 Mg Tab) 80 mg PO DAILY [facility] Stop: 07/02/21 08:59 Last Admin: 06/05/21 08:50 Dose: 80 mg Documented by: Cetirizine HCl (Cetirizine Hcl 10 Mg Tablet) 10 mg PO DAILY [facility] Stop: 07/02/21 08:59 Last Admin: 06/05/21 08:49 Dose: 10 mg Documented by: Citalopram Hydrobromide (Citalopram 20 Mg Tab) 20 mg PO DAILY [facility] Stop: 07/02/21 08:59 Last Admin: 06/05/21 08:48 Dose: 20 mg Documented by: Dextrose (Dextrose 50% 50 Ml Syringe) 25 - 50 ml IV UD PRN; Protocol PRN Reason: Hypoglycemia Protocol Stop: 07/01/21 14:40 Enoxaparin Sodium (Enoxaparin Inj 40 Mg/0.4 Ml Syr) 40 mg SQ Q12 [facility] Stop: 07/01/21 20:59 Last Admin: 06/05/21 08:50 Dose: 40 mg Documented by: Ferrous Sulfate (Ferrous Sulfate 325 Mg Tab) 325 mg PO DAILY [facility] Stop: 07/02/21 08:59 Last Admin: 06/05/21 08:50 Dose: 325 mg Documented by: Finasteride (Finasteride 5 Mg Tab) 5 mg PO QAM [facility] Stop: 07/02/21 08:59 Last Admin: 06/05/21 08:50 Dose: 5 mg Documented by: Fluticasone Propionate (Fluticasone Propionate Na Spr 16 Gm Btl) 2 sprays LEILANI DAILY PRN PRN Reason: Nasal Congestion Stop: 07/01/21 14:40 Glucagon (Glucagon For Inj 1 Mg Vial) 1 mg SQ UD PRN; Protocol PRN Reason: Hypoglycemia Protocol Stop: 07/01/21 14:40 Glucose (Glucose 10 Tabs/Tube) 4 - 8 tabs PO UD PRN; Protocol PRN Reason: Hypoglycemia Protocol Stop: 07/01/21 14:40 Glucose (Glucose 40% Gel 15 Gm Tube) 15 - 30 gm PO UD PRN; Protocol PRN Reason: Hypoglycemia Protocol Stop: 07/01/21 14:40 Dexamethasone 6 mg/ Syringe 1.5 mls @ 1 mls/min IV DAILY [facility] Stop: 06/13/21 08:59 Last Admin: 06/05/21 08:48 Dose: 1 mls/min Documented by: Insulin Aspart (Insulin Aspart Per Unit) 0 units SC ACHS [facility] Stop: 07/03/21 16:29 Last Admin: 06/05/21 17:08 Dose: 16 units Documented by: Insulin Glargine (Insulin Glargine Solostar 100 Units/Ml 3 Ml Pen) 15 units SC QAM [facility] Stop: 07/05/21 08:59 Last Admin: 06/05/21 08:47 Dose: 15 units Documented by: Insulin Human NPH (Insulin Human Nph) 40 units SC QAM [facility] Stop: 07/04/21 08:59 Last Admin: 06/05/21 08:46 Dose: 40 units Documented by: Isosorbide Mononitrate (Isosorbide [place] Extended Rel 30 Mg Tabcr) 30 mg PO DAILY [facility] Stop: 07/02/21 08:59 Last Admin: 06/05/21 08:48 Dose: 30 mg Documented by: Lisinopril (Lisinopril 10 Mg Tab) 10 mg PO DAILY [facility] Stop: 07/06/21 08:59 Melatonin (Melatonin 3 Mg Tab) 6 mg PO HS PRN PRN Reason: Sleep Stop: 07/03/21 18:59 Last Admin: 06/03/21 22:10 Dose: 6 mg Documented by: Miscellaneous (Carbohydrates For Hypoglycemia ) 15 - 30 gm PO UD PRN PRN Reason: Hypoglycemia Protocol Stop: 07/01/21 14:40 Miscellaneous Information (Pharmacy Glycemic Mgmt Consult) 1 ea N/A UD PRN; Protocol PRN Reason: Consult Stop: 07/01/21 14:40 Montelukast Sodium (Montelukast Sodium 10 Mg Tablet) 10 mg PO DAILY [facility] Stop: 07/02/21 08:59 Last Admin: 06/05/21 08:49 Dose: 10 mg Documented by: Nitroglycerin (Nitroglycerin Sl 0.4 Mg/Tab Tab) 0.4 mg SL UD PRN PRN Reason: Chest Pain Stop: 07/01/21 14:40 Ondansetron HCl (Ondansetron Inj 2 Mg/Ml 2 Ml Vial) 4 mg IV Q6H PRN PRN Reason: Nausea Stop: 07/01/21 14:40 Pantoprazole Sodium (Pantoprazole 40 Mg Tab) 40 mg PO DAILY [facility] Stop: 07/02/21 08:59 Last Admin: 06/05/21 08:49 Dose: 40 mg Documented by: Polyethylene Glycol (Polyethylene (Miralax) 17 Gm Pack) 17 gm PO DAILY PRN PRN Reason: Constipation Stop: 07/01/21 14:40 Vitamin D (Cholecalciferol 1,000 Units 25 Mcg Tab) 1,000 units PO DAILY [facility] Stop: 07/02/21 08:59 Last Admin: 06/05/21 08:49 Dose: 1,000 units Documented by:
[2021-06-05] MEDS: MELATONIN 3 MG TAB PO PRN (22:10)
[2021-06-06 06:28] LABS: BUN Creatinine Ratio 15.9 (10-20); C Reactive Protein 0.48 mg/dl (0-0.29); Creatinine Clr Calc Pharmacy 63.4 ml/min; Est GFR (African American) 69.8 ml/min; Est GFR (Non-African American) 60.2 ml/min
[2021-06-06] MEDS: dexAMETHasone 6 MG in SYRINGE 0 ML IV SCH (08:20)
[2021-06-06] MEDS: ENOXAPARIN INJ 40 MG/0.4 ML SYR SQ SCH ×2 (08:21→20:26)
[2021-06-06] MEDS: lisinopril 10 MG TAB PO SCH (08:21)
[2021-06-06] MEDS: ATORVASTATIN 40 MG TAB PO SCH (08:22)
[2021-06-06] MEDS: ISOSORBIDE MONO EXTENDED REL 30 MG TABCR PO SCH (08:22)
[2021-06-06] MEDS: CHOLECALCIFEROL 1,000 UNITS 25 MCG TAB PO SCH (08:22)
[2021-06-06] MEDS: CITALOPRAM 20 MG TAB PO SCH (08:22)
[2021-06-06] MEDS: ASPIRIN 81 MG ECTAB PO SCH (08:22)
[2021-06-06] MEDS: CETIRIZINE HCL 10 MG TABLET PO SCH (08:22)
[2021-06-06] MEDS: FINASTERIDE 5 MG TAB PO SCH (08:23)
[2021-06-06] MEDS: MONTELUKAST SODIUM 10 MG TABLET PO SCH (08:23)
[2021-06-06] MEDS: PANTOprazole 40 MG TAB PO SCH (08:23)
[2021-06-06] MEDS: FERROUS SULFATE 325 MG TAB PO SCH (08:26)
[2021-06-06] MEDS: INSULIN ASPART PER UNIT SC SCH ×4 (08:30→20:25)
[2021-06-06] MEDS ORDERED: INSULIN HUMAN NPH SC SCH (09:00)
[2021-06-06] MEDS ORDERED: INSULIN GLARGINE SOLOSTAR 100 UNITS/ML 3 ML PEN SC SCH (09:00)
[2021-06-06] MEDS ORDERED: INSULIN HUMAN NPH SC ONE (12:15)
--- NOTE | 2021-06-06 17:08 | Hospitalist Progress Note ---
Date of Service June 06, 2021 Assessment & Plan (1) Pneumonia due to COVID-19 virus: Plan: Patient is a 75 yr male with H/O HTN, HLD, CAD s/p stent, CKD III, DM II, JARETT, Espinoza's esophagus, JARETT, depression presented to ER with c/o SOB. Symptom onset 05/16/2021. Positive COVID-19 test on 05/26/21. Increased shortness of breath last night. 2 days of loose stools. He states he received his Covid 19 vaccinations in July and August 2020. No Booster. Acute respiratory failure with hypoxia Multifocal pneumonia secondary to COVID-19 --CXR:Bilateral airspace opacities, slightly increased since prior exam. The findings suggest viral pneumonia. CRP: 0.73>1.03,Normal Procalcitonin,Ferritin:1194 Continue dexamethasone 6 mg daily Discussed with patient regarding remdesivir, unlikely to help given symptoms onset Patient agrees to avoid remdesivir and he is not getting remdesivir Encourage proning when able Incentive spirometer, flutter valve Lasix as needed Clinically stable and has been feeling a little bit better today Requiring about 10 L of oxygen to maintain saturation Oxygen requirements is down to 6 to 8 L and the condition seems to be improving His oxygen requirement has gone up but clinically he is feeling better though remains weak Elevated Troponin H/O CAD Denies chest pain Troponin levels normalized Likely elevated secondary to demand ischemia and no evidence of ACS Continue aspirin, atorvastatin, metoprolol succinate DM II Hyperglycemia A1c: 11.3 on 05/28/2021 Hold home Metformin Continue Insulin therapy Glycemic pharmacy consult for assistance in management HTN Blood pressure relatively low Decreased lisinopril to 5 mg daily Decrease metoprolol 12.5 mg twice daily continue with holding parameters Hold amlodipine for now-blood pressure remains on the lower side of normal at 100/55 HLD Continue atorvastatin CKD III Baseline~1.2 Monitor renal function Avoid nephrotoxic agents when possible JARETT CPAP HS Depression Continue citalopram Espinoza's esophagus Continue PPI DVT Prophylaxis Lovenox SQ Code Status Full Code Admission and Anticipated Discharge Date Admission Date: June 01, 2021 Subjective 06/04/2021 The patient was seen and examined in Covid unit He has been feeling a little better Still has occasional cough and gets short of breath with minimal exertion Has been requiring about 10 L of oxygen to maintain saturation 06/05/2021 The patient was seen and examined in Covid unit He has been feeling a little better Cough is improved but weakness persist,he has been requiring high flow nasal cannula to maintain saturation 06/06/2021 The patient was seen and examined in the Covid unit He has been feeling a little better but is still requiring very high flow oxygen via nasal cannula to maintain saturation His cough is better Review of Systems Review of Systems: All systems reviewed and are unremarkable except as noted below Respiratory: Mild to moderate shortness of breath at rest Physical Exam Physical Exam: Lying in bed with moderate shortness of breath as above Constitutional: well developed, well nourished, + ill appearing and + obese Eyes: PERRL, conjunctivae normal, anicteric sclerae ENMT: external ear and nose normal, oropharynx normal Neck: trachea midline, no thyromegaly Respiratory: + respiratory distress Auscultation: + diminished lung sounds; no crackles and no wheezes Cardiovascular: Rate/Rhythm: regular rate and regular rhythm; not tachycardic Heart Sounds: normal S1 and normal S2; no murmur Extremities: no edema Gastrointestinal (Abdomen): Inspection/Auscultation: normal bowel sounds; abdomen not distended Percussion/Palpation: abdomen soft; abdomen nontender Musculoskeletal: No acute arthritis in any joint Neurologic: Alert, awake and oriented x3. Generally weak and lethargic Lymphatic: no cervical or axillary lymphadenopathy Results & Data Results & Data ([facility]) Vital Signs (Past 12 Hours) Vital Signs Temp Pulse Pulse Resp BP Pulse Ox 06/06/21 14:46 36.7 C 53 L 20 117/68 90 06/06/21 11:37 36.6 C 51 L 18 123/74 94 06/06/21 08:14 47 L 06/06/21 07:58 36.7 C 75 20 128/69 97 Laboratory Results [facility] 06/06/21 05:27 Sodium 137 Potassium 4.0 Chloride 107 Carbon Dioxide 24 BUN 19 H Creatinine 1.19 Glucose 85 Calcium 9.0 Medications Administered Current Inpatient Medications Acetaminophen (Acetaminophen 325 Mg Tab) 650 mg PO Q4H PRN PRN Reason: Pain or Fever Stop: 07/01/21 14:40 Albuterol (Albuterol Hfa 8 Gm Inhaler) 2 puffs INH Q6R PRN PRN Reason: Shortness Of Breath Or Wheezing Stop: 07/01/21 14:40 Amlodipine Besylate (Amlodipine Besylate 5 Mg Tab) 5 mg PO QAM [facility] Stop: 07/02/21 08:59 Last Admin: 06/03/21 08:24 Dose: 5 mg Documented by: Aspirin (Aspirin 81 Mg Ectab) 81 mg PO QAM [facility] Stop: 07/02/21 08:59 Last Admin: 06/06/21 08:22 Dose: 81 mg Documented by: Atorvastatin Calcium (Atorvastatin 40 Mg Tab) 80 mg PO DAILY [facility] Stop: 07/02/21 08:59 Last Admin: 06/06/21 08:22 Dose: 80 mg Documented by: Cetirizine HCl (Cetirizine Hcl 10 Mg Tablet) 10 mg PO DAILY [facility] Stop: 07/02/21 08:59 Last Admin: 06/06/21 08:22 Dose: 10 mg Documented by: Citalopram Hydrobromide (Citalopram 20 Mg Tab) 20 mg PO DAILY [facility] Stop: 07/02/21 08:59 Last Admin: 06/06/21 08:22 Dose: 20 mg Documented by: Dextrose (Dextrose 50% 50 Ml Syringe) 25 - 50 ml IV UD PRN; Protocol PRN Reason: Hypoglycemia Protocol Stop: 07/01/21 14:40 Enoxaparin Sodium (Enoxaparin Inj 40 Mg/0.4 Ml Syr) 40 mg SQ Q12 [facility] Stop: 07/01/21 20:59 Last Admin: 06/06/21 08:21 Dose: 40 mg Documented by: Ferrous Sulfate (Ferrous Sulfate 325 Mg Tab) 325 mg PO DAILY [facility] Stop: 07/02/21 08:59 Last Admin: 06/06/21 08:26 Dose: Not Given Documented by: Finasteride (Finasteride 5 Mg Tab) 5 mg PO QAM [facility] Stop: 07/02/21 08:59 Last Admin: 06/06/21 08:23 Dose: 5 mg Documented by: Fluticasone Propionate (Fluticasone Propionate Na Spr 16 Gm Btl) 2 sprays LEILANI DAILY PRN PRN Reason: Nasal Congestion Stop: 07/01/21 14:40 Glucagon (Glucagon For Inj 1 Mg Vial) 1 mg SQ UD PRN; Protocol PRN Reason: Hypoglycemia Protocol Stop: 07/01/21 14:40 Glucose (Glucose 10 Tabs/Tube) 4 - 8 tabs PO UD PRN; Protocol PRN Reason: Hypoglycemia Protocol Stop: 07/01/21 14:40 Glucose (Glucose 40% Gel 15 Gm Tube) 15 - 30 gm PO UD PRN; Protocol PRN Reason: Hypoglycemia Protocol Stop: 07/01/21 14:40 Dexamethasone 6 mg/ Syringe 1.5 mls @ 1 mls/min IV DAILY [facility] Stop: 06/13/21 08:59 Last Admin: 06/06/21 08:20 Dose: 1 mls/min Documented by: Insulin Aspart (Insulin Aspart Per Unit) 0 units SC ACHS [facility] Stop: 07/03/21 16:29 Last Admin: 06/06/21 12:29 Dose: 23 units Documented by: Insulin Glargine (Insulin Glargine Solostar 100 Units/Ml 3 Ml Pen) 10 units SC QAM [facility] Stop: 07/06/21 08:59 Last Admin: 06/06/21 08:29 Dose: 10 units Documented by: Insulin Human NPH (Insulin Human Nph) 30 units SC DAILY [facility] Stop: 07/07/21 08:59 Isosorbide Mononitrate (Isosorbide [place] Extended Rel 30 Mg Tabcr) 30 mg PO DAILY [facility] Stop: 07/02/21 08:59 Last Admin: 06/06/21 08:22 Dose: 30 mg Documented by: Lisinopril (Lisinopril 10 Mg Tab) 10 mg PO DAILY [facility] Stop: 07/06/21 08:59 Last Admin: 06/06/21 08:21 Dose: 10 mg Documented by: Melatonin (Melatonin 3 Mg Tab) 6 mg PO HS PRN PRN Reason: Sleep Stop: 07/03/21 18:59 Last Admin: 06/05/21 22:10 Dose: 6 mg Documented by: Miscellaneous (Carbohydrates For Hypoglycemia ) 15 - 30 gm PO UD PRN PRN Reason: Hypoglycemia Protocol Stop: 07/01/21 14:40 Miscellaneous Information (Pharmacy Glycemic Mgmt Consult) 1 ea N/A UD PRN; Protocol PRN Reason: Consult Stop: 07/01/21 14:40 Montelukast Sodium (Montelukast Sodium 10 Mg Tablet) 10 mg PO DAILY [facility] Stop: 07/02/21 08:59 Last Admin: 06/06/21 08:23 Dose: 10 mg Documented by: Nitroglycerin (Nitroglycerin Sl 0.4 Mg/Tab Tab) 0.4 mg SL UD PRN PRN Reason: Chest Pain Stop: 07/01/21 14:40 Ondansetron HCl (Ondansetron Inj 2 Mg/Ml 2 Ml Vial) 4 mg IV Q6H PRN PRN Reason: Nausea Stop: 07/01/21 14:40 Pantoprazole Sodium (Pantoprazole 40 Mg Tab) 40 mg PO DAILY [facility] Stop: 07/02/21 08:59 Last Admin: 06/06/21 08:23 Dose: 40 mg Documented by: Polyethylene Glycol (Polyethylene (Miralax) 17 Gm Pack) 17 gm PO DAILY PRN PRN Reason: Constipation Stop: 07/01/21 14:40 Vitamin D (Cholecalciferol 1,000 Units 25 Mcg Tab) 1,000 units PO DAILY [facility] Stop: 07/02/21 08:59 Last Admin: 06/06/21 08:22 Dose: 1,000 units Documented by:
[2021-06-06] MEDS: MELATONIN 3 MG TAB PO PRN (22:41)
[2021-06-07] MEDS: ENOXAPARIN INJ 40 MG/0.4 ML SYR SQ SCH ×2 (09:14→20:11)
[2021-06-07] MEDS: dexAMETHasone 6 MG in SYRINGE 0 ML IV SCH (09:14)
[2021-06-07] MEDS: lisinopril 10 MG TAB PO SCH (09:15)
[2021-06-07] MEDS: PANTOprazole 40 MG TAB PO SCH (09:15)
[2021-06-07] MEDS: ASPIRIN 81 MG ECTAB PO SCH (09:15)
[2021-06-07] MEDS: CETIRIZINE HCL 10 MG TABLET PO SCH (09:15)
[2021-06-07] MEDS: MONTELUKAST SODIUM 10 MG TABLET PO SCH (09:15)
[2021-06-07] MEDS: ISOSORBIDE MONO EXTENDED REL 30 MG TABCR PO SCH (09:15)
[2021-06-07] MEDS: FINASTERIDE 5 MG TAB PO SCH (09:16)
[2021-06-07] MEDS: CITALOPRAM 20 MG TAB PO SCH (09:16)
[2021-06-07] MEDS: ATORVASTATIN 40 MG TAB PO SCH (09:16)
[2021-06-07] MEDS: CHOLECALCIFEROL 1,000 UNITS 25 MCG TAB PO SCH (09:16)
[2021-06-07] MEDS: FERROUS SULFATE 325 MG TAB PO SCH (09:19)
[2021-06-07 09:20] LABS: Creatinine Clr Calc Pharmacy 59.5 ml/min; Est GFR (African American) 65.2 ml/min; Est GFR (Non-African American) 56.2 ml/min
[2021-06-07] MEDS: INSULIN ASPART PER UNIT SC SCH ×4 (09:21→20:22)
[2021-06-07] MEDS: INSULIN HUMAN NPH SC SCH (09:22)
[2021-06-07] MEDS ORDERED: FUROSEMIDE 40 MG/4 ML VIAL IV ONE (13:13)
--- NOTE | 2021-06-07 14:31 | Hospitalist Progress Note ---
Date of Service June 07, 2021 Assessment & Plan (1) Pneumonia due to COVID-19 virus: Plan: Patient is a 75 yr male with H/O HTN, HLD, CAD s/p stent, CKD III, DM II, JARETT, Espinoza's esophagus, JARETT, depression presented to ER with c/o SOB. Symptom onset 05/16/2021. Positive COVID-19 test on 05/26/21. Increased shortness of breath last night. 2 days of loose stools. He states he received his Covid 19 vaccinations in July and August 2020. No Booster. Acute respiratory failure with hypoxia Multifocal pneumonia secondary to COVID-19 --CXR:Bilateral airspace opacities, slightly increased since prior exam. The findings suggest viral pneumonia. CRP: 0.73>1.03,Normal Procalcitonin,Ferritin:1194 Continue dexamethasone 6 mg daily Discussed with patient regarding remdesivir, unlikely to help given symptoms onset Patient agrees to avoid remdesivir and he is not getting remdesivir Encourage proning when able Incentive spirometer, flutter valve Lasix as needed Clinically stable and has been feeling a little bit better today Requiring about 10 L of oxygen to maintain saturation Oxygen requirements is down to 6 to 8 L and the condition seems to be improving His oxygen requirement has gone up but clinically he is feeling better though remains weak Remains stable-we will give 40 mg Lasix today Elevated Troponin H/O CAD Denies chest pain Troponin levels normalized Likely elevated secondary to demand ischemia and no evidence of ACS Continue aspirin, atorvastatin, metoprolol succinate DM II Hyperglycemia A1c: 11.3 on 05/28/2021 Hold home Metformin Continue Insulin therapy Glycemic pharmacy consult for assistance in management HTN Blood pressure relatively low Decreased lisinopril to 5 mg daily Decrease metoprolol 12.5 mg twice daily continue with holding parameters Hold amlodipine for now-blood pressure remains on the lower side of normal at 100/55 HLD Continue atorvastatin CKD III Baseline~1.2 Monitor renal function Avoid nephrotoxic agents when possible JARETT CPAP HS Depression Continue citalopram Espinoza's esophagus Continue PPI DVT Prophylaxis Lovenox SQ Code Status Full Code Admission and Anticipated Discharge Date Admission Date: June 01, 2021 Subjective 06/04/2021 The patient was seen and examined in Covid unit He has been feeling a little better Still has occasional cough and gets short of breath with minimal exertion Has been requiring about 10 L of oxygen to maintain saturation 06/05/2021 The patient was seen and examined in Covid unit He has been feeling a little better Cough is improved but weakness persist,he has been requiring high flow nasal cannula to maintain saturation 06/06/2021 The patient was seen and examined in the Covid unit He has been feeling a little better but is still requiring very high flow oxygen via nasal cannula to maintain saturation His cough is better 06/07/2021 The patient was seen in the Covid unit He remained stable and feels a little better Still requiring anywhere from 13 to 15 L of oxygen to maintain saturation Review of Systems Review of Systems: All systems reviewed and are unremarkable except as noted below Respiratory: Mild to moderate shortness of breath at rest Physical Exam Physical Exam: Lying in bed with moderate shortness of breath as above Constitutional: well developed, well nourished, + ill appearing and + obese Eyes: PERRL, conjunctivae normal, anicteric sclerae ENMT: external ear and nose normal, oropharynx normal Neck: trachea midline, no thyromegaly Respiratory: + respiratory distress Auscultation: + diminished lung sounds; no crackles and no wheezes Cardiovascular: Rate/Rhythm: regular rate and regular rhythm; not tachycardic Heart Sounds: normal S1 and normal S2; no murmur Extremities: no edema Gastrointestinal (Abdomen): Inspection/Auscultation: normal bowel sounds; abdomen not distended Percussion/Palpation: abdomen soft; abdomen nontender Musculoskeletal: No acute arthritis in any joint Neurologic: Alert, awake and oriented x3. No focal sensory or no motor deficit appreciated Lymphatic: no cervical or axillary lymphadenopathy Results & Data Results & Data ([facility]) Vital Signs (Past 12 Hours) Vital Signs Temp Pulse Pulse Resp BP Pulse Ox 06/07/21 11:41 36.3 C L 61 20 106/61 91 06/07/21 09:20 48 L 06/07/21 09:15 92 06/07/21 07:11 36.4 C L 51 L 20 142/89 H 96 06/07/21 03:00 36.4 C L 47 L 22 137/83 87 L Laboratory Results [facility] 06/07/21 08:40 Creatinine 1.26 Medications Administered Current Inpatient Medications Acetaminophen (Acetaminophen 325 Mg Tab) 650 mg PO Q4H PRN PRN Reason: Pain or Fever Stop: 07/01/21 14:40 Albuterol (Albuterol Hfa 8 Gm Inhaler) 2 puffs INH Q6R PRN PRN Reason: Shortness Of Breath Or Wheezing Stop: 07/01/21 14:40 Amlodipine Besylate (Amlodipine Besylate 5 Mg Tab) 5 mg PO QAM [facility] Stop: 07/02/21 08:59 Last Admin: 06/03/21 08:24 Dose: 5 mg Documented by: Aspirin (Aspirin 81 Mg Ectab) 81 mg PO QAM [facility] Stop: 07/02/21 08:59 Last Admin: 06/07/21 09:15 Dose: 81 mg Documented by: Atorvastatin Calcium (Atorvastatin 40 Mg Tab) 80 mg PO DAILY [facility] Stop: 07/02/21 08:59 Last Admin: 06/07/21 09:16 Dose: 80 mg Documented by: Cetirizine HCl (Cetirizine Hcl 10 Mg Tablet) 10 mg PO DAILY [facility] Stop: 07/02/21 08:59 Last Admin: 06/07/21 09:15 Dose: 10 mg Documented by: Citalopram Hydrobromide (Citalopram 20 Mg Tab) 20 mg PO DAILY [facility] Stop: 07/02/21 08:59 Last Admin: 06/07/21 09:16 Dose: 20 mg Documented by: Dextrose (Dextrose 50% 50 Ml Syringe) 25 - 50 ml IV UD PRN; Protocol PRN Reason: Hypoglycemia Protocol Stop: 07/01/21 14:40 Enoxaparin Sodium (Enoxaparin Inj 40 Mg/0.4 Ml Syr) 40 mg SQ Q12 [facility] Stop: 07/01/21 20:59 Last Admin: 06/07/21 09:14 Dose: 40 mg Documented by: Ferrous Sulfate (Ferrous Sulfate 325 Mg Tab) 325 mg PO DAILY [facility] Stop: 07/02/21 08:59 Last Admin: 06/07/21 09:19 Dose: Not Given Documented by: Finasteride (Finasteride 5 Mg Tab) 5 mg PO QAM [facility] Stop: 07/02/21 08:59 Last Admin: 06/07/21 09:16 Dose: 5 mg Documented by: Fluticasone Propionate (Fluticasone Propionate Na Spr 16 Gm Btl) 2 sprays LEILANI DAILY PRN PRN Reason: Nasal Congestion Stop: 07/01/21 14:40 Glucagon (Glucagon For Inj 1 Mg Vial) 1 mg SQ UD PRN; Protocol PRN Reason: Hypoglycemia Protocol Stop: 07/01/21 14:40 Glucose (Glucose 10 Tabs/Tube) 4 - 8 tabs PO UD PRN; Protocol PRN Reason: Hypoglycemia Protocol Stop: 07/01/21 14:40 Glucose (Glucose 40% Gel 15 Gm Tube) 15 - 30 gm PO UD PRN; Protocol PRN Reason: Hypoglycemia Protocol Stop: 07/01/21 14:40 Dexamethasone 6 mg/ Syringe 1.5 mls @ 1 mls/min IV DAILY [facility] Stop: 06/13/21 08:59 Last Admin: 06/07/21 09:14 Dose: 1 mls/min Documented by: Insulin Aspart (Insulin Aspart Per Unit) 0 units SC ACHS [facility] Stop: 07/03/21 16:29 Last Admin: 06/07/21 12:17 Dose: 23 units Documented by: Insulin Human NPH (Insulin Human Nph) 30 units SC DAILY [facility] Stop: 07/07/21 08:59 Last Admin: 06/07/21 09:22 Dose: 30 units Documented by: Isosorbide Mononitrate (Isosorbide [place] Extended Rel 30 Mg Tabcr) 30 mg PO DAILY [facility] Stop: 07/02/21 08:59 Last Admin: 06/07/21 09:15 Dose: 30 mg Documented by: Lisinopril (Lisinopril 10 Mg Tab) 10 mg PO DAILY [facility] Stop: 07/06/21 08:59 Last Admin: 06/07/21 09:15 Dose: 10 mg Documented by: Melatonin (Melatonin 3 Mg Tab) 6 mg PO HS PRN PRN Reason: Sleep Stop: 07/03/21 18:59 Last Admin: 06/06/21 22:41 Dose: 3 mg Documented by: Miscellaneous (Carbohydrates For Hypoglycemia ) 15 - 30 gm PO UD PRN PRN Reason: Hypoglycemia Protocol Stop: 07/01/21 14:40 Miscellaneous Information (Pharmacy Glycemic Mgmt Consult) 1 ea N/A UD PRN; Protocol PRN Reason: Consult Stop: 07/01/21 14:40 Montelukast Sodium (Montelukast Sodium 10 Mg Tablet) 10 mg PO DAILY [facility] Stop: 07/02/21 08:59 Last Admin: 06/07/21 09:15 Dose: 10 mg Documented by: Nitroglycerin (Nitroglycerin Sl 0.4 Mg/Tab Tab) 0.4 mg SL UD PRN PRN Reason: Chest Pain Stop: 07/01/21 14:40 Ondansetron HCl (Ondansetron Inj 2 Mg/Ml 2 Ml Vial) 4 mg IV Q6H PRN PRN Reason: Nausea Stop: 07/01/21 14:40 Pantoprazole Sodium (Pantoprazole 40 Mg Tab) 40 mg PO DAILY [facility] Stop: 07/02/21 08:59 Last Admin: 06/07/21 09:15 Dose: 40 mg Documented by: Polyethylene Glycol (Polyethylene (Miralax) 17 Gm Pack) 17 gm PO DAILY PRN PRN Reason: Constipation Stop: 07/01/21 14:40 Vitamin D (Cholecalciferol 1,000 Units 25 Mcg Tab) 1,000 units PO DAILY [facility] Stop: 07/02/21 08:59 Last Admin: 06/07/21 09:16 Dose: 1,000 units Documented by:
[2021-06-07] MEDS: MELATONIN 3 MG TAB PO PRN (22:42)
[2021-06-08] MEDS: FERROUS SULFATE 325 MG TAB PO SCH (08:21)
[2021-06-08] MEDS: INSULIN ASPART PER UNIT SC SCH ×5 (08:21→20:37)
[2021-06-08] MEDS: dexAMETHasone 6 MG in SYRINGE 0 ML IV SCH (08:21)
[2021-06-08] MEDS: lisinopril 10 MG TAB PO SCH (08:22)
[2021-06-08] MEDS: FINASTERIDE 5 MG TAB PO SCH (08:22)
[2021-06-08] MEDS: ENOXAPARIN INJ 40 MG/0.4 ML SYR SQ SCH ×2 (08:22→20:37)
[2021-06-08] MEDS: ATORVASTATIN 40 MG TAB PO SCH (08:22)
[2021-06-08] MEDS: CITALOPRAM 20 MG TAB PO SCH (08:22)
[2021-06-08] MEDS: ISOSORBIDE MONO EXTENDED REL 30 MG TABCR PO SCH (08:23)
[2021-06-08] MEDS: CETIRIZINE HCL 10 MG TABLET PO SCH (08:23)
[2021-06-08] MEDS: PANTOprazole 40 MG TAB PO SCH (08:23)
[2021-06-08] MEDS: CHOLECALCIFEROL 1,000 UNITS 25 MCG TAB PO SCH (08:23)
[2021-06-08] MEDS: ASPIRIN 81 MG ECTAB PO SCH (08:23)
[2021-06-08] MEDS: INSULIN HUMAN NPH SC SCH (08:24)
[2021-06-08] MEDS: MONTELUKAST SODIUM 10 MG TABLET PO SCH (08:24)
[2021-06-08 10:08] LABS: BUN Creatinine Ratio 16.3 (10-20); Calcium 9.1 mg/dl (8.5-10.1); Creatinine Clr Calc Pharmacy 52.4 ml/min; Est GFR (African American) 55.9 ml/min; Est GFR (Non-African American) 48.2 ml/min; Phosphorus 3.6 mg/dl (2.5-4.9)
[2021-06-08] MEDS ORDERED: POTASSIUM CHLORIDE CRTAB 20 MEQ TABCR PO STA (11:24)
[2021-06-08] MEDS ORDERED: FUROSEMIDE 40 MG/4 ML VIAL IV ONE (11:30)
--- NOTE | 2021-06-08 11:37 | Pharmacy Report ---
Pharmacy Glycemic Short Note 2 - Date of Service June 08, 2021 - Glycemic Short BSG Results (Last 24 hours): 06/07/21 06/07/21 06/07/21 11:48 16:29 20:09 Glucose POC Glucose 200 H 77 99 06/08/21 06/08/21 07:42 09:09 Glucose 176 H POC Glucose 138 H OUTPATIENT ANTIDIABETIC REGIMEN: * metformin 500 mg PO daily * HbA1C = 11.3% on 05/28/21 per H&P ASSESSMENT: 06/08 * Pt has been receiving 83-87 units of insulin on average * 30 units of basal with NPH * 53 units of bolus with NovoLog * BSGs all near goal range. Pre-lunch BSG remains elevated therefore will tighten CR with BF only. * Loosen CF/CR throughout the day as the hyperglycemic effects of dex wear off. * Insulin regimen will need reduced once dex stopped on 06/13 06/04: * Pt received total 110 units of insulin yesterday: 55 units basal (20 units Lantus + 35 units NPH) and 55 units bolus. * Fasting BSG today was 112 mg/dl. Continued Lantus dose the same. * Post prandial BSGs trended up at lunch and dinner yesterday most likely due to the IV Dex 6 mg dose in the AM. Therefore, NPH dose was increased slightly to 40 units this AM. Expect BSGs will be improved with lunch and dinner today. * Novolog parameters continued the same. 06/03: * Patient received total of 142 units of insulin yesterday; 55 units of basal (20 units of Lantus + 35 units of NPH) and 87 units of bolus. * Fasting BSG today was 134 mg/dl. Basal Lantus continued the same. * Novolog CR was tightened with dinner yesterday which brought down BSGs into range by HS. Novolog parameters continued the same today. * Basal NPH dose also continued the same as yesterday. 06/02/21 * BSGs yesterday were [phone] mg/dL. Fasting today is 224 mg/dL. * Patient received 6 doses of Novolog 0.1 unit/kg (54 total units) plus Lantus 30 units x 1. * For today start Lantus 20 units daily for baseline basal needs plus NPH 35 units daily (0.4 units/kg) * Novolog weight-based stress of 3 for now due to ongoing dexamethasone 6 mg IV daily. Background * Mr Hong is a 75 y/o M with a PMH of T2DM who is admitted for COVID-19. * Patient's BSG on admission was 359 mg/dL which was prior to any dexamethasone given. Patient given 10 mg of IV dexamethasone @ 0901 * Patient was given 5 units IV @916 and 9 units IV @ 1114 of insulin. * Recheck BSG at 1500 was 357 mg/dL. Discussed with hospitalist- patient has low PO intake. * As patient is not critically ill at this time, will opt for Novolog 0.1 units/kg Q2 until BSG < 200 mg/dL then change back to q4. This will be instead of insulin infusion. * Lantus 30 units SQ x 1 (0.3 units/kg) PLAN FOR INPATIENT GLYCEMIC CONTROL: * Hold outpatient oral diabetes medications * Basal insulin: * continue to hold Lantus * NPH 30 units SQ daily * Bolus insulin: * NovoLog per scale ACHS or Q6hrs while NPO * Goal Range: Low 90 mg/dL - High 140 mg/dL * Correction Factor: 20 mg/dL/unit with breakfast, lunch, and dinner, 25 at HS * Nutritional / Prandial insulin per carb ratio of 1 unit per 3 grams CHO consumed with breakfast, lunch, and dinner, 6 at HS PLAN FOR DISCHARGE: * HbA1c = 11.3% on 05/28/21. Goal A1c is less than 8% for this patient given her age and comorbidities. * Recommend increasing Metformin to XR 500 mg PO BID with meals breakfast and dinner. Typically the XR formulation of metformin is better tolerated than the immediate release formulation. Continue to titrate metformin dosing upwards as recommended. Dosage increases should be made in increments of 500 mg weekly, up to 2,000 mg/day PO, given in divided doses. Doses above 2000 mg/day may be better tolerated if divided and given 3 times per day with meals. Max: 2,550 mg/day PO, in divided doses * Recommend adding Lantus 20 units once daily with morning meal. Titrate dose per outpatient provider.
--- NOTE | 2021-06-08 12:30 | XRay Report ---
XR chest 1V portable CLINICAL HISTORY: Follow up Covid 19 pneumonia. Difficulty breathing COMPARISON STUDY: 06/04/2021 TECHNIQUE: 1 view of the chest FINDINGS: Single frontal view of the chest demonstrates the cardiomediastinal silhouette to be within normal li mits. Compared to the previous examination, there has been significant interval worsening of patchy i nterstitial and alveolar opacities bilaterally representing the presence of Covid pneumonia. There is no evidence for pleural effusion. There is no evidence for vascular congestion. There is no acute os seous pathology. IMPRESSION: Significant interval worsening of bilateral interstitial and alveolar opacities represent ing worsening Covid pneumonia. ACT 112: Negative or not required by law. Electronically signed by: Aki Pedersen M.D. 06/08/2021 12:28 PM
--- NOTE | 2021-06-08 14:27 | Hospitalist Progress Note ---
Date of Service June 08, 2021 Assessment & Plan (1) Pneumonia due to COVID-19 virus: Plan: Patient is a 75 yr male with H/O HTN, HLD, CAD s/p stent, CKD III, DM II, JARETT, Espinoza's esophagus, JARETT, depression presented to ER with c/o SOB. Symptom onset 05/16/2021. Positive COVID-19 test on 05/26/21. Increased shortness of breath last night. 2 days of loose stools. He states he received his Covid 19 vaccinations in July and August 2020. No Booster. Acute respiratory failure with hypoxia Multifocal pneumonia secondary to COVID-19 --CXR:Bilateral airspace opacities, slightly increased since prior exam. The findings suggest viral pneumonia. CRP: 0.73>1.03,Normal Procalcitonin,Ferritin:1194 Continue dexamethasone 6 mg daily Discussed with patient regarding remdesivir, unlikely to help given symptoms onset Patient agrees to avoid remdesivir and he is not getting remdesivir Encourage proning when able Incentive spirometer, flutter valve Lasix as needed Clinically stable and has been feeling a little bit better today Requiring about 10 L of oxygen to maintain saturation Oxygen requirements is down to 6 to 8 L and the condition seems to be improving His oxygen requirement has gone up but clinically he is feeling better though remains weak He feels better but oxygen requirement is going up Repeat chest x-ray showed worsening of bilateral pneumonia but CRP and procalcitonin are unremarkable We will increase the dose of dexamethasone and also continue Lasix twice daily Elevated Troponin H/O CAD Denies chest pain Troponin levels normalized Likely elevated secondary to demand ischemia and no evidence of ACS Continue aspirin, atorvastatin, metoprolol succinate DM II Hyperglycemia A1c: 11.3 on 05/28/2021 Hold home Metformin Continue Insulin therapy Glycemic pharmacy consult for assistance in management HTN Blood pressure relatively low Decreased lisinopril to 5 mg daily Decrease metoprolol 12.5 mg twice daily continue with holding parameters Hold amlodipine for now-blood pressure remains on the lower side of normal at 100/55 HLD Continue atorvastatin CKD III Baseline~1.2 Monitor renal function Avoid nephrotoxic agents when possible JARETT CPAP HS Depression Continue citalopram Espinoza's esophagus Continue PPI DVT Prophylaxis Lovenox SQ Code Status Full Code Admission and Anticipated Discharge Date Admission Date: June 01, 2021 Subjective 06/04/2021 The patient was seen and examined in Covid unit He has been feeling a little better Still has occasional cough and gets short of breath with minimal exertion Has been requiring about 10 L of oxygen to maintain saturation 06/05/2021 The patient was seen and examined in Covid unit He has been feeling a little better Cough is improved but weakness persist,he has been requiring high flow nasal cannula to maintain saturation 06/06/2021 The patient was seen and examined in the Covid unit He has been feeling a little better but is still requiring very high flow oxygen via nasal cannula to maintain saturation His cough is better 06/07/2021 The patient was seen in the Covid unit He remained stable and feels a little better Still requiring anywhere from 13 to 15 L of oxygen to maintain saturation 06/08/2021 The patient was seen and examined in Covid unit She has been feeling better but oxygen requirements has been going up Gets very short short of breath with minimal exertion Review of Systems Review of Systems: All systems reviewed and are unremarkable except as noted below Respiratory: Mild to moderate shortness of breath at rest Physical Exam Physical Exam: Lying in bed with moderate shortness of breath as above Constitutional: well developed, well nourished, + ill appearing and + obese Eyes: PERRL, conjunctivae normal, anicteric sclerae ENMT: external ear and nose normal, oropharynx normal Neck: trachea midline, no thyromegaly Respiratory: + respiratory distress Auscultation: + diminished lung sounds and + crackles (Bibasilar crackles); no wheezes Cardiovascular: Rate/Rhythm: regular rate and regular rhythm; not tachycardic Heart Sounds: normal S1 and normal S2; no murmur Extremities: no edema Gastrointestinal (Abdomen): Inspection/Auscultation: normal bowel sounds; abdomen not distended Percussion/Palpation: abdomen soft; abdomen nontender Musculoskeletal: No acute arthritis in any joint Neurologic: Alert, awake and oriented x3. Generally weak Lymphatic: no cervical or axillary lymphadenopathy Results & Data Results & Data ([facility]) Vital Signs (Past 12 Hours) Vital Signs Temp Pulse Pulse Resp BP BP Pulse Ox 06/08/21 11:53 36.4 C L 60 20 116/69 94 06/08/21 09:43 43 L 06/08/21 07:13 36.4 C L 54 L 18 113/70 92 06/08/21 03:22 36.2 C L 45 L 23 121/78 94 Pulse Ox 06/08/21 11:53 06/08/21 09:43 06/08/21 07:13 06/08/21 03:22 91 Laboratory Results BMP 06/08/21 06/08/21 09:09 10:59 Sodium 135 L Potassium 4.0 Chloride 103 Carbon Dioxide 24 BUN 23 H Creatinine 1.43 H Glucose 176 H Calcium 9.1 Medications Administered Current Inpatient Medications Acetaminophen (Acetaminophen 325 Mg Tab) 650 mg PO Q4H PRN PRN Reason: Pain or Fever Stop: 07/01/21 14:40 Albuterol (Albuterol Hfa 8 Gm Inhaler) 2 puffs INH Q6R PRN PRN Reason: Shortness Of Breath Or Wheezing Stop: 07/01/21 14:40 Amlodipine Besylate (Amlodipine Besylate 5 Mg Tab) 5 mg PO QAM [facility] Stop: 07/02/21 08:59 Last Admin: 06/03/21 08:24 Dose: 5 mg Documented by: Aspirin (Aspirin 81 Mg Ectab) 81 mg PO QAM [facility] Stop: 07/02/21 08:59 Last Admin: 06/08/21 08:23 Dose: 81 mg Documented by: Atorvastatin Calcium (Atorvastatin 40 Mg Tab) 80 mg PO DAILY [facility] Stop: 07/02/21 08:59 Last Admin: 06/08/21 08:22 Dose: 80 mg Documented by: Cetirizine HCl (Cetirizine Hcl 10 Mg Tablet) 10 mg PO DAILY [facility] Stop: 07/02/21 08:59 Last Admin: 06/08/21 08:23 Dose: 10 mg Documented by: Citalopram Hydrobromide (Citalopram 20 Mg Tab) 20 mg PO DAILY [facility] Stop: 07/02/21 08:59 Last Admin: 06/08/21 08:22 Dose: 20 mg Documented by: Dextrose (Dextrose 50% 50 Ml Syringe) 25 - 50 ml IV UD PRN; Protocol PRN Reason: Hypoglycemia Protocol Stop: 07/01/21 14:40 Enoxaparin Sodium (Enoxaparin Inj 40 Mg/0.4 Ml Syr) 40 mg SQ Q12 [facility] Stop: 07/01/21 20:59 Last Admin: 06/08/21 08:22 Dose: 40 mg Documented by: Ferrous Sulfate (Ferrous Sulfate 325 Mg Tab) 325 mg PO DAILY [facility] Stop: 07/02/21 08:59 Last Admin: 06/08/21 08:21 Dose: Not Given Documented by: Finasteride (Finasteride 5 Mg Tab) 5 mg PO QAM [facility] Stop: 07/02/21 08:59 Last Admin: 06/08/21 08:22 Dose: 5 mg Documented by: Fluticasone Propionate (Fluticasone Propionate Na Spr 16 Gm Btl) 2 sprays LEILANI DAILY PRN PRN Reason: Nasal Congestion Stop: 07/01/21 14:40 Glucagon (Glucagon For Inj 1 Mg Vial) 1 mg SQ UD PRN; Protocol PRN Reason: Hypoglycemia Protocol Stop: 07/01/21 14:40 Glucose (Glucose 10 Tabs/Tube) 4 - 8 tabs PO UD PRN; Protocol PRN Reason: Hypoglycemia Protocol Stop: 07/01/21 14:40 Glucose (Glucose 40% Gel 15 Gm Tube) 15 - 30 gm PO UD PRN; Protocol PRN Reason: Hypoglycemia Protocol Stop: 07/01/21 14:40 Dexamethasone 6 mg/ Syringe 1.5 mls @ 1 mls/min IV DAILY [facility] Stop: 06/13/21 08:59 Last Admin: 06/08/21 08:21 Dose: 1 mls/min Documented by: Insulin Aspart (Insulin Aspart Per Unit) 0 units SC HS [facility] Stop: 07/07/21 20:59 Last Admin: 06/07/21 20:22 Dose: Not Given Documented by: Insulin Aspart (Insulin Aspart Per Unit) 0 units SC BID@1130,1630 [facility] Stop: 07/08/21 12:14 Last Admin: 06/08/21 12:09 Dose: 22 units Documented by: Insulin Aspart (Insulin Aspart Per Unit) 0 units SC QDB [facility] Stop: 07/09/21 07:29 Insulin Human NPH (Insulin Human Nph) 30 units SC DAILY [facility] Stop: 07/07/21 08:59 Last Admin: 06/08/21 08:24 Dose: 30 units Documented by: Isosorbide Mononitrate (Isosorbide [place] Extended Rel 30 Mg Tabcr) 30 mg PO DAILY [facility] Stop: 07/02/21 08:59 Last Admin: 06/08/21 08:23 Dose: 30 mg Documented by: Lisinopril (Lisinopril 10 Mg Tab) 10 mg PO DAILY [facility] Stop: 07/06/21 08:59 Last Admin: 06/08/21 08:22 Dose: 10 mg Documented by: Melatonin (Melatonin 3 Mg Tab) 6 mg PO HS PRN PRN Reason: Sleep Stop: 07/03/21 18:59 Last Admin: 06/07/21 22:42 Dose: 3 mg Documented by: Miscellaneous (Carbohydrates For Hypoglycemia ) 15 - 30 gm PO UD PRN PRN Reason: Hypoglycemia Protocol Stop: 07/01/21 14:40 Miscellaneous Information (Pharmacy Glycemic Mgmt Consult) 1 ea N/A UD PRN; Protocol PRN Reason: Consult Stop: 07/01/21 14:40 Montelukast Sodium (Montelukast Sodium 10 Mg Tablet) 10 mg PO DAILY [facility] Stop: 07/02/21 08:59 Last Admin: 06/08/21 08:24 Dose: 10 mg Documented by: Nitroglycerin (Nitroglycerin Sl 0.4 Mg/Tab Tab) 0.4 mg SL UD PRN PRN Reason: Chest Pain Stop: 07/01/21 14:40 Ondansetron HCl (Ondansetron Inj 2 Mg/Ml 2 Ml Vial) 4 mg IV Q6H PRN PRN Reason: Nausea Stop: 07/01/21 14:40 Pantoprazole Sodium (Pantoprazole 40 Mg Tab) 40 mg PO DAILY [facility] Stop: 07/02/21 08:59 Last Admin: 06/08/21 08:23 Dose: 40 mg Documented by: Polyethylene Glycol (Polyethylene (Miralax) 17 Gm Pack) 17 gm PO DAILY PRN PRN Reason: Constipation Stop: 07/01/21 14:40 Vitamin D (Cholecalciferol 1,000 Units 25 Mcg Tab) 1,000 units PO DAILY [facility] Stop: 07/02/21 08:59 Last Admin: 06/08/21 08:23 Dose: 1,000 units Documented by:
[2021-06-08] MEDS: FUROSEMIDE 40 MG/4 ML VIAL IV SCH (20:37)
[2021-06-08] MEDS: MELATONIN 3 MG TAB PO PRN (23:10)
[2021-06-09] MEDS: dexAMETHasone 10 MG in SYRINGE 0 ML IV SCH (08:03)
[2021-06-09] MEDS: ENOXAPARIN INJ 40 MG/0.4 ML SYR SQ SCH ×2 (08:04→21:44)
[2021-06-09] MEDS: FERROUS SULFATE 325 MG TAB PO SCH (08:04)
[2021-06-09] MEDS: ASPIRIN 81 MG ECTAB PO SCH (08:05)
[2021-06-09] MEDS: CITALOPRAM 20 MG TAB PO SCH (08:05)
[2021-06-09] MEDS: CHOLECALCIFEROL 1,000 UNITS 25 MCG TAB PO SCH (08:05)
[2021-06-09] MEDS: CETIRIZINE HCL 10 MG TABLET PO SCH (08:05)
[2021-06-09] MEDS: MONTELUKAST SODIUM 10 MG TABLET PO SCH (08:05)
[2021-06-09] MEDS: ATORVASTATIN 40 MG TAB PO SCH (08:05)
[2021-06-09] MEDS: PANTOprazole 40 MG TAB PO SCH (08:06)
[2021-06-09] MEDS: lisinopril 10 MG TAB PO SCH (08:06)
[2021-06-09] MEDS: ISOSORBIDE MONO EXTENDED REL 30 MG TABCR PO SCH (08:06)
[2021-06-09] MEDS: FINASTERIDE 5 MG TAB PO SCH (08:06)
[2021-06-09] MEDS: FUROSEMIDE 40 MG/4 ML VIAL IV SCH ×2 (08:07→21:45)
[2021-06-09] MEDS ORDERED: INSULIN HUMAN NPH SC SCH (09:00)
[2021-06-09] MEDS: INSULIN ASPART PER UNIT SC SCH ×4 (09:16→21:41)
[2021-06-09] MEDS: POTASSIUM CHLORIDE CRTAB 20 MEQ TABCR PO SCH (09:21)
[2021-06-09 11:05] LABS: BUN Creatinine Ratio 18.3 (10-20); Calcium 9.2 mg/dl (8.5-10.1); Est GFR (African American) 53.6 ml/min; Est GFR (Non-African American) 46.3 ml/min; Potassium 4.4 mmol/L (3.5-5.1)
--- NOTE | 2021-06-09 11:10 | Pharmacy Report ---
Pharmacy Glycemic Short Note 2 - Date of Service June 09, 2021 - Glycemic Short BSG Results (Last 24 hours): 06/08/21 06/08/21 06/08/21 11:43 16:23 20:20 POC Glucose 265 H 280 H 130 H 06/09/21 07:37 POC Glucose 166 H OUTPATIENT ANTIDIABETIC REGIMEN: * Metformin 500 mg PO daily * HbA1C = 11.3% (05/28/21) ASSESSMENT: 06/09: * Mario received a total of 95 units of insulin yesterday (30 units NPH + 65 units Novolog) * BSGs were labile: [phone] mg/dL * Fasting BSG was 166 mg/dL this AM - above goal. * Post-prandial BSGs have been elevated with lunch and sometimes dinner. * Due to IV steroids. Oxygen requirements increased and CXR worsened yesterday so IV Dexamethasone was increased to 10 mg daily. * Will increase NPH and tighten Novolog with breakfast only today to account for increased steroid dose. 06/08: * Pt has been receiving 83-87 units of insulin on average * 30 units of basal with NPH * 53 units of bolus with NovoLog * BSGs all near goal range. Pre-lunch BSG remains elevated therefore will tighten CR with BF only. * Loosen CF/CR throughout the day as the hyperglycemic effects of dex wear off. * Insulin regimen will need reduced once dex stopped on 06/13 PLAN FOR INPATIENT GLYCEMIC CONTROL: * Hold outpatient oral diabetes medications * Basal insulin - increased NPH * NPH 40 units SC daily w/ IV Dexamethasone (hold if dexamethasone held/discontinued and contact pharmacy) * Bolus insulin - tightened w/ breakfast * NovoLog per scale ACHS or Q6hrs while NPO * Goal Range: Low 90 mg/dL - High 140 mg/dL (except 110-140 mg/dL at HS) * Correction Factor: 15 mg/dL/unit with breakfast, 20 mg/dL/unit with lunch and dinner, and 25 mg/dL/unit at HS * Nutritional/Prandial insulin per carb ratio of 1 unit per 1.5 grams CHO consumed with breakfast, 3 grams CHO w/ lunch and dinner, and 6 grams CHO at HS PLAN FOR DISCHARGE: * HbA1c = 11.3% on 05/28/21. Goal A1c is less than 8% for this patient given her age and comorbidities. * Recommend increasing Metformin to XR 500 mg PO BID with meals breakfast and dinner. Typically the XR formulation of metformin is better tolerated than the immediate release formulation. Continue to titrate metformin dosing upwards as recommended. Dosage increases should be made in increments of 500 mg weekly, up to 2,000 mg/day PO, given in divided doses. Doses above 2000 mg/day may be better tolerated if divided and given 3 times per day with meals. Max: 2,550 mg/day PO, in divided doses * Recommend adding Lantus 20 units once daily with morning meal. Titrate dose per outpatient provider.
--- NOTE | 2021-06-09 15:48 | Hospitalist Progress Note ---
Date of Service June 09, 2021 Assessment & Plan (1) Pneumonia due to COVID-19 virus: Plan: Patient is a 75 yr male with H/O HTN, HLD, CAD s/p stent, CKD III, DM II, JARETT, Espinoza's esophagus, JARETT, depression presented to ER with c/o SOB. Symptom onset 05/16/2021. Positive COVID-19 test on 05/26/21. Increased shortness of breath last night. 2 days of loose stools. He states he received his Covid 19 vaccinations in July and August 2020. No Booster. Acute respiratory failure with hypoxia Multifocal pneumonia secondary to COVID-19 --CXR:Bilateral airspace opacities, slightly increased since prior exam. The findings suggest viral pneumonia. CRP: 0.73>1.03,Normal Procalcitonin,Ferritin:1194 Continue dexamethasone 6 mg daily Discussed with patient regarding remdesivir, unlikely to help given symptoms onset Patient agrees to avoid remdesivir and he is not getting remdesivir Encourage proning when able Incentive spirometer, flutter valve Lasix as needed Clinically stable and has been feeling a little bit better today Requiring about 10 L of oxygen to maintain saturation Oxygen requirements is down to 6 to 8 L and the condition seems to be improving His oxygen requirement has gone up but clinically he is feeling better though remains weak He feels better but oxygen requirement is going up Repeat chest x-ray showed worsening of bilateral pneumonia but CRP and procalcitonin are unremarkable We will increase the dose of dexamethasone and also continue Lasix twice daily Clinically better he still requires high flow oxygen-we will continue current management Elevated Troponin H/O CAD Denies chest pain Troponin levels normalized Likely elevated secondary to demand ischemia and no evidence of ACS Continue aspirin, atorvastatin, metoprolol succinate DM II Hyperglycemia A1c: 11.3 on 05/28/2021 Hold home Metformin Continue Insulin therapy Glycemic pharmacy consult for assistance in management HTN Blood pressure relatively low Decreased lisinopril to 5 mg daily Decrease metoprolol 12.5 mg twice daily continue with holding parameters Hold amlodipine for now-blood pressure remains on the lower side of normal at 100/55 Blood pressure remains on the lower side of normal HLD Continue atorvastatin CKD III Baseline~1.2 Monitor renal function Avoid nephrotoxic agents when possible JARETT CPAP HS Depression Continue citalopram Espinoza's esophagus Continue PPI DVT Prophylaxis Lovenox SQ Code Status Full Code Admission and Anticipated Discharge Date Admission Date: June 01, 2021 Subjective 06/04/2021 The patient was seen and examined in Covid unit He has been feeling a little better Still has occasional cough and gets short of breath with minimal exertion Has been requiring about 10 L of oxygen to maintain saturation 06/05/2021 The patient was seen and examined in Covid unit He has been feeling a little better Cough is improved but weakness persist,he has been requiring high flow nasal cannula to maintain saturation 06/06/2021 The patient was seen and examined in the Covid unit He has been feeling a little better but is still requiring very high flow oxygen via nasal cannula to maintain saturation His cough is better 06/07/2021 The patient was seen in the Covid unit He remained stable and feels a little better Still requiring anywhere from 13 to 15 L of oxygen to maintain saturation 06/08/2021 The patient was seen and examined in Covid unit She has been feeling better but oxygen requirements has been going up Gets very short short of breath with minimal exertion 06/09/2021 The patient was seen and examined in Covid unit He has been feeling a little better but oxygen requirement has not gone down Cough is improved and weakness persist Review of Systems Review of Systems: All systems reviewed and are unremarkable except as noted below Respiratory: Mild to moderate shortness of breath at rest Physical Exam Physical Exam: Lying in bed with moderate shortness of breath as above Constitutional: well developed, well nourished, + ill appearing and + obese Eyes: PERRL, conjunctivae normal, anicteric sclerae ENMT: external ear and nose normal, oropharynx normal Neck: trachea midline, no thyromegaly Respiratory: + respiratory distress Auscultation: + diminished lung sounds and + crackles (Bibasilar crackles); no wheezes Cardiovascular: Rate/Rhythm: regular rate and regular rhythm; not tachycardic Heart Sounds: normal S1 and normal S2; no murmur Extremities: no edema Gastrointestinal (Abdomen): Inspection/Auscultation: normal bowel sounds; abd omen not distended Percussion/Palpation: abdomen soft; abdomen nontender Musculoskeletal: No acute arthritis in any joint Neurologic: Alert, awake and oriented x3. Generally very weak and lethargic Lymphatic: no cervical or axillary lymphadenopathy Results & Data Results & Data ([facility]) Vital Signs (Past 12 Hours) Vital Signs Temp Pulse Pulse Resp BP Pulse Ox 06/09/21 14:15 54 L 06/09/21 11:44 36.3 C L 56 L 20 95/61 L 90 06/09/21 08:01 36.7 C 44 L 16 110/67 96 06/09/21 06:17 41 L Laboratory Results BMP 06/09/21 10:16 Sodium 134 L Potassium 4.4 Chloride 102 Carbon Dioxide 20 L BUN 27 H Creatinine 1.48 H Glucose 280 H Calcium 9.2 Medications Administered Current Inpatient Medications Acetaminophen (Acetaminophen 325 Mg Tab) 650 mg PO Q4H PRN PRN Reason: Pain or Fever Stop: 07/01/21 14:40 Albuterol (Albuterol Hfa 8 Gm Inhaler) 2 puffs INH Q6R PRN PRN Reason: Shortness Of Breath Or Wheezing Stop: 07/01/21 14:40 Amlodipine Besylate (Amlodipine Besylate 5 Mg Tab) 5 mg PO QAM [facility] Stop: 07/02/21 08:59 Last Admin: 06/03/21 08:24 Dose: 5 mg Documented by: Aspirin (Aspirin 81 Mg Ectab) 81 mg PO QAM [facility] Stop: 07/02/21 08:59 Last Admin: 06/09/21 08:05 Dose: 81 mg Documented by: Atorvastatin Calcium (Atorvastatin 40 Mg Tab) 80 mg PO DAILY [facility] Stop: 07/02/21 08:59 Last Admin: 06/09/21 08:05 Dose: 80 mg Documented by: Cetirizine HCl (Cetirizine Hcl 10 Mg Tablet) 10 mg PO DAILY [facility] Stop: 07/02/21 08:59 Last Admin: 06/09/21 08:05 Dose: 10 mg Documented by: Citalopram Hydrobromide (Citalopram 20 Mg Tab) 20 mg PO DAILY [facility] Stop: 07/02/21 08:59 Last Admin: 06/09/21 08:05 Dose: 20 mg Documented by: Dextrose (Dextrose 50% 50 Ml Syringe) 25 - 50 ml IV UD PRN; Protocol PRN Reason: Hypoglycemia Protocol Stop: 07/01/21 14:40 Enoxaparin Sodium (Enoxaparin Inj 40 Mg/0.4 Ml Syr) 40 mg SQ Q12 [facility] Stop: 07/01/21 20:59 Last Admin: 06/09/21 08:04 Dose: 40 mg Documented by: Ferrous Sulfate (Ferrous Sulfate 325 Mg Tab) 325 mg PO DAILY [facility] Stop: 07/02/21 08:59 Last Admin: 06/09/21 08:04 Dose: 325 mg Documented by: Finasteride (Finasteride 5 Mg Tab) 5 mg PO QAM [facility] Stop: 07/02/21 08:59 Last Admin: 06/09/21 08:06 Dose: 5 mg Documented by: Fluticasone Propionate (Fluticasone Propionate Na Spr 16 Gm Btl) 2 sprays LEILANI DAILY PRN PRN Reason: Nasal Congestion Stop: 07/01/21 14:40 Furosemide (Furosemide 40 Mg/4 Ml Vial) 40 mg IV BID [facility] Stop: 07/08/21 20:59 Last Admin: 06/09/21 08:07 Dose: 40 mg Documented by: Glucagon (Glucagon For Inj 1 Mg Vial) 1 mg SQ UD PRN; Protocol PRN Reason: Hypoglycemia Protocol Stop: 07/01/21 14:40 Glucose (Glucose 10 Tabs/Tube) 4 - 8 tabs PO UD PRN; Protocol PRN Reason: Hypoglycemia Protocol Stop: 07/01/21 14:40 Glucose (Glucose 40% Gel 15 Gm Tube) 15 - 30 gm PO UD PRN; Protocol PRN Reason: Hypoglycemia Protocol Stop: 07/01/21 14:40 Dexamethasone 10 mg/ Syringe 2.5 mls @ 1 mls/min IV DAILY [facility] Stop: 07/09/21 08:59 Last Admin: 06/09/21 08:03 Dose: 1 mls/min Documented by: Insulin Aspart (Insulin Aspart Per Unit) 0 units SC HS [facility] Stop: 07/07/21 20:59 Last Admin: 06/08/21 20:37 Dose: 4 units Documented by: Insulin Aspart (Insulin Aspart Per Unit) 0 units SC BID@1130,1630 [facility] Stop: 07/08/21 12:14 Last Admin: 06/09/21 12:23 Dose: 17 units Documented by: Insulin Aspart (Insulin Aspart Per Unit) 0 units SC QDB [facility]; Protocol Stop: 07/09/21 07:29 Last Admin: 06/09/21 09:16 Dose: 35 units Documented by: Insulin Human NPH (Insulin Human Nph) 40 units SC DAILY [facility]; Protocol Stop: 07/07/21 08:59 Last Admin: 06/09/21 09:15 Dose: 40 units Documented by: Isosorbide Mononitrate (Isosorbide [place] Extended Rel 30 Mg Tabcr) 30 mg PO DAILY [facility] Stop: 07/02/21 08:59 Last Admin: 06/09/21 08:06 Dose: 30 mg Documented by: Lisinopril (Lisinopril 10 Mg Tab) 10 mg PO DAILY [facility] Stop: 07/06/21 08:59 Last Admin: 06/09/21 08:06 Dose: 10 mg Documented by: Melatonin (Melatonin 3 Mg Tab) 6 mg PO HS PRN PRN Reason: Sleep Stop: 07/03/21 18:59 Last Admin: 06/08/21 23:10 Dose: 6 mg Documented by: Miscellaneous (Carbohydrates For Hypoglycemia ) 15 - 30 gm PO UD PRN PRN Reason: Hypoglycemia Protocol Stop: 07/01/21 14:40 Miscellaneous Information (Pharmacy Glycemic Mgmt Consult) 1 ea N/A UD PRN; Protocol PRN Reason: Consult Stop: 07/01/21 14:40 Montelukast Sodium (Montelukast Sodium 10 Mg Tablet) 10 mg PO DAILY [facility] Stop: 07/02/21 08:59 Last Admin: 06/09/21 08:05 Dose: 10 mg Documented by: Nitroglycerin (Nitroglycerin Sl 0.4 Mg/Tab Tab) 0.4 mg SL UD PRN PRN Reason: Chest Pain Stop: 07/01/21 14:40 Ondansetron HCl (Ondansetron Inj 2 Mg/Ml 2 Ml Vial) 4 mg IV Q6H PRN PRN Reason: Nausea Stop: 07/01/21 14:40 Pantoprazole Sodium (Pantoprazole 40 Mg Tab) 40 mg PO DAILY [facility] Stop: 07/02/21 08:59 Last Admin: 06/09/21 08:06 Dose: 40 mg Documented by: Polyethylene Glycol (Polyethylene (Miralax) 17 Gm Pack) 17 gm PO DAILY PRN PRN Reason: Constipation Stop: 07/01/21 14:40 Potassium Chloride (Potassium Chloride Crtab 20 Meq Tabcr) 40 meq PO QAM [facility] Stop: 07/09/21 08:59 Last Admin: 06/09/21 09:21 Dose: 40 meq Documented by: Vitamin D (Cholecalciferol 1,000 Units 25 Mcg Tab) 1,000 units PO DAILY [facility] Stop: 07/02/21 08:59 Last Admin: 06/09/21 08:05 Dose: 1,000 units Documented by:
[2021-06-09] MEDS: MELATONIN 3 MG TAB PO PRN (21:34)
[2021-06-10 07:16] LABS: Creatinine Clr Calc Pharmacy 57.6 ml/min; Est GFR (African American) 62.7 ml/min; Est GFR (Non-African American) 54.1 ml/min
[2021-06-10] MEDS: dexAMETHasone 10 MG in SYRINGE 0 ML IV SCH (09:12)
[2021-06-10] MEDS: FINASTERIDE 5 MG TAB PO SCH (09:13)
[2021-06-10] MEDS: PANTOprazole 40 MG TAB PO SCH (09:13)
[2021-06-10] MEDS: FUROSEMIDE 40 MG/4 ML VIAL IV SCH (09:13)
[2021-06-10] MEDS: POTASSIUM CHLORIDE CRTAB 20 MEQ TABCR PO SCH (09:14)
[2021-06-10] MEDS: lisinopril 10 MG TAB PO SCH (09:14)
[2021-06-10] MEDS: FERROUS SULFATE 325 MG TAB PO SCH (09:14)
[2021-06-10] MEDS: CITALOPRAM 20 MG TAB PO SCH (09:14)
[2021-06-10] MEDS: CHOLECALCIFEROL 1,000 UNITS 25 MCG TAB PO SCH (09:15)
[2021-06-10] MEDS: ASPIRIN 81 MG ECTAB PO SCH (09:15)
[2021-06-10] MEDS: ISOSORBIDE MONO EXTENDED REL 30 MG TABCR PO SCH (09:15)
[2021-06-10] MEDS: MONTELUKAST SODIUM 10 MG TABLET PO SCH (09:15)
[2021-06-10] MEDS: ENOXAPARIN INJ 40 MG/0.4 ML SYR SQ SCH ×2 (09:16→21:19)
[2021-06-10] MEDS: ATORVASTATIN 40 MG TAB PO SCH (09:17)
[2021-06-10] MEDS: CETIRIZINE HCL 10 MG TABLET PO SCH (09:18)
[2021-06-10] MEDS: INSULIN HUMAN NPH SC SCH (09:21)
[2021-06-10] MEDS: INSULIN ASPART PER UNIT SC SCH ×4 (09:33→20:53)
--- NOTE | 2021-06-10 14:50 | Pharmacy Report ---
Pharmacy Glycemic Short Note 2 - Date of Service June 10, 2021 - Glycemic Short BSG Results (Last 24 hours): 06/09/21 06/09/21 06/09/21 16:46 20:18 20:21 POC Glucose 191 H 311 H* 326 H* 06/09/21 06/10/21 06/10/21 23:53 07:34 11:50 POC Glucose 159 H 138 H 259 H OUTPATIENT ANTIDIABETIC REGIMEN: * Metformin 500 mg PO daily * HbA1C = 11.3% (05/28/21) ASSESSMENT: 06/10: * Mario received 127 units of insulin yesterday (40 units NPH + 87 units of Novolog) * Fasting BSG improved to 138 mg/dL today. * Post prandial BSGs remain elevated. Patient remains on dexamethasone 10 mg IV daily (notified provider that this is day # 10 - currently ordered ongoing). Will slightly tighten carb coverage at lunch and dinner and increase NPH 20%. 06/09: * Mario received a total of 95 units of insulin yesterday (30 units NPH + 65 units Novolog) * BSGs were labile: [phone] mg/dL * Fasting BSG was 166 mg/dL this AM - above goal. * Post-prandial BSGs have been elevated with lunch and sometimes dinner. * Due to IV steroids. Oxygen requirements increased and CXR worsened yesterday so IV Dexamethasone was increased to 10 mg daily. * Will increase NPH and tighten Novolog with breakfast only today to account for increased steroid dose. 06/08: * Pt has been receiving 83-87 units of insulin on average * 30 units of basal with NPH * 53 units of bolus with NovoLog * BSGs all near goal range. Pre-lunch BSG remains elevated therefore will tighten CR with BF only. * Loosen CF/CR throughout the day as the hyperglycemic effects of dex wear off. * Insulin regimen will need reduced once dex stopped on 06/13 PLAN FOR INPATIENT GLYCEMIC CONTROL: * Hold outpatient oral diabetes medications * Basal insulin - increased NPH * NPH 48 units SC daily w/ IV Dexamethasone (hold if dexamethasone held/discontinued and contact pharmacy) * Bolus insulin - tightened w/ lunch and dinner * NovoLog per scale ACHS or Q6hrs while NPO * Goal Range: Low 90 mg/dL - High 140 mg/dL (except 110-140 mg/dL at HS) * Correction Factor: 15 mg/dL/unit with breakfast, 20 mg/dL/unit with lunch and dinner, and 25 mg/dL/unit at HS * Nutritional/Prandial insulin per carb ratio of 1 unit per 1.5 grams CHO consumed with breakfast, 2.5 grams CHO w/ lunch and dinner, and 6 grams CHO at HS PLAN FOR DISCHARGE: * HbA1c = 11.3% on 05/28/21. Goal A1c is less than 8% for this patient given her age and comorbidities. * Recommend increasing Metformin to XR 500 mg PO BID with meals breakfast and dinner. Typically the XR formulation of metformin is better tolerated than the immediate release formulation. Continue to titrate metformin dosing upwards as recommended. Dosage increases should be made in increments of 500 mg weekly, up to 2,000 mg/day PO, given in divided doses. Doses above 2000 mg/day may be better tolerated if divided and given 3 times per day with meals. Max: 2,550 mg/day PO, in divided doses * Recommend adding Lantus 20 units once daily with morning meal. Titrate dose per outpatient provider.
--- NOTE | 2021-06-10 15:08 | Hospitalist Progress Note ---
Date of Service June 10, 2021 Assessment & Plan (1) Pneumonia due to COVID-19 virus: Plan: Patient is a 75 yr male with H/O HTN, HLD, CAD s/p stent, CKD III, DM II, JARETT, Espinoza's esophagus, JARETT, depression presented to ER with c/o SOB. Symptom onset 05/16/2021. Positive COVID-19 test on 05/26/21. Increased shortness of breath last night. 2 days of loose stools. He states he received his Covid 19 vaccinations in July and August 2020. No Booster. Acute respiratory failure with hypoxia Multifocal pneumonia secondary to COVID-19 --CXR:Bilateral airspace opacities, slightly increased since prior exam. The findings suggest viral pneumonia. CRP: 0.73>1.03,Normal Procalcitonin,Ferritin:1194 Continue dexamethasone 6 mg daily Discussed with patient regarding remdesivir, unlikely to help given symptoms onset Patient agrees to avoid remdesivir and he is not getting remdesivir Encourage proning when able Incentive spirometer, flutter valve Lasix as needed Clinically stable and has been feeling a little bit better today Requiring about 10 L of oxygen to maintain saturation Oxygen requirements is down to 6 to 8 L and the condition seems to be improving His oxygen requirement has gone up but clinically he is feeling better though remains weak He feels better but oxygen requirement is going up Repeat chest x-ray showed worsening of bilateral pneumonia but CRP and procalcitonin are unremarkable Has been getting increased dexamethasone of 10 mg daily since 06/09/2021 Lasix 40 mg IV twice daily since 06/09/2021 as chest x-ray was worse with bilateral pneumonia Clinically better and requiring about 15 L of oxygen to maintain saturation We will decrease Lasix to 40 mg once daily from tomorrow Elevated Troponin H/O CAD Denies chest pain Troponin levels normalized Likely elevated secondary to demand ischemia and no evidence of ACS Continue aspirin, atorvastatin, metoprolol succinate DM II Hyperglycemia A1c: 11.3 on 05/28/2021 Hold home Metformin Continue Insulin therapy Glycemic pharmacy consult for assistance in management HTN Blood pressure relatively low Decreased lisinopril to 5 mg daily Decrease metoprolol 12.5 mg twice daily continue with holding parameters Hold amlodipine for now-blood pressure remains on the lower side of normal at 100/55 Blood pressure remains on the lower side of normal We will decrease Lasix to once daily HLD Continue atorvastatin CKD III Baseline~1.2 Monitor renal function Avoid nephrotoxic agents when possible JARETT CPAP HS Depression Continue citalopram Espinoza's esophagus Continue PPI DVT Prophylaxis Lovenox SQ Code Status Full Code Admission and Anticipated Discharge Date Admission Date: June 01, 2021 Subjective 06/04/2021 The patient was seen and examined in Covid unit He has been feeling a little better Still has occasional cough and gets short of breath with minimal exertion Has been requiring about 10 L of oxygen to maintain saturation 06/05/2021 The patient was seen and examined in Covid unit He has been feeling a little better Cough is improved but weakness persist,he has been requiring high flow nasal cannula to maintain saturation 06/06/2021 The patient was seen and examined in the Covid unit He has been feeling a little better but is still requiring very high flow oxygen via nasal cannula to maintain saturation His cough is better 06/07/2021 The patient was seen in the Covid unit He remained stable and feels a little better Still requiring anywhere from 13 to 15 L of oxygen to maintain saturation 06/08/2021 The patient was seen and examined in Covid unit She has been feeling better but oxygen requirements has been going up Gets very short short of breath with minimal exertion 06/09/2021 The patient was seen and examined in Covid unit He has been feeling a little better but oxygen requirement has not gone down Cough is improved and weakness persist 06/10/2021 The patient was seen and examined in Covid unit He feels a little better but he still requires 15 L of oxygen to maintain saturation Complains to have pain in the chest wall likely secondary to coughing Remains tired Review of Systems Review of Systems: All systems reviewed and are unremarkable except as noted below Respiratory: Mild to moderate shortness of breath at rest Physical Exam Physical Exam: Lying in bed with moderate shortness of breath as above Constitutional: well developed, well nourished, + ill appearing and + obese Eyes: PERRL, conjunctivae normal, anicteric sclerae ENMT: external ear and nose normal, oropharynx normal Neck: trachea midline, no thyromegaly Respiratory: + respiratory distress Auscultation: + diminished lung sounds and + crackles (Bibasilar crackles); no wheezes Cardiovascular: Rate/Rhythm: regular rate and regular rhythm; not tachycardic Heart Sounds: normal S1 and normal S2; no murmur Extremities: no edema Gastrointestinal (Abdomen): Inspection/Auscultation: normal bowel sounds; abdo men not distended Percussion/Palpation: abdomen soft; abdomen nontender Musculoskeletal: No acute arthritis in any joint Neurologic: Alert, awake and oriented x3. Generally weak and lethargic. No focal neuro deficit Lymphatic: no cervical or axillary lymphadenopathy Results & Data Results & Data ([facility]) Vital Signs (Past 12 Hours) Vital Signs Temp Pulse Pulse Resp BP BP Pulse Ox 06/10/21 14:47 36.4 C L 61 20 97/61 L 93 06/10/21 11:22 36.3 C L 49 L 20 118/77 06/10/21 07:24 36.3 C L 45 L 18 124/74 95 06/10/21 06:19 44 L 06/10/21 03:09 36.0 C L 43 L 22 133/83 98 Laboratory Results [facility] 06/10/21 06:21 Creatinine 1.30 Medications Administered Current Inpatient Medications Acetaminophen (Acetaminophen 325 Mg Tab) 650 mg PO Q4H PRN PRN Reason: Pain or Fever Stop: 07/01/21 14:40 Albuterol (Albuterol Hfa 8 Gm Inhaler) 2 puffs INH Q6R PRN PRN Reason: Shortness Of Breath Or Wheezing Stop: 07/01/21 14:40 Amlodipine Besylate (Amlodipine Besylate 5 Mg Tab) 5 mg PO QAM [facility] Stop: 07/02/21 08:59 Last Admin: 06/03/21 08:24 Dose: 5 mg Documented by: Aspirin (Aspirin 81 Mg Ectab) 81 mg PO QAM [facility] Stop: 07/02/21 08:59 Last Admin: 06/10/21 09:15 Dose: 81 mg Documented by: Atorvastatin Calcium (Atorvastatin 40 Mg Tab) 80 mg PO DAILY [facility] Stop: 07/02/21 08:59 Last Admin: 06/10/21 09:17 Dose: 80 mg Documented by: Cetirizine HCl (Cetirizine Hcl 10 Mg Tablet) 10 mg PO DAILY [facility] Stop: 07/02/21 08:59 Last Admin: 06/10/21 09:18 Dose: 10 mg Documented by: Citalopram Hydrobromide (Citalopram 20 Mg Tab) 20 mg PO DAILY [facility] Stop: 07/02/21 08:59 Last Admin: 06/10/21 09:14 Dose: 20 mg Documented by: Dextrose (Dextrose 50% 50 Ml Syringe) 25 - 50 ml IV UD PRN; Protocol PRN Reason: Hypoglycemia Protocol Stop: 07/01/21 14:40 Enoxaparin Sodium (Enoxaparin Inj 40 Mg/0.4 Ml Syr) 40 mg SQ Q12 [facility] Stop: 07/01/21 20:59 Last Admin: 06/10/21 09:16 Dose: 40 mg Documented by: Ferrous Sulfate (Ferrous Sulfate 325 Mg Tab) 325 mg PO DAILY [facility] Stop: 07/02/21 08:59 Last Admin: 06/10/21 09:14 Dose: 325 mg Documented by: Finasteride (Finasteride 5 Mg Tab) 5 mg PO QAM [facility] Stop: 07/02/21 08:59 Last Admin: 06/10/21 09:13 Dose: 5 mg Documented by: Fluticasone Propionate (Fluticasone Propionate Na Spr 16 Gm Btl) 2 sprays LEILANI DAILY PRN PRN Reason: Nasal Congestion Stop: 07/01/21 14:40 Furosemide (Furosemide 40 Mg/4 Ml Vial) 40 mg IV BID JAX Stop: 07/08/21 20:59 Last Admin: 06/10/21 09:13 Dose: 40 mg Documented by: Glucagon (Glucagon For Inj 1 Mg Vial) 1 mg SQ UD PRN; Protocol PRN Reason: Hypoglycemia Protocol Stop: 07/01/21 14:40 Glucose (Glucose 10 Tabs/Tube) 4 - 8 tabs PO UD PRN; Protocol PRN Reason: Hypoglycemia Protocol Stop: 07/01/21 14:40 Glucose (Glucose 40% Gel 15 Gm Tube) 15 - 30 gm PO UD PRN; Protocol PRN Reason: Hypoglycemia Protocol Stop: 07/01/21 14:40 Dexamethasone 10 mg/ Syringe 2.5 mls @ 1 mls/min IV DAILY JAX Stop: 07/09/21 08:59 Last Admin: 06/10/21 09:12 Dose: 1 mls/min Documented by: Insulin Aspart (Insulin Aspart Per Unit) 0 units SC HS JAX Stop: 07/07/21 20:59 Last Admin: 06/09/21 21:41 Dose: 13 units Documented by: Insulin Aspart (Insulin Aspart Per Unit) 0 units SC BID@1130,1630 JAX Stop: 07/08/21 12:14 Last Admin: 06/10/21 12:50 Dose: 22 units Documented by: Insulin Aspart (Insulin Aspart Per Unit) 0 units SC QDB [facility]; Protocol Stop: 07/09/21 07:29 Last Admin: 06/10/21 09:33 Dose: 50 units Documented by: Insulin Human NPH (Insulin Human Nph) 48 units SC DAILY [facility]; Protocol Stop: 07/10/21 08:59 Last Admin: 06/10/21 09:21 Dose: 48 units Documented by: Isosorbide Mononitrate (Isosorbide [place] Extended Rel 30 Mg Tabcr) 30 mg PO DAILY [facility] Stop: 07/02/21 08:59 Last Admin: 06/10/21 09:15 Dose: 30 mg Documented by: Lisinopril (Lisinopril 10 Mg Tab) 10 mg PO DAILY [facility] Stop: 07/06/21 08:59 Last Admin: 06/10/21 09:14 Dose: 10 mg Documented by: Melatonin (Melatonin 3 Mg Tab) 6 mg PO HS PRN PRN Reason: Sleep Stop: 07/03/21 18:59 Last Admin: 06/09/21 21:34 Dose: 6 mg Documented by: Miscellaneous (Carbohydrates For Hypoglycemia ) 15 - 30 gm PO UD PRN PRN Reason: Hypoglycemia Protocol Stop: 07/01/21 14:40 Miscellaneous Information (Pharmacy Glycemic Mgmt Consult) 1 ea N/A UD PRN; Protocol PRN Reason: Consult Stop: 07/01/21 14:40 Montelukast Sodium (Montelukast Sodium 10 Mg Tablet) 10 mg PO DAILY [facility] Stop: 07/02/21 08:59 Last Admin: 06/10/21 09:15 Dose: 10 mg Documented by: Nitroglycerin (Nitroglycerin Sl 0.4 Mg/Tab Tab) 0.4 mg SL UD PRN PRN Reason: Chest Pain Stop: 07/01/21 14:40 Ondansetron HCl (Ondansetron Inj 2 Mg/Ml 2 Ml Vial) 4 mg IV Q6H PRN PRN Reason: Nausea Stop: 07/01/21 14:40 Pantoprazole Sodium (Pantoprazole 40 Mg Tab) 40 mg PO DAILY [facility] Stop: 07/02/21 08:59 Last Admin: 06/10/21 09:13 Dose: 40 mg Documented by: Polyethylene Glycol (Polyethylene (Miralax) 17 Gm Pack) 17 gm PO DAILY PRN PRN Reason: Constipation Stop: 07/01/21 14:40 Potassium Chloride (Potassium Chloride Crtab 20 Meq Tabcr) 40 meq PO QAM [facility] Stop: 07/09/21 08:59 Last Admin: 06/10/21 09:14 Dose: 40 meq Documented by: Vitamin D (Cholecalciferol 1,000 Units 25 Mcg Tab) 1,000 units PO DAILY [facility]AX Stop: 07/02/21 08:59 Last Admin: 06/10/21 09:15 Dose: 1,000 units Documented by:
[2021-06-10] MEDS: MELATONIN 3 MG TAB PO PRN (22:09)
[2021-06-11] MEDS: dexAMETHasone 10 MG in SYRINGE 0 ML IV SCH (08:36)
[2021-06-11] MEDS: FERROUS SULFATE 325 MG TAB PO SCH (08:37)
[2021-06-11] MEDS: PANTOprazole 40 MG TAB PO SCH (08:37)
[2021-06-11] MEDS: ENOXAPARIN INJ 40 MG/0.4 ML SYR SQ SCH ×2 (08:37→21:28)
[2021-06-11] MEDS: CETIRIZINE HCL 10 MG TABLET PO SCH (08:37)
[2021-06-11] MEDS: FINASTERIDE 5 MG TAB PO SCH (08:38)
[2021-06-11] MEDS: CHOLECALCIFEROL 1,000 UNITS 25 MCG TAB PO SCH (08:38)
[2021-06-11] MEDS: MONTELUKAST SODIUM 10 MG TABLET PO SCH (08:38)
[2021-06-11] MEDS: CITALOPRAM 20 MG TAB PO SCH (08:39)
[2021-06-11] MEDS: POTASSIUM CHLORIDE CRTAB 20 MEQ TABCR PO SCH (08:39)
[2021-06-11] MEDS: ISOSORBIDE MONO EXTENDED REL 30 MG TABCR PO SCH (08:39)
[2021-06-11] MEDS: lisinopril 10 MG TAB PO SCH (08:39)
[2021-06-11] MEDS: ASPIRIN 81 MG ECTAB PO SCH (08:40)
[2021-06-11] MEDS: ATORVASTATIN 40 MG TAB PO SCH (08:40)
[2021-06-11] MEDS ORDERED: FUROSEMIDE 40 MG/4 ML VIAL IV SCH (09:00)
--- NOTE | 2021-06-11 09:27 | Pharmacy Report ---
Pharmacy Glycemic Short Note 2 - Date of Service June 11, 2021 - Glycemic Short BSG Results (Last 24 hours): 06/10/21 06/10/21 06/10/21 11:50 16:16 20:05 POC Glucose 259 H 165 H 128 H 06/11/21 07:53 POC Glucose 159 H OUTPATIENT ANTIDIABETIC REGIMEN: * Metformin 500 mg PO daily * HbA1C = 11.3% (05/28/21) ASSESSMENT: 1229: * Mario received 148 units of insulin yesterday (48 units NPH + 100 units of Novolog) * Fasting BSG slightly elevated at 159 mg/dL. Based on A1c, I suspect patient would benefit from long acting basal insulin. * Post prandial BSGs greatly improved yesterday with the exception of lunchtime. Patient remains on dexamethasone IV (day 11). * will tighten carb coverage with breakfast to avoid lunchtime spike * will need to back off significantly when steroids are d/c'ed 06/10: * Mario received 127 units of insulin yesterday (40 units NPH + 87 units of Novolog) * Fasting BSG improved to 138 mg/dL today. * Post prandial BSGs remain elevated. Patient remains on dexamethasone 10 mg IV daily (notified provider that this is day # 10 - currently ordered ongoing). Will slightly tighten carb coverage at lunch and dinner and increase NPH 20%. 06/09: * Mario received a total of 95 units of insulin yesterday (30 units NPH + 65 units Novolog) * BSGs were labile: [phone] mg/dL * Fasting BSG was 166 mg/dL this AM - above goal. * Post-prandial BSGs have been elevated with lunch and sometimes dinner. * Due to IV steroids. Oxygen requirements increased and CXR worsened yesterday so IV Dexamethasone was increased to 10 mg daily. * Will increase NPH and tighten Novolog with breakfast only today to account for increased steroid dose. PLAN FOR INPATIENT GLYCEMIC CONTROL: * Hold outpatient oral diabetes medications * Basal insulin * NPH 48 units SC daily w/ IV Dexamethasone (hold if dexamethasone held/discontinued and contact pharmacy) * Will consider adding once daily Lantus on 06/12 * Bolus insulin - tighten carb coverage with breakfast * NovoLog per scale ACHS or Q6hrs while NPO * Goal Range: Low 90 mg/dL - High 140 mg/dL (except 110-140 mg/dL at HS) * Correction Factor: 15 mg/dL/unit with breakfast, 20 mg/dL/unit with lunch and dinner, and 25 mg/dL/unit at HS * Nutritional/Prandial insulin per carb ratio of 1 unit per 1.2 grams CHO consumed with breakfast, 2.5 grams CHO w/ lunch and dinner, and 6 grams CHO at HS PLAN FOR DISCHARGE: * HbA1c = 11.3% on 05/28/21. Goal A1c is less than 8% for this patient given her age and comorbidities. * Recommend increasing Metformin to XR 500 mg PO BID with meals breakfast and dinner. Typically the XR formulation of metformin is better tolerated than the immediate release formulation. Continue to titrate metformin dosing upwards as recommended. Dosage increases should be made in increments of 500 mg weekly, up to 2,000 mg/day PO, given in divided doses. Doses above 2000 mg/day may be better tolerated if divided and given 3 times per day with meals. Max: 2,550 mg/day PO, in divided doses * Recommend adding Lantus 20 units once daily with morning meal. Titrate dose per outpatient provider.
[2021-06-11] MEDS: INSULIN ASPART PER UNIT SC SCH ×4 (09:28→21:20)
[2021-06-11] MEDS: INSULIN HUMAN NPH SC SCH (09:29)
--- NOTE | 2021-06-11 17:23 | Hospitalist Progress Note ---
Date of Service June 11, 2021 Assessment & Plan (1) Pneumonia due to COVID-19 virus: Plan: Patient is a 75 yr male with H/O HTN, HLD, CAD s/p stent, CKD III, DM II, JARETT, Espinoza's esophagus, JARETT, depression presented to ER with c/o SOB. Symptom onset 05/16/2021. Positive COVID-19 test on 05/26/21. Increased shortness of breath last night. 2 days of loose stools. He states he received his Covid 19 vaccinations in July and August 2020. No Booster. Acute respiratory failure with hypoxia Multifocal pneumonia secondary to COVID-19 --CXR:Bilateral airspace opacities, slightly increased since prior exam. The findings suggest viral pneumonia. CRP: 0.73>1.03 Normal Procalcitonin Ferritin:1194 Continue dexamethasone course Discussed with patient regarding remdesivir, unlikely to help given symptoms onset Patient agrees to avoid remdesivir and he is not getting remdesivir Encourage proning Incentive spirometer, flutter valve Lasix as needed Currently on 15 L of oxygen Will recheck serum markers and CXR tomorrow Elevated Troponin H/O CAD Denies chest pain Troponin levels normalized Likely elevated secondary to demand ischemia and no evidence of ACS Continue aspirin, atorvastatin Metoprolol succinate DCed due to bradycardia DM II Hyperglycemia A1c: 11.3 on 05/28/2021 Hold home Metformin Continue Insulin therapy Glycemic pharmacy consult for assistance in management HTN Blood pressure relatively low Decreased lisinopril to 2.55 mg daily Metoprolol DCed Hold amlodipine Monitor BP HLD Continue atorvastatin CKD III Baseline~1.2 Monitor renal function Avoid nephrotoxic agents when possible JARETT CPAP HS Depression Continue citalopram Espinoza's esophagus Continue PPI DVT Prophylaxis Lovenox SQ Code Status Full Code Admission and Anticipated Discharge Date Admission Date: June 01, 2021 Subjective Patient is seen and examined at bedside States having yellowish to brown expectoration Feels better today Minimal dyspnea on exertion Currently on 15 L supplemental oxygen Denies any chest pain, nausea, vomiting, abdominal pain, diarrhea Review of Systems Review of Systems: All systems reviewed & are unremarkable except as noted in Subjective Physical Exam Physical Exam: Physical Exam: Vitals signs as noted above General Appearance:Moderately built and nourished, no apparent distress Head: normocephalic, Atraumatic Eyes: normal inspection, EOMI Neck: supple, Trachea midline Respiratory/Chest: Decreased breath sounds, CTA Cardiovascular: S1, S2, No murmur Abdomen/GI:Soft, Non tender, Bowel sounds present Extremities/Musculoskeletal:normal inspection, no edema Neurologic/Psych:AAOX3, grossly no focal neurological deficits Skin: normal color, warm Results & Data Results & Data ([facility]) Vital Signs (Past 12 Hours) Vital Signs Temp Pulse Pulse Pulse Resp BP Pulse Ox 06/11/21 15:23 36.5 C 61 22 92/59 L 89 L 06/11/21 14:18 66 06/11/21 11:50 20 101/71 99 06/11/21 07:43 36.6 C 50 L 17 120/72 96 06/11/21 06:29 43 L
[2021-06-11] MEDS: MELATONIN 3 MG TAB PO PRN (21:28)
[2021-06-12 06:15] LABS: Hematocrit (blood only) 40.1 % (42-52); Hemoglobin 13.7 g/dL (14.0-18.0); Mean Corpuscular Hemoglobin 31.5 pg (25-34); Mean Corpuscular Hgb Conc 34.2 g/dL (32-36); Mean Corpuscular Volume 92.2 fL (80-100); Mean Platelet Volume 10.3 fL (7.4-10.4); Platelet Count 369 K/uL (130-400); RDW Coefficient of Variation 12.8 % (11.5-14.5); RDW Standard Deviation 43.1 fL (36.4-46.3); Red Blood Count 4.35 M/uL (4.7-6.1); White Blood Count 17.28 K/uL (4.8-10.8)
[2021-06-12 06:40] LABS: Blood Urea Nitrogen 41 mg/dl (7-18); C Reactive Protein < 0.29 mg/dl (0-0.29); Carbon Dioxide 22 mmol/L (21-32); Chloride 108 mmol/L (98-107); Creatinine Clr Calc Pharmacy 51.4 ml/min; Est GFR (African American) 54.5 ml/min; Glucose 166 mg/dl (70-99); Potassium 4.8 mmol/L (3.5-5.1); Sodium 134 mmol/L (136-145)
--- NOTE | 2021-06-12 08:08 | XRay Report ---
XR chest 1V portable CLINICAL HISTORY: Covid positive. Follow-up interstitial and alveolar opacities. COMPARISON STUDY: 06/08/2021 TECHNIQUE: 1 view of the chest FINDINGS: Single frontal view of the chest demonstrates the cardiomediastinal silhouette to be within normal li mits. Compared to previous examination, persistent interstitial and alveolar opacities are again seen bilaterally and essentially unchanged. There is no evidence for pleural effusion. There is no eviden ce for vascular congestion. There is no acute osseous pathology. IMPRESSION: Bilateral interstitial and alveolar opacities are again seen and essentially unchanged. ACT 112: Negative or not required by law. Electronically signed by: Aki Pedersen M.D. 06/12/2021 8:07 AM
[2021-06-12] MEDS: ENOXAPARIN INJ 40 MG/0.4 ML SYR SQ SCH ×2 (08:23→20:58)
[2021-06-12] MEDS: dexAMETHasone 10 MG in SYRINGE 0 ML IV SCH (08:23)
[2021-06-12] MEDS: CETIRIZINE HCL 10 MG TABLET PO SCH (08:24)
[2021-06-12] MEDS: CITALOPRAM 20 MG TAB PO SCH (08:24)
[2021-06-12] MEDS: FERROUS SULFATE 325 MG TAB PO SCH (08:24)
[2021-06-12] MEDS: ATORVASTATIN 40 MG TAB PO SCH (08:24)
[2021-06-12] MEDS: MONTELUKAST SODIUM 10 MG TABLET PO SCH (08:24)
[2021-06-12] MEDS: ASPIRIN 81 MG ECTAB PO SCH (08:24)
[2021-06-12] MEDS: CHOLECALCIFEROL 1,000 UNITS 25 MCG TAB PO SCH (08:24)
[2021-06-12] MEDS: ISOSORBIDE MONO EXTENDED REL 30 MG TABCR PO SCH (08:25)
[2021-06-12] MEDS: PANTOprazole 40 MG TAB PO SCH (08:25)
[2021-06-12] MEDS: lisinopril 2.5 MG TAB PO SCH (08:25)
[2021-06-12] MEDS: FINASTERIDE 5 MG TAB PO SCH (08:25)
[2021-06-12] MEDS: INSULIN GLARGINE SOLOSTAR 100 UNITS/ML 3 ML PEN SC SCH (08:25)
[2021-06-12] MEDS: INSULIN ASPART PER UNIT SC SCH ×4 (08:42→20:59)
[2021-06-12] MEDS ORDERED: INSULIN HUMAN NPH SC SCH (09:00)
[2021-06-12] MEDS ORDERED: FUROSEMIDE INJ 20 MG/2 ML VIAL IV SCH (09:00)
--- NOTE | 2021-06-12 19:52 | Hospitalist Progress Note ---
Date of Service June 12, 2021 Assessment & Plan (1) Pneumonia due to COVID-19 virus: Plan: Patient is a 75 yr male with H/O HTN, HLD, CAD s/p stent, CKD III, DM II, JARETT, Espinoza's esophagus, JARETT, depression presented to ER with c/o SOB. Symptom onset 05/16/2021. Positive COVID-19 test on 05/26/21. Increased shortness of breath last night. 2 days of loose stools. He states he received his Covid 19 vaccinations in July and August 2020. No Booster. Acute respiratory failure with hypoxia Multifocal pneumonia secondary to COVID-19 --CXR:Bilateral airspace opacities, slightly increased since prior exam. The findings suggest viral pneumonia. CRP: 0.73>1.03 Normal Procalcitonin Ferritin:1194 Continue dexamethasone course Discussed with patient regarding remdesivir, unlikely to help given symptoms onset Patient agrees to avoid remdesivir and he is not getting remdesivir Encourage proning Incentive spirometer, flutter valve Lasix as needed Repeat chest x-ray remains unchanged Oxygen requirement trending down Currently on 5 to 6 L of supplemental oxygen Will need 2 step prior to discharge Elevated Troponin H/O CAD Denies chest pain Troponin levels normalized Likely elevated secondary to demand ischemia and no evidence of ACS Continue aspirin, atorvastatin Metoprolol succinate DCed due to bradycardia DM II Hyperglycemia A1c: 11.3 on 05/28/2021 Hold home Metformin Continue Insulin therapy Glycemic pharmacy consult for assistance in management HTN Blood pressure relatively low Decreased lisinopril to 2.55 mg daily Metoprolol DCed Hold amlodipine Monitor BP HLD Continue atorvastatin CKD III Baseline~1.2 Monitor renal function Avoid nephrotoxic agents when possible JARETT CPAP HS Depression Continue citalopram Espinoza's esophagus Continue PPI DVT Prophylaxis Lovenox SQ Code Status Full Code Admission and Anticipated Discharge Date Admission Date: June 01, 2021 Subjective Patient is seen and examined at bedside Feels better today Currently requiring 5 to 6 L of supplemental oxygen No new complaints Minimal cough Denies any chest pain, nausea, vomiting, abdominal pain, diarrhea Review of Systems Review of Systems: All systems reviewed & are unremarkable except as noted in Subjective Physical Exam Physical Exam: Physical Exam: Vitals signs as noted above General Appearance:Moderately built and nourished, no apparent distress Head: normocephalic, Atraumatic Eyes: normal inspection, EOMI Neck: supple, Trachea midline Respiratory/Chest: Decreased breath sounds, CTA Cardiovascular: S1, S2, No murmur Abdomen/GI:Soft, Non tender, Bowel sounds present Extremities/Musculoskeletal:normal inspection, no edema Neurologic/Psych:AAOX3, grossly no focal neurological deficits Skin: normal color, warm Results & Data Results & Data ([facility]) Vital Signs (Past 12 Hours) Vital Signs Temp Pulse Resp BP Pulse Ox 06/12/21 19:00 36.4 C L 52 L 22 106/52 L 93 06/12/21 14:55 35.9 C L 55 L 20 90/61 L 94 06/12/21 10:59 36.5 C 48 L 20 107/65 92 06/12/21 10:46 92 06/12/21 10:11 99 06/12/21 09:00 99 06/12/21 08:00 99 Laboratory Results Short CBC 06/12/21 Range/Units 05:29 WBC 17.28 H (4.8-10.8) K/uL Hgb 13.7 L (14.0-18.0) g/dL Hct 40.1 L (42-52) % Plt Count 369 (130-400) K/uL BMP 06/12/21 05:29 Sodium 134 L Potassium 4.8 Chloride 108 H Carbon Dioxide 22 BUN 41 H Creatinine 1.46 H Glucose 166 H Calcium 9.0
[2021-06-12] MEDS: MELATONIN 3 MG TAB PO PRN (20:59)
[2021-06-13 07:44] LABS: BUN Creatinine Ratio 26.9 (10-20); Creatinine Clr Calc Pharmacy 48.7 ml/min; Est GFR (African American) 51.1 ml/min; Est GFR (Non-African American) 44.1 ml/min; Potassium 4.6 mmol/L (3.5-5.1)
[2021-06-13] MEDS: INSULIN ASPART PER UNIT SC SCH ×5 (08:34→20:29)
[2021-06-13] MEDS: INSULIN HUMAN NPH SC SCH (08:35)
[2021-06-13] MEDS: INSULIN GLARGINE SOLOSTAR 100 UNITS/ML 3 ML PEN SC SCH (08:35)
[2021-06-13] MEDS: CHOLECALCIFEROL 1,000 UNITS 25 MCG TAB PO SCH (08:36)
[2021-06-13] MEDS: PANTOprazole 40 MG TAB PO SCH (08:36)
[2021-06-13] MEDS: dexAMETHasone 6 MG in SYRINGE 0 ML IV SCH (08:36)
[2021-06-13] MEDS: ASPIRIN 81 MG ECTAB PO SCH (08:36)
[2021-06-13] MEDS: ISOSORBIDE MONO EXTENDED REL 30 MG TABCR PO SCH (08:37)
[2021-06-13] MEDS: CITALOPRAM 20 MG TAB PO SCH (08:37)
[2021-06-13] MEDS: FERROUS SULFATE 325 MG TAB PO SCH (08:37)
[2021-06-13] MEDS: MONTELUKAST SODIUM 10 MG TABLET PO SCH (08:37)
[2021-06-13] MEDS: CETIRIZINE HCL 10 MG TABLET PO SCH (08:37)
[2021-06-13] MEDS: lisinopril 2.5 MG TAB PO SCH (08:38)
[2021-06-13] MEDS: FINASTERIDE 5 MG TAB PO SCH (08:39)
[2021-06-13] MEDS: ENOXAPARIN INJ 40 MG/0.4 ML SYR SQ SCH ×2 (08:39→20:16)
[2021-06-13] MEDS: ATORVASTATIN 40 MG TAB PO SCH (08:39)
--- NOTE | 2021-06-13 10:42 | Pharmacy Report ---
Pharmacy Glycemic Short Note 2 - Date of Service June 13, 2021 - Glycemic Short BSG Results (Last 24 hours): 06/12/21 06/12/21 06/12/21 11:18 16:11 20:25 Glucose POC Glucose 206 H 92 279 H 06/13/21 06/13/21 06:38 07:25 Glucose 130 H POC Glucose 123 H OUTPATIENT ANTIDIABETIC REGIMEN: * Metformin 500 mg PO daily * HbA1C = 11.3% (05/28/21) ASSESSMENT: 06/13: * Patient received a total of 163 units of insulin yesterday (55 units NPH + 6 units Lantus + 102 units Novolog) * BSGs were labile yesterday: 089-271-96-279 mg/dL * Fasting BSG improved to 123 mg/dL this AM - at goal * Will continue with Lantus dose today. Given decrease in IV dexamethasone dose, basal insulin may not be necessary in the coming days. NPH dose was decreased this AM to account for decrease in steroids. * No changes to Novolog 06/11: * Mario received 148 units of insulin yesterday (48 units NPH + 100 units of Novolog) * Fasting BSG slightly elevated at 159 mg/dL. Based on A1c, I suspect patient would benefit from long acting basal insulin. * Post prandial BSGs greatly improved yesterday with the exception of lunchtime. Patient remains on dexamethasone IV (day 11). * will tighten carb coverage with breakfast to avoid lunchtime spike * will need to back off significantly when steroids are d/c'ed PLAN FOR INPATIENT GLYCEMIC CONTROL: * Hold outpatient oral diabetes medications * Basal insulin - decreased NPH * NPH 35 units SC daily w/ IV Dexamethasone (hold if dexamethasone held/discontinued and contact pharmacy) * Lantus 6 units SC AM * Bolus insulin * NovoLog per scale ACHS or Q6hrs while NPO * Goal Range: Low 90 mg/dL - High 140 mg/dL (except 110-140 mg/dL at HS) * Correction Factor: 15 mg/dL/unit with breakfast, 20 mg/dL/unit with lunch and dinner, and 25 mg/dL/unit at HS * Nutritional/Prandial insulin per carb ratio of 1 unit per 1.2 grams CHO consumed with breakfast, 2.5 grams CHO w/ lunch and dinner, and 6 grams CHO at HS PLAN FOR DISCHARGE: * HbA1c = 11.3% on 05/28/21. Goal A1c is less than 8% for this patient given her age and comorbidities. * Recommend increasing Metformin to XR 500 mg PO BID with meals breakfast and dinner. Typically the XR formulation of metformin is better tolerated than the immediate release formulation. Continue to titrate metformin dosing upwards as recommended. Dosage increases should be made in increments of 500 mg weekly, up to 2,000 mg/day PO, given in divided doses. Doses above 2000 mg/day may be better tolerated if divided and given 3 times per day with meals. Max: 2,550 mg/day PO, in divided doses * Recommend adding Lantus 20 units once daily with morning meal. Titrate dose per outpatient provider.
--- NOTE | 2021-06-13 18:14 | Hospitalist Progress Note ---
Date of Service June 13, 2021 Assessment & Plan (1) Pneumonia due to COVID-19 virus: Plan: Patient is a 75 yr male with H/O HTN, HLD, CAD s/p stent, CKD III, DM II, JARETT, Espinoza's esophagus, JARETT, depression presented to ER with c/o SOB. Symptom onset 05/16/2021. Positive COVID-19 test on 05/26/21. Increased shortness of breath last night. 2 days of loose stools. He states he received his Covid 19 vaccinations in July and August 2020. No Booster. Acute respiratory failure with hypoxia Multifocal pneumonia secondary to COVID-19 --CXR:Bilateral airspace opacities, slightly increased since prior exam. The findings suggest viral pneumonia. CRP: 0.73>1.03 Normal Procalcitonin Ferritin:1194 Continue dexamethasone course Discussed with patient regarding remdesivir, unlikely to help given symptoms onset Patient agrees to avoid remdesivir Encourage proning Incentive spirometer, flutter valve Lasix as needed Repeat chest x-ray remains unchanged Remains on 5 to 6 cm of supplemental oxygen Will need 2 step prior to discharge Continue current management Elevated Troponin H/O CAD Denies chest pain Troponin levels normalized Likely elevated secondary to demand ischemia and no evidence of ACS Continue aspirin, atorvastatin Metoprolol succinate DCed due to bradycardia DM II Hyperglycemia A1c: 11.3 on 05/28/2021 Hold home Metformin Continue Insulin therapy Glycemic pharmacy consult for assistance in management HTN Blood pressure relatively low Decreased lisinopril to 2.55 mg daily Metoprolol DCed Hold amlodipine Monitor BP HLD Continue atorvastatin CKD III Baseline~1.2 Monitor renal function Avoid nephrotoxic agents when possible JARETT CPAP HS Depression Continue citalopram Espinoza's esophagus Continue PPI DVT Prophylaxis Lovenox SQ Code Status Full Code Admission and Anticipated Discharge Date Admission Date: June 01, 2021 Subjective Patient is seen and examined at bedside No new complaints Doing better today Currently on 5 L supplemental oxygen Less cough Denies any chest pain, dyspnea, nausea, vomiting, abdominal pain, diarrhea Review of Systems Review of Systems: All systems reviewed & are unremarkable except as noted in Subjective Physical Exam Physical Exam: Physical Exam: Vitals signs as noted above General Appearance:Moderately built and nourished, no apparent distress Head: normocephalic, Atraumatic Eyes: normal inspection, EOMI Neck: supple, Trachea midline Respiratory/Chest: Decreased breath sounds, CTA Cardiovascular: S1, S2, No murmur Abdomen/GI:Soft, Non tender, Bowel sounds present Extremities/Musculoskeletal:normal inspection, no edema Neurologic/Psych:AAOX3, grossly no focal neurological deficits Skin: normal color, warm Results & Data Results & Data ([facility]) Vital Signs (Past 12 Hours) Vital Signs Temp Pulse Pulse Resp BP Pulse Ox 06/13/21 17:32 62 06/13/21 15:22 36.5 C 56 L 20 113/67 91 06/13/21 11:19 36.7 C 50 L 20 93/53 L 93 06/13/21 09:47 38 L 06/13/21 08:14 36.7 C 41 L 20 127/76 97 Laboratory Results [facility] 06/13/21 06:38 Sodium 135 L Potassium 4.6 Chloride 105 Carbon Dioxide 25 BUN 41 H Creatinine 1.54 H Glucose 130 H Calcium 9.0
[2021-06-13] MEDS: MELATONIN 3 MG TAB PO PRN (22:03)
[2021-06-14 07:41] LABS: BUN Creatinine Ratio 28.9 (10-20); Calcium 8.3 mg/dl (8.5-10.1); Creatinine Clr Calc Pharmacy 58.6 ml/min; Est GFR (African American) 64.5 ml/min; Est GFR (Non-African American) 55.7 ml/min; Potassium 4.2 mmol/L (3.5-5.1)
[2021-06-14] MEDS: CITALOPRAM 20 MG TAB PO SCH (08:22)
[2021-06-14] MEDS: ATORVASTATIN 40 MG TAB PO SCH (08:22)
[2021-06-14] MEDS: ISOSORBIDE MONO EXTENDED REL 30 MG TABCR PO SCH (08:22)
[2021-06-14] MEDS: lisinopril 2.5 MG TAB PO SCH (08:23)
[2021-06-14] MEDS: FINASTERIDE 5 MG TAB PO SCH (08:23)
[2021-06-14] MEDS: PANTOprazole 40 MG TAB PO SCH (08:23)
[2021-06-14] MEDS: ASPIRIN 81 MG ECTAB PO SCH (08:23)
[2021-06-14] MEDS: CETIRIZINE HCL 10 MG TABLET PO SCH (08:23)
[2021-06-14] MEDS: CHOLECALCIFEROL 1,000 UNITS 25 MCG TAB PO SCH (08:24)
[2021-06-14] MEDS: FERROUS SULFATE 325 MG TAB PO SCH (08:24)
[2021-06-14] MEDS: MONTELUKAST SODIUM 10 MG TABLET PO SCH (08:24)
[2021-06-14] MEDS: ENOXAPARIN INJ 40 MG/0.4 ML SYR SQ SCH ×2 (08:25→20:53)
[2021-06-14] MEDS: INSULIN GLARGINE SOLOSTAR 100 UNITS/ML 3 ML PEN SC SCH (08:26)
[2021-06-14] MEDS: dexAMETHasone 6 MG in SYRINGE 0 ML IV SCH (08:26)
[2021-06-14] MEDS: INSULIN HUMAN NPH SC SCH (08:28)
[2021-06-14] MEDS: INSULIN ASPART PER UNIT SC SCH ×4 (08:35→20:54)
[2021-06-14] MEDS ORDERED: CHLORASEPTIC 1.4% SOLN 180 ML BTL MT PRN (13:40)
--- NOTE | 2021-06-14 15:25 | Hospitalist Progress Note ---
Date of Service June 14, 2021 Assessment & Plan (1) Pneumonia due to COVID-19 virus: Plan: Patient is a 75 yr male with H/O HTN, HLD, CAD s/p stent, CKD III, DM II, JARETT, Espinoza's esophagus, JARETT, depression presented to ER with c/o SOB. Symptom onset 05/16/2021. Positive COVID-19 test on 05/26/21. Increased shortness of breath last night. 2 days of loose stools. He states he received his Covid 19 vaccinations in July and August 2020. No Booster. Acute respiratory failure with hypoxia Multifocal pneumonia secondary to COVID-19 --CXR:Bilateral airspace opacities, slightly increased since prior exam. The findings suggest viral pneumonia. CRP: 0.73>1.03 Normal Procalcitonin Ferritin:1194 Continue dexamethasone course Discussed with patient regarding remdesivir, unlikely to help given symptoms onset Patient agrees to avoid remdesivir Encourage proning Incentive spirometer, flutter valve Lasix as needed Needs 2 step prior to discharge Currently on 6 L supplemental oxygen We will recheck chest x-ray, procalcitonin tomorrow Elevated Troponin H/O CAD Denies chest pain Troponin levels normalized Likely elevated secondary to demand ischemia and no evidence of ACS Continue aspirin, atorvastatin Metoprolol succinate DCed due to bradycardia DM II Hyperglycemia A1c: 11.3 on 05/28/2021 Hold home Metformin Continue Insulin therapy Glycemic pharmacy consult for assistance in management HTN Blood pressure relatively low Decreased lisinopril to 2.5 mg daily Metoprolol DCed Hold amlodipine Monitor BP HLD Continue atorvastatin CKD III Baseline~1.2 Monitor renal function Avoid nephrotoxic agents when possible JARETT CPAP HS Depression Continue citalopram Espinoza's esophagus Continue PPI DVT Prophylaxis Lovenox SQ Code Status Full Code Admission and Anticipated Discharge Date Admission Date: June 01, 2021 Subjective Patient is seen and examined at bedside States having minimal sore throat Also reports cough with yellowish expectoration Minimal dyspnea on exertion No new complaints Currently on 6 L supplemental oxygen Denies any chest pain, dyspnea, nausea, vomiting, abdominal pain, diarrhea Was proning during my encounter Review of Systems Review of Systems: All systems reviewed & are unremarkable except as noted in Subjective Physical Exam Physical Exam: Physical Exam: Vitals signs as noted above General Appearance:Moderately built and nourished, no apparent distress Head: normocephalic, Atraumatic Eyes: normal inspection, EOMI Neck: supple, Trachea midline Respiratory/Chest: Decreased breath sounds, CTA Cardiovascular: S1, S2, No murmur Abdomen/GI:Soft, Non tender, Bowel sounds present Extremities/Musculoskeletal:normal inspection, no edema Neurologic/Psych:AAOX3, grossly no focal neurological deficits Skin: normal color, warm Results & Data Results & Data ([facility]) Vital Signs (Past 12 Hours) Vital Signs Temp Pulse Pulse Pulse Resp BP Pulse Ox 06/14/21 15:10 50 L 06/14/21 11:37 36.5 C 53 L 24 114/65 87 L 06/14/21 07:45 43 L 06/14/21 07:00 36.6 C 41 L 20 107/61 96 06/14/21 03:52 36.5 C 39 L 18 129/80 100 Laboratory Results [facility] 06/14/21 06:19 Sodium 135 L Potassium 4.2 Chloride 106 Carbon Dioxide 22 BUN 37 H Creatinine 1.27 Glucose 126 H Calcium 8.3 L
[2021-06-14] MEDS: MELATONIN 3 MG TAB PO PRN (20:55)
[2021-06-15 08:06] LABS: BUN Creatinine Ratio 24.5 (10-20); Calcium 8.9 mg/dl (8.5-10.1); Creatinine Clr Calc Pharmacy 56.3 ml/min; Est GFR (Non-African American) 52.7 ml/min; Potassium 4.2 mmol/L (3.5-5.1)
--- NOTE | 2021-06-15 08:11 | XRay Report ---
SINGLE VIEW CHEST CLINICAL HISTORY: Covid pneumonia. FINDINGS: An AP, portable, upright chest radiograph is compared to study dated 06/12/2021. The heart is mildly enlarged. Multifocal airspace consolidation has not appreciably changed from yesterday. No large pleural effusion or pneumothorax is identified. The skeletal structures are osteopenic. The bon y thorax is grossly intact. Advanced arthritic change is noted in the left shoulder. IMPRESSION: Multifocal airspace consolidation has not appreciably changed from 06/12/2021. ACT 112: Negative or not required by law. Electronically signed by: Johnny Ny M.D. 06/15/2021 8:09 AM
[2021-06-15] MEDS: CETIRIZINE HCL 10 MG TABLET PO SCH (08:12)
[2021-06-15] MEDS: INSULIN ASPART PER UNIT SC SCH ×4 (08:13→20:45)
[2021-06-15] MEDS: ATORVASTATIN 40 MG TAB PO SCH (08:14)
[2021-06-15] MEDS: PANTOprazole 40 MG TAB PO SCH (08:14)
[2021-06-15] MEDS: CHOLECALCIFEROL 1,000 UNITS 25 MCG TAB PO SCH (08:14)
[2021-06-15] MEDS: ISOSORBIDE MONO EXTENDED REL 30 MG TABCR PO SCH (08:15)
[2021-06-15] MEDS: dexAMETHasone 6 MG in SYRINGE 0 ML IV SCH (08:15)
[2021-06-15] MEDS: CITALOPRAM 20 MG TAB PO SCH (08:15)
[2021-06-15] MEDS: ASPIRIN 81 MG ECTAB PO SCH (08:15)
[2021-06-15] MEDS: MONTELUKAST SODIUM 10 MG TABLET PO SCH (08:15)
[2021-06-15] MEDS: FINASTERIDE 5 MG TAB PO SCH (08:15)
[2021-06-15] MEDS: lisinopril 2.5 MG TAB PO SCH (08:16)
[2021-06-15] MEDS: FERROUS SULFATE 325 MG TAB PO SCH (08:16)
[2021-06-15] MEDS: ENOXAPARIN INJ 40 MG/0.4 ML SYR SQ SCH ×2 (08:16→20:44)
[2021-06-15] MEDS ORDERED: INSULIN HUMAN NPH SC ONE (09:30)
--- NOTE | 2021-06-15 10:12 | Pharmacy Report ---
Pharmacy Glycemic Short Note 2 - Date of Service June 15, 2021 - Glycemic Short BSG Results (Last 24 hours): 06/14/21 06/14/21 06/14/21 11:23 16:38 16:39 Glucose POC Glucose 159 H 58 L* 55 L* 06/14/21 06/14/21 06/15/21 17:11 20:05 06:56 Glucose 99 POC Glucose 87 233 H 06/15/21 07:35 Glucose POC Glucose 110 H OUTPATIENT ANTIDIABETIC REGIMEN: * Metformin 500 mg PO daily * HbA1C = 11.3% (05/28/21) ASSESSMENT: 06/15/21: * Mario received 141 units of SQ insulin yesterday (35 units NPH + 6 units Lantus + 100 units Novolog) * Fasting BSG of 110 mg/dL is at goal. Will continue current Lantus order for now. I suspect this will need increased once patient is no longer on NPH. * She had an episode of hypoglycemia around dinnertime on 06/14 (BSG 55 mg/dL). Carb coverage was loosened. Patient refused meal coverage resulting in hyperglycemia at bedtime. Will reduce NPH. * Today is the last day of dexamethasone, therefore insulin doses will need reduced significantly tomorrow 06/13: * Patient received a total of 163 units of insulin yesterday (55 units NPH + 6 units Lantus + 102 units Novolog) * BSGs were labile yesterday: [id number] mg/dL * Fasting BSG improved to 123 mg/dL this AM - at goal * Will continue with Lantus dose today. Given decrease in IV dexamethasone dose, basal insulin may not be necessary in the coming days. NPH dose was decreased this AM to account for decrease in steroids. * No changes to Novolog 06/11: * Mario received 148 units of insulin yesterday (48 units NPH + 100 units of Novolog) * Fasting BSG slightly elevated at 159 mg/dL. Based on A1c, I suspect patient would benefit from long acting basal insulin. * Post prandial BSGs greatly improved yesterday with the exception of lunchtime. Patient remains on dexamethasone IV (day 11). * will tighten carb coverage with breakfast to avoid lunchtime spike * will need to back off significantly when steroids are d/c'ed PLAN FOR INPATIENT GLYCEMIC CONTROL: * Hold outpatient oral diabetes medications * Basal insulin - decrease * NPH 30 units SC daily (hold if dexamethasone held/discontinued and contact pharmacy) - will d/c after 1/2 dose * Lantus 6 units SQ qHS * Bolus insulin - loosen carb coverage * NovoLog per scale ACHS or Q6hrs while NPO * Goal Range: Low 100 mg/dL - High 140 mg/dL * Correction Factor: 15 mg/dL/unit with breakfast, 20 mg/dL/unit with lunch and dinner, and 25 mg/dL/unit at HS * Nutritional/Prandial insulin per carb ratio of 1 unit per 1.2 grams CHO consumed with breakfast, 4 grams CHO w/ lunch and dinner, and 6 grams CHO at HS PLAN FOR DISCHARGE: * HbA1c = 11.3% on 05/28/21. Goal A1c is less than 8% for this patient given her age and comorbidities. * Recommend increasing Metformin to XR 500 mg PO BID with meals breakfast and dinner. Typically the XR formulation of metformin is better tolerated than the immediate release formulation. Continue to titrate metformin dosing upwards as recommended. Dosage increases should be made in increments of 500 mg weekly, up to 2,000 mg/day PO, given in divided doses. Doses above 2000 mg/day may be better tolerated if divided and given 3 times per day with meals. Max: 2,550 mg/day PO, in divided doses * Recommend adding Lantus 20 units once daily with morning meal. Titrate dose per outpatient provider.
--- NOTE | 2021-06-15 20:01 | Hospitalist Progress Note ---
Date of Service June 15, 2021 Assessment & Plan (1) Pneumonia due to COVID-19 virus: Plan: Patient is a 75 yr male with H/O HTN, HLD, CAD s/p stent, CKD III, DM II, JARETT, Espinoza's esophagus, JARETT, depression presented to ER with c/o SOB. Symptom onset 05/16/2021. Positive COVID-19 test on 05/26/21. Increased shortness of breath last night. 2 days of loose stools. He states he received his Covid 19 vaccinations in July and August 2020. No Booster. Acute respiratory failure with hypoxia Multifocal pneumonia secondary to COVID-19 --CXR:Bilateral airspace opacities, slightly increased since prior exam. The findings suggest viral pneumonia. CRP: 0.73>1.03 Normal Procalcitonin Ferritin:1194 Continue dexamethasone course Discussed with patient regarding remdesivir, unlikely to help given symptoms onset Patient agrees to avoid remdesivir Encourage proning Incentive spirometer, flutter valve Lasix as needed Needs 2 step prior to discharge Currently on 5 L supplemental oxygen Chest x-ray remains unchanged Normal procalcitonin Elevated Troponin H/O CAD Denies chest pain Troponin levels normalized Likely elevated secondary to demand ischemia and no evidence of ACS Continue aspirin, atorvastatin Metoprolol succinate DCed due to bradycardia DM II Hyperglycemia A1c: 11.3 on 05/28/2021 Hold home Metformin Continue Insulin therapy Glycemic pharmacy consult for assistance in management HTN Blood pressure relatively low Decreased lisinopril to 2.5 mg daily Metoprolol DCed Hold amlodipine Monitor BP Sinus bradycardia No pauses, bradycardia arrhythmias on monitor Metoprolol discontinued HLD Continue atorvastatin CKD III Baseline~1.2 Monitor renal function Avoid nephrotoxic agents when possible JARETT CPAP HS Depression Continue citalopram Espinoza's esophagus Continue PPI DVT Prophylaxis Lovenox SQ Code Status Full Code Admission and Anticipated Discharge Date Admission Date: June 01, 2021 Subjective Patient is seen and examined at bedside Sore throat better today States feeling tired Reports dyspnea on exertion, less cough with yellowish expectoration Currently on 5 L supplemental oxygen Denies any chest pain, dyspnea, nausea, vomiting, abdominal pain, diarrhea Review of Systems Review of Systems: All systems reviewed & are unremarkable except as noted in Subjective Physical Exam Physical Exam: Physical Exam: Vitals signs as noted above General Appearance:Moderately built and nourished, no apparent distress Head: normocephalic, Atraumatic Eyes: normal inspection, EOMI Neck: supple, Trachea midline Respiratory/Chest: Decreased breath sounds, CTA Cardiovascular: S1, S2, No murmur Abdomen/GI:Soft, Non tender, Bowel sounds present Extremities/Musculoskeletal:normal inspection, no edema Neurologic/Psych:AAOX3, grossly no focal neurological deficits Skin: normal color, warm Results & Data Results & Data ([facility]) Vital Signs (Past 12 Hours) Vital Signs Temp Pulse Pulse Resp BP Pulse Ox 06/15/21 15:41 36.5 C 47 L 20 102/59 L 94 06/15/21 11:49 36.6 C 58 L 20 111/60 92 06/15/21 09:16 37 L Laboratory Results [facility] 06/15/21 06:56 Sodium 136 Potassium 4.2 Chloride 108 H Carbon Dioxide 24 BUN 33 H Creatinine 1.33 Glucose 99 Calcium 8.9
[2021-06-15] MEDS: DOXYCYCLINE HYCLATE 100 MG CAP PO SCH (20:44)
[2021-06-15] MEDS ORDERED: INSULIN GLARGINE SOLOSTAR 100 UNITS/ML 3 ML PEN SC SCH (21:00)
[2021-06-15] MEDS: MELATONIN 3 MG TAB PO PRN (22:07)
[2021-06-16 06:19] LABS: BUN Creatinine Ratio 22.3 (10-20); Calcium 8.8 mg/dl (8.5-10.1); Creatinine Clr Calc Pharmacy 57.7 ml/min; Est GFR (African American) 62.2 ml/min; Est GFR (Non-African American) 53.6 ml/min; Potassium 4.3 mmol/L (3.5-5.1)
[2021-06-16] MEDS: INSULIN ASPART PER UNIT SC SCH ×4 (08:02→20:34)
[2021-06-16] MEDS: DOXYCYCLINE HYCLATE 100 MG CAP PO SCH ×2 (08:03→20:33)
[2021-06-16] MEDS: PANTOprazole 40 MG TAB PO SCH (08:04)
[2021-06-16] MEDS: CHOLECALCIFEROL 1,000 UNITS 25 MCG TAB PO SCH (08:04)
[2021-06-16] MEDS: ASPIRIN 81 MG ECTAB PO SCH (08:04)
[2021-06-16] MEDS: FINASTERIDE 5 MG TAB PO SCH (08:04)
[2021-06-16] MEDS: ATORVASTATIN 40 MG TAB PO SCH (08:05)
[2021-06-16] MEDS: CETIRIZINE HCL 10 MG TABLET PO SCH (08:05)
[2021-06-16] MEDS: lisinopril 2.5 MG TAB PO SCH (08:05)
[2021-06-16] MEDS: MONTELUKAST SODIUM 10 MG TABLET PO SCH (08:05)
[2021-06-16] MEDS: ENOXAPARIN INJ 40 MG/0.4 ML SYR SQ SCH ×2 (08:06→20:33)
[2021-06-16] MEDS: ISOSORBIDE MONO EXTENDED REL 30 MG TABCR PO SCH (08:06)
[2021-06-16] MEDS: CITALOPRAM 20 MG TAB PO SCH (08:06)
[2021-06-16] MEDS: FERROUS SULFATE 325 MG TAB PO SCH (08:06)
[2021-06-16] MEDS ORDERED: amLODIPine BESYLATE 5 MG TAB PO SCH (09:00)
--- NOTE | 2021-06-16 14:59 | Pharmacy Report ---
Pharmacy Glycemic Short Note 2 - Date of Service June 16, 2021 - Glycemic Short BSG Results (Last 24 hours): 06/15/21 06/15/21 06/16/21 16:38 19:56 05:34 Glucose 94 POC Glucose 109 H 105 H 06/16/21 06/16/21 07:30 11:29 Glucose POC Glucose 89 124 H OUTPATIENT ANTIDIABETIC REGIMEN: * Metformin 500 mg PO daily * HbA1C = 11.3% (05/28/21) ASSESSMENT: 06/16/21: * Patient received total of 120 units of insulin yesterday, of which 30 units were NPH and 6 units were basal insulin * Fasting BSG 94 mg/dL - no further steroids ordered today; Plan to loosen CF/CR this morning * Discontinued all NPH orders (had been using for steroids coverage). Anticipate Lantus dose will need titrated now that NPH no longer ordered, will add scale for HS tonight 06/15/21: * Mario received 141 units of SQ insulin yesterday (35 units NPH + 6 units Lantus + 100 units Novolog) * Fasting BSG of 110 mg/dL is at goal. Will continue current Lantus order for now. I suspect this will need increased once patient is no longer on NPH. * She had an episode of hypoglycemia around dinnertime on 06/14 (BSG 55 mg/dL). Carb coverage was loosened. Patient refused meal coverage resulting in hyperglycemia at bedtime. Will reduce NPH. * Today is the last day of dexamethasone, therefore insulin doses will need reduced significantly tomorrow 06/13: * Patient received a total of 163 units of insulin yesterday (55 units NPH + 6 units Lantus + 102 units Novolog) * BSGs were labile yesterday: 725-178-30-279 mg/dL * Fasting BSG improved to 123 mg/dL this AM - at goal * Will continue with Lantus dose today. Given decrease in IV dexamethasone dose, basal insulin may not be necessary in the coming days. NPH dose was decreased this AM to account for decrease in steroids. * No changes to Novolog 06/11: * Mario received 148 units of insulin yesterday (48 units NPH + 100 units of Novolog) * Fasting BSG slightly elevated at 159 mg/dL. Based on A1c, I suspect patient would benefit from long acting basal insulin. * Post prandial BSGs greatly improved yesterday with the exception of lunchtime. Patient remains on dexamethasone IV (day 11). * will tighten carb coverage with breakfast to avoid lunchtime spike * will need to back off significantly when steroids are d/c'ed PLAN FOR INPATIENT GLYCEMIC CONTROL: * Hold outpatient oral diabetes medications * Basal insulin * NPH - discontinued with steroids discontinued * Lantus 10-15 units SQ qHS based upon BSG value * Bolus insulin - loosen carb coverage * NovoLog per scale ACHS or Q6hrs while NPO * Goal Range: Low 100 mg/dL - High 140 mg/dL * Correction Factor: 20 mg/dL/unit * Nutritional/Prandial insulin per carb ratio of 1 unit per 7grams CHO consumed PLAN FOR DISCHARGE: * HbA1c = 11.3% on 05/28/21. Goal A1c is less than 8% for this patient given her age and comorbidities. * Recommend increasing Metformin to XR 500 mg PO BID with meals breakfast and dinner. Typically the XR formulation of metformin is better tolerated than the immediate release formulation. Continue to titrate metformin dosing upwards as recommended. Dosage increases should be made in increments of 500 mg weekly, up to 2,000 mg/day PO, given in divided doses. Doses above 2000 mg/day may be better tolerated if divided and given 3 times per day with meals. Max: 2,550 mg/day PO, in divided doses * Recommend adding Lantus 15-20 units once daily with morning meal. Will following to determine optimal dosing. Titrate dose per outpatient provider.
--- NOTE | 2021-06-16 16:10 | Hospitalist Progress Note ---
Date of Service June 16, 2021 Assessment & Plan (1) Pneumonia due to COVID-19 virus: Plan: Patient is a 75 yr male with H/O HTN, HLD, CAD s/p stent, CKD III, DM II, JARETT, Espinoza's esophagus, JARETT, depression presented to ER with c/o SOB. Symptom onset 05/16/2021. Positive COVID-19 test on 05/26/21. Increased shortness of breath last night. 2 days of loose stools. He states he received his Covid 19 vaccinations in July and August 2020. No Booster. Acute respiratory failure with hypoxia Multifocal pneumonia secondary to COVID-19 --CXR:Bilateral airspace opacities, slightly increased since prior exam. The findings suggest viral pneumonia. CRP: 0.73>1.03 Normal Procalcitonin Ferritin:1194 Completed Dexamethasone course Discussed with patient regarding remdesivir, unlikely to help given symptoms onset Patient agrees to avoid remdesivir Encourage proning Incentive spirometer, flutter valve Lasix as needed Currently on 5-6 L supplemental oxygen Chest x-ray remains unchanged Normal procalcitonin Needs 2 step prior to discharge On Lovenox for DVT prophylaxis Elevated Troponin H/O CAD Denies chest pain Troponin levels normalized Likely elevated secondary to demand ischemia and no evidence of ACS Continue aspirin, atorvastatin Metoprolol succinate DCed due to bradycardia DM II Hyperglycemia A1c: 11.3 on 05/28/2021 Hold home Metformin Continue Insulin therapy Glycemic pharmacy consult for assistance in management HTN Blood pressure relatively low Decreased lisinopril to 2.5 mg daily Metoprolol DCed Hold amlodipine Monitor BP Sinus bradycardia No pauses, bradycardia arrhythmias on monitor Metoprolol discontinued HLD Continue atorvastatin CKD III Baseline~1.2 Monitor renal function Avoid nephrotoxic agents when possible JARETT CPAP HS Depression Continue citalopram Espinoza's esophagus Continue PPI DVT Prophylaxis Lovenox SQ Code Status Full Code Admission and Anticipated Discharge Date Admission Date: June 01, 2021 Subjective Patient is seen and examined at bedside Desaturates easily with exertion Patient was having physical therapy during my encounter Poor sleep overnight due to CPAP use per patient Appetite improved Currently on 6 L supplemental oxygen Denies any chest pain, dyspnea, nausea, vomiting, abdominal pain, diarrhea Review of Systems Review of Systems: All systems reviewed & are unremarkable except as noted in Subjective Physical Exam Physical Exam: Physical Exam: Vitals signs as noted above General Appearance:Moderately built and nourished, no apparent distress Head: normocephalic, Atraumatic Eyes: normal inspection, EOMI Neck: supple, Trachea midline Respiratory/Chest: Decreased breath sounds, CTA Cardiovascular: S1, S2, No murmur Abdomen/GI:Soft, Non tender, Bowel sounds present Extremities/Musculoskeletal:normal inspection, no edema Neurologic/Psych:AAOX3, grossly no focal neurological deficits Skin: normal color, warm Results & Data Results & Data ([facility]) Vital Signs (Past 12 Hours) Vital Signs Temp Pulse Pulse Resp BP Pulse Ox 06/16/21 16:02 36.8 C 41 L 20 119/63 98 06/16/21 14:56 45 L 06/16/21 11:44 36.5 C 44 L 20 112/56 L 96 06/16/21 09:17 39 L 06/16/21 07:56 36.6 C 42 L 20 143/73 H 95 Laboratory Results [facility] 06/16/21 05:34 Sodium 136 Potassium 4.3 Chloride 106 Carbon Dioxide 25 BUN 29 H Creatinine 1.31 Glucose 94 Calcium 8.8
[2021-06-16] MEDS: INSULIN GLARGINE SOLOSTAR 100 UNITS/ML 3 ML PEN SC SCH (21:14)
[2021-06-16] MEDS: MELATONIN 3 MG TAB PO PRN (21:34)
[2021-06-17 06:29] LABS: Hemoglobin 13.4 g/dL (14.0-18.0); Mean Corpuscular Hemoglobin 31.5 pg (25-34); Mean Corpuscular Hgb Conc 33.5 g/dL (32-36); Mean Corpuscular Volume 93.9 fL (80-100); Mean Platelet Volume 9.7 fL (7.4-10.4); Platelet Count 223 K/uL (130-400); RDW Coefficient of Variation 13.8 % (11.5-14.5); RDW Standard Deviation 46.2 fL (36.4-46.3); Red Blood Count 4.26 M/uL (4.7-6.1); White Blood Count 9.65 K/uL (4.8-10.8)
[2021-06-17 07:02] LABS: BUN Creatinine Ratio 21.8 (10-20); Calcium 8.6 mg/dl (8.5-10.1); Creatinine Clr Calc Pharmacy 55.6 ml/min; Est GFR (African American) 58.9 ml/min; Est GFR (Non-African American) 50.8 ml/min; Potassium 4.5 mmol/L (3.5-5.1)
[2021-06-17] MEDS: ENOXAPARIN INJ 40 MG/0.4 ML SYR SQ SCH (08:07)
[2021-06-17] MEDS: ISOSORBIDE MONO EXTENDED REL 30 MG TABCR PO SCH (08:07)
[2021-06-17] MEDS: CHOLECALCIFEROL 1,000 UNITS 25 MCG TAB PO SCH (08:08)
[2021-06-17] MEDS: DOXYCYCLINE HYCLATE 100 MG CAP PO SCH ×2 (08:08→20:51)
[2021-06-17] MEDS: FINASTERIDE 5 MG TAB PO SCH (08:08)
[2021-06-17] MEDS: CETIRIZINE HCL 10 MG TABLET PO SCH (08:08)
[2021-06-17] MEDS: ATORVASTATIN 40 MG TAB PO SCH (08:08)
[2021-06-17] MEDS: PANTOprazole 40 MG TAB PO SCH (08:08)
[2021-06-17] MEDS: MONTELUKAST SODIUM 10 MG TABLET PO SCH (08:08)
[2021-06-17] MEDS: lisinopril 2.5 MG TAB PO SCH (08:08)
[2021-06-17] MEDS: FERROUS SULFATE 325 MG TAB PO SCH (08:08)
[2021-06-17] MEDS: ASPIRIN 81 MG ECTAB PO SCH (08:08)
[2021-06-17] MEDS: CITALOPRAM 20 MG TAB PO SCH (08:08)
[2021-06-17] MEDS: INSULIN ASPART PER UNIT SC SCH ×4 (08:33→20:52)
--- NOTE | 2021-06-17 14:17 | Hospitalist Progress Note ---
Date of Service June 17, 2021 Assessment & Plan (1) Pneumonia due to COVID-19 virus: Plan: Patient is a 75 yr male with H/O HTN, HLD, CAD s/p stent, CKD III, DM II, JARETT, Espinoza's esophagus, JARETT, depression presented to ER with c/o SOB. Symptom onset 05/16/2021. Positive COVID-19 test on 05/26/21. Increased shortness of breath last night. 2 days of loose stools. He states he received his Covid 19 vaccinations in July and August 2020. No Booster. Acute respiratory failure with hypoxia Multifocal pneumonia secondary to COVID-19 --CXR:Bilateral airspace opacities, slightly increased since prior exam. The findings suggest viral pneumonia. CRP: 0.73>1.03 Normal Procalcitonin Ferritin:1194 Completed Dexamethasone course Discussed with patient regarding remdesivir, unlikely to help given symptoms onset Patient agrees to avoid remdesivir Encourage proning Incentive spirometer, flutter valve Lasix as needed Currently on 5-6 L supplemental oxygen Chest x-ray remains unchanged Normal procalcitonin Needs 2 step prior to discharge On Lovenox for DVT prophylaxis Epistaxis Transient Consider to hold Lovenox if persistent Dysuria Check urinalysis to rule out UTI Elevated Troponin H/O CAD Denies chest pain Troponin levels normalized Likely elevated secondary to demand ischemia and no evidence of ACS Continue aspirin, atorvastatin Metoprolol succinate DCed due to bradycardia DM II Hyperglycemia A1c: 11.3 on 05/28/2021 Hold home Metformin Continue Insulin therapy Glycemic pharmacy consult for assistance in management HTN Blood pressure relatively low Decreased lisinopril to 2.5 mg daily Metoprolol DCed Hold amlodipine Monitor BP Sinus bradycardia No pauses, bradycardia arrhythmias on monitor Metoprolol discontinued HLD Continue atorvastatin CKD III Baseline~1.2 Monitor renal function Avoid nephrotoxic agents when possible JARETT CPAP HS Depression Continue citalopram Espinoza's esophagus Continue PPI DVT Prophylaxis Lovenox SQ Code Status Full Code Admission and Anticipated Discharge Date Admission Date: June 01, 2021 Subjective Patient is seen and examined at bedside States having minimal epistaxis and dysuria today Currently on 6 L supplemental oxygen Still has cough with yellowish expectoration Denies any chest pain, dyspnea, nausea, vomiting, abdominal pain, diarrhea Review of Systems Review of Systems: All systems reviewed & are unremarkable except as noted in Subjective Physical Exam Physical Exam: Physical Exam: Vitals signs as noted above General Appearance:Moderately built and nourished, no apparent distress Head: normocephalic, Atraumatic Eyes: normal inspection, EOMI Neck: supple, Trachea midline Respiratory/Chest: Decreased breath sounds, CTA Cardiovascular: S1, S2, No murmur Abdomen/GI:Soft, Non tender, Bowel sounds present Extremities/Musculoskeletal:normal inspection, no edema Neurologic/Psych:AAOX3, grossly no focal neurological deficits Skin: normal color, warm Results & Data Results & Data ([facility]) Vital Signs (Past 12 Hours) Vital Signs Temp Pulse Pulse Pulse Resp BP Pulse Ox 06/17/21 11:10 36.9 C 59 L 20 107/57 L 94 06/17/21 07:58 36.9 C 47 L 20 108/65 94 06/17/21 03:47 36.2 C L 47 L 20 101/64 97 06/17/21 03:15 56 L 22 96 Laboratory Results Short CBC 06/17/21 Range/Units 06:08 WBC 9.65 (4.8-10.8) K/uL Hgb 13.4 L (14.0-18.0) g/dL Hct 40.0 L (42-52) % Plt Count 223 (130-400) K/uL BMP 06/17/21 06:08 Sodium 138 Potassium 4.5 Chloride 108 H Carbon Dioxide 24 BUN 30 H Creatinine 1.37 Glucose 130 H Calcium 8.6
[2021-06-17 16:56] LABS: Appearance Urine Clear (Clear); Bilirubin Urine Negative (Negative); Blood Urine Negative (Negative); Color Urine Yellow; Glucose Urine UA Negative (Negative); Ketones Urine Negative (Negative); Leukocyte Esterase Urine Negative (Negative); Nitrite Urine Negative (Negative); Protein Urine Negative (Negative); Specific Gravity Urine 1.018 (1.000-1.030); Urobilinogen Urine Negative (Negative)
[2021-06-17] MEDS: INSULIN GLARGINE SOLOSTAR 100 UNITS/ML 3 ML PEN SC SCH (20:52)
[2021-06-17] MEDS: MELATONIN 3 MG TAB PO PRN (21:22)
[2021-06-18 05:57] LABS: Hematocrit (blood only) 39.8 % (42-52); Hemoglobin 13.3 g/dL (14.0-18.0); Mean Corpuscular Hemoglobin 31.6 pg (25-34); Mean Corpuscular Hgb Conc 33.4 g/dL (32-36); Mean Corpuscular Volume 94.5 fL (80-100); Mean Platelet Volume 9.7 fL (7.4-10.4); Platelet Count 199 K/uL (130-400); RDW Coefficient of Variation 13.8 % (11.5-14.5); RDW Standard Deviation 46.9 fL (36.4-46.3); Red Blood Count 4.21 M/uL (4.7-6.1); White Blood Count 7.96 K/uL (4.8-10.8)
[2021-06-18 06:27] LABS: BUN Creatinine Ratio 20.6 (10-20); Calcium 8.3 mg/dl (8.5-10.1); Creatinine Clr Calc Pharmacy 62.6 ml/min; Est GFR (African American) 67.7 ml/min; Est GFR (Non-African American) 58.5 ml/min; Potassium 4.2 mmol/L (3.5-5.1)
[2021-06-18] MEDS: ENOXAPARIN INJ 40 MG/0.4 ML SYR SQ SCH (07:17)
[2021-06-18] MEDS: DOXYCYCLINE HYCLATE 100 MG CAP PO SCH ×2 (07:17→21:00)
[2021-06-18] MEDS: ASPIRIN 81 MG ECTAB PO SCH (07:17)
[2021-06-18] MEDS: PANTOprazole 40 MG TAB PO SCH (07:17)
[2021-06-18] MEDS: lisinopril 2.5 MG TAB PO SCH (07:17)
[2021-06-18] MEDS: ISOSORBIDE MONO EXTENDED REL 30 MG TABCR PO SCH (07:17)
[2021-06-18] MEDS: MONTELUKAST SODIUM 10 MG TABLET PO SCH (07:18)
[2021-06-18] MEDS: CETIRIZINE HCL 10 MG TABLET PO SCH (07:18)
[2021-06-18] MEDS: FINASTERIDE 5 MG TAB PO SCH (07:18)
[2021-06-18] MEDS: CITALOPRAM 20 MG TAB PO SCH (07:18)
[2021-06-18] MEDS: CHOLECALCIFEROL 1,000 UNITS 25 MCG TAB PO SCH (07:18)
[2021-06-18] MEDS: ATORVASTATIN 40 MG TAB PO SCH (07:18)
[2021-06-18] MEDS: FERROUS SULFATE 325 MG TAB PO SCH (07:19)
[2021-06-18] MEDS ORDERED: SODIUM CHLORIDE 0.65% NA SOLN 45 ML (OCEAN) PRN (07:23)
[2021-06-18] MEDS: INSULIN ASPART PER UNIT SC SCH ×4 (08:19→21:01)
--- NOTE | 2021-06-18 12:13 | Pharmacy Report ---
Pharmacy Glycemic Short Note 2 - Date of Service June 18, 2021 - Glycemic Short BSG Results (Last 24 hours): 06/17/21 06/17/21 06/18/21 16:49 20:18 05:29 Glucose 121 H POC Glucose 100 H 176 H 06/18/21 06/18/21 07:49 11:50 Glucose POC Glucose 136 H 98 OUTPATIENT ANTIDIABETIC REGIMEN: * Metformin 500 mg PO daily * HbA1C = 11.3% (05/28/21) ASSESSMENT: 06/18/21: * Patient received total of 47 units of insulin yesterday, of which 15 units were basal * Fasting BSG 121 mg/dL - continue same * Trialed tighter CR with breakfast as lunch BSG trends up typically. Lunch BSG 98 mg/dL - changed back to previous parameters 06/16/21: * Patient received total of 120 units of insulin yesterday, of which 30 units were NPH and 6 units were basal insulin * Fasting BSG 94 mg/dL - no further steroids ordered today; Plan to loosen CF/CR this morning * Discontinued all NPH orders (had been using for steroids coverage). Anticipate Lantus dose will need titrated now that NPH no longer ordered, will add scale for HS tonight 06/15/21: * Mario received 141 units of SQ insulin yesterday (35 units NPH + 6 units Lantus + 100 units Novolog) * Fasting BSG of 110 mg/dL is at goal. Will continue current Lantus order for now. I suspect this will need increased once patient is no longer on NPH. * She had an episode of hypoglycemia around dinnertime on 06/14 (BSG 55 mg/dL). Carb coverage was loosened. Patient refused meal coverage resulting in hyperglycemia at bedtime. Will reduce NPH. * Today is the last day of dexamethasone, therefore insulin doses will need reduced significantly tomorrow 06/13: * Patient received a total of 163 units of insulin yesterday (55 units NPH + 6 units Lantus + 102 units Novolog) * BSGs were labile yesterday: [phone] mg/dL * Fasting BSG improved to 123 mg/dL this AM - at goal * Will continue with Lantus dose today. Given decrease in IV dexamethasone dose, basal insulin may not be necessary in the coming days. NPH dose was decreased this AM to account for decrease in steroids. * No changes to Novolog 06/11: * Mario received 148 units of insulin yesterday (48 units NPH + 100 units of Novolog) * Fasting BSG slightly elevated at 159 mg/dL. Based on A1c, I suspect patient would benefit from long acting basal insulin. * Post prandial BSGs greatly improved yesterday with the exception of lunchtime. Patient remains on dexamethasone IV (day 11). * will tighten carb coverage with breakfast to avoid lunchtime spike * will need to back off significantly when steroids are d/c'ed PLAN FOR INPATIENT GLYCEMIC CONTROL: * Hold outpatient oral diabetes medications * Basal insulin * Lantus 10-15 units SQ qHS based upon BSG value * Bolus insulin * NovoLog per scale ACHS or Q6hrs while NPO * Goal Range: Low 110 mg/dL - High 140 mg/dL * Correction Factor: 20 mg/dL/unit * Nutritional/Prandial insulin per carb ratio of 1 unit per 7 grams CHO consumed PLAN FOR DISCHARGE: * HbA1c = 11.3% on 05/28/21. Goal A1c is less than 8% for this patient given her age and comorbidities. * Recommend increasing Metformin to XR 500 mg PO BID with meals breakfast and dinner. Typically the XR formulation of metformin is better tolerated than the immediate release formulation. Continue to titrate metformin dosing upwards as recommended. Dosage increases should be made in increments of 500 mg weekly, up to 2,000 mg/day PO, given in divided doses. Doses above 2000 mg/day may be better tolerated if divided and given 3 times per day with meals. Max: 2,550 mg/day PO, in divided doses * Recommend adding Lantus 15-20 units once daily. Will follow to determine optimal dosing. Titrate dose per outpatient provider.
--- NOTE | 2021-06-18 14:54 | Hospitalist Progress Note ---
Date of Service June 18, 2021 Assessment & Plan (1) Pneumonia due to COVID-19 virus: Plan: 75 yr male with H/O HTN, HLD, CAD s/p stent, CKD III, DM II, JARETT, Espinoza's esophagus, JARETT, depression presented to ER with c/o SOB. He stated he received his Covid 19 vaccinations in July and August 2020. No Booster. Acute respiratory failure with hypoxia Multifocal pneumonia secondary to COVID-19 --CXR:Bilateral airspace opacities, slightly increased since prior exam. The findings suggest viral pneumonia. CRP: 0.73>1.03 Normal Procalcitonin Ferritin:1194 Completed Dexamethasone course Continue to self proning Educated on proper use of incentive spirometer and flutter IV lasix 20 Required up to 8l with ambulation Will continue management inpatient for 1-2 days On Lovenox for DVT prophylaxis Epistaxis Transient None today Elevated Troponin H/O CAD Denies chest pain Troponin levels normalized Likely elevated secondary to demand ischemia and no evidence of ACS Continue aspirin, atorvastatin Metoprolol succinate DCed due to bradycardia DM II Hyperglycemia A1c: 11.3 on 05/28/2021 Hold home Metformin Continue Insulin therapy Glycemic pharmacy consult for assistance in management HTN Blood pressure low normal Decreased lisinopril to 2.5 mg daily Metoprolol DCed Hold amlodipine Monitor BP Sinus bradycardia No pauses on tele Metoprolol discontinued HLD Continue atorvastatin CKD III Baseline~1.2 Monitor renal function Avoid nephrotoxic agents when possible JARETT CPAP HS Depression Continue citalopram Espinoza's esophagus Continue PPI DVT Prophylaxis Lovenox SQ Code Status Full Code Admission and Anticipated Discharge Date Admission Date: June 01, 2021 Subjective 75 y/o M with PMH HTN, HLD, CAD s/p stent, CKD III, DM II, JARETT, Espinoza's esophagus, JARETT, depression presented to ER with c/o SOB Being managed for acute hypoxic respiratory failure due to COVID-19 pneumonia. Patient seen and examined today. Reports cough usually worse in the morning with occasional shortness of breath. Denied any chest pain, palpitation Denies nausea, vomiting, abdominal pain, diarrhea Denies dysuria, frequency, urgency Physical Exam Constitutional: + well hydrated; no acute distress Eyes: PERRL, conjunctivae normal, anicteric sclerae ENMT: external ear and nose normal, oropharynx normal Respiratory: On 4 L/min nasal cannula. Scattered crackles Cardiovascular: Rate/Rhythm: regular rhythm and + bradycardic S1-S2 Gastrointestinal (Abdomen): normal bowel sounds, soft, nontender, no hepatosplenomegaly Musculoskeletal: No pedal edema Neurologic: PERRL, EOMI, accommodation nl, no face palsy, no dysarthria Psychiatric: A+Ox3, euthymic affect Results & Data Results & Data ([facility]) Vital Signs (Past 12 Hours) Vital Signs Temp Pulse Pulse Pulse Pulse Pulse Pulse 06/18/21 14:45 36.8 C 06/18/21 11:50 36.8 C 06/18/21 09:25 80 79 80 84 69 68 06/18/21 07:08 36.7 C 06/18/21 02:58 Pulse Pulse Pulse Pulse Resp Resp Resp 06/18/21 14:45 59 L 20 06/18/21 11:50 54 L 20 06/18/21 09:25 72 59 L 64 20 20 06/18/21 07:08 49 L 20 06/18/21 02:58 51 L 20 Resp Resp Resp Resp Resp Resp Resp 06/18/21 14:45 06/18/21 11:50 06/18/21 09:25 18 20 20 18 18 18 18 06/18/21 07:08 06/18/21 02:58 BP Pulse Ox Pulse Ox Pulse Ox Pulse Ox Pulse Ox Pulse Ox 06/18/21 14:45 104/67 94 06/18/21 11:50 100/60 96 06/18/21 09:25 86 L 87 L 89 L 88 L 84 L 06/18/21 07:08 121/72 97 06/18/21 02:58 118/73 100 Pulse Ox Pulse Ox Pulse Ox Pulse Ox 06/18/21 14:45 06/18/21 11:50 06/18/21 09:25 93 86 L 92 91 06/18/21 07:08 06/18/21 02:58 Laboratory Results Abnormal lab results 06/17/21 06/17/21 06/18/21 Range/Units 16:49 20:18 05:29 RBC 4.21 L (4.7-6.1) M/uL Hgb 13.3 L (14.0-18.0) g/dL Hct 39.8 L (42-52) % RDW Std Deviation 46.9 H (36.4-46.3) fL Chloride (98-107) mmol/L BUN (7-18) mg/dl BUN/Creatinine Ratio (10-20) Glucose (70-99) mg/dl POC Glucose 100 H 176 H (70-99) mg/dl Calcium (8.5-10.1) mg/dl 06/18/21 06/18/21 Range/Units 05:29 07:49 RBC (4.7-6.1) M/uL Hgb (14.0-18.0) g/dL Hct (42-52) % RDW Std Deviation (36.4-46.3) fL Chloride 108 H (98-107) mmol/L BUN 25 H (7-18) mg/dl BUN/Creatinine Ratio 20.6 H (10-20) Glucose 121 H (70-99) mg/dl POC Glucose 136 H (70-99) mg/dl Calcium 8.3 L (8.5-10.1) mg/dl
[2021-06-18] MEDS ORDERED: FUROSEMIDE INJ 20 MG/2 ML VIAL IV ONE (16:23)
[2021-06-18] MEDS: INSULIN GLARGINE SOLOSTAR 100 UNITS/ML 3 ML PEN SC SCH (21:00)
[2021-06-18] MEDS: MELATONIN 3 MG TAB PO PRN (22:53)
[2021-06-19 06:58] LABS: Hematocrit (blood only) 41.1 % (42-52); Hemoglobin 13.9 g/dL (14.0-18.0); Mean Corpuscular Hemoglobin 31.4 pg (25-34); Mean Corpuscular Hgb Conc 33.8 g/dL (32-36); Mean Corpuscular Volume 92.8 fL (80-100); Mean Platelet Volume 9.7 fL (7.4-10.4); Platelet Count 183 K/uL (130-400); RDW Coefficient of Variation 13.9 % (11.5-14.5); RDW Standard Deviation 46.3 fL (36.4-46.3); Red Blood Count 4.43 M/uL (4.7-6.1)
[2021-06-19 07:34] LABS: BUN Creatinine Ratio 18.3 (10-20); Calcium 8.5 mg/dl (8.5-10.1); Creatinine Clr Calc Pharmacy 64.7 ml/min; Est GFR (Non-African American) 62.1 ml/min; Potassium 4.1 mmol/L (3.5-5.1)
[2021-06-19 07:39] LABS: C Reactive Protein 1.1 mg/dl (0-0.29)
[2021-06-19] MEDS: DOXYCYCLINE HYCLATE 100 MG CAP PO SCH ×2 (09:30→20:30)
[2021-06-19] MEDS: ASPIRIN 81 MG ECTAB PO SCH (09:30)
[2021-06-19] MEDS: CETIRIZINE HCL 10 MG TABLET PO SCH (09:31)
[2021-06-19] MEDS: FINASTERIDE 5 MG TAB PO SCH (09:31)
[2021-06-19] MEDS: ATORVASTATIN 40 MG TAB PO SCH (09:31)
[2021-06-19] MEDS: MONTELUKAST SODIUM 10 MG TABLET PO SCH (09:31)
[2021-06-19] MEDS: lisinopril 2.5 MG TAB PO SCH (09:31)
[2021-06-19] MEDS: ISOSORBIDE MONO EXTENDED REL 30 MG TABCR PO SCH (09:31)
[2021-06-19] MEDS: FERROUS SULFATE 325 MG TAB PO SCH (09:31)
[2021-06-19] MEDS: CITALOPRAM 20 MG TAB PO SCH (09:32)
[2021-06-19] MEDS: ENOXAPARIN INJ 40 MG/0.4 ML SYR SQ SCH (09:32)
[2021-06-19] MEDS: CHOLECALCIFEROL 1,000 UNITS 25 MCG TAB PO SCH (09:32)
[2021-06-19] MEDS: PANTOprazole 40 MG TAB PO SCH (09:32)
[2021-06-19] MEDS: INSULIN ASPART PER UNIT SC SCH ×4 (09:35→20:32)
--- NOTE | 2021-06-19 10:21 | Hospitalist Progress Note ---
Date of Service June 19, 2021 Assessment & Plan (1) Pneumonia due to COVID-19 virus: Plan: 75 yr male with H/O HTN, HLD, CAD s/p stent, CKD III, DM II, JARETT, Espinoza's esophagus, JARETT, depression presented to ER with c/o SOB. He stated he received his Covid 19 vaccinations in July and August 2020. No Booster. Acute respiratory failure with hypoxia Multifocal pneumonia secondary to COVID-19 --CXR:Bilateral airspace opacities, slightly increased since prior exam. The findings suggest viral pneumonia. CRP: 0.73>1.03 Normal Procalcitonin Ferritin:1194 Completed Dexamethasone course Continue to self proning Continue incentive spirometer and flutter Give IV lasix 20 2 step yesterday, patient required up to 8l with ambulation Will continue management inpatient and repeat tomorrow On Lovenox for DVT prophylaxis Epistaxis Transient Monitor Elevated Troponin H/O CAD Denies chest pain Troponin levels normalized Likely elevated secondary to demand ischemia and no evidence of ACS Continue aspirin, atorvastatin Metoprolol succinate DCed due to bradycardia DM II Hyperglycemia A1c: 11.3 on 05/28/2021 Hold home Metformin Continue Insulin therapy Glycemic pharmacy consult for assistance in management Will increase metformin to 500mg bid and start lantus on discharge HTN Blood pressure low normal Decreased lisinopril to 2.5 mg daily Metoprolol DCed Hold amlodipine. Will not continue on dc for now Monitor BP Sinus bradycardia No pauses on tele Metoprolol discontinued HLD Continue atorvastatin CKD III Baseline~1.2 Monitor renal function Avoid nephrotoxic agents when possible JARETT CPAP HS Depression Continue citalopram Espinoza's esophagus Continue PPI DVT Prophylaxis Lovenox SQ Code Status Full Code Admission and Anticipated Discharge Date Admission Date: June 01, 2021 Subjective 75 y/o M with PMH HTN, HLD, CAD s/p stent, CKD III, DM II, JARETT, Espinoza's esophagus, JARETT, depression presented to ER with c/o SOB Being managed for acute hypoxic respiratory failure due to COVID-19 pneumonia. Patient seen and examined today. Reports cough with occasional shortness of breath. Had some epistaxis this morning when blowing nostrils that resolved quickly Denied any chest pain, palpitation Denies nausea, vomiting, abdominal pain, diarrhea Denies dysuria, frequency, urgency Physical Exam Constitutional: + well hydrated; no acute distress Eyes: PERRL, conjunctivae normal, anicteric sclerae ENMT: external ear and nose normal, oropharynx normal Respiratory: On 4l/min, scattered crackles Cardiovascular: Rate/Rhythm: regular rhythm and + bradycardic S1 S2 Gastrointestinal (Abdomen): normal bowel sounds, soft, nontender, no hepatosplenomegaly Musculoskeletal: no cyanosis or clubbing, extremities motor strength 5/5 Neurologic: PERRL, EOMI, accommodation nl, no face palsy, no dysarthria Psychiatric: A+Ox3, euthymic affect Results & Data Results & Data ([facility]) Vital Signs (Past 12 Hours) Vital Signs Temp Pulse Pulse Resp BP Pulse Ox 06/19/21 08:16 36.8 C 59 L 20 109/74 90 06/19/21 04:15 52 L 18 111/72 97 06/19/21 00:23 62 06/19/21 00:07 22 96 06/18/21 22:27 37.3 C 62 18 118/71 94 Laboratory Results Abnormal lab results 06/18/21 06/18/21 06/19/21 Range/Units 16:47 20:02 06:32 RBC (4.7-6.1) M/uL Hgb (14.0-18.0) g/dL Hct (42-52) % Chloride 108 H (98-107) mmol/L BUN 21 H (7-18) mg/dl Glucose 121 H (70-99) mg/dl POC Glucose 184 H 111 H (70-99) mg/dl C-Reactive Protein 1.10 H (0-0.29) mg/dl 06/19/21 06/19/21 Range/Units 06:32 07:38 RBC 4.43 L (4.7-6.1) M/uL Hgb 13.9 L (14.0-18.0) g/dL Hct 41.1 L (42-52) % Chloride (98-107) mmol/L BUN (7-18) mg/dl Glucose (70-99) mg/dl POC Glucose 121 H (70-99) mg/dl C-Reactive Protein (0-0.29) mg/dl
[2021-06-19] MEDS ORDERED: FUROSEMIDE INJ 20 MG/2 ML VIAL IV ONE (11:46)
[2021-06-19] MEDS ORDERED: INSULIN GLARGINE SOLOSTAR 100 UNITS/ML 3 ML PEN SC SCH (21:00)
[2021-06-19] MEDS: MELATONIN 3 MG TAB PO PRN (23:48)
[2021-06-20 07:07] LABS: Hematocrit (blood only) 41.2 % (42-52); Hemoglobin 13.7 g/dL (14.0-18.0); Mean Corpuscular Hemoglobin 31.6 pg (25-34); Mean Corpuscular Hgb Conc 33.3 g/dL (32-36); Mean Corpuscular Volume 94.9 fL (80-100); Mean Platelet Volume 9.9 fL (7.4-10.4); Platelet Count 181 K/uL (130-400); RDW Coefficient of Variation 14.1 % (11.5-14.5); RDW Standard Deviation 48.3 fL (36.4-46.3); Red Blood Count 4.34 M/uL (4.7-6.1); White Blood Count 8.53 K/uL (4.8-10.8)
[2021-06-20 07:25] LABS: BUN Creatinine Ratio 19.2 (10-20); Creatinine Clr Calc Pharmacy 60.9 ml/min; Est GFR (African American) 67.7 ml/min; Est GFR (Non-African American) 58.5 ml/min; Potassium 4.2 mmol/L (3.5-5.1)
[2021-06-20] MEDS: INSULIN ASPART PER UNIT SC SCH ×2 (09:04→12:58)
[2021-06-20] MEDS: ATORVASTATIN 40 MG TAB PO SCH (09:08)
[2021-06-20] MEDS: ASPIRIN 81 MG ECTAB PO SCH (09:08)
[2021-06-20] MEDS: CHOLECALCIFEROL 1,000 UNITS 25 MCG TAB PO SCH (09:09)
[2021-06-20] MEDS: ENOXAPARIN INJ 40 MG/0.4 ML SYR SQ SCH (09:09)
[2021-06-20] MEDS: DOXYCYCLINE HYCLATE 100 MG CAP PO SCH (09:09)
[2021-06-20] MEDS: CITALOPRAM 20 MG TAB PO SCH (09:09)
[2021-06-20] MEDS: lisinopril 2.5 MG TAB PO SCH (09:09)
[2021-06-20] MEDS: CETIRIZINE HCL 10 MG TABLET PO SCH (09:09)
[2021-06-20] MEDS: FERROUS SULFATE 325 MG TAB PO SCH (09:09)
[2021-06-20] MEDS: FINASTERIDE 5 MG TAB PO SCH (09:09)
[2021-06-20] MEDS: ISOSORBIDE MONO EXTENDED REL 30 MG TABCR PO SCH (09:09)
[2021-06-20] MEDS: MONTELUKAST SODIUM 10 MG TABLET PO SCH (09:10)
[2021-06-20] MEDS: PANTOprazole 40 MG TAB PO SCH (09:10)
[2021-06-20] MEDS ORDERED: FUROSEMIDE INJ 20 MG/2 ML VIAL IV ONE (09:36)
--- NOTE | 2021-06-20 12:13 | Pharmacy Report ---
Pharmacy Glycemic Short Note 2 - Date of Service June 20, 2021 - Glycemic Short BSG Results (Last 24 hours): 06/19/21 06/19/21 06/20/21 16:53 20:29 05:59 Glucose 120 H POC Glucose 91 114 H 06/20/21 06/20/21 07:42 11:38 Glucose POC Glucose 131 H 274 H OUTPATIENT ANTIDIABETIC REGIMEN: * Metformin 500 mg PO daily * HbA1C = 11.3% (05/28/21) ASSESSMENT: 06/20/21 * Patient's BSGs yesterday were [phone]. Fasting today was 120 mg/dL. * Patient received 29 units of insulin yesterday (12 units of basal and 17 units of bolus). * Continue Lantus as fasting stable. * Continue Novolog. Lunch BSG today elevated at 274 mg/dL which is abnormal. Will not make changes at this time. 06/18/21: * Patient received total of 47 units of insulin yesterday, of which 15 units were basal * Fasting BSG 121 mg/dL - continue same * Trialed tighter CR with breakfast as lunch BSG trends up typically. Lunch BSG 98 mg/dL - changed back to previous parameters 06/16/21: * Patient received total of 120 units of insulin yesterday, of which 30 units were NPH and 6 units were basal insulin * Fasting BSG 94 mg/dL - no further steroids ordered today; Plan to loosen CF/CR this morning * Discontinued all NPH orders (had been using for steroids coverage). Anticipate Lantus dose will need titrated now that NPH no longer ordered, will add scale for HS tonight 06/15/21: * Mario received 141 units of SQ insulin yesterday (35 units NPH + 6 units Lantus + 100 units Novolog) * Fasting BSG of 110 mg/dL is at goal. Will continue current Lantus order for now. I suspect this will need increased once patient is no longer on NPH. * She had an episode of hypoglycemia around dinnertime on 06/14 (BSG 55 mg/dL). Carb coverage was loosened. Patient refused meal coverage resulting in hyperglycemia at bedtime. Will reduce NPH. * Today is the last day of dexamethasone, therefore insulin doses will need reduced significantly tomorrow 06/13: * Patient received a total of 163 units of insulin yesterday (55 units NPH + 6 units Lantus + 102 units Novolog) * BSGs were labile yesterday: [phone] mg/dL * Fasting BSG improved to 123 mg/dL this AM - at goal * Will continue with Lantus dose today. Given decrease in IV dexamethasone dose, basal insulin may not be necessary in the coming days. NPH dose was decreased this AM to account for decrease in steroids. * No changes to Novolog 06/11: * Mario received 148 units of insulin yesterday (48 units NPH + 100 units of Novolog) * Fasting BSG slightly elevated at 159 mg/dL. Based on A1c, I suspect patient would benefit from long acting basal insulin. * Post prandial BSGs greatly improved yesterday with the exception of lunchtime. Patient remains on dexamethasone IV (day 11). * will tighten carb coverage with breakfast to avoid lunchtime spike * will need to back off significantly when steroids are d/c'ed PLAN FOR INPATIENT GLYCEMIC CONTROL: * Hold outpatient oral diabetes medications * Basal insulin * Lantus 12 units SQ qHS * Bolus insulin * NovoLog per scale ACHS or Q6hrs while NPO * Goal Range: Low 110 mg/dL - High 140 mg/dL * Correction Factor: 20 mg/dL/unit * Nutritional/Prandial insulin per carb ratio of 1 unit per 6 grams CHO consumed PLAN FOR DISCHARGE: * HbA1c = 11.3% on 05/28/21. Goal A1c is less than 8% for this patient given her age and comorbidities. * Recommend increasing Metformin to XR 500 mg PO BID with meals breakfast and dinner. Typically the XR formulation of metformin is better tolerated than the immediate release formulation. Continue to titrate metformin dosing upwards as recommended. Dosage increases should be made in increments of 500 mg weekly, up to 2,000 mg/day PO, given in divided doses. Doses above 2000 mg/day may be better tolerated if divided and given 3 times per day with meals. Max: 2,550 mg/day PO, in divided doses * Recommend adding Lantus 12 units once daily. Will follow to determine optimal dosing. Titrate dose per outpatient provider.
--- NOTE | 2021-06-20 13:18 | Discharge Summary ---
Date of Service June 20, 2021 Admission HPI Per Admitting Provider Patient is 75 y/o M with PMH HTN, HLD, CAD s/p stent, CKD III, DM II, JARETT, Espinoza's esophagus, JARETT, depression presented to ER with c/o SOB. Patient reports approximately 05/16/2021 started with not feeling well with congestion, cough, fatigue. He followed up with PCP 05/26/2021 and was initially given doxycycline for possible pneumonia however his COVID-19 test returned positive. Patient reports has been having increased shortness of breath which increased last night. Also reports 2 days of loose stools. He states he received his Covid 19 vaccinations in July and August 2020. No recent fever. Denies N/V, BISHOP, dizziness, syncope, vision changes, neck pain, CP, palpitations, hemoptysis, sore throat, choking, otalgia, abdominal pain, paresthesias, extremity weakness, extremity edema, rashes, urinary symptoms. In ER patient afebrile, 88% on room air up to 96% on 4 L oxygen mask. Other vitals stable. No leukocytosis, glucose: 359, troponin: 0.048. Chest x-ray consistent with multifocal pneumonia In ER given albuterol neb, dexamethasone 10 mg IV, 5 units insulin R Admission Exam Per Admitting Provider General: no acute distress, WDWN Head: normocephalic, atraumatic Eyes: PERRL, EOM's intact, conjunctiva non-injected, anicteric ENT: normal inspection external ears, nose, mucous membranes mildy dry Neck: supple, trachea midline Lungs: no respiratory distress on current 3L oxymask, +rales bilaterally, increased at bases CV: RRR, no murmur, no pretibial edema Abd: normal BS, soft, non-tender Ext: no cyanosis, no calf tenderness Neuro: A&O x 3, no focal deficits noted, normal affect Skin: warm, dry Principal Diagnosis Acute hypoxic respiratory failure due to COVID-19 pneumonia Discharge Exam Constitutional + well hydrated; no acute distress Eyes PERRL, conjunctivae normal, anicteric sclerae ENMT external ear and nose normal, oropharynx normal Respiratory On 4l/min nasal cannula, diminished breath sounds, scattered crackles samantha in lung bases Cardiovascular Rate/Rhythm: regular rhythm and + bradycardic S1 S2 Gastrointestinal (Abdomen) normal bowel sounds, soft, nontender, no hepatosplenomegaly Musculoskeletal no cyanosis or clubbing, extremities motor strength 5/5 Neurologic PERRL, EOMI, accommodation nl, no face palsy, no dysarthria Psychiatric A+Ox3, euthymic affect Discharge Data Allergies Allergy/AdvReac Type Severity Reaction Status Date / Time Iodinated Contrast Media Allergy Mild "IVP DYE" Verified 03/23/20 17:59 HIVES Consultations 06/01/21 08:45 ED Decision to Admit Stat Hospital Course (1) Pneumonia due to COVID-19 virus: 75 yr male with H/O HTN, HLD, CAD s/p stent, CKD III, DM II, JARETT, Espinoza's esophagus, JARETT, depression presented to ER with c/o SOB. He stated he received his Covid 19 vaccinations in July and August 2020. No Booster. Acute respiratory failure with hypoxia Multifocal pneumonia secondary to COVID-19 --CXR:Bilateral airspace opacities, slightly increased since prior exam. The findings suggest viral pneumonia. CRP: 0.73>1.03 Normal Procalcitonin Ferritin:1194 Completed Dexamethasone course Required oxygen supplementation Oxygen weaned down to 4l/min at rest. Requiring 6l/min with activity based on 2 step today Elevated Troponin H/O CAD Denies chest pain Troponin levels normalized Likely elevated secondary to demand ischemia Continue aspirin, atorvastatin Metoprolol succinate was discontinued due to bradycardia. Patient advised to follow up with PCP, may be resumed later Patient needs follow up with Cardiology DM II Hyperglycemia A1c: 11.3 on 05/28/2021 Provided diabetes education Increased metformin to 500mg bid and started lantus 12 U QPM on discharge All meds sent to pharm at [facility]. Called pharmacist. She reported they will send DM supplies to [place] Patient informed to tile picker meds at [facility] and DM supplies at [place] Hypertension Due to hypotensive episodes, adjustments were made. Amlodipine was discontinued Decreased lisinopril to 2.5 mg daily PCP to follow up and continue management Sinus bradycardia No pauses on tele Metoprolol discontinued HLD Continue atorvastatin CKD III Baseline~1.2 Monitor renal function Avoid nephrotoxic agents when possible JARETT CPAP HS Depression Continue citalopram Espinoza's esophagus Continue PPI Total Time Total Time Spent Total Time Spent (In Minutes): 50 Total Time Includes: Examination of the Patient, Discharge Planning and Medication Reconciliation Discharge Plan Discharge Items Patient Disposition: Home - Self-Care Reason For Visit: COVID PNA Discharge Diagnosis: Acute hypoxic respiratory failure due to COVID-19 pneumonia Activity: Resume your previous activity Non-emergency contact: Primary Care Provider Call non-emergency contact if: you have any medication questions and your symptoms worsen Follow-up/Referrals: Betina Lawson MD [Physician] - (Date & Time 06/25/2021 10:40 AM Provider Betina Phillips MD Department General Internal Medicine [facility] PLEASE NOTE THAT THIS IS A TELEHEALTH VIDEO APPOINTMENT. PLEASE FOLLOW THE INSTRUCTIONS PROVIDED IN YOUR EMAIL. IF YOU HAVE ANY QUESTIONS REGARDING THIS APPOINTMENT, OR WOULD LIKE TO CHANGE IT, PLEASE CALL ) Diet: Carb Consistent or DM2 and Heart Healthy Addtl Attending Provider Instructions: Mr. Hong You came to the hospital due to cough and worsening shortness of breath. You were evaluated and found to have COVID-19 pneumonia. You also noted to have poorly controlled diabetes. He also required oxygen and had a prolonged hospital stay. Your symptoms improved and your oxygen was weaned down. You are being discharged on 4 L/min of oxygen at rest and increased to 6 L/min with activity. Your metformin was increased to 500 mg twice a day. You were started on long-acting insulin glargine 12 units every evening. Please monitor your blood sugar as discussed. Due to low blood pressures and low heart rate, some of your heart medications were adjusted. Amlodipine and metoprolol were discontinued for now. Your lisinopril was changed from 10 mg tablets to 2.5 mg tablets. It is very important that you continue to follow-up with your primary doctors for continued follow-up and management. Please ensure you tile picker your new medications at [facility]'s pharmacy and your diabetes supply at [facility] pharmacy It was a pleasure taking care of you Pending Studies at Discharge: No Stand-Alone Forms: My [facility], Smoking Cessation Medications and DC Order Prescriptions: New lisinopril 2.5 mg Tablet 2.5 mg PO DAILY Qty: 30 RF: 0 Basaglar KwikPen U-100 Insulin 100 unit/mL (3 mL) insulin pen 12 unit subcut PM Qty: 15 RF: 0 (DME) pen needle, diabetic 31 gauge x 5/32" needle See Rx Instructions .Route Qty: 100 RF: 0 (DME) lancets [OneTouch Delica Lancets] 33 gauge misc See Rx Instructions .Route Qty: 100 RF: 0 (DME) OneTouch Verio test strips Strip See Rx Instructions .Route Qty: 100 RF: 0 Continued atorvastatin 80 mg tablet 80 mg PO DAILY RF: 0 nitroglycerin 0.4 mg tablet, sublingual 0.4 mg Sublingual UD PRN (Reason: Chest Pain) RF: 0 finasteride 5 mg tablet 5 mg PO QAM RF: 0 cetirizine [Zyrtec] 10 mg Tablet 10 mg PO DAILY RF: 0 albuterol sulfate 90 mcg/actuation Hfa Aerosol Inhaler 2 puff INHALATION UD PRN (Reason: Shortness Of Breath Or Wheezing) RF: 0 aspirin [Ecotrin Low Strength] 81 mg Tablet,Delayed Release (Dr/Ec) 81 mg PO QAM Qty: 30 RF: 2 Centrum Silver Men 300-600-300 mcg Tablet 1 tab PO DAILY RF: 0 citalopram 20 mg tablet 20 mg PO DAILY RF: 0 pantoprazole 40 mg tablet,delayed release (DR/EC) 40 mg PO DAILY RF: 0 ferrous sulfate [iron] 325 mg (65 mg iron) Tablet 325 mg PO DAILY RF: 0 coenzyme Q10 [CoQ-10] 100 mg Capsule 100 mg PO DAILY RF: 0 cinnamon bark [Cinnamon] 500 mg Capsule 500 mg PO DAILY RF: 0 cholecalciferol (vitamin D3) 25 mcg (1,000 unit) Tablet 25 mcg PO DAILY RF: 0 Prevagen 1 tab PO DAILY RF: 0 isosorbide mononitrate 30 mg tablet extended release 24 hr 30 mg PO DAILY RF: 0 montelukast 10 mg tablet 10 mg PO DAILY RF: 0 fluticasone propionate 50 mcg/actuation spray,suspension 2 spray INTRANASAL DAILY PRN (Reason: Nasal Congestion) RF: 0 Changed metformin 500 mg tablet 500 mg PO BID Qty: 60 RF: 0 Discontinued amlodipine 5 mg tablet 5 mg PO QAM RF: 0 lisinopril 10 mg tablet 10 mg PO DAILY RF: 0 metoprolol succinate 25 mg tablet extended release 24 hr 25 mg PO BID RF: 0 ibuprofen [Advil] 200 mg Tablet 400 mg PO Q6H PRN (Reason: Pain) RF: 0 Discharge Orders: Discharge Order (Routine); Ordered 06/20/21 Ordered By: Lisa Alejandra Admission Data Admit Date/Time: 06/01/21 09:30 Attending Provider: Lisa Alejandra I. Admit Provider: Ewa Joya Primary Care Provider: Brent Comer Other Providers: Angel Luna ; Chucky Kurtz [facility] Other Interventions: Discharge Summary Assessment (RN) Last Done: 06/20/21 16:23
[2021-06-20 15:12] VITALS: BP 117/70; TEMP 99; O2SAT 100
[2021-06-20 16:28] VITALS: PULSE 60
== END 2021-06-20 17:42 | disposition home health service (06) | DRG 177 ==
LOC: ED 07:29 → EDINP 09:30 → SUATTDRO 09:30 → 2W 16:02 → 2N 06-19 11:01

== ENCOUNTER 2022-06-12 10:15 | Observation (INO) ==
[2022-06-12] MEDS ORDERED: SODIUM CHLORIDE 0.9% 1000ML 1,000 ML IV SCH ×2 (11:00→13:43)
[2022-06-12 11:43] LABS: Basophils # (auto) 0.05 K/uL (0-0.2); Basophils % (auto) 0.6 %; Eosinophils # (auto) 0.23 K/uL (0-0.50); Eosinophils % (auto) 2.6 %; Hematocrit (blood only) 44.1 % (40.1-51.0); Hemoglobin 15.9 g/dl (14.0-18.0); Immature Granulocytes # (auto) 0.03 K/uL (0.00-0.02); Immature Granulocytes % (auto) 0.3 %; Lymphocytes % (auto) 27.1 %; Mean Corpuscular Hemoglobin 31.6 pg (25.0-34.0); Mean Corpuscular Hgb Conc 36.1 g/dL (32.0-36.0); Mean Corpuscular Volume 87.7 fL (80.0-100.0); Monocytes # (auto) 0.51 K/uL (0.24-0.82); Monocytes % (auto) 5.8 %; Neutrophils # (auto) 5.64 K/uL (1.4-6.5); Neutrophils % (auto) 63.6 %; Platelet Count 243 K/uL (130-400); RDW Coefficient of Variation 12.2 % (11.5-14.5); RDW Standard Deviation 38.9 fL (36.4-46.3); Red Blood Count 5.03 M/uL (4.63-6.08); White Blood Count 8.86 K/ul (4.8-10.8)
[2022-06-12 12:08] LABS: Troponin I High Sensitivity 24.1 pg/ml (0-20)
[2022-06-12 12:15] LABS: Albumin Globulin Ratio 1.4 (0.9-2); Albumin Level 4.1 gm/dl (3.4-5.0); BUN Creatinine Ratio 18.6 (10-20); Bilirubin,Total 0.7 mg/dl (0.2-1.0); Creatinine Clr Calc Pharmacy 55.1 ml/min; Est GFR (African American) 62.9 ml/min; Est GFR (Non-African American) 54.3 ml/min; Magnesium 2.2 mg/dl (1.7-2.4); Potassium 4.6 mmol/L (3.5-5.1); Total Protein 7.1 gm/dl (6.0-8.3)
[2022-06-12] MEDS ORDERED: NovoLIN-R INSULIN PER UNIT CHARGE IV STA (12:22)
[2022-06-12 12:41] LABS: Appearance Urine Cloudy (Clear); Bacteria Urine Automated Negative (Negative); Bilirubin Urine Negative (Negative); Blood Urine Negative (Negative); Cast Urine Automated 0 /lpf (0-5); Color Urine Yellow; Epithelial Cell Urine Auto 0-5 /lpf (0-5); Glucose Urine UA 3+ (Negative); Ketones Urine Trace (Negative); Leukocyte Esterase Urine Negative (Negative); Nitrite Urine Negative (Negative); Protein Urine Negative (Negative); RBC Urine Automated 0-4 /hpf (0-4); Specific Gravity Urine 1.031 (1.000-1.030); Urobilinogen Urine Negative (Negative); WBC Urine Automated 0 /hpf (0-5); pH Urine 6.5 (4.5-7.5)
[2022-06-12] MEDS ORDERED: OSELTAMIVIR PHOSPHATE 75 MG CAP PO STA (12:44)
[2022-06-12] MEDS ORDERED: GLUCOSE 40% GEL 15 GM TUBE PO PRN (12:58)
[2022-06-12] MEDS ORDERED: CARBOHYDRATES FOR HYPOGLYCEMIA PO PRN (12:58)
[2022-06-12] MEDS ORDERED: GLUCOSE 10 TAB/TUBE PO PRN (12:58)
[2022-06-12] MEDS ORDERED: PHARMACY GLYCEMIC MGMT CONSULT PRN (12:58)
[2022-06-12] MEDS ORDERED: DEXTROSE 50% 50 ML SYRINGE IV PRN (12:58)
[2022-06-12] MEDS ORDERED: GLUCAGON FOR INJ 1 MG VIAL SQ PRN (12:58)
--- NOTE | 2022-06-12 13:07 | History & Physical Report ---
Date of Service June 12, 2022 Assessment & Plan (1) Hyperglycemia: Plan: Pt referred to the ED today after outpatient labs apparently showed a blood glucose >600. Recent course of prednisone for URI symptoms - completed three days ago. In the ED, blood sugar was in the 360s so patient given 5 units of regular insulin. Pt notes recent start on Jardiance and Glipizide. Also noted to have borderline troponin elevation so due to risk factors for atypical cardia c disease, pt was referred for observation. - Observe on med telemetry overnight - Repeat troponin - if stable, no need for additional repeat draws - EKG in AM and prn for chest pain - Outpatient cardio appt already scheduled for mid-June - will hold on inpatient cardio evaluation for now - Check A1c as unclear when pt last had checked and how compliant pt is with recommend regimen. He states that he does not check his blood glucose at home - does not have a meter. - Insulin sliding scale - will consult pharm for assistance with glycemic management (2) Elevated troponin: (3) Poorly controlled diabetes mellitus: (4) Sleep apnea: Plan: Continue CPAP while admitted - settings found in outpatient records (5) Long COVID: Plan: Following with pulm, using prn O2 but has not needed recently - no need for O2 at present, keep outpatient pulm appt for next week (6) CKD (chronic kidney disease), stage III: Plan: Clinically appears dry and BUN elevated from baseline. Will give a total of 2L of IVF, encourage oral intake - Repeat labs in AM (7) CAD (coronary artery disease): (8) Hypertension: (9) Dyslipidemia, goal LDL below 70: Plan Continue other home medications as appropriate Pt seen and reviewed with attending physician, Dr. Luna. Plan of care discussed and as outlined above. Code Status: Full code DVT Prophylaxis: Loveemelyn Pandya PA-C History of Present Illness Chief Complaint: Abnormal lab work Primary Care Provider: Jose Wilks, This is a 76 y/o male with a PMH of DM2, CAD s/p DC, prior cardiac stent, JARETT on CPAP, long COVID on prn O2 therapy, ILD, HTN, dyslipidemia, CKD3a, BPH, allergic rhinitis and GERD w/ hx of Espinoza's esophagus who presented to the ED today after being referred by his PCP office for elevated blood sugar on outpatient labs. History is obtained both from the patient and from review of his outpatient [facility] records in [facility]. Pt started with URI symptoms on 05/31/22 after being exposed to a sick contact at work. Seen by PCP office on 06/02 and COVID/flu testing ordered, which were negative. Due to history of ILD with abnormal lung exam at that visit, he was started on prednisone 20 mg daily for 5 days and albuterol HFA as needed. Pt notes significant improvement in his symptoms, specifically the chest and head congestion, with the prednisone, which he completed on 06/09. Seen by PCP office on 06/10 to establish care with a new provider. Multiple medication changes were apparently made and labs were drawn, although results not currently available to me. Per chart/pt, his outpatient labs showed a sugar >600 so pt was referred to the ED this morning for evaluation and insulin therapy. in the ED, he was noted to have a blood sugar of 363 and a mildly elevated troponin at 24.1. He also appeared clinically dry with an elevated BUN so started on IV fluids. Pt reports poor oral intake over the last several days although he has been trying to push fluids with water, gatorade zero and propel. He notes increased thirst and urination over the last few days. He has had nocturia 3-4x/night. He denies vomiting or diarrhea. Appetite is decreased. He has only been taking metformin once daily because of nausea. He denies fevers or chills. He has occasional chest pains but unchanged from baseline. Denies palpitations, BISHOP, syncope. Allergies Allergy/AdvReac Type Severity Reaction Status Date / Time Iodinated Contrast Media Allergy Mild "IVP DYE" Verified 09/08/21 19:46 HIVES Home Medications Medication Instructions Recorded Confirmed Type albuterol sulfate 90 mcg/actuation 2 puff inhalation Q4 PRN Shortness 05/01/18 06/12/22 History aerosol inhaler Of Breath Or Wheezing atorvastatin 80 mg tablet 80 mg PO QPM 05/01/18 06/12/22 History cetirizine 10 mg tablet (Zyrtec) 10 mg PO DAILY 05/01/18 06/12/22 History finasteride 5 mg tablet 5 mg PO QAM 05/01/18 06/12/22 History nitroglycerin 0.4 mg sublingual 0.4 mg sublingual UD PRN Chest Pain 05/01/18 06/12/22 History tablet aspirin 81 mg tablet,delayed 81 mg PO QAM #30 tabs 05/04/18 06/12/22 Rx release (Ecotrin Low Strength) hddpvfte-cym-tvwfv acid 300 1 tab PO DAILY 03/20/19 06/12/22 History mcg-lycopene 600 mcg-lutein 300 mcg tablet (Centrum Silver Men) pantoprazole 40 mg tablet,delayed 40 mg PO QAM 08/16/19 06/12/22 History release cholecalciferol (vitamin D3) 25 50 mcg PO DAILY 03/23/20 06/12/22 History mcg (1,000 unit) tablet cinnamon bark 500 mg capsule 500 mg PO DAILY 03/23/20 06/12/22 History (Cinnamon) coenzyme Q10 100 mg capsule 100 mg PO DAILY 03/23/20 06/12/22 History (CoQ-10) fluticasone propionate 50 2 spray intranasal DAILY PRN Nasal 06/01/21 06/12/22 History mcg/actuation nasal Congestion spray,suspension isosorbide mononitrate 30 mg 30 mg PO DAILY 06/01/21 06/12/22 History tablet,extended release 24 hr montelukast 10 mg tablet 10 mg PO QPM 06/01/21 06/12/22 History colestipol 1 gram tablet 1 g PO BID PRN Diarrhea 09/08/21 06/12/22 History famotidine 20 mg tablet 20 mg PO HS 09/08/21 06/12/22 History amlodipine 5 mg tablet 5 mg PO DAILY 06/12/22 06/12/22 History citalopram 10 mg tablet 10 mg PO DAILY 06/12/22 06/12/22 History empagliflozin 25 mg tablet 25 mg PO UD 06/12/22 06/12/22 History (Jardiance) glipizide 5 mg tablet, extended 5 mg PO DAILY 06/12/22 06/12/22 History release 24 hr losartan 50 mg tablet 50 mg PO DAILY 06/12/22 06/12/22 History magnesium 100 mg capsule 100 mg PO DAILY 06/12/22 06/12/22 History melatonin 10 mg tablet 10 mg PO HS PRN Insomnia 06/12/22 06/12/22 History metformin 500 mg tablet,extended 500 mg PO DAILY 06/12/22 06/12/22 History release 24 hr Past Med/Surg History Medical History (Updated 06/12/22 @ 16:47 by Tash Pandya PA-C) Acid reflux Acute pancreatitis Anxiety and depression Espinoza esophagus BPH loc w urin obs/LUTS CAD in [place] artery CKD (chronic kidney disease), stage III Colitis DIETARY CONTROLLED Dyslipidemia, goal LDL below 70 Gastric polyp Hiatal hernia History of kidney stones HTN, goal below 130/80 Long COVID Myocardial infarction Rotator cuff dysfunction LEFT/ OLD INJURY Seasonal allergies Sleep apnea CPAP SOB (shortness of breath) on exertion PT REPORTS CARDIO IS AWARE ST elevation (STEMI) myocardial infarction APR 2018 - "ANGIOPLASTY" - DENIES STENT INSERTION ([facility]) Type 2 diabetes mellitus Surgical History History of angioplasty History of colonoscopy History of hemorrhoidectomy History of laparoscopic cholecystectomy History of reduction of closed fracture LEFT ARM History of right cataract extraction S/P cardiac catheterization Myocardial infarction 2001, with PCI of circumflex. Cardiac catheterization 2003 demonstrating patent circumflex stent. Catheterization April 2013 with bare-metal stenting to the proximal and mid right coronary artery. Catheterization 2015 demonstrating patent stents and moderate nonobstructive CAD. Family History Brother CAD in [place] artery Coronary artery bypass grafting x4 at age 68 Mother CAD in [place] artery Social History (Updated 06/12/22 @ 15:00 by Tash Pandya PA-C) Smoking Status: Never smoker Second Hand Exposure: No; Hx Alcohol Use: No Hx Substance Use: No Preferred Language: Romanian Communication Ability: Effective Furnace Room Supervisor Required: No Beliefs That Will Affect Care: None marital status: Single Current Living Situation: Alone Current Living Situation Comment: Lives at home alone Feels Safe at Home: Yes Assistive Devices: CPAP Assistive Devices Comment: PRN Oxygen Review of Systems Review of Systems: All systems reviewed & are unremarkable except as noted in HPI & below Constitutional: + fatigue and + anorexia; no fever and no chills Eyes: no diplopia and no worsening vision Ear, Nose, Mouth, Throat: + hoarseness; no nasal congestion and no sore throat Respiratory: + cough; no hemoptysis Cardiovascular: as per Subjective / HPI Gastrointestinal: no abdominal pain, no vomiting and no diarrhea/loose stools Genitourinary: + urinary frequency and + nocturia; no hematuria Musculoskeletal: no back pain Integumentary: no rash and no yellowing of the skin Neurologic: no dizziness, no syncope, no headache(s) and no confusion Psychiatric: + depression Physical Exam Constitutional: well developed and well nourished; no acute distress Eyes: + anicteric sclerae and PERRL ENMT: external ear and nose normal, oropharynx normal Neck: trachea midline Respiratory: no respiratory distress and no labored breathing Auscultation: lungs clear to auscultation bilaterally; no rales, no rhonchi and no wheezes Cardiovascular: Rate/Rhythm: regular rate and regular rhythm Heart Sounds: no murmur Vessels: posterior tibial pulses present and radial pulses present Extremities: no pedal edema Gastrointestinal (Abdomen): Inspection/Auscultation: normal bowel sounds; abdomen not distended Percussion/Palpation: abdomen soft; abdomen nontender Musculoskeletal: Head/Neck/Chest: normocephalic, head atraumatic and neck supple Skin: no jaundice Neurologic: moves all extremities; no focal motor deficits and not confused Psychiatric: Orientation: alert and oriented x 3 Results & Data Results & Data ([facility]) Vital Signs (Past 12 Hours) Vital Signs Temp Pulse Resp BP Pulse Ox O2 Del Method 06/12/22 10:25 36.6 C 57 L 18 140/85 96 Room Air Laboratory Results Laboratory Results - last 24 hr 06/12/22 06/12/22 06/12/22 11:20 11:20 11:20 WBC 8.86 RBC 5.03 Hgb 15.9 Hct 44.1 MCV 87.7 MCH 31.6 MCHC 36.1 H RDW Std Deviation 38.9 RDW Coeff of Dashawn 12.2 Plt Count 243 MPV 10.0 Immature Gran % (Auto) 0.3 Neut % (Auto) 63.6 Lymph % (Auto) 27.1 [place] % (Auto) 5.8 Eos % (Auto) 2.6 Baso % (Auto) 0.6 Neut # (Auto) 5.64 Lymph # (Auto) 2.40 [place] # (Auto) 0.51 Eos # (Auto) 0.23 Baso # (Auto) 0.05 Immature Gran # (Auto) 0.03 H Sodium 133 L Potassium 4.6 Chloride 100 Carbon Dioxide 22 Anion Gap 11 BUN 24 H Creatinine 1.29 Est Cr Clr Drug Dosing 55.1 Est GFR ( Amer) 62.9 Est GFR (Non-Af Amer) 54.3 BUN/Creatinine Ratio 18.6 Glucose 363 H* Calcium 10.0 Magnesium 2.2 Total Bilirubin 0.7 AST 19 ALT 20 Alkaline Phosphatase 74 Troponin I High Sens 24.1 H Total Protein 7.1 Albumin 4.1 Globulin 3.0 Albumin/Globulin Ratio 1.4 TSH 1.022 Urine Color Urine Appearance Urine pH Ur Specific [place] Urine Protein Urine Glucose (UA) Urine Ketones Urine Blood Urine Nitrite Urine Bilirubin Urine Urobilinogen Ur Leukocyte Esterase Urine WBC (Auto) Urine RBC (Auto) U Hyaline Cast (Auto) U Epithel Cells (Auto) Urine Bacteria (Auto) SARS-CoV-2, RNA, NAAT 06/12/22 06/12/22 11:38 Unknown WBC RBC Hgb Hct MCV MCH MCHC RDW Std Deviation RDW Coeff of [place] Plt Count MPV Immature Gran % (Auto) Neut % (Auto) Lymph % (Auto) [place] % (Auto) Eos % (Auto) Baso % (Auto) Neut # (Auto) Lymph # (Auto) [place] # (Auto) Eos # (Auto) Baso # (Auto) Immature Gran # (Auto) Sodium Potassium Chloride Carbon Dioxide Anion Gap BUN Creatinine Est Cr Clr Drug Dosing Est GFR ( Amer) Est GFR (Non-Af Amer) BUN/Creatinine Ratio Glucose Calcium Magnesium Total Bilirubin AST ALT Alkaline Phosphatase Troponin I High Sens Total Protein Albumin Globulin Albumin/Globulin Ratio TSH Urine Color Yellow Urine Appearance Cloudy A Urine pH 6.5 Ur Specific [place] 1.031 H Urine Protein Negative Urine Glucose (UA) 3+ H Urine Ketones Trace H Urine Blood Negative Urine Nitrite Negative Urine Bilirubin Negative Urine Urobilinogen Negative Ur Leukocyte Esterase Negative Urine WBC (Auto) 0 Urine RBC (Auto) 0-4 U Hyaline Cast (Auto) 0 U Epithel Cells (Auto) 0-5 Urine Bacteria (Auto) Negative SARS-CoV-2, RNA, NAAT NEGATIVE Medications Administered Sodium Chloride (Nss 1000ml) 1,000 mls @ 125 mls/hr IV .Q8H JAX Stop: 06/12/22 18:59 Last Admin: 06/12/22 12:23 Dose: 125 mls/hr Documented By: RDD Discontinued Medications Insulin Human Regular (Novolin-R Insulin Per Unit Charge) 5 units IV NOW STA Stop: 06/12/22 12:23 Last Admin: 06/12/22 12:41 Dose: 5 units Documented By: VIVIAN Co-signed By: VEE Code Status & VTE Plan VTE Prophylaxis Plan VTE Prophylaxis will be ordered: Yes Supervising Physician Co-Signing Physician Notes Patient is a 76-year-old male with multiple comorbidities presents to ED on recommendations by his PCP for evaluation of elevated blood glucose levels. Patient states having generalized weakness and had transient blurry vision while in ED but currently resolved. He was recently started on Jardiance. Reports chronic cough from COVID infection but otherwise denies any chest pain, shortness of breath, dizziness, nausea, abdominal pain. His HbA1c is 13.6. Please review HPI for complete details of presentation. Blood work showed sodium 133, BUN 24, creatinine 1.29, glucose 363, HbA1c 13.6, troponin 24.1 otherwise within normal limits. Urinalysis showed 3+ glucose, trace ketones. EKG showed sinus bradycardia, left axis deviation, minimal T wave changes in lateral leads also noted on prior EKGs. On exam patient is obese, no apparent distress, normocephalic atraumatic, normal breath sounds, clear to auscultation, S1-S2, no murmur, bradycardia, trace pedal edema, abdomen soft, nontender, normal bowel sounds, alert, awake oriented, grossly no focal deficits. Patient is admitted for management of uncontrolled diabetes mellitus. Will start on insulin per protocol. stretch box tender consulted. Counseled on diet. Monitor blood glucose levels closely. Will trend troponin levels, repeat EKG in the morning. I personally reviewed the record. Patient is interviewed and examined at bedside. Patient's care is coordinated with Tash Pandya PA-C . Please refer to the documentation above for details of patient's presentation and for discussion of other issues. (1) CAD (coronary artery disease) Associated angina: with other forms of angina Coronary Disease-Associated Artery/Lesion type: [place] artery [place] vs. transplanted heart: [place] heart Qualified Code(s): I25.118 - Atherosclerotic heart disease of [place] coronary artery with other forms of angina pectoris (2) Hypertension Hypertension type: essential hypertension Qualified Code(s): I10 - Essential (primary) hypertension
--- NOTE | 2022-06-12 13:26 | Emergency Department Note ---
Impression & Plan Hyperglycemia, Elevated troponin ED Provider Note INFORMANT: Patient ED PROVIDER(S): Guanako Mcgovern MD CHIEF COMPLAINT: Hyperglycemia PLAN: Disposition: Admitted Condition: Good Outpatient prescription management: none Referral: None MEDICAL DECISION MAKING: Patient presented Emergency Department because of hyperglycemia. Blood work was obtained. EKG was performed. Patient was noted to have a sinus bradycardia on ECG. No acute ischemic change. His CBC was unremarkable. Chemistry panel revealed hyperglycemia with a blood glucose of 363. Patient did have an elevated troponin as well. Patient was hydrated. He was given IV insulin. Given the hyperglycemia, lack of insulin use at home, and elevated troponin further management in the hospital was felt to be appropriate. Patient was in agreement. [facility] Patient was evaluated in the ER and admitted for further management. Triage Nursing notes reviewed and agree them. Vital Signs: reviewed and remarkable for no significant abnormalities Differential diagnosis: Infection, dehydration, metabolic abnormality, hypo/hyperglycemia, electrolyte disturbance, anemia, hypoxia, cardiac sources, intracerebral event, toxicologic, neurologic, as well as other pathologies. Diagnostics interpreted by me: ECG: Twelve-lead ECG reveals a sinus bradycardia 52 bpm. Left anterior fascicular block. Lateral Q waves. No ST elevation or depression. Cardiac Monitoring: Cardiac monitoring ordered by me: The patient was placed on continuous cardiac monitoring and observed. It revealed a sinus bradycardia 57 beats per minute without ectopy or evidence of dysrhythmia. Imaging studies: none HPI: The patient is a 76 year old male who presents to the Emergency Room with complaints of hyperglycemia. Patient states he was at his doctor's office and was told to come in for treatment because his blood sugar was over 600. Patient recently had a URI and was treated with prednisone. He stopped that 3 days ago. Patient does note frequent urination and thirst. The patient has taken no medication for relieving factors. Current pain is rated as 0/10. Patient is diabetic but only uses oral agents. Pt denies LOC, headache, fevers, chills, diaphoresis, visual changes, neck pain, chest pain, breathing difficulties, nausea, vomiting, abdominal pain, back pain, melena, hematochezia, numbness, weakness, lymphadenopathy, rash, or other complaints. ROS: See above HPI for pertinent positives & negatives. A total of 10 systems reviewed and were otherwise negative. PAST MEDICAL HISTORY:See Below , diabetes PAST SURGICAL HISTORY:See Below, FAMILY HISTORY:See Below SOCIAL HISTORY:See Below, non-smoker HOME MEDICATIONS:See Below ALLERGIES:See Below VITALS:See Below PHYSICAL EXAMINATION: GENERAL: Awake, alert, well-appearing, in no distress HENT: Normocephalic, atraumatic. Oropharynx unremarkable except for dry mucous membranes. EYES: Normal conjunctiva. Sclera non-icteric. NECK: Inspection normal. Non-tender. Supple. No nuchal rigidity. FROM. No masses. RESPIRATORY: Clear to auscultation. No wheezes. No rales. Normal respiratory effort. CARDIAC: Bradycardic rate. Normal rhythm. No murmurs. No rubs. Extremities war m and well perfused. Pulses equal. No JVD. GI: Soft, non-distended. No tenderness to palpation. No rebound or guarding. No masses. RECTAL: Deferred. MUSCULOSKELETAL: Atraumatic. Chest examination reveals no tenderness. The back is symmetrical on inspection without obvious abnormality. There is no CVA tenderness to palpation. No joint edema. LOWER EXTREMITIES: Calves are equal size bilaterally and non-tender. No edema. No discoloration. NEURO: Normal sensorium. No sensory or motor deficits noted. SKIN: No rash or jaundice noted. Guanako Mcgovern MD Past Med/Surg History Medical History Acid reflux Anxiety and depression CAD in [place] artery CKD (chronic kidney disease), stage III Colitis DIETARY CONTROLLED Dyslipidemia, goal LDL below 70 Hiatal hernia History of kidney stones HTN, goal below 130/80 Myocardial infarction Rotator cuff dysfunction LEFT/ OLD INJURY Seasonal allergies Sleep apnea CPAP SOB (shortness of breath) on exertion PT REPORTS CARDIO IS AWARE ST elevation (STEMI) myocardial infarction APR 2018 - "ANGIOPLASTY" - DENIES STENT INSERTION ([facility]) Surgical History History of angioplasty History of colonoscopy History of hemorrhoidectomy History of laparoscopic cholecystectomy History of reduction of closed fracture LEFT ARM History of right cataract extraction S/P cardiac catheterization Myocardial infarction 2001, with PCI of circumflex. Cardiac catheterization 2003 demonstrating patent circumflex stent. Catheterization April 2013 with bare-metal stenting to the proximal and mid right coronary artery. Catheterization 2015 demonstrating patent stents and moderate nonobstructive CAD. Family History Brother CAD in [place] artery Coronary artery bypass grafting x4 at age 68 Mother CAD in [place] artery Social History Smoking Status: Never smoker Second Hand Exposure: No; Hx Alcohol Use: No Hx Substance Use: No Preferred Language: Tam[place] Communication Ability: Effective Golf Cart Mechanic Required: No Beliefs That Will Affect Care: None marital status: Single Current Living Situation: Alone Current Living Situation Comment: Lives at home alone Feels Safe at Home: Yes Assistive Devices: Oxygen - Continuous Allergies Allergies Allergy/AdvReac Type Severity Reaction Status Date / Time Iodinated Contrast Media Allergy Mild "IVP DYE" Verified 09/08/21 19:46 HIVES Home Meds Home Medications Medication Instructions Recorded Confirmed albuterol sulfate 90 mcg/actuation 2 puff inhalation UD PRN Shortness 05/01/18 09/08/21 aerosol inhaler Of Breath Or Wheezing atorvastatin 80 mg tablet 80 mg PO DAILY 05/01/18 09/08/21 cetirizine 10 mg tablet (Zyrtec) 10 mg PO DAILY 05/01/18 09/08/21 finasteride 5 mg tablet 5 mg PO QAM 05/01/18 09/08/21 nitroglycerin 0.4 mg sublingual 0.4 mg sublingual UD PRN Chest Pain 05/01/18 09/08/21 tablet [id number]-[id number] acid 300 1 tab PO DAILY 03/20/19 09/08/21 mcg-lycopene 600 mcg-lutein 300 mcg tablet (Centrum Silver Men) citalopram 20 mg tablet 20 mg PO DAILY 08/16/19 09/08/21 pantoprazole 40 mg tablet,delayed 40 mg PO QAM 08/16/19 09/08/21 release Prevagen 1 tab PO DAILY 03/23/20 09/08/21 cholecalciferol (vitamin D3) 25 25 mcg PO DAILY 03/23/20 09/08/21 mcg (1,000 unit) tablet cinnamon bark 500 mg capsule 500 mg PO DAILY 03/23/20 09/08/21 (Cinnamon) coenzyme Q10 100 mg capsule 100 mg PO DAILY 03/23/20 09/08/21 (CoQ-10) ferrous sulfate 325 mg (65 mg 325 mg PO UD 03/23/20 09/08/21 iron) tablet (iron) fluticasone propionate 50 2 spray intranasal DAILY PRN Nasal 06/01/21 09/08/21 mcg/actuation nasal Congestion spray,suspension isosorbide mononitrate 30 mg 30 mg PO DAILY 06/01/21 09/08/21 tablet,extended release 24 hr montelukast 10 mg tablet 10 mg PO DAILY 06/01/21 09/08/21 budesonide 180 mcg/actuation 180 mcg inhalation BID 09/08/21 09/08/21 breath activated powder inhaler (Pulmicort Flexhaler) colestipol 1 gram tablet 1 g PO BID 09/08/21 09/08/21 famotidine 20 mg tablet 20 mg PO HS 09/08/21 09/08/21 lisinopril 2.5 mg tablet 2.5 mg PO QAM 09/08/21 09/08/21 Previous Rx's Medication Instructions Recorded aspirin 81 mg tablet,delayed 81 mg PO QAM #30 tabs 05/04/18 release (Ecotrin Low Strength) blood sugar diagnostic (OneTouch #100 ea 06/20/21 Verio test strips) insulin glargine 100 unit/mL (3 12 unit (0.12 mL) subcut PM #15 mL 06/20/21 mL) subcutaneous pen (Basaglar KwikPen U-100 Insulin) lancets 33 gauge (Cylene PharmaceuticalsTouch Delica #100 ea 06/20/21 Lancets) metformin 500 mg tablet 500 mg PO BID #60 tabs 06/20/21 pen needle, diabetic 31 gauge x #100 ea 06/20/21 5/32" amoxicillin 875 mg-potassium 1 tab PO BID #20 tabs 09/08/21 clavulanate 125 mg tablet Results & Data (ED) Vital Signs Vital Signs - 24 hr 06/12/22 10:25 06/12/22 11:17 06/12/22 11:17 Temperature 36.6 C Temperature Source Temporal Artery Scan Pulse Rate 57 L 55 L Pulse Rate [Apical] 55 L Pulse Rate from SpO2 Sensor Pulse Rhythm Regular Pulse Rhythm [Apical] Regular Pulse Strength [Apical] Normal Respiratory Rate 18 22 19 Respiratory Effort / Characteristics Non-Labored Respiratory Depth Normal Respiratory Pattern Regular Blood Pressure 140/85 Blood Pressure [Right Arm] 119/72 Blood Pressure Mean 103 Blood Pressure Mean [Right Arm] 87 Blood Pressure Position Sitting Blood Pressure Position [Right Arm] Lying Pulse Oximetry 96 94 94 Oxygen Delivery Method Room Air Room Air Room Air Sepsis Recent Fever Within 48 Hours No Sepsis New/Unexplained Change in Mental Status No Sepsis Action Taken by Nursing No Action Required 06/12/22 12:27 06/12/22 12:30 06/12/22 12:30 Temperature Temperature Source Pulse Rate 54 L 51 L Pulse Rate [Apical] Pulse Rate from SpO2 Sensor 55 L 52 L Pulse Rhythm Pulse Rhythm [Apical] Pulse Strength [Apical] Respiratory Rate 20 18 Respiratory Effort / Characteristics Respiratory Depth Respiratory Pattern Blood Pressure 132/80 Blood Pressure [Right Arm] Blood Pressure Mean 97 Blood Pressure Mean [Right Arm] Blood Pressure Position Blood Pressure Position [Right Arm] Pulse Oximetry 93 94 Oxygen Delivery Method Sepsis Recent Fever Within 48 Hours Sepsis New/Unexplained Change in Mental Status Sepsis Action Taken by Nursing 06/12/22 13:00 06/12/22 13:00 Temperature Temperature Source Pulse Rate 57 L Pulse Rate [Apical] Pulse Rate from SpO2 Sensor 58 L Pulse Rhythm Pulse Rhythm [Apical] Pulse Strength [Apical] Respiratory Rate 20 Respiratory Effort / Characteristics Respiratory Depth Respiratory Pattern Blood Pressure 119/72 Blood Pressure [Right Arm] Blood Pressure Mean 87 Blood Pressure Mean [Right Arm] Blood Pressure Position Blood Pressure Position [Right Arm] Pulse Oximetry 94 Oxygen Delivery Method Sepsis Recent Fever Within 48 Hours Sepsis New/Unexplained Change in Mental Status Sepsis Action Taken by Nursing Laboratory Data Result diagrams: 06/12/22 11:20 06/12/22 11:20 Lab Results 06/12/22 06/12/22 06/12/22 Range/Units 11:20 11:20 11:20 WBC 8.86 (4.8-10.8) K/ul RBC 5.03 (4.63-6.08) M/uL Hgb 15.9 (14.0-18.0) g/dl Hct 44.1 (40.1-51.0) % MCV 87.7 (80.0-100.0) fL MCH 31.6 (25.0-34.0) pg MCHC 36.1 H (32.0-36.0) g/dL RDW Std Deviation 38.9 (36.4-46.3) fL RDW Coeff of Dashawn 12.2 (11.5-14.5) % Plt Count 243 (130-400) K/uL MPV 10.0 (9.4-12.4) fL Immature Gran % (Auto) 0.3 % Neut % (Auto) 63.6 % Lymph % (Auto) 27.1 % Craven % (Auto) 5.8 % Eos % (Auto) 2.6 % Baso % (Auto) 0.6 % Neut # (Auto) 5.64 (1.4-6.5) K/uL Lymph # (Auto) 2.40 (1.2-3.4) K/uL [place] # (Auto) 0.51 (0.24-0.82) K/uL Eos # (Auto) 0.23 (0-0.50) K/uL Baso # (Auto) 0.05 (0-0.2) K/uL Immature Gran # (Auto) 0.03 H (0.00-0.02) K/uL Sodium 133 L (136-145) mmol/L Potassium 4.6 (3.5-5.1) mmol/L Chloride 100 (98-107) mmol/L Carbon Dioxide 22 (21-32) mmol/L Anion Gap 11 (3-11) BUN 24 H (6-23) mg/dl Creatinine 1.29 (0.6-1.4) mg/dl Est Cr Clr Drug Dosing 55.1 ml/min Est GFR ( Amer) 62.9 ml/min Est GFR (Non-Af Amer) 54.3 ml/min BUN/Creatinine Ratio 18.6 (10-20) Glucose 363 H* (70-99(Fasting)) mg/dl Calcium 10.0 (8.5-10.1) mg/dl Magnesium 2.2 (1.7-2.4) mg/dl Total Bilirubin 0.7 (0.2-1.0) mg/dl AST 19 (13-39) U/L ALT 20 (7-52) U/L Alkaline Phosphatase 74 (34-104) U/L Troponin I High Sens 24.1 H (0-20) pg/ml Total Protein 7.1 (6.0-8.3) gm/dl Albumin 4.1 (3.4-5.0) gm/dl Globulin 3.0 (2.5-4.0) gm/dl Albumin/Globulin Ratio 1.4 (0.9-2) TSH 1.022 (0.300-4.500) uIu/ml Urine Color Urine Appearance (Clear) Urine pH (4.5-7.5) Ur Specific [place] (1.000-1.030) Urine Protein (Negative) Urine Glucose (UA) (Negative) Urine Ketones (Negative) Urine Blood (Negative) Urine Nitrite (Negative) Urine Bilirubin (Negative) Urine Urobilinogen (Negative) Ur Leukocyte Esterase (Negative) Urine WBC (Auto) (0-5) /hpf Urine RBC (Auto) (0-4) /hpf U Hyaline Cast (Auto) (0-5) /lpf U Epithel Cells (Auto) (0-5) /lpf Urine Bacteria (Auto) (Negative) SARS-CoV-2, RNA, NAAT (NEGATIVE) 06/12/22 06/12/22 Range/Units 11:38 Unknown WBC (4.8-10.8) K/ul RBC (4.63-6.08) M/uL Hgb (14.0-18.0) g/dl Hct (40.1-51.0) % MCV (80.0-100.0) fL MCH (25.0-34.0) pg MCHC (32.0-36.0) g/dL RDW Std Deviation (36.4-46.3) fL RDW Coeff of [place] (11.5-14.5) % Plt Count (130-400) K/uL MPV (9.4-12.4) fL Immature Gran % (Auto) % Neut % (Auto) % Lymph % (Auto) % [place] % (Auto) % Eos % (Auto) % Baso % (Auto) % Neut # (Auto) (1.4-6.5) K/uL Lymph # (Auto) (1.2-3.4) K/uL [place] # (Auto) (0.24-0.82) K/uL Eos # (Auto) (0-0.50) K/uL Baso # (Auto) (0-0.2) K/uL Immature Gran # (Auto) (0.00-0.02) K/uL Sodium (136-145) mmol/L Potassium (3.5-5.1) mmol/L Chloride (98-107) mmol/L Carbon Dioxide (21-32) mmol/L Anion Gap (3-11) BUN (6-23) mg/dl Creatinine (0.6-1.4) mg/dl Est Cr Clr Drug Dosing ml/min Est GFR ( Amer) ml/min Est GFR (Non-Af Amer) ml/min BUN/Creatinine Ratio (10-20) Glucose (70-99(Fasting)) mg/dl Calcium (8.5-10.1) mg/dl Magnesium (1.7-2.4) mg/dl Total Bilirubin (0.2-1.0) mg/dl AST (13-39) U/L ALT (7-52) U/L Alkaline Phosphatase (34-104) U/L Troponin I High Sens (0-20) pg/ml Total Protein (6.0-8.3) gm/dl Albumin (3.4-5.0) gm/dl Globulin (2.5-4.0) gm/dl Albumin/Globulin Ratio (0.9-2) TSH (0.300-4.500) uIu/ml Urine Color Yellow Urine Appearance Cloudy A (Clear) Urine pH 6.5 (4.5-7.5) Ur Specific [place] 1.031 H (1.000-1.030) Urine Protein Negative (Negative) Urine Glucose (UA) 3+ H (Negative) Urine Ketones Trace H (Negative) Urine Blood Negative (Negative) Urine Nitrite Negative (Negative) Urine Bilirubin Negative (Negative) Urine Urobilinogen Negative (Negative) Ur Leukocyte Esterase Negative (Negative) Urine WBC (Auto) 0 (0-5) /hpf Urine RBC (Auto) 0-4 (0-4) /hpf U Hyaline Cast (Auto) 0 (0-5) /lpf U Epithel Cells (Auto) 0-5 (0-5) /lpf Urine Bacteria (Auto) Negative (Negative) SARS-CoV-2, RNA, NAAT NEGATIVE (NEGATIVE) Administered Medications Sodium Chloride (Nss 1000ml) 1,000 mls @ 125 mls/hr IV .Q8H JAX Stop: 06/12/22 18:59 Last Admin: 06/12/22 12:23 Dose: 125 mls/hr Documented By: RDD Discontinued Medications Insulin Human Regular (Novolin-R Insulin Per Unit Charge) 5 units IV NOW STA Stop: 06/12/22 12:23 Last Admin: 06/12/22 12:41 Dose: 5 units Documented By: VIVIAN Co-signed By: VEE Oseltamivir Phosphate (Oseltamivir Phosphate 75 Mg Cap) 75 mg PO NOW STA; Protocol Stop: 06/12/22 12:45 Last Admin: 06/12/22 13:12 Dose: Not Given Documented By: VIVIAN Discharge Plan Visit Data Chief Complaint: Referred by Doctor Stated Complaint: REFERRED BY DOC ED Provider: Guanako Mcgovern Discharge Problem: Hyperglycemia, Elevated troponin Forms Stand Alone Forms: My [facility] Prescriptions Prescriptions: No Action atorvastatin 80 mg tablet 80 mg PO DAILY nitroglycerin 0.4 mg tablet, sublingual 0.4 mg Sublingual UD PRN (Reason: Chest Pain) finasteride 5 mg tablet 5 mg PO QAM cetirizine [Zyrtec] 10 mg Tablet 10 mg PO DAILY albuterol sulfate 90 mcg/actuation Hfa Aerosol Inhaler 2 puff INHALATION UD PRN (Reason: Shortness Of Breath Or Wheezing) aspirin [Ecotrin Low Strength] 81 mg Tablet,Delayed Release (Dr/Ec) 81 mg PO QAM Qty: 30 2RF Centrum Silver Men 300-600-300 mcg Tablet 1 tab PO DAILY citalopram 20 mg tablet 20 mg PO DAILY pantoprazole 40 mg tablet,delayed release (DR/EC) 40 mg PO QAM ferrous sulfate [iron] 325 mg (65 mg iron) Tablet 325 mg PO UD Rx Instructions: on hold by pt coenzyme Q10 [CoQ-10] 100 mg Capsule 100 mg PO DAILY cinnamon bark [Cinnamon] 500 mg Capsule 500 mg PO DAILY cholecalciferol (vitamin D3) 25 mcg (1,000 unit) Tablet 25 mcg PO DAILY Prevagen 1 tab PO DAILY colestipol 1 gram tablet 1 g PO BID Pulmicort Flexhaler 180 mcg/actuation aerosol powdr breath activated 180 mcg INHALATION BID famotidine 20 mg tablet 20 mg PO HS lisinopril 2.5 mg tablet 2.5 mg PO QAM amoxicillin-pot clavulanate 875-125 mg tablet 1 tab PO BID Qty: 20 0RF isosorbide mononitrate 30 mg tablet extended release 24 hr 30 mg PO DAILY montelukast 10 mg tablet 10 mg PO DAILY fluticasone propionate 50 mcg/actuation spray,suspension 2 spray INTRANASAL DAILY PRN (Reason: Nasal Congestion) Aidaaglxiang Flores U-100 Insulin 100 unit/mL (3 mL) insulin pen 12 unit subcut PM Qty: 15 0RF metformin 500 mg tablet 500 mg PO BID Qty: 60 0RF (DME) pen needle, diabetic 31 gauge x 5/32" needle See Rx Instructions .Route Qty: 100 0RF Rx Instructions: As directed. Use once daily (DME) lancets [OneTouch Delica Lancets] 33 gauge misc See Rx Instructions .Route Qty: 100 0RF Rx Instructions: As directed. To check 2x/day (DME) OneTouch Verio test strips Strip See Rx Instructions .Route Qty: 100 0RF Rx Instructions: As directed. Check 2x/day Referrals Referrals: Jose Wilks DO [Primary Care Provider] -
[2022-06-12] MEDS ORDERED: NITROGLYCERIN SL 0.4 MG/TAB TAB SL PRN (13:43)
[2022-06-12 14:05] LABS: Estimated Average Glucose 344 mg/dl; Hemoglobin A1C 13.6 % (4.5-5.6)
[2022-06-12] MEDS ORDERED: ALBUTEROL HFA 8 GM INHALER INH PRN (14:19)
[2022-06-12] MEDS ORDERED: FLUTICASONE PROPIONATE NA SPR 16 GM BTL PRN (14:19)
[2022-06-12] MEDS ORDERED: LANTUS PER UNIT CHARGE SQ ONE (14:45)
[2022-06-12] MEDS: INSULIN ASPART PER UNIT SC SCH ×3 (15:19→22:04)
[2022-06-12] MEDS ORDERED: INSULIN ASPART PER UNIT SC SCH (16:30)
--- NOTE | 2022-06-12 18:17 | Electrocardiogram Report ---
Test Reason : Blood Pressure : / mmHG Vent. Rate : 052 BPM Atrial Rate : 052 BPM P-R Int : 150 ms QRS Dur : 100 ms QT Int : 482 ms P-R-T Axes : 037 -46 093 degrees QTc Int : 448 ms Sinus bradycardia Left anterior fascicular block Lateral infarct (cited on or before 01-MAY-2018) Possible old posterior infarct Abnormal ECG When compared with ECG of 02-JUN-2021 01:59, QRS axis Shifted left Nonspecific T wave abnormality has replaced inverted T waves in Lateral leads Confirmed by Denys Hill ([id number]) on 06/12/2022 6:17:36 PM Referred By: Jose Wilks Confirmed By:Jeison Hill
--- NOTE | 2022-06-12 18:19 | Electrocardiogram Report ---
Test Reason : Blood Pressure : / mmHG Vent. Rate : 049 BPM Atrial Rate : 049 BPM P-R Int : 144 ms QRS Dur : 114 ms QT Int : 500 ms P-R-T Axes : 029 -43 081 degrees QTc Int : 451 ms Sinus bradycardia Left axis deviation Lateral infarct (cited on or before 01-MAY-2018) Abnormal ECG Confirmed by Denys Hill ([id number]) on 06/12/2022 6:18:48 PM Referred By: Jose Wilks Confirmed By:Jeison Hill
[2022-06-12] MEDS: FAMOTIDINE 20 MG TAB PO SCH (22:04)
[2022-06-12] MEDS: ATORVASTATIN 40 MG TAB PO SCH (22:04)
[2022-06-12] MEDS: MONTELUKAST SODIUM 10 MG TABLET PO SCH (22:04)
[2022-06-12] MEDS: MELATONIN 3 MG TAB PO PRN (22:04)
[2022-06-13] MEDS: INSULIN ASPART PER UNIT SC SCH ×7 (00:35→21:10)
[2022-06-13 06:41] LABS: Hematocrit (blood only) 42.7 % (40.1-51.0); Mean Corpuscular Hemoglobin 31.5 pg (25.0-34.0); Mean Corpuscular Hgb Conc 35.1 g/dL (32.0-36.0); Mean Corpuscular Volume 89.7 fL (80.0-100.0); Platelet Count 197 K/uL (130-400); RDW Coefficient of Variation 12.1 % (11.5-14.5); Red Blood Count 4.76 M/uL (4.63-6.08); White Blood Count 7.39 K/ul (4.8-10.8)
[2022-06-13 06:42] LABS: Basophils # (auto) 0.04 K/uL (0-0.2); Basophils % (auto) 0.5 %; Eosinophils # (auto) 0.29 K/uL (0-0.50); Eosinophils % (auto) 3.9 %; Immature Granulocytes # (auto) 0.04 K/uL (0.00-0.02); Immature Granulocytes % (auto) 0.5 %; Lymphocytes # (auto) 2.25 K/uL (1.2-3.4); Lymphocytes % (auto) 30.4 %; Mean Platelet Volume 9.8 fL (9.4-12.4); Monocytes # (auto) 0.48 K/uL (0.24-0.82); Monocytes % (auto) 6.5 %; Neutrophils # (auto) 4.29 K/uL (1.4-6.5); Neutrophils % (auto) 58.2 %
[2022-06-13 07:18] LABS: BUN Creatinine Ratio 20.2 (10-20); Calcium 8.6 mg/dl (8.5-10.1); Creatinine Clr Calc Pharmacy 59.4 ml/min; Est GFR (African American) 69.3 ml/min; Est GFR (Non-African American) 59.8 ml/min; Potassium 3.8 mmol/L (3.5-5.1)
[2022-06-13] MEDS: CHOLECALCIFEROL 1,000 UNITS 25 MCG TAB PO SCH (07:33)
[2022-06-13] MEDS: amLODIPine BESYLATE 5 MG TAB PO SCH (07:33)
[2022-06-13] MEDS: MULTIVITAMIN TAB PO SCH (07:33)
[2022-06-13] MEDS: PANTOprazole 40 MG TAB PO SCH (07:33)
[2022-06-13] MEDS: ASPIRIN 81 MG ECTAB PO SCH (07:33)
[2022-06-13] MEDS: LOSARTAN POTASSIUM 50 MG TAB PO SCH (07:34)
[2022-06-13] MEDS: FINASTERIDE 5 MG TAB PO SCH (07:34)
[2022-06-13] MEDS: CITALOPRAM 20 MG TAB PO SCH (07:34)
[2022-06-13] MEDS: CETIRIZINE HCL 10 MG TABLET PO SCH (07:34)
[2022-06-13] MEDS: ISOSORBIDE MONO EXTENDED REL 30 MG TABCR PO SCH (07:35)
[2022-06-13] MEDS: ENOXAPARIN INJ 40 MG/0.4 ML SYR SQ SCH (07:35)
[2022-06-13] MEDS: LANTUS PER UNIT CHARGE SQ SCH ×2 (08:38→21:10)
[2022-06-13] MEDS ORDERED: NON-FORMULARY MEDICATION (Coenzyme Q10 [Coq-10] 100 mg Capsule) PO SCH (09:00)
[2022-06-13] MEDS ORDERED: NON-FORMULARY MEDICATION (Magnesium 100 mg Capsule) PO SCH (09:00)
--- NOTE | 2022-06-13 13:30 | Pharmacy Report ---
Pharmacy Glycemic Short Note 2 - Date of Service June 13, 2022 - Glycemic Short BSG Results (Last 24 hours): 06/12/22 06/12/22 06/12/22 13:43 14:54 18:13 Glucose POC Glucose 225 H 176 H 270 H 06/12/22 06/13/22 06/13/22 21:01 00:34 04:03 Glucose POC Glucose 224 H 92 124 H 06/13/22 06/13/22 06/13/22 05:52 07:52 11:35 Glucose 145 H POC Glucose 164 H 218 H OUTPATIENT ANTIDIABETIC REGIMEN: * Metformin 500 mg PO daily * Jardiance 12.5-25 mg PO daily, initiated 06/10/22 (titrating up to 1 tab daily) * Glipizide 5 mg PO daily HbA1c: 13.6% (06/12/22) ASSESSMENT: * MARCOS is a 76 year old male presented to ED for evaluation after outpatient labs revealed BSG > 600 mg/dL * Pertinent PMH includes T2DM (poorly controlled with oral medications), CKD, CAD * BSGs trended down nicely yesterday, 363 -> 124 mg/dL * Received 20 units of basal, 16 units of SC bolus and 5 units of IV bolus insulin yesterday * Fasting BSG of 164 mg/dL this morning -> will plan to keep basal insulin relatively similar to yesterday (scale will allow for dose up to weight-based stress of 2 per calculator) * Lunch BSG elevated at 218 mg/dL, will tighten carb ratio PLAN FOR INPATIENT GLYCEMIC CONTROL: * Hold outpatient oral diabetes medications * Basal insulin * Lantus 15 units SQ daily * Lantus 5-15 units SC HS (see EHR for details) * Bolus insulin * NovoLog per scale ACHS or Q6hrs while NPO * Goal Range: Low 11 mg/dL - High 140 mg/dL * Correction Factor: 25 mg/dL/unit * Nutritional / Prandial insulin per carb ratio of 1 unit per 7 grams CHO consumed
--- NOTE | 2022-06-13 14:23 | Hospitalist Progress Note ---
Date of Service June 13, 2022 Assessment & Plan (1) Hyperglycemia: Plan: Uncontrolled Diabetes Mellitus Type II HbA1C: 13.6 Recent course of prednisone for URI symptoms Blood glucose levels in 360s on presentation Recently started on glipizide, Jardiance Continue Insulin per protocol Monitor glucose levels medical educator consulted Glycemic pharmacist consulted (2) Elevated troponin: Plan: Minimal troponin elevation Less likely ACS No acute EKG changes Denies chest pain (3) Poorly controlled diabetes mellitus: (4) Sleep apnea: Plan: Continue CPAP HS (5) Long COVID: Plan: Follows with pulm Using PRN O2 but has not needed recently Has outpatient pulm appt scheduled (6) CKD (chronic kidney disease), stage III: Plan: Cr at baseline Monitor renal function (7) CAD (coronary artery disease): Plan: Continue aspirin, statin (8) Hypertension: Plan: Continue amlodipine, losartan (9) Dyslipidemia, goal LDL below 70: Plan: on statin Plan DVT Px Lovenox SQ Code Status Full Code Admission and Anticipated Discharge Date Admission Date: June 12, 2022 Subjective Patient is seen and examined at bedside States feeling well Offers no complaints Denies chest pain, dyspnea, dizziness, nausea, abd pain Review of Systems Review of Systems: All systems reviewed & are unremarkable except as noted in Subjective Physical Exam Physical Exam: Physical Exam: Vitals signs as noted above General Appearance:Moderately built and nourished, no apparent distress Head: normocephalic, Atraumatic Eyes: normal inspection, EOMI Neck: supple, Trachea midline Respiratory/Chest: Normal breath sounds, CTA, No accessory muscle use Cardiovascular: S1, S2, No murmur Abdomen/GI:Soft, Non tender, Bowel sounds present Extremities/Musculoskeletal:normal inspection, no edema Neurologic/Psych:AAOX3, grossly no focal neurological deficits Skin: normal color, warm Results & Data Results & Data ([facility]) Vital Signs (Past 12 Hours) Vital Signs Temp Pulse Pulse Pulse Resp BP Pulse Ox 06/13/22 12:51 06/13/22 11:29 36.8 C 63 16 104/63 96 06/13/22 07:45 36.4 C L 60 16 140/69 95 06/13/22 06:05 47 L 06/13/22 03:29 36.5 C 49 L 16 142/84 H 98 06/13/22 02:42 55 L 23 96 O2 Del Method 06/13/22 12:51 Room Air 06/13/22 11:29 Room Air 06/13/22 07:45 CPAP 06/13/22 06:05 06/13/22 03:29 BiPAP 06/13/22 02:42 Laboratory Results Short CBC 06/13/22 Range/Units 05:52 WBC 7.39 (4.8-10.8) K/ul Hgb 15.0 (14.0-18.0) g/dl Hct 42.7 (40.1-51.0) % Plt Count 197 (130-400) K/uL BMP 06/13/22 05:52 Sodium 137 Potassium 3.8 Chloride 106 Carbon Dioxide 24 BUN 24 H Creatinine 1.19 Glucose 145 H Calcium 8.6 (1) CAD (coronary artery disease) Coronary Disease-Associated Artery/Lesion type: [place] artery [place] vs. transplanted heart: [place] heart Associated angina: with other forms of angina Qualified Code(s): I25.118 - Atherosclerotic heart disease of [place] coronary artery with other forms of angina pectoris (2) Hypertension Hypertension type: essential hypertension Qualified Code(s): I10 - Essential (primary) hypertension
[2022-06-13] MEDS: MONTELUKAST SODIUM 10 MG TABLET PO SCH (21:09)
[2022-06-13] MEDS: MELATONIN 3 MG TAB PO PRN (21:09)
[2022-06-13] MEDS: ATORVASTATIN 40 MG TAB PO SCH (21:09)
[2022-06-13] MEDS: FAMOTIDINE 20 MG TAB PO SCH (21:10)
[2022-06-14] MEDS: LOSARTAN POTASSIUM 50 MG TAB PO SCH (07:25)
[2022-06-14] MEDS: FINASTERIDE 5 MG TAB PO SCH (07:25)
[2022-06-14] MEDS: PANTOprazole 40 MG TAB PO SCH (07:26)
[2022-06-14] MEDS: MULTIVITAMIN TAB PO SCH (07:26)
[2022-06-14] MEDS: ISOSORBIDE MONO EXTENDED REL 30 MG TABCR PO SCH (07:26)
[2022-06-14] MEDS: CETIRIZINE HCL 10 MG TABLET PO SCH (07:26)
[2022-06-14] MEDS: CHOLECALCIFEROL 1,000 UNITS 25 MCG TAB PO SCH (07:26)
[2022-06-14] MEDS: amLODIPine BESYLATE 5 MG TAB PO SCH (07:26)
[2022-06-14] MEDS: CITALOPRAM 20 MG TAB PO SCH (07:27)
[2022-06-14] MEDS: ENOXAPARIN INJ 40 MG/0.4 ML SYR SQ SCH (07:27)
[2022-06-14] MEDS: ASPIRIN 81 MG ECTAB PO SCH (07:27)
[2022-06-14] MEDS: LANTUS PER UNIT CHARGE SQ SCH ×2 (08:05→21:11)
[2022-06-14] MEDS: INSULIN ASPART PER UNIT SC SCH ×4 (08:05→21:12)
[2022-06-14 08:10] LABS: BUN Creatinine Ratio 16.2 (10-20); Calcium 8.7 mg/dl (8.5-10.1); Creatinine Clr Calc Pharmacy 51.9 ml/min; Est GFR (Non-African American) 50.9 ml/min; Potassium 4.2 mmol/L (3.5-5.1)
[2022-06-14] MEDS: ACETAMINOPHEN 325 MG TAB PO PRN ×3 (09:33→21:15)
--- NOTE | 2022-06-14 15:30 | Hospitalist Progress Note ---
Date of Service June 14, 2022 Assessment & Plan (1) Hyperglycemia: Plan: Uncontrolled Diabetes Mellitus Type II HbA1C: 13.6 Recent course of prednisone for URI symptoms Blood glucose levels in 360s on presentation Recently started on glipizide, Jardiance Continue Insulin per protocol Monitor glucose levels in service educator consulted Glycemic pharmacist consulted continue current management (2) Elevated troponin: Plan: Minimal troponin elevation Less likely ACS No acute EKG changes Denies chest pain (3) Poorly controlled diabetes mellitus: (4) Sleep apnea: Plan: Continue CPAP HS (5) Long COVID: Plan: Follows with pulm Using PRN O2 but has not needed recently Has outpatient pulm appt scheduled (6) CKD (chronic kidney disease), stage III: Plan: Cr at baseline Monitor renal function (7) CAD (coronary artery disease): Plan: Continue aspirin, statin (8) Hypertension: Plan: Continue amlodipine, losartan (9) Dyslipidemia, goal LDL below 70: Plan: on statin Plan DVT Px Lovenox SQ Code Status Full Code Admission and Anticipated Discharge Date Admission Date: June 13, 2022 Subjective Patient is seen and examined at bedside No new complaints Denies chest pain, dyspnea, dizziness, nausea, abd pain Review of Systems Review of Systems: All systems reviewed & are unremarkable except as noted in Subjective Physical Exam Physical Exam: Physical Exam: Vitals signs as noted above General Appearance:Moderately built and nourished, no apparent distress Head: normocephalic, Atraumatic Eyes: normal inspection, EOMI Neck: supple, Trachea midline Respiratory/Chest: Normal breath sounds, CTA, No accessory muscle use Cardiovascular: S1, S2, No murmur Abdomen/GI:Soft, Non tender, Bowel sounds present Extremities/Musculoskeletal:normal inspection, no edema Neurologic/Psych:AAOX3, grossly no focal neurological deficits Skin: normal color, warm Results & Data Results & Data ([facility]) Vital Signs (Past 12 Hours) Vital Signs Temp Pulse Pulse Resp BP Pulse Ox O2 Del Method 06/14/22 15:00 59 L 06/14/22 14:42 36.6 C 56 L 20 103/65 96 Room Air 06/14/22 11:14 36.7 C 53 L 20 91/53 L 98 Room Air 06/14/22 07:38 36.6 C 53 L 20 133/82 96 Room Air 06/14/22 06:10 52 L 06/14/22 03:29 36.6 C 55 L 16 118/69 [address] [facility] 06/14/22 07:09 Sodium 136 Potassium 4.2 Chloride 105 Carbon Dioxide 25 BUN 22 Creatinine 1.36 Glucose 166 H Calcium 8.7 (1) CAD (coronary artery disease) Coronary Disease-Associated Artery/Lesion type: [place] artery [place] vs. transplanted heart: [place] heart Associated angina: with other forms of angina Qualified Code(s): I25.118 - Atherosclerotic heart disease of [place] coronary artery with other forms of angina pectoris (2) Hypertension Hypertension type: essential hypertension Qualified Code(s): I10 - Essential (primary) hypertension
[2022-06-14] MEDS: ATORVASTATIN 40 MG TAB PO SCH (20:08)
[2022-06-14] MEDS: MONTELUKAST SODIUM 10 MG TABLET PO SCH (20:09)
[2022-06-14] MEDS: FAMOTIDINE 20 MG TAB PO SCH (20:09)
[2022-06-14] MEDS: MELATONIN 3 MG TAB PO PRN (20:09)
[2022-06-15] MEDS: amLODIPine BESYLATE 5 MG TAB PO SCH (07:20)
[2022-06-15] MEDS: ASPIRIN 81 MG ECTAB PO SCH (07:20)
[2022-06-15] MEDS: CETIRIZINE HCL 10 MG TABLET PO SCH (07:20)
[2022-06-15] MEDS: ENOXAPARIN INJ 40 MG/0.4 ML SYR SQ SCH (07:20)
[2022-06-15] MEDS: LOSARTAN POTASSIUM 50 MG TAB PO SCH (07:20)
[2022-06-15] MEDS: MULTIVITAMIN TAB PO SCH (07:21)
[2022-06-15] MEDS: CHOLECALCIFEROL 1,000 UNITS 25 MCG TAB PO SCH (07:21)
[2022-06-15] MEDS: CITALOPRAM 20 MG TAB PO SCH (07:21)
[2022-06-15] MEDS: ISOSORBIDE MONO EXTENDED REL 30 MG TABCR PO SCH (07:21)
[2022-06-15] MEDS: PANTOprazole 40 MG TAB PO SCH (07:21)
[2022-06-15] MEDS: FINASTERIDE 5 MG TAB PO SCH (07:22)
[2022-06-15] MEDS: ACETAMINOPHEN 325 MG TAB PO PRN (07:28)
[2022-06-15 07:57] LABS: BUN Creatinine Ratio 18.5 (10-20); Calcium 8.8 mg/dl (8.5-10.1); Creatinine Clr Calc Pharmacy 59.3 ml/min; Est GFR (African American) 69.3 ml/min; Est GFR (Non-African American) 59.8 ml/min
[2022-06-15] MEDS: INSULIN ASPART PER UNIT SC SCH ×2 (08:05→12:08)
[2022-06-15] MEDS: LANTUS PER UNIT CHARGE SQ SCH (08:06)
--- NOTE | 2022-06-15 12:01 | Hospitalist Progress Note ---
Date of Service June 15, 2022 Assessment & Plan (1) Hyperglycemia: Plan: Uncontrolled Diabetes Mellitus Type II HbA1C: 13.6 Recent course of prednisone for URI symptoms Blood glucose levels in 360s on presentation Recently started on glipizide, Jarbrionna Continue Insulin per protocol while hospitalized Monitor glucose levels extension educator consulted Glycemic pharmacist consulted Plan to discharge him on Lantus in addition to him PO meds (2) Elevated troponin: Plan: Minimal troponin elevation Less likely ACS No acute EKG changes Denies chest pain (3) Poorly controlled diabetes mellitus: (4) Sleep apnea: Plan: Continue CPAP HS (5) Long COVID: Plan: Follows with pulm Using PRN O2 but has not needed recently Has outpatient pulm appt scheduled (6) CKD (chronic kidney disease), stage III: Plan: Cr at baseline Monitor renal function (7) CAD (coronary artery disease): Plan: Continue aspirin, statin (8) Hypertension: Plan: Continue amlodipine, losartan (9) Dyslipidemia, goal LDL below 70: Plan: on statin Plan DVT Px Lovenox SQ Code Status Full Code Admission and Anticipated Discharge Date Admission Date: June 13, 2022 Subjective Patient is seen and examined at bedside Doing well Denies chest pain, dyspnea, dizziness, nausea, abd pain Eager to get discharged Review of Systems Review of Systems: All systems reviewed & are unremarkable except as noted in Subjective Physical Exam Physical Exam: Physical Exam: Vitals signs as noted above General Appearance:Moderately built and nourished, no apparent distress Head: normocephalic, Atraumatic Eyes: normal inspection, EOMI Neck: supple, Trachea midline Respiratory/Chest: Normal breath sounds, CTA, No accessory muscle use Cardiovascular: S1, S2, No murmur Abdomen/GI:Soft, Non tender, Bowel sounds present Extremities/Musculoskeletal:normal inspection, no edema Neurologic/Psych:AAOX3, grossly no focal neurological deficits Skin: normal color, warm Results & Data Results & Data ([facility]) Vital Signs (Past 12 Hours) Vital Signs Temp Pulse Pulse Resp BP Pulse Ox O2 Del Method 06/15/22 06:00 51 L 06/15/22 07:18 36.6 C 71 18 127/62 96 Room Air 06/15/22 04:15 36.6 C 56 L 18 134/76 97 Room Air, CPAP 06/15/22 02:29 52 L 17 96 Laboratory Results BMP 06/15/22 06:09 Sodium 137 Potassium 4.0 Chloride 107 Carbon Dioxide 23 BUN 22 Creatinine 1.19 Glucose 150 H Calcium 8.8 (1) CAD (coronary artery disease) Coronary Disease-Associated Artery/Lesion type: [place] artery [place] vs. transplanted heart: [place] heart Associated angina: with other forms of angina Qualified Code(s): I25.118 - Atherosclerotic heart disease of [place] coronary artery with other forms of angina pectoris (2) Hypertension Hypertension type: essential hypertension Qualified Code(s): I10 - Essential (primary) hypertension
--- NOTE | 2022-06-15 14:26 | Discharge Summary ---
Date of Service June 15, 2022 Admission HPI Per Admitting Provider This is a 76 y/o male with a PMH of DM2, CAD s/p [place], prior cardiac stent, JARETT on CPAP, long COVID on prn O2 therapy, ILD, HTN, dyslipidemia, CKD3a, BPH, allergic rhinitis and GERD w/ hx of Espinoza's esophagus who presented to the ED today after being referred by his PCP office for elevated blood sugar on outpatient labs. History is obtained both from the patient and from review of his outpatient [facility] records in [facility]. Pt started with URI symptoms on 05/31/22 after being exposed to a sick contact at work. Seen by PCP office on 06/02 and COVID/flu testing ordered, which were negative. Due to history of ILD with abnormal lung exam at that visit, he was started on prednisone 20 mg daily for 5 days and albuterol HFA as needed. Pt notes significant improvement in his symptoms, specifically the chest and head congestion, with the prednisone, which he completed on 06/09. Seen by PCP office on 06/10 to establish care with a new provider. Multiple medication changes were apparently made and labs were drawn, although results not currently available to me. Per chart/pt, his outpatient labs showed a sugar >600 so pt was referred to the ED this morning for evaluation and insulin therapy. in the ED, he was noted to have a blood sugar of 363 and a mildly elevated troponin at 24.1. He also appeared clinically dry with an elevated BUN so started on IV fluids. Pt reports poor oral intake over the last several days although he has been trying to push fluids with water, gatorade zero and propel. He notes increased thirst and urination over the last few days. He has had nocturia 3-4x/night. He denies vomiting or diarrhea. Appetite is decreased. He has only been taking metformin once daily because of nausea. He denies fevers or chills. He has occasional chest pains but unchanged from baseline. Denies palpitations, BISHOP, syncope. Admission Exam Per Admitting Provider Physical Exam Constitutional: well developed and well nourished; no acute distress Eyes: + anicteric sclerae and PERRL ENMT: external ear and nose normal, oropharynx normal Neck: trachea midline Respiratory: no respiratory distress and no labored breathing Auscultation: lungs clear to auscultation bilaterally; no rales, no rhonchi and no wheezes Cardiovascular: Rate/Rhythm: regular rate and regular rhythm Heart Sounds: no murmur Vessels: posterior tibial pulses present and radial pulses present Extremities: no pedal edema Gastrointestinal (Abdomen): Inspection/Auscultation: normal bowel sounds; abdomen not distended Percussion/Palpation: abdomen soft; abdomen nontender Musculoskeletal: Head/Neck/Chest: normocephalic, head atraumatic and neck supple Skin: no jaundice Neurologic: moves all extremities; no focal motor deficits and not confused Psychiatric: Orientation: alert and oriented x 3 Principal Diagnosis Uncontrolled Diabetes Mellitus Type II Discharge Data Allergies Allergy/AdvReac Type Severity Reaction Status Date / Time Iodinated Contrast Media Allergy Mild "IVP DYE" Verified 09/08/21 19:46 HIVES Consultations 06/12/22 12:44 ED Decision to Admit Stat Procedures Performed Laboratory Results WBC 7.39 K/ul (4.8-10.8) 06/13/22 05:52 RBC 4.76 M/uL (4.63-6.08) 06/13/22 05:52 Hgb 15.0 g/dl (14.0-18.0) 06/13/22 05:52 Hct 42.7 % (40.1-51.0) 06/13/22 05:52 MCV 89.7 fL (80.0-100.0) 06/13/22 05:52 MCH 31.5 pg (25.0-34.0) 06/13/22 05:52 MCHC 35.1 g/dL (32.0-36.0) 06/13/22 05:52 RDW Std Deviation 40.0 fL (36.4-46.3) 06/13/22 05:52 RDW Coeff of [place] 12.1 % (11.5-14.5) 06/13/22 05:52 Plt Count 197 K/uL (130-400) 06/13/22 05:52 MPV 9.8 fL (9.4-12.4) 06/13/22 05:52 Immature Gran % (Auto) 0.5 % 06/13/22 05:52 Neut % (Auto) 58.2 % 06/13/22 05:52 Lymph % (Auto) 30.4 % 06/13/22 05:52 [place] % (Auto) 6.5 % 06/13/22 05:52 Eos % (Auto) 3.9 % 06/13/22 05:52 Baso % (Auto) 0.5 % 06/13/22 05:52 Neut # (Auto) 4.29 K/uL (1.4-6.5) 06/13/22 05:52 Lymph # (Auto) 2.25 K/uL (1.2-3.4) 06/13/22 05:52 [place] # (Auto) 0.48 K/uL (0.24-0.82) 06/13/22 05:52 Eos # (Auto) 0.29 K/uL (0-0.50) 06/13/22 05:52 Baso # (Auto) 0.04 K/uL (0-0.2) 06/13/22 05:52 Immature Gran # (Auto) 0.04 K/uL (0.00-0.02) H 06/13/22 05:52 Sodium 137 mmol/L (136-145) 06/15/22 06:09 Potassium 4.0 mmol/L (3.5-5.1) 06/15/22 06:09 Chloride 107 mmol/L (98-107) 06/15/22 06:09 Carbon Dioxide 23 mmol/L (21-32) 06/15/22 06:09 Anion Gap 7 (3-11) 06/15/22 06:09 BUN 22 mg/dl (6-23) 06/15/22 06:09 Creatinine 1.19 mg/dl (0.6-1.4) 06/15/22 06:09 Est Cr Clr Drug Dosing 59.3 ml/min 06/15/22 06:09 Est GFR ( Amer) 69.3 ml/min 06/15/22 06:09 Est GFR (Non-Af Amer) 59.8 ml/min 06/15/22 06:09 BUN/Creatinine Ratio 18.5 (10-20) 06/15/22 06:09 Glucose 150 mg/dl (70-99(Fasting)) H 06/15/22 06:09 POC Glucose 197 mg/dl (70-99) H 06/15/22 11:47 Estimat Average Glucose 344 mg/dl 06/12/22 11:20 Hemoglobin A1c 13.6 % (4.5-5.6) H 06/12/22 11:20 Calcium 8.8 mg/dl (8.5-10.1) 06/15/22 06:09 Magnesium 2.2 mg/dl (1.7-2.4) 06/12/22 11:20 Total Bilirubin 0.7 mg/dl (0.2-1.0) 06/12/22 11:20 AST 19 U/L (13-39) 06/12/22 11:20 ALT 20 U/L (7-52) 06/12/22 11:20 Alkaline Phosphatase 74 U/L (34-104) 06/12/22 11:20 Troponin I High Sens 23.3 pg/ml (0-20) H 06/12/22 14:28 Total Protein 7.1 gm/dl (6.0-8.3) 06/12/22 11:20 Albumin 4.1 gm/dl (3.4-5.0) 06/12/22 11:20 Globulin 3.0 gm/dl (2.5-4.0) 06/12/22 11:20 Albumin/Globulin Ratio 1.4 (0.9-2) 06/12/22 11:20 TSH 1.022 uIu/ml (0.300-4.500) 06/12/22 11:20 Urine Color Yellow 06/12/22 Unknown Urine Appearance Cloudy (Clear) A 06/12/22 Unknown Urine pH 6.5 (4.5-7.5) 06/12/22 Unknown Ur Specific [place] 1.031 (1.000-1.030) H 06/12/22 Unknown Urine Protein Negative (Negative) 06/12/22 Unknown Urine Glucose (UA) 3+ (Negative) H 06/12/22 Unknown Urine Ketones Trace (Negative) H 06/12/22 Unknown Urine Blood Negative (Negative) 06/12/22 Unknown Urine Nitrite Negative (Negative) 06/12/22 Unknown Urine Bilirubin Negative (Negative) 06/12/22 Unknown Urine Urobilinogen Negative (Negative) 06/12/22 Unknown Ur Leukocyte Esterase Negative (Negative) 06/12/22 Unknown Urine WBC (Auto) 0 /hpf (0-5) 06/12/22 Unknown Urine RBC (Auto) 0-4 /hpf (0-4) 06/12/22 Unknown U Hyaline Cast (Auto) 0 /lpf (0-5) 06/12/22 Unknown U Epithel Cells (Auto) 0-5 /lpf (0-5) 06/12/22 Unknown Urine Bacteria (Auto) Negative (Negative) 06/12/22 Unknown SARS-CoV-2, RNA, NAAT NEGATIVE (NEGATIVE) 06/12/22 11:38 Diabetes Follow up Diabetes Follow-up Needed for HgbA1c >9% Hospital Course (1) Hyperglycemia: Uncontrolled Diabetes Mellitus Type II HbA1C: 13.6 Recent course of prednisone for URI symptoms Blood glucose levels in 360s on presentation Recently started on glipizide, Jardiance Continue Insulin per protocol while hospitalized Monitor glucose levels clinical staff educator consulted Glycemic pharmacist consulted Plan to discharge him on Lantus in addition to him PO meds (2) Elevated troponin: Minimal troponin elevation Less likely ACS No acute EKG changes Denies chest pain (3) Poorly controlled diabetes mellitus: (4) Sleep apnea: Continue CPAP HS (5) Long COVID: Follows with pulm Using PRN O2 but has not needed recently Has outpatient pulm appt scheduled (6) CKD (chronic kidney disease), stage III: Cr at baseline Monitor renal function (7) CAD (coronary artery disease): Continue aspirin, statin (8) Hypertension: Continue amlodipine, losartan (9) Dyslipidemia, goal LDL below 70: on statin Plan DVT Px Lovenox SQ Code Status Full Code Total Time Total Time Spent Total Time Spent (In Minutes): 50 minutes Discharge Plan Discharge Items Patient Disposition: Home - Home Health Services Reason For Visit: HYPERGLYCEMIA,ELEVATED TROPONIN Discharge Diagnosis: Uncontrolled Diabetes Mellitus Type II Activity: Per Instructions section Exercise/Sports: Gradually increase as tolerated Non-emergency contact: Primary Care Provider Call non-emergency contact if: you have any medication questions, your symptoms worsen, your pain is concerning for you and you have a fever Follow-up/Referrals: Jose Wilks, [Primary Care Provider] - Diet: Carb Consistent or DM2 Addtl Attending Provider Instructions: Follow-up with your primary care physician Dr. Jose Wilks in 1 week as advised. --- Monitor your blood glucose levels regularly as advised. --Your insulin may need to be adjusted based on your blood glucose levels. Follow-up with your physician for further adjustment of medications as needed. Seek immediate medical attention if your symptoms reoccur or worsen Please take all medications as instructed on discharge list below. Please call if you have any questions or problems. You can reach a [facility] hospitalist on duty at [facility] 24 hours a day by calling [phone] Pending Studies at Discharge: No Stand-Alone Forms: My [facility], Work/School Release, Smoking Cessation Medications and DC Order Prescriptions: New insulin glargine [Lantus Solostar U-100 Insulin] 100 unit/mL (3 mL) insulin pen 12 unit subcut BID 30 Days Qty: 15 2RF (DME) blood-glucose meter [OneTouch Verio Meter] Misc See Rx Instructions .Route Qty: 1 0RF Rx Instructions: As directed (DME) OneTouch Verio test strips Strip See Rx Instructions .Route Qty: 100 2RF Rx Instructions: As directed (DME) lancets [OneTouch Delica Lancets] 33 gauge misc See Rx Instructions .Route Qty: 100 2RF Rx Instructions: As directed (DME) pen needle, diabetic 33 gauge x 5/32" needle See Rx Instructions .Route Qty: 100 2RF Rx Instructions: As directed Continued atorvastatin 80 mg tablet 80 mg PO QPM nitroglycerin 0.4 mg tablet, sublingual 0.4 mg Sublingual UD PRN (Reason: Chest Pain) finasteride 5 mg tablet 5 mg PO QAM cetirizine [Zyrtec] 10 mg Tablet 10 mg PO DAILY albuterol sulfate 90 mcg/actuation Hfa Aerosol Inhaler 2 puff INHALATION Q4 PRN (Reason: Shortness Of Breath Or Wheezing) aspirin [Ecotrin Low Strength] 81 mg Tablet,Delayed Release (Dr/Ec) 81 mg PO QAM Qty: 30 2RF Centrum Silver Men 300-600-300 mcg Tablet 1 tab PO DAILY pantoprazole 40 mg tablet,delayed release (DR/EC) 40 mg PO QAM coenzyme Q10 [CoQ-10] 100 mg Capsule 100 mg PO DAILY cinnamon bark [Cinnamon] 500 mg Capsule 500 mg PO DAILY cholecalciferol (vitamin D3) 25 mcg (1,000 unit) Tablet 50 mcg PO DAILY colestipol 1 gram tablet 1 g PO BID PRN (Reason: Diarrhea) famotidine 20 mg tablet 20 mg PO HS isosorbide mononitrate 30 mg tablet extended release 24 hr 30 mg PO DAILY montelukast 10 mg tablet 10 mg PO QPM fluticasone propionate 50 mcg/actuation spray,suspension 2 spray INTRANASAL DAILY PRN (Reason: Nasal Congestion) losartan 50 mg tablet 50 mg PO DAILY citalopram 10 mg tablet 10 mg PO DAILY glipizide 5 mg Tablet Extended Release 24hr 5 mg PO DAILY amlodipine 5 mg tablet 5 mg PO DAILY magnesium 100 mg Capsule 100 mg PO DAILY metformin 500 mg tablet extended release 24 hr 500 mg PO DAILY melatonin 10 mg Tablet 10 mg PO HS PRN (Reason: Insomnia) Jardiance 25 mg Tablet 25 mg PO UD Rx Instructions: Started 06/10/22 - 1/2 tab daily x 2 weeks then 1 tab daily Discharge Orders: Discharge Order (Routine); Ordered 06/15/22 Ordered By: Angel Hearn/Other Patient Handouts: High Blood Sugar (Hyperglycemia), Managing Type 2 Diabetes Admission Data Admit Date/Time: 06/13/22 14:18 Attending Provider: Angel Luna Admit Provider: Angel Luna Primary Care Provider: Jose Wilks Other Providers: Angel Luna
--- NOTE | 2022-06-15 18:42 | Electrocardiogram Report ---
Test Reason : Blood Pressure : / mmHG Vent. 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
== END 2022-06-15 14:54 | disposition home health service (06) ==
LOC: EDINP 10:15 → ED 10:15 → 2N 13:42

== ENCOUNTER 2024-12-10 17:16 | Inpatient (IN) ==
--- NOTE | 2024-12-10 17:38 | Emergency Department Note ---
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 Some of occlusion was unable to be stented back then. Patient notes that he has had several weeks of intermittent chest pains and shortness of breath specifically with exertion. Significantly worse the last few days. Seen at outside hospital monitored for several hours overnight with reportedly negative troponins. Patient notes he developed pretty significant shortness of breath chest pain with ambulation at their facility just prior to leaving. Since getting home he has had continued on and off discomfort. On evaluation patient looks well but is quite dyspneic and uncomfortable just from walking back from the bathroom. EKG does not show any obvious STEMI morphology. Laboratory workup begun and he was given aspirin along with sublingual nitroglycerin. This resulted in complete resolution of his symptoms. Multiple repeat vital signs and reevaluations patient is stable. Initial troponin is modestly elevated. After discussion with patient and plan is to admit the patient to the hospital. He does not have any active chest pain or shortness of breath he is not tachycardic hypoxic or hypotensive. He has no history of DVT PE or leg swelling/calf pain or travel/surgery. In the setting of more likely cause being cardiac we will hold off on further PE workup. Of note repeat troponin returned further elevated. At this point I have high suspicion that primary diagnosis is NSTEMI. Plan will be to initiate heparin after discussing with hospitalist service. Patient will be admitted to the hospital service for further management. Patient is on board with this plan stable and looks well at time of admission without any chest pain. Patient has no headache, recent head injury, trauma, abdominal discomfort, epigastric pain, black or bloody stools or other acute concerning signs symptom that would necessitate further workup prior to initiating heparin. I do not feel patient has findings or examination consistent with dissection either. Triage/Nursing Notes reviewed by Me External Chart Review by me: Patient's hospitalization discharge summary from June 15, 2022 was reviewed by me. This revealed his past medical history Differential:Cardiac ischemia, aortic dissection, pulmonary embolism, pneumothorax, pneumonia, pericarditis, myocarditis, esophageal rupture, GERD, cholecystitis, pancreatitis, musculoskeletal, as well as other pathologies. Vital Signs: reviewed and remarkable for mildly hypertensive on arrival Interventions: Aspirin 324 mg p.o., sublingual nitroglycerin, heparin IV Labs:ED labs Reviewed by me and remarkable for elevated troponin Imaging:As per my interpretation. Indication chest pain/shortness of breath. No infiltrate nor effusion appreciated. EKG: As per my interpretation. Indication shortness of breath and chest pain. Sinus bradycardia 49 bpm QTc of 411. There is no ectopy nor overt ischemia. There is no significant change from June 14, 2022 EKG. Cardiac/Tele Monitoring: Cardiac Monitoring: An Order was placed for continuous cardiac monitoring. The monitor shows a rate of 50 with a sinus isaak rhythm. Consults: Discussed with Dr. Liang of the hospital service. They will plan on admitting the patient. Given the elevated troponin they have requested that we do proceed with starting heparin. Plan: Disposition:Hospitalization. Condition: Fair History of Present Illness: 79-year-old male arrives for evaluation of shortness of breath and chest pain. Patient notes last few weeks he has been having some episodes of intermittent chest pain and shortness of breath. He related this was felt to be due to increasing heat outside. However over the last few days he has noticed significant chest pains even with some mild ambulation. Substernal in nature. No radiation. Denies any syncope, palpitations, nausea, vomiting, leg swelling, calf pain, other concerning signs or symptoms. He denies any recent travel or history of DVT/PE. Patient denies any headache, neck pain, black or bloody stools, bleeding or other concerning findings. He has not had any recent falls, trauma, or injuries. Patient has been using nitro several times a day the last few days to improve his chest pain. [facility] and had to labs of negative troponins before being discharged. notes that patient became severely short of breath with some chest pain while ambulating at the ER. Due to persistent symptoms he arrived to the ER for further evaluation. Patient does have a history of TN requiring stenting in 2018. He does not believe he had any stress testing or other cardiac testing since that point. He does have a history of long COVID which is resulted in some exhaustion and shortness of breath episodes but this is significantly worse than that. Past Medical History:See Below Home Medications:See Below Allergies: IV dye Vitals:Blood Pressure: 155/95, Pulse 58, RR 18, T 36.6C, O2 95% on RA Physical Exam: GENERAL: Patient is tired, dyspneic appearing and in mild distress. RESPIRATORY: Dyspneic without tachypnea. Clear lung sounds bilaterally CARDIOVASCULAR: Regular rate and rhythm.No murmur appreciated. GASTROINTESTINAL: Abdomen soft, non-tender, no peritonitis. EXTREMITIES: Normal motion all extremities, no cyanosis, no edema. NEUROLOGIC: Alert and oriented. No focal neurologic deficits appreciated SKIN: No rash, no jaundice, no diaphoresis. PSYCH: Appropriate GCS: 15 ED Course: Times/Reassessments: Repeat evaluation of the patient reveals complete resolution of chest pain following nitroglycerin. He is stable and he is comfortable with plan for hospitalization. Critical Care: I have personally spent 40 minutes of critical care time in the direct management of this patient. NSTEMI with active chest pain on arrival to ED requiring initiation of heparin infusion. This was a life/limb threatening event. This 40 minutes is in excess of all separately billable procedures. Aldo Ledbetter MD Past Med/Surg History Problem List (Updated 12/11/24 @ 08:39 by Aldo Ledbetter MD) Elevated troponin I level (Acute) Exertional dyspnea (Acute) Chest pain (Acute) Acute non-ST elevation myocardial infarction (NSTEMI) (Acute) Chest pain Sleep apnea CPAP BPH loc w urin obs/LUTS Type 2 diabetes mellitus Long COVID Hyperglycemia (Acute) Elevated troponin (Acute) Poorly controlled diabetes mellitus Pneumonia due to COVID-19 virus (Acute) Hypoxia (Acute) Elevated glucose level (Acute) Pneumonia due to COVID-19 virus CKD (chronic kidney disease), stage III CAD (coronary artery disease) Hypertension Status post percutaneous transluminal coronary angioplasty Dyslipidemia, goal LDL below 70 Medical History (Updated 12/11/24 @ 08:39 by Aldo Ledbetter MD) Espinoza esophagus Acute pancreatitis Myocardial infarction SOB (shortness of breath) on exertion PT REPORTS CARDIO IS AWARE Seasonal allergies Colitis DIETARY CONTROLLED History of kidney stones Hiatal hernia Acid reflux Rotator cuff dysfunction LEFT/ OLD INJURY Anxiety and depression Gastric polyp HTN, goal below 130/80 Dyslipidemia, goal LDL below 70 CAD in [place] artery ST elevation (STEMI) myocardial infarction APR 2018 - "ANGIOPLASTY" - DENIES STENT INSERTION ([facility]) Surgical History History of right cataract extraction History of angioplasty History of colonoscopy History of reduction of closed fracture LEFT ARM History of hemorrhoidectomy History of laparoscopic cholecystectomy S/P cardiac catheterization Myocardial infarction 2001, with PCI of circumflex. Cardiac catheterization 2003 demonstrating patent circumflex stent. Catheterization April 2013 with bare-metal stenting to the proximal and mid right coronary artery. Catheterization 2015 demonstrating patent stents and moderate nonobstructive CAD. Family History Brother CAD in [place] artery Coronary artery bypass grafting x4 at age 68 Mother CAD in [place] artery Social History (Updated 06/12/22 @ 15:00 by Tash Pandya PA-C) Smoking Status: Never smoker Second Hand Exposure: No; Do You Dip or Chew Tobacco: No; Hx Alcohol Use: No Hx Substance Use: No Preferred Language: Bulgarian Communication Ability: Effective Jet Operator Required: No Beliefs That Will Affect Care: None marital status: Single Current Living Situation: Spouse Current Living Situation Comment: Lives at home alone Other Information That Helps Us Care for You: No Feels Safe at Home: Yes Safety Concerns: Feels Safe At This Time Assistive Devices: Oxygen - at Night Allergies Allergies Allergy/AdvReac Type Severity Reaction Status Date / Time Iodinated Contrast Media Allergy Mild "IVP DYE" Verified 12/10/24 18:16 [facility] Home Meds Home Medications Medication Instructions Recorded Confirmed atorvastatin 80 mg tablet 80 mg PO QPM 05/01/18 12/10/24 finasteride 5 mg tablet 5 mg PO QAM 05/01/18 12/10/24 nitroglycerin 0.4 mg sublingual 0.4 mg sublingual UD PRN Chest Pain 05/01/18 12/10/24 tablet pantoprazole 40 mg tablet,delayed 40 mg PO DAILYBB 08/16/19 12/10/24 release cholecalciferol (vitamin D3) 25 25 mcg PO DAILY 03/23/20 12/10/24 mcg (1,000 unit) tablet isosorbide mononitrate 30 mg 30 mg PO QAM 06/01/21 12/10/24 tablet,extended release 24 hr amlodipine 5 mg tablet 5 mg PO QAM 06/12/22 12/10/24 citalopram 10 mg tablet 10 mg PO QAM 06/12/22 12/10/24 empagliflozin 25 mg tablet 25 mg PO QAM 06/12/22 12/10/24 (Jardiance) losartan 50 mg tablet 50 mg PO QAM 06/12/22 12/10/24 melatonin 10 mg tablet 30 mg PO HS PRN Insomnia 06/12/22 12/10/24 metformin 500 mg tablet,extended 500 mg PO QAM 06/12/22 12/10/24 release 24 hr apixaban 5 mg tablet (Eliquis) 5 mg PO BID 12/10/24 12/10/24 cyanocobalamin (vitamin B-12) 1,000 mcg PO QAM 12/10/24 12/10/24 1,000 mcg tablet (Vitamin B-12) dextromethorphan-guaifenesin 10 1 tab-cap PO Q8H PRN Congestion 12/10/24 12/10/24 mg-200 mg capsule (Coricidin HBP Chest Congestion-Cough) dextromethorphan-guaifenesin ER 60 1 tab PO Q12H PRN Congestion 12/10/24 12/10/24 mg-1,200 mg tab,extend release,12hr (Mucinex DM) insulin glargine 100 unit/mL (3 10 unit subcut BID 12/10/24 12/10/24 mL) subcutaneous pen (Lantus Solostar U-100 Insulin) multivitamin 1 tab PO QAM 12/10/24 12/10/24 tamsulosin 0.4 mg capsule 0.4 mg PO QAM 12/10/24 12/10/24 Previous Rx's Medication Instructions Recorded aspirin 81 mg tablet,delayed 81 mg PO QAM #30 tabs 05/04/18 release (Ecotrin Low Strength) blood sugar diagnostic (IntrusicTouch #100 ea 06/15/22 Verio test strips) blood-glucose meter (IntrusicTouch #1 ea 06/15/22 Verio Meter) flash glucose sensor (FreeStyle #2 ea 06/15/22 Nima 2 Sensor kit) lancets 33 gauge (OneTouch Delica #100 ea 06/15/22 Lancets) pen needle, diabetic 33 gauge x #100 ea 06/15/22" Results & Data (ED) Vital Signs Vital Signs - 24 hr 12/10/24 17:17 12/10/24 18:01 12/10/24 18:04 Temperature 36.6 C Temperature Source Temporal Artery Scan Pulse Rate 58 L 54 L Pulse Rate from SpO2 Sensor Respiratory Rate 18 Respiratory Effort / Characteristics Non-Labored Spontaneous Respiratory Depth Normal Respiratory Pattern Regular Blood Pressure 155/95 H 136/77 Blood Pressure Mean 115 106 Pulse Oximetry 95 Oxygen Delivery Method Room Air Sepsis Recent Fever Within 48 Hours No Sepsis New/Unexplained Change in Mental Status N/A Sepsis Action Taken by Nursing No Action Required 12/10/24 18:06 12/10/24 18:24 12/10/24 18:30 Temperature Temperature Source Pulse Rate 53 L 50 L Pulse Rate from SpO2 Sensor Respiratory Rate 27 H 21 Respiratory Effort / Characteristics Respiratory Depth Respiratory Pattern Blood Pressure 123/69 130/76 Blood Pressure Mean 87 94 Pulse Oximetry 96 94 95 Oxygen Delivery Method Room Air Sepsis Recent Fever Within 48 Hours Sepsis New/Unexplained Change in Mental Status Sepsis Action Taken by Nursing 12/10/24 19:00 12/10/24 19:12 12/10/24 19:36 Temperature Temperature Source Pulse Rate 50 L 54 L 51 L Pulse Rate from SpO2 Sensor 52 L Respiratory Rate 20 24 23 Respiratory Effort / Characteristics Respiratory Depth Respiratory Pattern Blood Pressure 118/70 140/84 132/77 Blood Pressure Mean 86 102 95 Pulse Oximetry 94 Oxygen Delivery Method Room Air Sepsis Recent Fever Within 48 Hours Sepsis New/Unexplained Change in Mental Status Sepsis Action Taken by Nursing 12/10/24 20:21 Temperature Temperature Source Pulse Rate Pulse Rate from SpO2 Sensor Respiratory Rate Respiratory Effort / Characteristics Respiratory Depth Respiratory Pattern Blood Pressure 139/78 Blood Pressure Mean 111 Pulse Oximetry Oxygen Delivery Method Sepsis Recent Fever Within 48 Hours Sepsis New/Unexplained Change in Mental Status Sepsis Action Taken by Nursing Laboratory Data 12/11/24 04:52 12/11/24 04:52 Lab Results 12/10/24 12/10/24 12/10/24 Range/Units 17:38 17:53 19:39 WBC 8.77 (4.8-10.8) K/ul RBC 4.98 (4.70-6.10) M/uL Hgb 15.5 (14.0-18.0) g/dl Hct 44.9 (42.0-52.0) % MCV 90.2 (80.0-100.0) fL MCH 31.1 (25.0-34.0) pg MCHC 34.5 (32.0-36.0) g/dL RDW Std Deviation 42.3 (36.4-46.3) fL RDW Coeff of Dashawn 13.0 (11.5-14.5) % Plt Count 206 (130-400) K/uL MPV 10.3 (9.4-12.4) fL Immature Gran % (Auto) 0.2 % Neut % (Auto) 71.5 % Lymph % (Auto) 19.2 % [place] % (Auto) 6.8 % Eos % (Auto) 1.7 % Baso % (Auto) 0.6 % Neut # (Auto) 6.27 (1.40-6.50) K/uL Lymph # (Auto) 1.68 (1.20-3.40) K/uL [place] # (Auto) 0.60 H (0.11-0.59) K/uL Eos # (Auto) 0.15 (0.00-0.50) K/uL Baso # (Auto) 0.05 (0.00-0.20) K/uL Immature Gran # (Auto) 0.02 (0.01-0.20) K/uL Sodium 135 L (136-145) mmol/L Potassium 4.4 (3.5-5.1) mmol/L Chloride 107 (98-107) mmol/L Carbon Dioxide 21 (21-32) mmol/L Anion Gap 7 (3-11) BUN 22 (6-23) mg/dl Creatinine 1.24 (0.6-1.4) mg/dl Est Cr Clr Drug Dosing 55.9 ml/min eGFR 59.88 BUN/Creatinine Ratio 17.7 (10-20) Glucose 181 H (70-99(Fasting)) mg/dl Calcium 9.3 (8.6-10.3) mg/dl Magnesium 2.1 (1.7-2.4) mg/dl Total Bilirubin 0.7 (0.2-1.0) mg/dl Direct Bilirubin 0.1 (0-0.2) mg/dl AST 21 (13-39) U/L ALT 24 (7-52) U/L Alkaline Phosphatase 70 (34-104) U/L Troponin I High Sens 57.7 H* 85.4 H* D (0-20) pg/ml Total Protein 6.8 (6.0-8.3) gm/dl Albumin 3.9 (3.4-5.0) gm/dl Lipase 29 (11-82) U/L Urine Color Yellow Urine Appearance Clear (Clear) Urine pH 5.5 (4.5-7.5) Ur Specific [place] 1.036 H (1.000-1.030) Urine Protein Negative (Negative) Urine Glucose (UA) 3+ H (Negative) Urine Ketones Negative (Negative) Urine Blood Negative (Negative) Urine Nitrite Negative (Negative) Urine Bilirubin Negative (Negative) Urine Urobilinogen Negative (Negative) Ur Leukocyte Esterase Negative (Negative) Urine Comment Administered Medications Atorvastatin Calcium (Atorvastatin 40 Mg Tab) 80 mg PO QPM [facility] Stop: 01/09/25 21:47 Last Admin: 12/10/24 22:42 Dose: 80 mg Documented By: REE Heparin Sodium/Dextrose (Heparin 50189 Unit/500 Ml D5w) 25,000 units in 500 mls @ 29 mls/hr IV .[id number] [facility]; Protocol Stop: 01/09/25 20:44 Last Titration: 12/11/24 07:05 Dose: 0 units/hr, 0 mls/hr Documented By: REE Co-signed By: NAMRATA Admin: 12/10/24 22:46 Dose: 1,450 units/hr, 29 mls/hr Documented By: REE Co-signed By: JARRETT Insulin Aspart (Insulin Aspart Per Unit Charge) 0 units SC ACHS [facility] Stop: 01/09/25 21:47 Last Admin: 12/11/24 08:14 Dose: Not Given Documented By: Admin: 12/10/24 23:22 Dose: Not Given Documented By: REE Insulin Glargine (Lantus Per Unit Charge) 10 units SQ BID [facility] Stop: 01/09/25 21:47 Last Admin: 12/10/24 22:42 Dose: 10 units Documented By: REE Co-signed By: JARRETT Melatonin (Melatonin 3 Mg Tab) 3 mg PO HS PRN PRN Reason: Sleep Stop: 01/09/25 21:47 Last Admin: 12/10/24 22:49 Dose: 3 mg Documented By: REE Pantoprazole Sodium (Pantoprazole 40 Mg Tab) 40 mg PO DAILYBB JAX Stop: 01/10/25 06:29 Last Admin: 12/11/24 07:06 Dose: 40 mg Documented By: REE Discontinued Medications Aspirin (Aspirin 81 Mg Chew) 324 mg PO NOW STA Stop: 12/10/24 17:36 Last Admin: 12/10/24 18:00 Dose: 324 mg Documented By: THONG Heparin Sodium (Porcine) (Heparin Sod (Porcine) 1000 Unit/Ml) 6,000 units IV ONE ONE Stop: 12/10/24 22:16 Last Admin: 12/10/24 22:43 Dose: 6,000 units Documented By: REE Co-signed By: JARRETT Nitroglycerin (Nitroglycerin Sl 0.4 Mg/Tab Tab) 0.4 mg SL NOW STA Stop: 12/10/24 17:36 Last Admin: 12/10/24 18:00 Dose: 0.4 mg Documented By: THONG Discharge Plan Visit Data Chief Complaint: Chest Pain Stated Complaint: CHEST PAIN,TIGHTNESS, ED Provider: Aldo Ledbetter Discharge Problem: Acute non-ST elevation myocardial infarction (NSTEMI), Chest pain, Exertional dyspnea, Elevated troponin I level Patient Disposition: Admitted As Inpatient Condition: Fair Discharge Instructions Interventions: ED Discharge Assessment Last Done: 12/10/24 21:28 Discharge Problem: Chest pain Qualifiers: Chest pain type: unspecified Qualified Code(s): R07.9 - Chest pain, unspecified
[2024-12-10] MEDS: ASPIRIN 81 MG CHEW PO STA (18:00)
[2024-12-10] MEDS: NITROGLYCERIN SL 0.4 MG/TAB TAB SL STA (18:00)
[2024-12-10 18:09] LABS: Appearance Urine Clear (Clear); Bilirubin Urine Negative (Negative); Blood Urine Negative (Negative); Color Urine Yellow; Glucose Urine UA 3+ (Negative); Ketones Urine Negative (Negative); Leukocyte Esterase Urine Negative (Negative); Nitrite Urine Negative (Negative); Protein Urine Negative (Negative); Specific Gravity Urine 1.036 (1.000-1.030); Urobilinogen Urine Negative (Negative); pH Urine 5.5 (4.5-7.5)
[2024-12-10 18:14] LABS: Basophils # (auto) 0.05 K/uL (0.00-0.20); Basophils % (auto) 0.6 %; Eosinophils # (auto) 0.15 K/uL (0.00-0.50); Eosinophils % (auto) 1.7 %; Hematocrit (blood only) 44.9 % (42.0-52.0); Hemoglobin 15.5 g/dl (14.0-18.0); Immature Granulocytes # (auto) 0.02 K/uL (0.01-0.20); Immature Granulocytes % (auto) 0.2 %; Lymphocytes # (auto) 1.68 K/uL (1.20-3.40); Lymphocytes % (auto) 19.2 %; Mean Corpuscular Hemoglobin 31.1 pg (25.0-34.0); Mean Corpuscular Hgb Conc 34.5 g/dL (32.0-36.0); Mean Corpuscular Volume 90.2 fL (80.0-100.0); Mean Platelet Volume 10.3 fL (9.4-12.4); Monocytes % (auto) 6.8 %; Neutrophils # (auto) 6.27 K/uL (1.40-6.50); Neutrophils % (auto) 71.5 %; Platelet Count 206 K/uL (130-400); RDW Standard Deviation 42.3 fL (36.4-46.3); Red Blood Count 4.98 M/uL (4.70-6.10); White Blood Count 8.77 K/ul (4.8-10.8)
[2024-12-10 18:32] LABS: BUN Creatinine Ratio 17.7 (10-20); Bilirubin Direct 0.1 mg/dl (0-0.2); Bilirubin,Total 0.7 mg/dl (0.2-1.0); Calcium 9.3 mg/dl (8.6-10.3); Creatinine Clr Calc Pharmacy 55.9 ml/min; Magnesium 2.1 mg/dl (1.7-2.4); Potassium 4.4 mmol/L (3.5-5.1); Total Protein 6.8 gm/dl (6.0-8.3)
[2024-12-10 18:43] LABS: Troponin I High Sensitivity 57.7 pg/ml (0-20)
--- NOTE | 2024-12-10 19:44 | XRay Report ---
EXAM: XR chest 1V portable CLINICAL HISTORY: chest pain TECHNIQUE: An X-ray image of the chest is obtained in AP projection. COMPARISON: prior 06/15/2021 FINDINGS: Pulmonary Parenchyma: left-sided lower lung zone suspected airspace opacification likely of infectious origin Bilateral mild pleural effusion, more on the right side Heart and Mediastinum: Cardiomegaly with congested vascular hilum Bony Thorax: Degenerative changes of scanned spine Soft Tissues: Soft tissues overlying the chest wall are unremarkable. IMPRESSION: 1. left-sided lower lung zone suspected airspace opacification likely of infectious origin (regressed ), clinical correlation is recommended 2. Bilateral mild pleural effusion, more on the right side (Mildly regressed on the right side) 3. Cardiomegaly with congested vascular hilum (unchanged) Electronically signed by Prashanth Farah 12-10-2024 7:43 PM
--- NOTE | 2024-12-10 19:59 | History & Physical Report ---
Date of Service December 10, 2024 Assessment & Plan (1) Chest pain: (2) Elevated troponin: (3) CAD (coronary artery disease): (4) Poorly controlled diabetes mellitus: Plan Patient is a 79-year-old male with past medical history of CAD s/p cardiac stent 2017, stage III CKD, type II DM insulin controlled, JARETT on CPAP, HTN, HLD, long COVID with as needed oxygen. Patient presented due to worsening chest pain. he was found to have a troponin of 57.7 and is currently chest pain free after nitroglycerin and aspirin in the ED. He is being admitted for troponin trend, cardiac workup including echocardiogram vs cardiac cath. #chest pain/elevated troponin - hx CAD s/p IA 2001, circumflex stent 2003, mid RCA and proximal RCA stent 2012. Currently chest pain free after nitroglycerin and ASA in ED. Troponin 57.7 -> 85.4. EKG showed sinus bradycardia, no ischemic changes, electrolytes WNL. JESSICA risk score 6 points. CXR showed improved opacity and bilateral pleural effusions, cardiomegaly with congestion. - start on heparin bolus and drip given elevated trop and significant PMHx - hold Eliquis - given asa 325 mg PO in ED, hold 81 mg daily with potential cardiac cath - SL NTG 0.4mg prn for chest pain - continue atorvastatin 80 mg daily and Imdur 30 mg po daily - NPO after midnight for potential cardiac cath - [facility] cardiology consulted, patient follows with out patient although has not seen in ~ 2 years - Troponin q6hr x 3 - lipid panel and A1C with AM labs - echocardiogram ordered - monitor on telemetry - EKG with chest pain as needed #T2DM - Most recent A1C 13.6% in 2021, repeat with AM labs. - hold Jardiance and metformin - SSI with target BSG range 110-180mg/dL, CF 30, defer carb ratio - Lantus 10 U BID #HTN - continue amlodipine and losartan #BPH - continue finasteride and tamsulosin #GERDcontinue PPI #JARETT - cpap HS #mental health - hold citalopram until no longer NPO #long Covid - with significant chronic cough, no longer uses prn oxygen. #CKD - stage 3, avoid nephrotoxic agents. VTE ppx: Heparin drip Dispo: PCU Admission and Anticipated Discharge Date Admission Date: 12/10/24 History of Present Illness Chief Complaint: chest pain Primary Care Provider: Jose Wilks DO Patient is a 79-year-old male with past medical history of CAD s/p cardiac stent 2018, stage III CKD, type II DM insulin controlled, JARETT on CPAP, HTN, HLD, long COVID with as needed oxygen. Patient presented due to worsening chest pain. he was found to have a troponin of 57.7 and is currently chest pain free after nitroglycerin and aspirin in the ED. He is being admitted for troponin trend, cardiac workup including echocardiogram. Patient seen at bedside. He stated that for the past few months he has had on and off chest pain that occurs both at rest and on exertion, however is worse with exertion and has associated shortness of breath. He stated the pain feels like a bubble in the area, he does have belching with this however denies any acid reflux. He stated he takes nitroglycerin which typically relieves the pain however yesterday he had to take nitroglycerin 4-5 times and the chest pain kept returning. At 9 PM last night he had significant chest pain that did not resolve so he went to the [facility]. he said they told him he had an elevated troponin but did not give him the number and discharged him home as they did not see anything significant. At about 130 this afternoon patient had worsening chest pain which was relieved with 2 nitroglycerin and Tylenol. He has an appointment with his PCP on Wednesday which she was trying to wait for however was concerned about the chest pain as it feels exactly the same as when he had an IA in 2018. Patient also stated he had an IA when he was 55 years old and had stents placed at [facility]. He endorses that the pain radiated to his back today for the first time, denies any radiation to his arms or jaw. He does have a chronic cough due to long COVID which does worsen the pain. He denies any nicotine or alcohol use. He does not use any oxygen at baseline. He stated he is on Eliquis for previous blood clots but does not remember where they were, nothing noted in patient's history on EMR. He is due for his evening insulin and Eliquis at 8 PM. He wishes to be full code. He is agreeable to admission with further workup and cardiology consult, would be agreeable to cardiac catheter if recommended. Patient's updated at bedside. Allergies Allergy/AdvReac Type Severity Reaction Status Date / Time Iodinated Contrast Media Allergy Mild "IVP DYE" Verified 12/10/24 18:16 HIVES Home Medications Medication Instructions Recorded Confirmed Type atorvastatin 80 mg tablet 80 mg PO QPM 05/01/18 12/10/24 History finasteride 5 mg tablet 5 mg PO QAM 05/01/18 12/10/24 History nitroglycerin 0.4 mg sublingual 0.4 mg sublingual UD PRN Chest Pain 05/01/18 12/10/24 History tablet aspirin 81 mg tablet,delayed 81 mg PO QAM #30 tabs 05/04/18 12/10/24 Rx release (Ecotrin Low Strength) pantoprazole 40 mg tablet,delayed 40 mg PO DAILYBB 08/16/19 12/10/24 History release cholecalciferol (vitamin D3) 25 25 mcg PO DAILY 03/23/20 12/10/24 History mcg (1,000 unit) tablet isosorbide mononitrate 30 mg 30 mg PO QAM 06/01/21 12/10/24 History tablet,extended release 24 hr amlodipine 5 mg tablet 5 mg PO QAM 06/12/22 12/10/24 History citalopram 10 mg tablet 10 mg PO QAM 06/12/22 12/10/24 History empagliflozin 25 mg tablet 25 mg PO QAM 06/12/22 12/10/24 History (Jardiance) losartan 50 mg tablet 50 mg PO QAM 06/12/22 12/10/24 History melatonin 10 mg tablet 30 mg PO HS PRN Insomnia 06/12/22 12/10/24 History metformin 500 mg tablet,extended 500 mg PO QAM 06/12/22 12/10/24 History release 24 hr blood sugar diagnostic (OneTouch #100 ea 06/15/22 Rx Verio test strips) blood-glucose meter (OneTouch #1 ea 06/15/22 Rx Verio Meter) flash glucose sensor (FreeStyle #2 ea 06/15/22 Rx Nima 2 Sensor kit) lancets 33 gauge (OneTouch Delica #100 ea 06/15/22 Rx Lancets) pen needle, diabetic 33 gauge x #100 ea 06/15/22 Rx 5/32" apixaban 5 mg tablet (Eliquis) 5 mg PO BID 12/10/24 12/10/24 History cyanocobalamin (vitamin B-12) 1,000 mcg PO QAM 12/10/24 12/10/24 History 1,000 mcg tablet (Vitamin B-12) dextromethorphan-guaifenesin 10 1 tab-cap PO Q8H PRN Congestion 12/10/24 12/10/24 History mg-200 mg capsule (Coricidin HBP Chest Congestion-Cough) dextromethorphan-guaifenesin ER 60 1 tab PO Q12H PRN Congestion 12/10/24 12/10/24 History mg-1,200 mg tab,extend release,12hr (Mucinex DM) insulin glargine 100 unit/mL (3 10 unit subcut BID 12/10/24 12/10/24 History mL) subcutaneous pen (Lantus Solostar U-100 Insulin) multivitamin 1 tab PO QAM 12/10/24 12/10/24 History tamsulosin 0.4 mg capsule 0.4 mg PO QAM 12/10/24 12/10/24 History Past Med/Surg History Problem List (Updated 12/11/24 @ 10:35 by Jersey Roger MD) Ascending aortic aneurysm Elevated troponin I level (Acute) Exertional dyspnea (Acute) Chest pain (Acute) Acute non-ST elevation myocardial infarction (NSTEMI) (Acute) Chest pain Sleep apnea CPAP BPH loc w urin obs/LUTS Type 2 diabetes mellitus Long COVID Hyperglycemia (Acute) Elevated troponin (Acute) Poorly controlled diabetes mellitus Pneumonia due to COVID-19 virus (Acute) Hypoxia (Acute) Elevated glucose level (Acute) Pneumonia due to COVID-19 virus CKD (chronic kidney disease), stage III CAD (coronary artery disease) Hypertension Status post percutaneous transluminal coronary angioplasty Dyslipidemia, goal LDL below 70 Medical History (Updated 12/11/24 @ 10:35 by Jersey Roger MD) Espinoza esophagus Acute pancreatitis Myocardial infarction SOB (shortness of breath) on exertion PT REPORTS CARDIO IS AWARE Seasonal allergies Colitis DIETARY CONTROLLED History of kidney stones Hiatal hernia Acid reflux Rotator cuff dysfunction LEFT/ OLD INJURY Anxiety and depression Gastric polyp HTN, goal below 130/80 Dyslipidemia, goal LDL below 70 CAD in viejas artery ST elevation (STEMI) myocardial infarction APR 2018 - "ANGIOPLASTY" - DENIES STENT INSERTION ([facility]) Surgical History History of right cataract extraction History of angioplasty History of colonoscopy History of reduction of closed fracture LEFT ARM History of hemorrhoidectomy History of laparoscopic cholecystectomy S/P cardiac catheterization Myocardial infarction 2001, with PCI of circumflex. Cardiac catheterization 2003 demonstrating patent circumflex stent. Catheterization April 2013 with bare-metal stenting to the proximal and mid right coronary artery. Catheterization 2015 demonstrating patent stents and moderate nonobstructive CAD. Family History Brother CAD in viejas artery Coronary artery bypass grafting x4 at age 68 Mother CAD in viejas artery Social History (Updated 06/12/22 @ 15:00 by Tash Pandya PA-C) Smoking Status: Never smoker Second Hand Exposure: No; Do You Dip or Chew Tobacco: No; Hx Alcohol Use: No Hx Substance Use: No Preferred Language: Serbian Communication Ability: Effective Director Of [employer] Required: No Beliefs That Will Affect Care: None marital status: Single Current Living Situation: Spouse Current Living Situation Comment: Lives at home alone Other Information That Helps Us Care for You: No Feels Safe at Home: Yes Safety Concerns: Feels Safe At This Time Assistive Devices: Oxygen - at Night Review of Systems Review of Systems: See HPI Physical Exam Physical Exam: The patient is awake, alert and oriented 3, well developed and well nourished, normocephalic and atraumatic, in no acute distress. Non-toxic appearing. HEENT- EOMI, mucous membranes moist. Hearing grossly intact. Heart-normal S1 and S2. No murmurs, rubs or gallops. Lungs-clear bilaterally, no respiratory distress, no accessory muscle use. Abdomen-normal bowel sounds and soft. No ascites noted. Non-tender. Extremities- no clubbing, cyanosis, or edema. Rheumatologic-normal range of motion. Psychiatric-normal affect. Results & Data Results & Data Vital Signs (Past 12 Hours) Vital Signs Temp Pulse Resp BP Pulse Ox O2 Del Method 12/10/24 18:06 96 Room Air 12/10/24 18:01 54 L 12/10/24 17:17 36.6 C 58 L 18 155/95 H 95 Room Air Laboratory Results reviewed CBC, CMP, troponin, magnesium, UA Diagnostic Findings reviewed CXR Medications Administered EDaspirin 325 Mg p.o., nitroglycerin ECG Additional Comments: sinus bradycardia, rate 49, no ischemic changes QTc 411 Code Status & VTE Plan Code Status full VTE Prophylaxis Plan VTE Prophylaxis will be ordered: Yes Supervising Physician Co-Signing Physician Notes Patient seen and examined, chart reviewed, case discussed with ELIANE Mendez and I agree with the assessment and plan as above. Patient with extensive cardiac history presenting with chest pain. States that pain is similar to prior cardiac events MIld elevation in troponin NOn-specific changes on EKG Presently chest pain free Remainder of exam is unremarkable No clincal evidence of failure -Will admit, continuous cardiac monitoring -Trend troponin -Heparin gtt -Cardiology consultation appreciated -Remainder as above PG Care Time/CCT Total # of Minutes Spent Total Time Spent with Patient: Total time spent is greater than 50% in coordination of care (as documented) at patient's floor/unit and/or counseling patient: Coding Level of Care Code 30628 INT INP/OBS CARE 3/75MIN Diagnoses Chest pain R07.9 Elevated troponin R77.8 Coronary artery disease involving viejas coronary artery of viejas heart with other form of angina pectoris I25.118 Associated angina: with other forms of angina Coronary Disease-Associated Artery/Lesion type: viejas artery [place] vs. transplanted heart: viejas heart Poorly controlled diabetes mellitus E11.65 (3) CAD (coronary artery disease) Associated angina: with other forms of angina Coronary Disease-Associated Artery/Lesion type: viejas artery [place] vs. transplanted heart: viejas heart Qualified Code(s): I25.118 - Atherosclerotic heart disease of viejas coronary artery with other forms of angina pectoris
[2024-12-10] MEDS ORDERED: Heparin IV Adult Wt-Based Standard w/ INITIAL Bolus Protocol IV STA (20:27)
[2024-12-10] MEDS ORDERED: HEPARIN SOD (PORCINE) 1000 UNIT/ML IV ONE (20:42)
[2024-12-10] MEDS ORDERED: ONDANSETRON INJ 2 MG/ML 2 ML VIAL IV PRN (21:48)
[2024-12-10] MEDS ORDERED: GLUCOSE 10 TAB/TUBE PO PRN (21:48)
[2024-12-10] MEDS ORDERED: ACETAMINOPHEN 325 MG TAB PO PRN (21:48)
[2024-12-10] MEDS ORDERED: GLUCOSE 40% GEL 15 GM TUBE PO PRN (21:48)
[2024-12-10] MEDS ORDERED: DOCUSATE SODIUM 100 MG CAP PO PRN (21:48)
[2024-12-10] MEDS ORDERED: DEXTROSE 50% 50 ML SYRINGE IV PRN (21:48)
[2024-12-10] MEDS ORDERED: CARBOHYDRATES FOR HYPOGLYCEMIA PO PRN (21:48)
[2024-12-10] MEDS ORDERED: GLUCAGON FOR INJ 1 MG VIAL SQ PRN (21:48)
[2024-12-10] MEDS: ATORVASTATIN 40 MG TAB PO SCH (22:42)
[2024-12-10] MEDS: LANTUS PER UNIT CHARGE SQ SCH (22:42)
[2024-12-10] MEDS: HEPARIN SOD (PORCINE) 1000 UNIT/ML IV ONE (22:43)
[2024-12-10] MEDS: HEPARIN 25000 UNIT/500 ML D5W 25,000 UNITS/500 ML BAG IV SCH (22:46)
[2024-12-10] MEDS: MELATONIN 3 MG TAB PO PRN (22:49)
[2024-12-10] MEDS: INSULIN ASPART PER UNIT CHARGE SC SCH (23:22)
[2024-12-11 05:42] LABS: Albumin Globulin Ratio 1.6 (0.9-2); BUN Creatinine Ratio 17.8 (10-20); Bilirubin,Total 0.6 mg/dl (0.2-1.0); Calcium 8.9 mg/dl (8.6-10.3); Chol HDL Ratio 4.1 (0-5); Creatinine Clr Calc Pharmacy 52.2 ml/min; Globulin 2.3 gm/dl (2.5-4.0); Magnesium 2.2 mg/dl (1.7-2.4); Potassium 4.1 mmol/L (3.5-5.1)
[2024-12-11 06:20] LABS: Troponin I High Sensitivity 50.8 pg/ml (0-20)
[2024-12-11 06:25] LABS: ANTI-Xa, UFH(UnfractionatedHep > 1.50 IU/ml (0.3-0.7)
[2024-12-11 06:27] LABS: Basophils # (auto) 0.04 K/uL (0.00-0.20); Basophils % (auto) 0.5 %; Eosinophils # (auto) 0.19 K/uL (0.00-0.50); Eosinophils % (auto) 2.5 %; Hematocrit (blood only) 42.8 % (42.0-52.0); Hemoglobin 14.8 g/dl (14.0-18.0); Immature Granulocytes # (auto) 0.02 K/uL (0.01-0.20); Immature Granulocytes % (auto) 0.3 %; Lymphocytes # (auto) 2.46 K/uL (1.20-3.40); Lymphocytes % (auto) 32.5 %; Mean Corpuscular Hemoglobin 31.8 pg (25.0-34.0); Mean Corpuscular Hgb Conc 34.6 g/dL (32.0-36.0); Mean Corpuscular Volume 91.8 fL (80.0-100.0); Mean Platelet Volume 10.5 fL (9.4-12.4); Monocytes # (auto) 0.64 K/uL (0.11-0.59); Monocytes % (auto) 8.5 %; Neutrophils # (auto) 4.22 K/uL (1.40-6.50); Neutrophils % (auto) 55.7 %; Platelet Count 183 K/uL (130-400); RDW Standard Deviation 43.2 fL (36.4-46.3); Red Blood Count 4.66 M/uL (4.70-6.10); White Blood Count 7.57 K/ul (4.8-10.8)
[2024-12-11] MEDS: PANTOprazole 40 MG TAB PO SCH (07:06)
[2024-12-11 07:39] LABS: Estimated Average Glucose 171 mg/dl; Hemoglobin A1C 7.6 % (4.5-5.6)
[2024-12-11] MEDS: ISOSORBIDE MONO EXTENDED REL 30 MG TABCR PO SCH (08:52)
[2024-12-11] MEDS: TAMSULOSIN HCL 0.4 MG CAP PO SCH (08:52)
[2024-12-11] MEDS: FINASTERIDE 5 MG TAB PO SCH (08:52)
[2024-12-11] MEDS: LOSARTAN POTASSIUM 50 MG TAB PO SCH (08:52)
[2024-12-11] MEDS: amLODIPine BESYLATE 5 MG TAB PO SCH (08:53)
[2024-12-11 09:18] LABS: ANTI-Xa, UFH(UnfractionatedHep 1.23 IU/ml (0.3-0.7)
--- NOTE | 2024-12-11 09:41 | Electrocardiogram Report ---
Test Reason : Blood Pressure : */* mmHG Vent. Rate : 49 BPM Atrial Rate : 49 BPM P-R Int : 162 ms QRS Dur : 104 ms QT Int : 456 ms P-R-T Axes : 31 -28 111 degrees QTcB Int : 411 ms Sinus bradycardia Lateral infarct (cited on or before 01-May-2018) Abnormal ECG When compared with ECG of 14-Jun-2022 06:39, Premature ventricular complexes are no longer Present Confirmed by Gael Griffith ([id number]) on 12/11/2024 9:40:56 AM Referred By: REFERRED SELF Confirmed By: Gael Griffith
--- NOTE | 2024-12-11 10:15 | Cardiology Consultation ---
Date of Consultation December 11, 2024 Assessment & Plan (1) Chest pain: (2) Acute non-ST elevation myocardial infarction (NSTEMI): (3) Ascending aortic aneurysm: (4) Hypertension: (5) Dyslipidemia, goal LDL below 70: Plan 79-year-old male with longstanding ischemic heart disease with multiple coronary inventions left circumflex and right coronary artery presenting with new change in anginal pattern and a crescendo fashion approximately 5 days in duration. Sought ER evaluation second facility with elevated troponins noted with a rise fall pattern consistent with acute non-ST segment elevation myocardial infarction. Patient on guideline directed medical therapy other than beta-santiago due to bradycardia. Discussed above findings in detail with patient. Will likely proceed with diagnostic coronary angiography timing dependent on pretreatment for contrast allergy. Apixaban on hold History of Present Illness Reason for Consultation: Chest pain, elevated troponin Requesting Physician: Rubi hospitalist Attending Physician: Aldo Jackson MD, PhD History of Present Illness Patient is a complex 79-year-old male with ongoing issues which include 1. Longstanding chronic ischemic heart disease with stable angina pectoris 2. Circumflex area distribution myocardial infarction 2001 with bare-metal stent. Right coronary artery stenosis with bare-metal stent [address] with resultant ST elevation myocardial infarction with circ umflex OM occlusion x 2 3. Mild left ventricular dysfunction with posterolateral wall motion abnormality 4. Paroxysmal atrial fibrillation on chronic anticoagulation with apixaban 5. Interstitial/restrictive lung disease post-COVID 6. Obstructive sleep apnea 7. Dyslipidemia 8. Hypertension 9. Type 2 diabetes mellitus 10. Dilated ascending aorta 11. Espinoza's esophagus 12. Iodinated contrast allergy Patient presents this admission noting having sought initial evaluation at [facility] with symptoms of exertional and rest mid sternal chest discomfort. Symptoms relieved by nitroglycerin worsened by activity. Symptoms initially mild but progressively worsened over the next several days and patient sought ER evaluation at [facility]. Troponins elevated with upward and downward trend. Asymptomatic since admission. Last dose of apixaban yesterday morning. Did receive IV heparin overnight Contrast allergy No recent fevers chills or unexplained infections no bleeding issues. Appetite and weight are stable. Mildly active about home without specific limitation. No acute weight loss or gain. No distinct dysphagia. EKG sinus bradycardia with old lateral infarct no acute ST segment changes Allergies Allergy/AdvReac Type Severity Reaction Status Date / Time Iodinated Contrast Media Allergy Mild "IVP DYE" Verified 12/10/24 18:16 HIVES Home Medications Medication Instructions Recorded Confirmed Type atorvastatin 80 mg tablet 80 mg PO QPM 05/01/18 12/10/24 History finasteride 5 mg tablet 5 mg PO QAM 05/01/18 12/10/24 History nitroglycerin 0.4 mg sublingual 0.4 mg sublingual UD PRN Chest Pain 05/01/18 12/10/24 History tablet aspirin 81 mg tablet,delayed 81 mg PO QAM #30 tabs 05/04/18 12/10/24 Rx release (Ecotrin Low Strength) pantoprazole 40 mg tablet,delayed 40 mg PO DAILYBB 08/16/19 12/10/24 History release cholecalciferol (vitamin D3) 25 25 mcg PO DAILY 03/23/20 12/10/24 History mcg (1,000 unit) tablet isosorbide mononitrate 30 mg 30 mg PO QAM 06/01/21 12/10/24 History tablet,extended release 24 hr amlodipine 5 mg tablet 5 mg PO QAM 06/12/22 12/10/24 History citalopram 10 mg tablet 10 mg PO QAM 06/12/22 12/10/24 History empagliflozin 25 mg tablet 25 mg PO QAM 06/12/22 12/10/24 History (Jardiance) losartan 50 mg tablet 50 mg PO QAM 06/12/22 12/10/24 History melatonin 10 mg tablet 30 mg PO HS PRN Insomnia 06/12/22 12/10/24 History metformin 500 mg tablet,extended 500 mg PO QAM 06/12/22 12/10/24 History release 24 hr blood sugar diagnostic (OneTouch #100 ea 06/15/22 Rx Verio test strips) blood-glucose meter (DraftsterTouch #1 ea 06/15/22 Rx Verio Meter) flash glucose sensor (FreeStyle #2 ea 06/15/22 Rx Nima 2 Sensor kit) lancets 33 gauge (DraftsterTouch Delica #100 ea 06/15/22 Rx Lancets) pen needle, diabetic 33 gauge x #100 ea 06/15/22 Rx 5/32" apixaban 5 mg tablet (Eliquis) 5 mg PO BID 12/10/24 12/10/24 History cyanocobalamin (vitamin B-12) 1,000 mcg PO QAM 12/10/24 12/10/24 History 1,000 mcg tablet (Vitamin B-12) dextromethorphan-guaifenesin 10 1 tab-cap PO Q8H PRN Congestion 12/10/24 12/10/24 History mg-200 mg capsule (Coricidin HBP Chest Congestion-Cough) dextromethorphan-guaifenesin ER 60 1 tab PO Q12H PRN Congestion 12/10/24 12/10/24 History mg-1,200 mg tab,extend release,12hr (Mucinex DM) insulin glargine 100 unit/mL (3 10 unit subcut BID 12/10/24 12/10/24 History mL) subcutaneous pen (Lantus Solostar U-100 Insulin) multivitamin 1 tab PO QAM 12/10/24 12/10/24 History tamsulosin 0.4 mg capsule 0.4 mg PO QAM 12/10/24 12/10/24 History Patient History Medical History (Updated 12/11/24 @ 10:35 by Jersey Roger MD) Espinoza esophagus Acute pancreatitis Myocardial infarction SOB (shortness of breath) on exertion PT REPORTS CARDIO IS AWARE Seasonal allergies Colitis DIETARY CONTROLLED History of kidney stones Hiatal hernia Acid reflux Rotator cuff dysfunction LEFT/ OLD INJURY Anxiety and depression Gastric polyp HTN, goal below 130/80 Dyslipidemia, goal LDL below 70 CAD in havas[place]ai artery ST elevation (STEMI) myocardial infarction APR 2018 - "ANGIOPLASTY" - DENIES STENT INSERTION ([facility]) Surgical History History of right cataract extraction History of angioplasty History of colonoscopy History of reduction of closed fracture LEFT ARM History of hemorrhoidectomy History of laparoscopic cholecystectomy S/P cardiac catheterization Myocardial infarction 2001, with PCI of circumflex. Cardiac catheterization 2003 demonstrating patent circumflex stent. Catheterization April 2013 with bare-metal stenting to the proximal and mid right coronary artery. Catheterization 2015 demonstrating patent stents and moderate nonobstructive CAD. Family History Brother CAD in havasupai artery Coronary artery bypass grafting x4 at age 68 Mother CAD in havasupai artery Social History (Updated 06/12/22 @ 15:00 by Tash Pandya PA-C) Smoking Status: Never smoker Second Hand Exposure: No; Do You Dip or Chew Tobacco: No; Hx Alcohol Use: No Hx Substance Use: No Preferred Language: Northern Irish Communication Ability: Effective Railroad Car Inspector Required: No Beliefs That Will Affect Care: None marital status: Single Current Living Situation: Spouse Current Living Situation Comment: Lives at home alone Other Information That Helps Us Care for You: No Feels Safe at Home: Yes Safety Concerns: Feels Safe At This Time Assistive Devices: Oxygen - at Night Review of Systems Review of Systems: All systems reviewed & are unremarkable except as noted in HPI & below Physical Exam Constitutional: WD/WN, vitals as above no acute distress Eyes: PERRL, conjunctivae normal, anicteric sclerae ENMT: external ear and nose normal, oropharynx normal Neck: trachea midline, no thyromegaly Respiratory: Fine crackles basilar no wheezes Cardiovascular: Rate/Rhythm: regular rate and regular rhythm Heart Sounds: normal S1 and normal S2 Vessels: normal carotid upstroke, femoral pulses present and radial pulses present; no JVD Extremities: + edema (Trivial pedal) Gastrointestinal (Abdomen): normal bowel sounds, soft, nontender, no hepatosplenomegaly Musculoskeletal: no cyanosis or clubbing, extremities motor strength 5/5 Results & Data Vital Signs (Past 12 Hours) Vital Signs Temp Pulse Pulse Resp BP Pulse Ox O2 Del Method 12/11/24 07:39 36.5 C 47 L 18 137/67 95 Room Air 12/11/24 07:30 Room Air 12/11/24 05:45 50 L 12/11/24 03:46 36.5 C 50 L 17 113/62 95 CPAP 12/11/24 02:17 54 L 20 96 12/10/24 23:56 81 27 H 93 12/10/24 23:04 Room Air, CPAP 12/10/24 23:04 36.5 C 51 L 16 136/77 95 Room Air Laboratory Results Laboratory Results - last 24 hr 12/10/24 12/10/24 12/10/24 17:38 17:53 19:39 WBC 8.77 RBC 4.98 Hgb 15.5 Hct 44.9 MCV 90.2 MCH 31.1 MCHC 34.5 RDW Std Deviation 42.3 RDW Coeff of Dash[place] 13.0 Plt Count 206 MPV 10.3 Immature Gran % (Auto) 0.2 Neut % (Auto) 71.5 Lymph % (Auto) 19.2 [place] % (Auto) 6.8 Eos % (Auto) 1.7 Baso % (Auto) 0.6 Neut # (Auto) 6.27 Lymph # (Auto) 1.68 [place] # (Auto) 0.60 H Eos # (Auto) 0.15 Baso # (Auto) 0.05 Immature Gran # (Auto) 0.02 Heparin Anti-Xa, Unfract Sodium 135 L Potassium 4.4 Chloride 107 Carbon Dioxide 21 Anion Gap 7 BUN 22 Creatinine 1.24 Est Cr Clr Drug Dosing 55.9 eGFR 59.88 BUN/Creatinine Ratio 17.7 Glucose 181 H POC Glucose Estimat Average Glucose Hemoglobin A1c Calcium 9.3 Magnesium 2.1 Total Bilirubin 0.7 Direct Bilirubin 0.1 AST 21 ALT 24 Alkaline Phosphatase 70 Troponin I High Sens 57.7 H* 85.4 H* D Total Protein 6.8 Albumin 3.9 Globulin Albumin/Globulin Ratio Triglycerides Cholesterol LDL Cholesterol, Calc VLDL Cholesterol, Calc HDL Cholesterol Cholesterol/HDL Ratio Lipase 29 Urine Color Yellow Urine Appearance Clear Urine pH 5.5 Ur Specific [place] 1.036 H Urine Protein Negative Urine Glucose (UA) 3+ H Urine Ketones Negative Urine Blood Negative Urine Nitrite Negative Urine Bilirubin Negative Urine Urobilinogen Negative Ur Leukocyte Esterase Negative Urine Comment 12/10/24 12/11/24 12/11/24 22:18 04:52 07:33 WBC 7.57 RBC 4.66 L Hgb 14.8 Hct 42.8 MCV 91.8 MCH 31.8 MCHC 34.6 RDW Std Deviation 43.2 RDW Coeff of [place] 13.0 Plt Count 183 MPV 10.5 Immature Gran % (Auto) 0.3 Neut % (Auto) 55.7 Lymph % (Auto) 32.5 [place] % (Auto) 8.5 Eos % (Auto) 2.5 Baso % (Auto) 0.5 Neut # (Auto) 4.22 Lymph # (Auto) 2.46 [place] # (Auto) 0.64 H Eos # (Auto) 0.19 Baso # (Auto) 0.04 Immature Gran # (Auto) 0.02 Heparin Anti-Xa, Unfract > 1.50 H* Sodium 137 Potassium 4.1 Chloride 107 Carbon Dioxide 24 Anion Gap 6 BUN 23 Creatinine 1.29 Est Cr Clr Drug Dosing 52.2 eGFR 57.11 BUN/Creatinine Ratio 17.8 Glucose 193 H POC Glucose 120 H 134 H Estimat Average Glucose 171 Hemoglobin A1c 7.6 H Calcium 8.9 Magnesium 2.2 Total Bilirubin 0.6 Direct Bilirubin AST 17 ALT 21 Alkaline Phosphatase 57 Troponin I High Sens 50.8 H* D Total Protein 6.0 Albumin 3.7 Globulin 2.3 L Albumin/Globulin Ratio 1.6 Triglycerides 225 H Cholesterol 115 LDL Cholesterol, Calc 42 VLDL Cholesterol, Calc 45 H HDL Cholesterol 28 Cholesterol/HDL Ratio 4.1 Lipase Urine Color Urine Appearance Urine pH Ur Specific [place] Urine Protein Urine Glucose (UA) Urine Ketones Urine Blood Urine Nitrite Urine Bilirubin Urine Urobilinogen Ur Leukocyte Esterase Urine Comment 12/11/24 12/11/24 07:55 10:13 WBC RBC Hgb Hct MCV MCH MCHC RDW Std Deviation RDW Coeff of [place] Plt Count MPV Immature Gran % (Auto) Neut % (Auto) Lymph % (Auto) [place] % (Auto) Eos % (Auto) Baso % (Auto) Neut # (Auto) Lymph # (Auto) [place] # (Auto) Eos # (Auto) Baso # (Auto) Immature Gran # (Auto) Heparin Anti-Xa, Unfract 1.23 H* Pending Sodium Potassium Chloride Carbon Dioxide Anion Gap BUN Creatinine Est Cr Clr Drug Dosing eGFR BUN/Creatinine Ratio Glucose POC Glucose Estimat Average Glucose Hemoglobin A1c Calcium Magnesium Total Bilirubin Direct Bilirubin AST ALT Alkaline Phosphatase Troponin I High Sens Pending Total Protein Albumin Globulin Albumin/Globulin Ratio Triglycerides Cholesterol LDL Cholesterol, Calc VLDL Cholesterol, Calc HDL Cholesterol Cholesterol/HDL Ratio Lipase Urine Color Urine Appearance Urine pH Ur Specific [place] Urine Protein Urine Glucose (UA) Urine Ketones Urine Blood Urine Nitrite Urine Bilirubin Urine Urobilinogen Ur Leukocyte Esterase Urine Comment Diagnostic Findings Echocardiogram 12/11/2024 Sinus bradycardia The left ventricle is normal in size with moderate concentric left ventricular hypertrophy There is severe hypokinesis to akinesis of the posterior and lateral barton EF 45-50% with grade 1 diastolic dysfunction Aortic root borderline enlarged at 3.8 cm ascending aorta 4.5 cm (1) Chest pain Chest pain type: unspecified Qualified Code(s): R07.9 - Chest pain, unspecified (4) Hypertension Hypertension type: essential hypertension Qualified Code(s): I10 - Essential (primary) hypertension
[2024-12-11 10:52] LABS: ANTI-Xa, UFH(UnfractionatedHep 0.61 IU/ml (0.3-0.7)
--- NOTE | 2024-12-11 12:31 | Pre Anesthesia Assessment ---
Date of Service December 11, 2024 Pre Sedation Assessment Vital Signs Temp Pulse Pulse Resp BP BP Pulse Ox 12/11/24 12:05 78 18 139/70 97 12/11/24 10:46 97.7 F 47 L 18 137/67 95 12/11/24 07:39 97.7 F 47 L 18 137/67 95 12/11/24 07:30 12/11/24 05:45 50 L 12/11/24 03:46 97.7 F 50 L 17 113/62 95 12/11/24 02:17 54 L 20 96 12/10/24 23:56 81 27 H 93 12/10/24 23:04 12/10/24 23:04 97.7 F 51 L 16 136/77 95 12/10/24 22:00 51 L 12/10/24 21:48 97.7 F 51 L 16 136/77 95 12/10/24 21:12 50 L 16 119/73 94 12/10/24 20:21 139/78 12/10/24 19:36 51 L 23 132/77 94 12/10/24 19:12 54 L 24 140/84 12/10/24 19:00 50 L 20 118/70 12/10/24 18:30 50 L 21 130/76 95 12/10/24 18:24 53 L 27 H 123/69 94 12/10/24 18:06 96 12/10/24 18:04 136/77 12/10/24 18:01 54 L 12/10/24 17:17 97.9 F 58 L 18 155/95 H 95 O2 Del Method 12/11/24 12:05 Room Air 12/11/24 10:46 Room Air 12/11/24 07:39 Room Air 12/11/24 07:30 Room Air 12/11/24 05:45 12/11/24 03:46 CPAP 12/11/24 02:17 12/10/24 23:56 12/10/24 23:04 Room Air, CPAP 12/10/24 23:04 Room Air 12/10/24 22:00 12/10/24 21:48 Room Air 12/10/24 21:12 Room Air 12/10/24 20:21 12/10/24 19:36 Room Air 12/10/24 19:12 12/10/24 19:00 12/10/24 18:30 12/10/24 18:24 12/10/24 18:06 Room Air 12/10/24 18:04 12/10/24 18:01 12/10/24 17:17 Room Air Cardiovascular + regular rate Respiratory + respiratory effort normal Pre-Sedation Airway Assessment Smoking Status: Never smoker Hx Sleep Apnea: Yes Hx Difficult Intubation: No Short, Thick Neck: No Thyromental Distance: > or= 3.5 Finger Breadths Oral Cavity: + WNL Mallampati Class: III ASA: ASA3 NPO Status Date of Last Intake of Fluids: 12/11/24 Time of Last Intake of Fluids: 07:00 Date of Last Intake of Solid Food: 12/10/24 Time of Last Intake of Solid Foods: 23:00 Procedure Planning Contraindications for Sedation: none Current Medications Reviewed: Yes Notes The planned sedation has been discussed with the patient. Informed Consent was obtained. I have identified the patient, determined the appropriateness of sedation and have assessed the patient immediately prior to the procedure. All medicine(s) and interventions are by my order.
[2024-12-11] MEDS: NITROGLYCERIN/D5W 100MCG/ML 20ML SYR ONE (12:43)
[2024-12-11] MEDS: OPTIRAY 350 ONE (12:43)
[2024-12-11] MEDS: niCARdipine 2,000 MCG/20 ML SYR ONE (12:43)
[2024-12-11] MEDS: diphenhydrAMINE 50 MG/ML VIAL ONE (12:44)
[2024-12-11] MEDS: methylPREDNISolone 125 MG/2 ML VIAL ONE (12:44)
[2024-12-11] MEDS: FAMOTIDINE 20MG/5ML IV PUSH IV ONE (12:44)
[2024-12-11] MEDS: MIDAZOLAM HCL 1 MG/ML 2ML VIAL ONE (13:19)
[2024-12-11] MEDS: HEPARIN (PORCINE) 1000 UNIT/ML 10 ML (CATH LAB USE ONLY) ONE (13:19)
[2024-12-11] MEDS: IODIXANOL (VISIPAQUE) 320 MG/ML 100ML IV ONE (13:19)
[2024-12-11] MEDS: fentaNYL citrate PF 100 MCG/2 ML VIAL ONE (13:19)
--- NOTE | 2024-12-11 13:37 | Post Anesthesia Assessment ---
Date of Service December 11, 2024 Post Sedation Assessment Vital Signs Temp Pulse Pulse Resp BP BP Pulse Ox 12/11/24 12:05 78 18 139/70 97 12/11/24 10:46 97.7 F 47 L 18 137/67 95 12/11/24 07:39 97.7 F 47 L 18 137/67 95 12/11/24 07:30 12/11/24 05:45 50 L 12/11/24 03:46 97.7 F 50 L 17 113/62 95 12/11/24 02:17 54 L 20 96 12/10/24 23:56 81 27 H 93 12/10/24 23:04 12/10/24 23:04 97.7 F 51 L 16 136/77 95 12/10/24 22:00 51 L 12/10/24 21:48 97.7 F 51 L 16 136/77 95 12/10/24 21:12 50 L 16 119/73 94 12/10/24 20:21 139/78 12/10/24 19:36 51 L 23 132/77 94 12/10/24 19:12 54 L 24 140/84 12/10/24 19:00 50 L 20 118/70 12/10/24 18:30 50 L 21 130/76 95 12/10/24 18:24 53 L 27 H 123/69 94 12/10/24 18:06 96 12/10/24 18:04 136/77 12/10/24 18:01 54 L 12/10/24 17:17 97.9 F 58 L 18 155/95 H 95 O2 Del Method 12/11/24 12:05 Room Air 12/11/24 10:46 Room Air 12/11/24 07:39 Room Air 12/11/24 07:30 Room Air 12/11/24 05:45 12/11/24 03:46 CPAP 12/11/24 02:17 12/10/24 23:56 12/10/24 23:04 Room Air, CPAP 12/10/24 23:04 Room Air 12/10/24 22:00 12/10/24 21:48 Room Air 12/10/24 21:12 Room Air 12/10/24 20:21 12/10/24 19:36 Room Air 12/10/24 19:12 12/10/24 19:00 12/10/24 18:30 12/10/24 18:24 12/10/24 18:06 Room Air 12/10/24 18:04 12/10/24 18:01 12/10/24 17:17 Room Air Recovery Score Activity: Moves 4 extremities Respiration: Deep Breath/Cough Circulation: +/-20% PreAnes Value Consciousness: Fully Awake Oxygen Saturation: O2 needed for >90% Discharge Sedation Level of Care: Fast Track Phase II Post Sedation Plan tiss
--- NOTE | 2024-12-11 15:13 | Cardiac Catheterization ---
[facility] Data: Recreation Facility Manager Cardiac Status Clinical evaluation leading to the procedure CAD Presenation: Unstable angina Diagnostic Physicians Name: Denys Rico MD Closure Device Recommendations: Medical Therapy and/or Counseling Cardiac Cath Procedure Full Procedure Date December 11, 2024 Pre-Procedure Diagnosis Pre-Procedure Diagnosis: Acute Coronary Syndrome and CAD AUC Score AUC Score: 7 Post-Procedure Diagnosis Post-Procedure Diagnosis: Severe CAD and Normal Intracardiac Pressures Procedure(s) Performed Procedure(s) Performed: Coronary Angiography, Left Heart Cath, Ultrasound Guided Vascular Access and Fractional Flow [place] [employer] Maker Demonstrator Denys Rico MD Cleaning Crew Member(s) Terrence Estimated Blood Loss Estimated Blood Loss: 15 Medication(s) Medication(s): Fentanyl, Heparin, Lidocaine 1%, Nicardipine, Nitroglycerin and Versed Summary of Findings Indication: Suspected ACS, history of multivessel CAD, new wall motion abnormality on echo. Access: 6 Fr right ulnar artery under ultrasound guidance Catheters: Wirt, JR4 guide Findings: LM -normal caliber, 60% hazy distal stenosis extending into ostial circumflex LAD -medium caliber, calcified, 30% proximal disease, angulated mid segment at takeoff of diagonal with some myocardial bridging. Distal vessel with 30% disease before wrapping around apex. Small diagonal with 60% ostial Circumflex -medium caliber, acute 98% ostial stenosis, 40% mid stenosis. 95% proximal OM 2, mid OM2 stent widely patent. 40-50% distal stenosis just after takeoff of OM 2. Distal circumflex stent patent with 40-50% stenosis at distal aspect. RCA -dominant, medium caliber, mid segment stent widely patent with 30% in-stent restenosis. Latemid segment with 40 to 50% stenosis. Distal vessel without significant disease. Small PDA, posterior AV branch without significant disease. LVEDP -6 IFR of mid RCA disease RCA cannulated with JR4 guide [place] Omniwire normalized and navigated across mid segment disease into distal vessel IFR 0.98 No apparent coronary complications post wire removal Arterial Closure: TR band Summary: 1. Multivessel coronary artery disease - Acute appearing 60% distal left main extending into circumflex with 98% ostial stenosis 95% proximal OM2. Mid OM2 stent widely patent 40-50% distal circumflex. Distal circumflex stent widely patent Mid RCA stent 30% ISR, 40-50% latemid RCA stenosis (nonobstructive by IFR 0.98). 2. Normal intracardiac filling pressure Recommendations: Recommend transfer to tertiary center for consideration of CABG Resume anticoagulation with heparin when TR band removed Hemodynamics Rest Ao:: 119/73/88 Final Ao: 99//73 LV: 112/6 Recommendations Recommendations: Medical Therapy and/or Counseling Radiation Exposure (mGy) 1212 Contrast (mls) 40 Anesthesia Moderate [id number] Procedural Complication(s) None Disposition PCU I attest to the content of the Intraoperative Record and any orders documented therein. Any exceptions are noted below. Comply7G Card Cath Procedure Codes Cardiac Catheterization Procedure 1: Cardiovascular Cath Procedures: 69233 Coronaries and LHC (+/-LV) Procedure 2: Cardiovascular Cath Procedures: 38005 (Doppler) Pressure Wire Therapeutic Services & Ancillary Procedure 1: Cardiovascular Tx and Anc Procedures: 72851 Ultrasonic Guidance Vascular Access Moderate Sedation Procedure 1: Sedation/Anesthesia: 13750 Mod Sedation by the same physician;Init15 Min Child Age 5 & Up PG Care Time/CCT Total # of Minutes Spent Total Time Spent with Patient: Total time spent is greater than 50% in coordination of care (as documented) at patient's floor/unit and/or counseling patient:
--- NOTE | 2024-12-11 15:14 | Communication Note ---
Date of Service: December 11, 2024 Patient underwent diagnostic coronary angiography today for crescendo angina/non-ST segment elevation myocardial infarction. Please see formal report Study demonstrated critical ostial stenosis of the left circumflex with ulcerated extension into the distal left main. Recommendations: Restart IV heparin Transfer to [facility] for surgical evaluation of critical coronary artery disease, ascending aortic aneurysm
[2024-12-11 15:28] VITALS: RESP 18
--- NOTE | 2024-12-11 15:38 | Discharge Summary ---
Discharge Summary Date of Service December 11, 2024 Principal Dx & Hospital Course #1 = Principal Diagnosis (1) Chest pain: Due to severe multi-vessel CAD. cf., fasting cholesterol: total cholesterol 115, HDL 28, LDL 42, triglyceride 225 (12/11/2024, 4:52am). Continue high intensity atorvastatin 80mg PO qpm. (2) Elevated troponin: cf., troponin #1 57.7 pg/mL (12/10/2024, 5:53pm). cf., troponin #2 85.4 pg/mL (12/10/2024, 7:39pm). cf., troponin #3 50.8 pg/mL (12/11/2024, 4:54am). cf., troponin #4 44.7 pg/mL (12/11/2024, 10:13am). Due to severe multi-vessel CAD. Patient subsequently underwent cardiac catheterization (12/11/2024, 1:38pm) via right radial artery approach: Summary: 1. Multivessel coronary artery disease - Acute appearing 60% distal left main extending into circumflex with 98% ostial stenosis 95% proximal OM2. Mid OM2 stent widely patent 40-50% distal circumflex. Distal circumflex stent widely patent Mid RCA stent 30% ISR, 40-50% latemid RCA stenosis (nonobstructive by IFR 0.98). 2. Normal intracardiac filling pressure Recommendations: Recommend transfer to tertiary center for consideration of CABG Resume anticoagulation with heparin when TR band removed Patient now awaits transfer to [facility]) on 12/11/[address] Alonso Gresham to undergo evaluation by Cardio- Thoracic Surgery Service for anticipated CABG. (3) CAD (coronary artery disease): cf., fasting cholesterol: total cholesterol 115, HDL 28, LDL 42, triglyceride 225 (12/11/2024, 4:52am). Continue high intensity atorvastatin 80mg PO qpm. (4) Poorly controlled diabetes mellitus: Long-term glycemic control is poor with HbA1c 7.4% (12/11/2024, 4:52am). cf., admission glucose 181 mg/dL (12/10/2024, 5:53pm). cf., discharge glucose 193 mg/dL (12/11/2024, 4:52am). Patient received carbohydrate consistent diet, lispro insulin sliding scale qac + qhs, and POC glucose qac + qhs while in [facility]. Patient will continue this same regimen on hospital discharge / transfer to [facility]) on 12/11/[address] Alonso Gresham. (5) Chronic diastolic (congestive) heart failure: cf., TTE (05/01/2018): LVEF 55-60%, grade I LV diastolic dysfunction, normal RV systolic function, moderate size wall motion abnormality involving the postero- lateral barton with hypokinesis to akinesis of the segments (as per CARDS Dr. Jean Garcia). cf., TTE (12/11/2024, 6:18am): LVEF 45-50%, grade I LV diastolic dysfunction, normal RV systolic function, severe hypokinesis to akinesis of the postero- lateral barton. (as per CARDS Dr. Jersey Roger). Chronic diastolic CHF is probably due to severe multi-vessel coronary artery disease. Patient subsequently underwent cardiac catheterization (12/11/2024, 1:38pm) via right radial artery approach: Summary: 1. Multivessel coronary artery disease - Acute appearing 60% distal left main extending into circumflex with 98% ostial stenosis 95% proximal OM2. Mid OM2 stent widely patent 40-50% distal circumflex. Distal circumflex stent widely patent Mid RCA stent 30% ISR, 40-50% latemid RCA stenosis (nonobstructive by IFR 0.98). 2. Normal intracardiac filling pressure Recommendations: Recommend transfer to tertiary center for consideration of CABG Resume anticoagulation with heparin when TR band removed Patient now awaits transfer to [facility]) on 12/11/[address] Alonso Gresham to undergo evaluation by Cardio- Thoracic Surgery Service for anticipated CABG. Plan 79 years old male with PMH of FULL CODE @ home, overweight with BMI 28.1 (height 175.26 cm; weight 86.3 kg),JARETT on CPAP, insulin-dependent DM2, long COVID on O2 prn SOB/wheeze, CKD stage III, HTN, CAD s/p acute NSTEMI (2001), s/p stent to LCX x 1 (2003, [facility]), s/p stent to mid-RCA and stent to proximal RCA (2012), s/p stent (2017), Patient presented due to worsening chest pain. he was found to have a troponin of 57.7 and is currently chest pain free after nitroglycerin and aspirin in the ED. He is being admitted for troponin trend, cardiac workup including echocardiogram vs cardiac cath. #chest pain/elevated troponin - hx CAD s/p AK 2001, circumflex stent 2003, mid RCA and proximal RCA stent 2012. Currently chest pain free after nitroglycerin and ASA in ED. Troponin 57.7 -> 85.4. EKG showed sinus bradycardia, no ischemic changes, electrolytes WNL. JESSICA risk score 6 points. CXR showed improved opacity and bilateral pleural effusions, cardiomegaly with congestion. - start on heparin bolus and drip given elevated trop and significant PMHx - hold Eliquis - given asa 325 mg PO in ED, hold 81 mg daily with potential cardiac cath - SL NTG 0.4mg prn for chest pain - continue atorvastatin 80 mg daily and Imdur 30 mg po daily - NPO after midnight for potential cardiac cath - [facility] cardiology consulted, patient follows with out patient although has not seen in ~ 2 years - Troponin q6hr x 3 - lipid panel and A1C with AM labs - echocardiogram ordered - monitor on telemetry - EKG with chest pain as needed #T2DM - Most recent A1C 13.6% in 2021, repeat with AM labs. - hold Jardiance and metformin - SSI with target BSG range 110-180mg/dL, CF 30, defer carb ratio - Lantus 10 U BID #HTN - continue amlodipine and losartan #BPH - continue finasteride and tamsulosin #GERDcontinue PPI #JARETT - cpap HS #mental health - hold citalopram until no longer NPO #long Covid - with significant chronic cough, no longer uses prn oxygen. #CKD - stage 3, avoid nephrotoxic agents. VTE ppx: Heparin drip Dispo: PCU Admission HPI Per Admitting Provider Patient is a 79-year-old male with past medical history of CAD s/p cardiac stent 2017, stage III CKD, type II DM insulin controlled, JARETT on CPAP, HTN, HLD, long COVID with as needed oxygen. Patient presented due to worsening chest pain. he was found to have a troponin of 57.7 and is currently chest pain free after nitroglycerin and aspirin in the ED. He is being admitted for troponin trend, cardiac workup including echocardiogram. Patient seen at bedside. He stated that for the past few months he has had on and off chest pain that occurs both at rest and on exertion, however is worse with exertion and has associated shortness of breath. He stated the pain feels like a bubble in the area, he does have belching with this however denies any acid reflux. He stated he takes nitroglycerin which typically relieves the pain however yesterday he had to take nitroglycerin 4-5 times and the chest pain kept returning. At 9 PM last night he had significant chest pain that did not resolve so he went to the [place] [facility]. he said they told him he had an elevated troponin but did not give him the number and discharged him home as they did not see anything significant. At about 130 this afternoon patient had worsening chest pain which was relieved with 2 nitroglycerin and Tylenol. He has an appointment with his PCP on Wednesday which she was trying to wait for however was concerned about the chest pain as it feels exactly the same as when he had an AK in 2018. Patient also stated he had an AK when he was 55 years old and had stents placed at [facility]. He endorses that the pain radiated to his back today for the first time, denies any radiation to his arms or jaw. He does have a chronic cough due to long COVID which does worsen the pain. He denies any nicotine or alcohol use. He does not use any oxygen at baseline. He stated he is on Eliquis for previous blood clots but does not remember where they were, nothing noted in patient's history on EMR. He is due for his evening insulin and Eliquis at 8 PM. He wishes to be full code. He is agreeable to admission with further workup and cardiology consult, would be agreeable to cardiac catheter if recommended. Patient's updated at bedside. Discharge Exam Constitutional General: Comfortable, cooperative, coherent. Wide awake and alert. Not confused, lethargic, or obtunded. Patient speaks in complete, fluent, and articulate sentences without pause, interruption, cough, or wheeze. HEENT: Normocephalic, atraumatic. Pupils equally round and reactive to light. No nystagmus, gaze paresis, anisocoria, miosis, mydriasis, hyphema, scleral injection, conjunctivitis, or pterygium. No otorrhea. No pharyngeal erythema, edema, or discharge. Neck: Supple, no stridor, bruit, goiter, or hepato-jugular reflux. Jugular venous pressure is estimated to be 3 cm above the sternal angle of Hemanth, which in turn, is 5 cm above the level of the right atrium; with jugular venous pressure estimated to be 8 cm, then, there is no jugular venous distention on 12/11/2024. Lymphatics: No cervical (anterior/posterior), supraclavicular, infraclavicular, axillary, epitrochlear, or inguinal adenopathy. Chest: Symmetric rise and fall with respirations. Non-tender to palpation. Lungs: Clear to auscultation and percussion. No audible expiratory wheeze, egophony, pectoriloquy, increase in tactile fremitus, or flatness/dullness to percussion at the bases. Heart: RRR. S1 and S2 noted. No S3 or S4 summation gallop. No tripartite friction rub. Grade II/ early systolic murmur @ LLSB without radiation to the carotids, axilla, or back, and which remains invariant in regards to the respiratory cycle. Abdomen: Soft, non-tender, non-distended. No rebound, guarding, Henry's sign, or organomegaly. Bowel sounds auscultated in all 4 quadrants. Extremities: No clubbing, cyanosis, or edema in upper extremities or lower extremities bilaterally. 2+ pedal pulses bilaterally. No hematoma @ right radial artery catheterization site on 12/11/2024. Skin: No decubitus ulcer or enanthem. Genito-urinary: No urethral discharge. No ortega catheter. Neurology: No myoclonus, tremors, or tics. Psychiatry: No homicidal ideation. No suicidal ideation. No flat affect; smiles appropriately. Discharge Plan Discharge Items Patient Disposition: Transfer Acute Care Hospital Reason For Visit: CHEST PAIN,ELEVATED TROPONIN Discharge Diagnosis: Acute NSTEMI Condition on Discharge: Fair Activity: Per Instructions section Activity Comment: Bedrest for anticipated CABG @ [facility] ([facility]). Lifting: None Bathing: No limitations Sexual Activity: Wait until after follow-up appointment Exercise/Sports: None Weightbearing: Full weightbearing Non-emergency contact: Primary Care Provider Call non-emergency contact if: you have any medication questions Follow-up/Referrals: Jose Wilks DO [Primary Care Provider] - Diet: Heart Healthy Addtl Attending Provider Instructions: See your PCP Dr. Jose Wilks within 5-7 days of hospital discharge from [facility] ([facility]). Pending Studies at Discharge: No Stand-Alone Forms: My [facility] Skilled Items Patient informed of condition?: Yes DNR: No Discharge Level of Care: Other Communicable Disease: No Discharge Prognosis: Stable Lines: Peripheral IV Urinary Catheter: No Medications and DC Order Prescriptions: Continued atorvastatin 80 mg tablet 80 mg PO QPM nitroglycerin 0.4 mg tablet, sublingual 0.4 mg Sublingual UD PRN (Reason: Chest Pain) finasteride 5 mg tablet 5 mg PO QAM aspirin [Ecotrin Low Strength] 81 mg Tablet,Delayed Release (Dr/Ec) 81 mg PO QAM Qty: 30 2RF pantoprazole 40 mg tablet,delayed release (DR/EC) 40 mg PO DAILYBB isosorbide mononitrate 30 mg tablet extended release 24 hr 30 mg PO QAM losartan 50 mg tablet 50 mg PO QAM citalopram 10 mg tablet 10 mg PO QAM amlodipine 5 mg tablet 5 mg PO QAM melatonin 10 mg Tablet 30 mg PO HS PRN (Reason: Insomnia) tamsulosin 0.4 mg capsule 0.4 mg PO QAM Held cholecalciferol (vitamin D3) 25 mcg (1,000 unit) Tablet 25 mcg PO DAILY Hold Instructions: Resume on 12/18/24. metformin 500 mg tablet extended release 24 hr 500 mg PO QAM Hold Instructions: Resume on 12/18/24. Jardiance 25 mg Tablet 25 mg PO QAM Hold Instructions: Resume on 12/18/24. (DME) blood-glucose meter [OneTouch Verio Meter] Misc See Rx Instructions .Route Qty: 1 0RF Hold Instructions: Resume on 12/18/24. Rx Instructions: As directed (DME) OneTouch Verio test strips Strip See Rx Instructions .Route Qty: 100 2RF Hold Instructions: Resume on 12/18/24. Rx Instructions: As directed (DME) lancets [OneTouch Delica Lancets] 33 gauge misc See Rx Instructions .Route Qty: 100 2RF Hold Instructions: Resume on 12/18/24. Rx Instructions: As directed (DME) pen needle, diabetic 33 gauge x 5/32" needle See Rx Instructions .Route Qty: 100 2RF Hold Instructions: Resume on 12/18/24. Rx Instructions: As directed (DME) FreeStyle Nima 2 Sensor Kit See Rx Instructions .Route Qty: 2 0RF Hold Instructions: Resume on 12/18/24. Rx Instructions: As directed multivitamin Tablet 1 tab PO QAM Hold Instructions: Resume on 12/18/24. Coricidin HBP Chest Corey-Cough 10-200 mg Capsule 1 tab-cap PO Q8H PRN (Reason: Congestion) Hold Instructions: Resume on 12/18/24. cyanocobalamin (vitamin B-12) [Vitamin B-12] 1,000 mcg Tablet 1,000 mcg PO QAM Hold Instructions: Resume on 12/18/24. dextromethorphan-guaifenesin [Mucinex DM] 60-1,200 mg Tablet Extended Release 12 Hr 1 tab PO Q12H PRN (Reason: Congestion) Hold Instructions: Resume on 12/18/24. Eliquis 5 mg tablet 5 mg PO BID Hold Instructions: Resume on 12/18/24. insulin glargine [Lantus Solostar U-100 Insulin] 100 unit/mL (3 mL) insulin pen 10 unit subcut BID Hold Instructions: Resume on 12/18/24. Discharge Orders: Discharge Order (Routine); Ordered 12/11/24 Ordered By: Aldo Hearn/Other Patient Handouts: Managing Type 2 Diabetes Admission Data Admit Date/Time: 12/10/24 20:54 Attending Provider: Aldo Jackson Admit Provider: Barbara Liang Primary Care Provider: Jose Wilks Other Providers: Barbara Liang; Kemi Gomez Hospital Stay Data Consultations 12/10/24 19:06 ED Decision to Admit Stat 12/10/24 21:48 Consult Cardiology Routine Procedures Performed Operation Date: 12/11/24 12:00 Actual Procedures p Cath, Left with Cors and Vent - Denys Rico MD s Cineradiography w/Routine Exam - Denys Rico MD Diagnostic Imagining Performed 12/11/24 11:50 CL Cath Imgs for PACS use only Routine Pending Results Patient Have Any Pending Studies at Discharge: No Discharge Instructions Given to Patient (Per Discharging Provider) See your PCP Dr. Jose Wilks within 5-7 days of hospital discharge from [facility]). Total Time Total Time Spent Total Time Spent (In Minutes): 35 mintues. Of this time period, 19 minutes were spent in coordinating patient's discharge. Coding Level of Care Code 74521 INP/OBS DISCH >30 MIN Diagnoses Chest pain R07.9 Elevated troponin R77.8 Coronary artery disease involving habematolel coronary artery of habematolel heart with other form of angina pectoris I25.118 Associated angina: with other forms of angina Coronary Disease-Associated Artery/Lesion type: habematolel artery [place] vs. transplanted heart: habematolel heart Poorly controlled diabetes mellitus E11.65 Chronic diastolic (congestive) heart failure I50.32
[2024-12-11 17:57] LABS: ANTI-Xa, UFH(UnfractionatedHep 0.48 IU/ml (0.3-0.7)
[2024-12-11] MEDS: LIDOCAINE 1% LOCAL 20 ML VIAL ONE (18:47)
[2024-12-11] MEDS: ASPIRIN 81 MG CHEW ONE (18:47)
[2024-12-11] MEDS: NITROGLYCERIN SL 0.4 MG/TAB TAB SL PRN (19:27)
[2024-12-11 19:47] VITALS: BP 165/82; PULSE 76; TEMP 97.3; O2SAT 94
--- NOTE | 2024-12-12 09:09 | Coding Query ---
CODING QUERY To promote full compliance with coding requirements relating to patient care, provider participation is requested in all cases of template storage clerk uncertainty. Please assist us with the question(s) below: Coding Question(s): The patient's chest pain is noted in the discharge summary as "due to severe multi-vessel CAD." Also, the following documentation is present in the cardiology consult from 12/11 "Acute non-ST elevation myocardial infarction (NSTEMI): Sought ER evaluation second facility with elevated troponins noted with a rise fall pattern consistent with acute non-ST segment elevation myocardial infarction." Could you please clarify the most likely cause of the patient's presentation? Severe, multi-vessel CAD without NSTEMI (x ) NSTEMI, POA ( ) Other, please specify ( ) Physician's Response(s): Thank you Kait Carmichael Principal Diagnosis: "that condition established after study, to be chiefly responsible for occasioning the admission of the patient to the hospital for care." Co-Existing Principal Diagnosis: "when two or more diagnoses equally meet the criteria for principal diagnosis as determined by the circumstances of admission, diagnostic work up, and/or therapy provided, and the Alphabetic Index, Tabular List, or another coding guideline does not provide sequencing direction, any one of the diagnoses may be sequenced first." "When the physician has documented what appears to be a current diagnosis in the body of the record, but has not included the diagnosis in the final diagnostic statement, the physician should be asked whether the diagnosis should be added." (Source Coding [facility] 2 QTR90. p3-4) VALERIE
--- NOTE | 2024-12-12 14:38 | Electrocardiogram Report ---
Test Reason : Blood Pressure : */* mmHG Vent. Rate : 50 BPM Atrial Rate : 50 BPM P-R Int : 164 ms QRS Dur : 102 ms QT Int : 508 ms P-R-T Axes : 25 -28 101 degrees QTcB Int : 463 ms Sinus bradycardia Lateral infarct (cited on or before 01-May-2018) Abnormal ECG When compared with ECG of 10-Dec-2024 17:25, QT has lengthened Confirmed by Gael Griffith ([id number]) on 12/12/2024 2:38:20 PM Referred By: REFERRED SELF Confirmed By: Gael Griffith
== END 2024-12-11 19:57 | disposition short-term general hospital (02) | DRG 287 ==
LOC: ED 17:16 → 2S 20:54 → SUATTDRO 20:54 → 2S 21:28